=== PATIENT | female | born 1955 | race Caucasian/White ===

== ENCOUNTER 2020-08-27 14:00 | Outpatient (CLI) | payer MEDICARE, SELFPAY ==
--- NOTE | ~2020-08-27 | CT_ITS ---
EXAMINATION: CT lung screening DATE: 08/27/2020 14:30 INDICATION: personal hx of tobacco dependence TECHNIQUE: Computed tomography (CT) of the chest was performed without intravenous contrast. Addition al 3D reconstructions utilizing coronal maximum intensity projection (MIP) were performed. Automated exposure control and iterative reconstruction technique were employed. The dose-length product was 10 3.25 mGy-cm. COMPARISON: 10/08/2018 FINDINGS: Mild to moderate emphysema. Stable appearance of mild left-sided and moderate right-sided apical pleu ral-parenchymal scarring. No significant interval change in three 4-5 mm nodule at the apical segmen t of the right upper lobe. Unchanged 11 x 7 mm pleural-based nodule in the anterior segment of the ri ght upper lobe abutting both the minor fissure and the lateral pleural . There is a new 8 mm ground g lass nodule in the anterobasilar segment of the right lower lobe. Calcified left lower lobe nodule co nsistent with old granulomatous disease. Unchanged scattered groundglass opacities with associated mi ld septal line which is most prominent in the right middle lobe and likely sequela of chronic inflamm ation/infection. No pleural effusion. Heart size is normal. Minimal atherosclerotic calcific lesion a long the right coronary artery. No pericardial effusion. Thoracic aorta is normal in caliber. Calcifi ed left hilar lymph nodes consistent with old granulomatous disease. Slight decrease in size of a mil dly prominent likely reactive precarinal lymph node previously measuring 1.4 cm in maximal short axis diameter, now 1.1 cm. No pathologically enlarged thoracic lymphadenopathy. Cholecystectomy clips the gallbladder fossa. Visualized upper abdomen is otherwise unremarkable. Mild thoracic kyphosis with c hronic T8 compression fracture with 20% anterior vertebral body height loss. IMPRESSION: 1. New 8 mm groundglass nodule in the right lower lobe. Lung-RADS category 3: Probably benign. Furthe r evaluation is recommended with noncontrast low-dose chest CT in 6 months. Reviewed, dictated and finalized at location B. IMPRESSION: 1. New 8 mm groundglass nodule in the right lower lobe. Lung-RADS category 3: P robably benign. Further evaluation is recommended with noncontrast low-dose mervat st CT in 6 months.
== END 2020-08-27 14:01 | disposition home or self-care (01) ==
PROVIDERS: PCP Family Medicine; Visit Provider Family Medicine
DX: R91.1 Solitary pulmonary nodule (principal); Z12.2 Encounter for screening for malignant neoplasm of respiratory organs; Z87.891 Personal history of nicotine dependence
CPT/HCPCS: 71271

== ENCOUNTER 2021-02-05 08:04 | Outpatient (CLI) | payer MEDICARE, SELFPAY ==
--- NOTE | ~2021-02-05 | MM_ITS ---
EXAMINATION: MM screening arleen BI w merlene HISTORY: Screening TECHNIQUE: Craniocaudal and mediolateral oblique 3-D tomosynthesis images were obtained and synthetic 2-D images were generated. CAD analysis was submitted and interpreted. COMPARISON: Comparison to multiple prior studies sequentially, with oldest reviewed study dated 02/01. BREAST PARENCHYMAL COMPOSITION: There are scattered areas of fibroglandular density. FINDINGS: Left breast periareolar nodules are slightly more prominent than on prior examination. The right breast is stable without evidence for malignancy. IMPRESSION: 1. Increased density in possibly size of left periareolar breast nodules. 2. Left breast ultrasound recommended. BI-RADS Category 0: Incomplete: Needs additional imaging evaluation. Reviewed, dictated and finalized at location [facility].
== END 2021-02-05 08:05 | disposition home or self-care (01) ==
LOC: ANHIMG 08:05
PROVIDERS: PCP Family Medicine; Visit Provider Family Medicine
DX: Z12.31 Encounter for screening mammogram for malignant neoplasm of breast (principal); N63.42 Unspecified lump in left breast, subareolar
CPT/HCPCS: 77063; 77067

== ENCOUNTER 2021-03-03 14:20 | Outpatient (CLI) | payer MEDICARE, SELFPAY ==
--- NOTE | ~2021-03-03 | US_ITS ---
US breast LT limited 03/03/2021 15:05 Indication: Follow-up left breast mass Procedure: High-resolution Limited ultrasound of the left breast Comparison: Mammogram dated 02/05/2021 Findings: There is a 4 mm cyst of the left breast in the subareolar location corresponding to the mas s seen on mammography. No definite sonographic correlate to a small mass identified in the lower inne r quadrant of the left breast anteriorly, also likely benign. Impression: 1: Benign left breast cyst in the subareolar location. No definite sonographic correlate to second ma ss seen on mammography which is likely benign. BI-RADS CATEGORY 3-PROBABLY BENIGN FINDING RECOMMENDATION: Six-month follow-up diagnostic left mammogram recommended. Reviewed, dictated and finalized at location [facility]. Impression: 1: Benign left breast cyst in the subareolar location. No definite sonographic correlate to second mass seen on mammography which is likely benign. BI-RADS CATEGORY 3-PROBABLY BENIGN FINDING RECOMMENDATION: Six-month follow-up diagnostic left mammogram recommended.
== END 2021-03-03 14:21 | disposition home or self-care (01) ==
PROVIDERS: PCP Family Medicine; Visit Provider Nurse Practitioner Family
DX: R92.8 Other abnormal and inconclusive findings on diagnostic imaging of breast (principal); N60.02 Solitary cyst of left breast
CPT/HCPCS: 76642

== ENCOUNTER 2021-03-19 08:23 | Outpatient (CLI) | payer MEDICARE, SELFPAY ==
--- NOTE | ~2021-03-19 | CT_ITS ---
EXAMINATION: CT diagnostic chest wo con DATE: 03/19/2021 09:05 INDICATION: Six-month follow-up for probably benign pulmonary nodule identified on lung cancer screen ing CT TECHNIQUE: Computed tomography (CT) of the chest was performed without intravenous contrast. The dose -length product (DLP) was 70.06 mGy-cm. Automated exposure control and iterative reconstruction techn ique were employed. COMPARISON: 08/27/2020 FINDINGS: A 10 mm x 6 mm groundglass nodule of the right lower lobe previously measured 8 mm x 5 mm. There is a new 4 mm nodule of the left lower lobe on image 63. Additional previously described pulmon sotero nodules are stable. There is mild emphysema. Scarring is noted in the right lung apex. There is n o pleural effusion or pneumothorax. The heart size is normal. Chronic mild mediastinal lymphadenopath y is unchanged and likely reactive. There is a chronic mild compression fracture of the T8 vertebral body. IMPRESSION: 1. Slight interval increase in size of a groundglass right lower lobe nodule without solid component and new 4 mm nodule of the left lower lobe. Follow-up CT in six months is recommended. Reviewed, dictated and finalized at location A. IMPRESSION: 1. Slight interval increase in size of a groundglass right lower lobe nodule wi thout solid component and new 4 mm nodule of the left lower lobe. Follow-up CT in six months is recommended.
== END 2021-03-19 08:24 ==
LOC: MICIMG 08:24
PROVIDERS: PCP Family Medicine; Visit Provider Family Medicine
DX: R91.8 Other nonspecific abnormal finding of lung field (principal)
CPT/HCPCS: 71250

== ENCOUNTER 2021-04-23 01:28 | Day surgery (SDC) | payer MEDICARE, SELFPAY ==
[2021-04-07 11:20] VITALS: BMI 23.9
--- NOTE | 2021-04-22 15:43 | WPDGICN ---
Assessment and Plan Assessment and plan (1) Colon cancer screening: Code(s): Z12.11 - Encounter for screening for malignant neoplasm of colon Status: Acute Assessment and Plan: Colonoscopy with possible biopsy or polypectomy or cautery or injection of substances. (2) Weight loss: Code(s): R63.4 - Abnormal weight loss Status: Acute Assessment and Plan: EGD with possible biopsy or dilatation or cautery. GI Consult Note Consult date/time: 04/22/21 15:43 HPI: Megan Lyons is a 65 year old female with a decreased appetite, nausea and weight loss. She is referred for colon cancer screening. Review of Systems Review of Systems: All systems reviewed & are unremarkable except as noted in HPI and below PMFSH Surgical History Surgical History History of cholecystectomy History of D&C Status post hysterectomy Status post tubal ligation Family History Family History Mother Family history of malignant neoplasm Family history of diabetes mellitus in first degree relative Diabetes mellitus Hypertension Family history of primary malignant neoplasm of liver, Onset Age: 73 Family history of lung disease Family history of malignant neoplasm of kidney, Onset Age: 73 Father Family history of lung cancer, Onset Age: 72 Family history of diabetes mellitus in first degree relative Diabetes mellitus Hypertension Grandparent Diabetes mellitus Family history of malignant neoplasm of brain Sibling Hypertension, Onset Age: 63 Patient's brother is Family history of pancreatic cancer Social History Social History Years smoked: 50 Smoking status: Current every day smoker Tobacco type: cigarettes Second hand tobacco smoke exposure: Yes Alcohol intake: never Substance use: former Substance use type: does not use Last use: 03/14/2021 Living arrangements: with family Gender identity (if verbalized by the patient): Female Sexual Orientation (if Verbalized by the Patient): Straight or Heterosexual Meds Home Medications and Allergies Home Medications Medication Instructions Recorded Confirmed Type aspirin 81 mg tablet,delayed 81 mg PO DAILY 05/07/19 04/07/21 History release calcium carbonate 600 mg calcium 1,200 mg PO DAILY tablet 05/07/19 04/07/21 History (1,500 mg) tablet ibandronate 150 mg tablet 150 mg PO MONTHLY 05/07/19 04/07/21 History omega 9-dzv-rqg-fish oil 1,000 mg 1 cap PO DAILY 05/07/19 04/07/21 History (120 mg-180 mg) capsule fluticasone propionate 50 2 spray NASAL DAILY #54.6 ml 11/08/19 04/07/21 Rx mcg/actuation nasal spray,suspension fenofibrate nanocrystallized 145 145 mg PO DAILY #90 tablet 08/04/20 04/07/21 Rx mg tablet albuterol sulfate See Rx Instructions .ROUTE 09/14/20 04/07/21 Rx .COMPLEX #1050 ml fluticasone fur. 100 mcg-umeclid See Rx Instructions .ROUTE 09/14/20 04/07/21 Rx 62.5 mcg-vilant 25 mcg .COMPLEX #180 ea inhalat.powder lisinopril 20 mg tablet See Rx Instructions .ROUTE 09/14/20 04/07/21 Rx .COMPLEX #90 tablet roflumilast 500 mcg tablet 500 mcg PO DAILY #90 tablet 11/04/20 04/07/21 Rx albuterol sulfate 90 mcg/actuation See Rx Instructions .ROUTE 11/10/20 04/07/21 Rx aerosol inhaler .COMPLEX #9 g blood sugar diagnostic #100 ea 11/16/20 12/28/20 Rx trazodone 50 mg tablet See Rx Instructions .ROUTE 11/23/20 04/07/21 Rx .COMPLEX #90 tablet pantoprazole 40 mg tablet,delayed See Rx Instructions .ROUTE 02/19/21 04/07/21 Rx release .COMPLEX #90 tablet pravastatin 20 mg tablet 20 mg PO DAILY #90 tablet 02/19/21 04/07/21 Rx metformin 500 mg tablet,extended 500 mg PO DAILY #90 tablet 03/16/21 04/07/21 Rx release 24 hr ondansetron HCl 4 mg tablet 4 mg PO Q8H PRN #60 tablet 03/30/21 04/07/21 Rx bu
[2021-04-23 12:04] VITALS: BP 172/86; PULSE 93; RESP 24; TEMP 36.6; O2SAT 94; BMI 23.3
[2021-04-23] MEDS: LACTATED RINGERS 1,000 ML 150 ML IV CONT (12:07)
[2021-04-23 12:24] LABS: Glucose Point of Care 88 mg/dl (65-105)
--- NOTE | 2021-04-23 12:42 | WPDANESEPPF ---
Anes - Initial Pre Proc Eval Procedure: Operation Date: 04/23/21 13:15 Proposed Procedures p Esophagogastroduodenoscopy & Screening Colonoscopy - Marv Mac MD Date/Time: 04/23/21 12:42 Surgeon: Marv Mac MD Pre Op Diagnosis: epigastric pain, neoplasm screening Patient Data Age: 65 Gender: F Height: 1.6 m Weight: 59.7 kg Last Vital Signs Temp 36.6 C 04/23/21 12:04 Pulse 93 04/23/21 12:04 Resp 24 H 04/23/21 12:04 BP 172/86 H 04/23/21 12:04 Pulse Ox 94 04/23/21 12:04 Allergies Allergy/AdvReac Type Severity Reaction Status Date / Time amoxicillin Allergy Severe Rash Verified 04/23/21 12:03 oxytetracycline Allergy Severe Rash Verified 04/23/21 12:03 Penicillins Allergy Severe Rash Verified 04/23/21 12:03 strawberry Allergy Severe Rash Verified 04/23/21 12:03 tetracycline Allergy Severe Rash Verified 04/23/21 12:03 zolpidem Allergy Severe Rash Verified 04/23/21 12:03 latex Allergy Itching Verified 04/23/21 12:03 [place] Allergy Severe Headache Uncoded 04/23/21 12:03 TERAMYCIN Allergy Severe Rash Uncoded 04/23/21 12:03 TRIAMOX Allergy Severe Rash Uncoded 04/23/21 12:03 Home Medications Medication Instructions Recorded Confirmed Type aspirin 81 mg tablet,delayed 81 mg PO DAILY 05/07/19 04/07/21 History release calcium carbonate 600 mg calcium 1,200 mg PO DAILY tablet 05/07/19 04/07/21 History (1,500 mg) tablet ibandronate 150 mg tablet 150 mg PO MONTHLY 05/07/19 04/07/21 History omega 9-ajx-zsz-fish oil 1,000 mg 1 cap PO DAILY 05/07/19 04/07/21 History (120 mg-180 mg) capsule fluticasone propionate 50 2 spray NASAL DAILY #54.6 ml 11/08/19 04/07/21 Rx mcg/actuation nasal spray,suspension fenofibrate nanocrystallized 145 145 mg PO DAILY #90 tablet 08/04/20 04/07/21 Rx mg tablet albuterol sulfate See Rx Instructions .ROUTE 09/14/20 04/07/21 Rx .COMPLEX #1050 ml fluticasone fur. 100 mcg-umeclid See Rx Instructions .ROUTE 09/14/20 04/07/21 Rx 62.5 mcg-vilant 25 mcg .COMPLEX #180 ea inhalat.powder lisinopril 20 mg tablet See Rx Instructions .ROUTE 09/14/20 04/07/21 Rx .COMPLEX #90 tablet roflumilast 500 mcg tablet 500 mcg PO DAILY #90 tablet 11/04/20 04/07/21 Rx albuterol sulfate 90 mcg/actuation See Rx Instructions .ROUTE 11/10/20 04/07/21 Rx aerosol inhaler .COMPLEX #9 g blood sugar diagnostic #100 ea 11/16/20 12/28/20 Rx trazodone 50 mg tablet See Rx Instructions .ROUTE 11/23/20 04/07/21 Rx .COMPLEX #90 tablet pantoprazole 40 mg tablet,delayed See Rx Instructions .ROUTE 02/19/21 04/07/21 Rx release .COMPLEX #90 tablet pravastatin 20 mg tablet 20 mg PO DAILY #90 tablet 02/19/21 04/07/21 Rx metformin 500 mg tablet,extended 500 mg PO DAILY #90 tablet 03/16/21 04/07/21 Rx release 24 hr ondansetron HCl 4 mg tablet 4 mg PO Q8H PRN #60 tablet 03/30/21 04/07/21 Rx bupropion HCl 150 mg tablet,12 hr See Rx Instructions .ROUTE 04/19/21 Rx sustained-release .COMPLEX #180 tablet Laboratory Tests 04/23/21 12:20 POC Capillary Glucose 88 mg/dl mg/dl (65-105) Patient hx anesthesia problems: none Family hx anesthesia problems: none Results Review: All pre-operative results and documents have been reviewed as part of the pre-operative evaluation. [facility] Surgical History Surgical History History of cholecystectomy History of D&C Status post hysterectomy Status post tubal ligation Family History Family History Mother Family history of malignant neoplasm Family history of diabetes mellitus in first degree relative Diabetes mellitus Hypertension Family history of primary malignant neoplasm of liver, Onset Age: 73 Family history of lung disease Family history of malignant neoplasm of kidney, Onset Age: 73 Father Family history of lung cancer, Onset Age: 72 Family history of diabetes liza
[2021-04-23] MEDS: BENZOCAINE (*SP) 60 ML SPRAY CAN (HURRICAINE) 1 SPRAY MUCOUS MEM (13:17)
--- NOTE | 2021-04-23 14:04 | SUR.OPER ---
EGD started at 1321 and ended at 1326. Colonoscopy started at 1332 and ended at 1402.
[2021-04-23 14:08] VITALS: BP 172/96; PULSE 88; RESP 24; O2SAT 100
[2021-04-23 14:18] VITALS: BP 176/84; PULSE 84; RESP 24; O2SAT 100
[2021-04-23 14:24] VITALS: BP 176/100; PULSE 77; RESP 24; O2SAT 100
== END 2021-04-23 14:45 | disposition home or self-care (01) ==
PROVIDERS: PCP Family Medicine; Visit Provider Internal Medicine Gastroenterology
PROC: 0DJ08ZZ Inspection of Upper Intestinal Tract, Via Natural or Artificial Opening Endoscopic (ICD-10-PCS; CPT 43235; principal; 2021-04-23 13:15)
DX: Z12.11 Encounter for screening for malignant neoplasm of colon (principal); D12.4 Benign neoplasm of descending colon; K20.90 Esophagitis, unspecified without bleeding; K63.89 Other specified diseases of intestine; R11.0 Nausea; R63.4 Abnormal weight loss; K22.70 Barrett's esophagus without dysplasia; R10.13 Epigastric pain; Z79.82 Long term (current) use of aspirin; Z79.84 Long term (current) use of oral hypoglycemic drugs; Z79.51 Long term (current) use of inhaled steroids; F17.210 Nicotine dependence, cigarettes, uncomplicated
CPT/HCPCS: 45385; 43239; 82948; 88305; J2704; J7120

== ENCOUNTER 2021-05-07 13:00 | Outpatient (CLI) | payer MEDICARE, SELFPAY ==
--- NOTE | ~2021-05-07 | CT_ITS ---
EXAMINATION: CT abdomen pelvis wo con DATE: 05/07/2021 13:22 INDICATION: Epigastric abdominal pain, nausea, loss of appetite. Abnormal weight loss. TECHNIQUE: Computed tomography (CT) of the abdomen and pelvis was performed without intravenous contr ast. Automated exposure control and iterative reconstruction technique were employed. Exam dose: 442 .92 mGy-cm total exam DLP. COMPARISON: 12/06/2011 PET/CT scan 03/19/2021 CT chest FINDINGS: 9 mm right lower lobe groundglass nodule appears stable since 03/19/2021. Small focal groun dglass infiltrate at the left lung base is new since 03/19/2021. Six-month follow-up CT chest was recommended on the 03/19/2021 CT thorax examination. Left lower lobe calcified pulmonary granuloma. Mild emphysematous changes are noted. Normal heart size. No pericardial or pleural effusion. Small sliding hiatal hernia. Status post cholecystectomy. No hepatic, splenic, pancreatic, and adrenal or renal space-occupying ma ss lesion is evident on this limited noncontrast examination. There is abdominal aortic calcification. No intraperitoneal or retroperitoneal or pelvic mass lesion or adenopathy or ascites is noted. The urinary bladder is relatively evacuated. Status post hysterectomy. Normal appendix. Minimal colonic diverticulosis; no CT evidence of diverticulitis. No bowel obstruction, bowel wall thickening, pneumatosis or intraperitoneal free air is detected. Very small fat-containing umbilical hernia. No suspicious osteolytic or osteoblastic lesions. IMPRESSION: Bilateral lower lobe groundglass nodule; six-month CT thorax follow-up has been recommen ded on 03/19/2021 CT thorax examination Mild emphysema Status post cholecystectomy Status post hysterectomy Reviewed, dictated and finalized at [facility]. Reviewed, dictated and finalized at location [facility]. [employer] IMPRESSION: Bilateral lower lobe groundglass nodule; six-month CT thorax follo w-up has been recommended on 03/19/2021 CT thorax examination Mild emphysema Status post cholecystectomy Status post hysterectomy
== END 2021-05-07 13:01 ==
PROVIDERS: PCP Family Medicine; Visit Provider Family Medicine
DX: R63.4 Abnormal weight loss (principal); R10.13 Epigastric pain; Z90.49 Acquired absence of other specified parts of digestive tract; J43.9 Emphysema, unspecified; R91.8 Other nonspecific abnormal finding of lung field
CPT/HCPCS: 74176

== ENCOUNTER 2021-06-20 05:51 | Emergency (ER) | payer MEDICARE, SELFPAY ==
[2021-06-20 06:00] VITALS: BP 160/98; PULSE 113; RESP 26; TEMP 37.1; O2SAT 96
[2021-06-20 06:51] LABS: Basophils Percent Auto 0.5 % (0.2-1.2); Eosinophils Percent Auto 0.2 % (0-4.4); Hematocrit 41.7 % (37.0-47.0); Immature Granulocyte Absolute 0.04 K/mm3 (0.00-0.031); Immature Granulocyte Percent A 0.6 % (0-0.5); Lymphocytes Absolute Auto 0.67 K/mm3 (0.9-3.2); Lymphocytes Percent Auto 10.1 % (18.3-44.2); Mean Corpuscular HGB Conc 33.6 g/dl (32-36); Mean Corpuscular Hemoglobin 28.3 pg (26-34); Mean Corpuscular Volume 84.4 fl (80-100); Mean Platelet Volume 10.6 fl (7.4-10.4); Monocytes Absolute Auto 0.5 K/mm3 (0.1-0.6); Monocytes Percent Auto 7.1 % (2.6-8.5); Neutrophils Absolute Auto 5.4 K/mm3 (1.3-6.7); Neutrophils Percent Auto 81.5 % (45.5-73.1); Platelet Count Result 202 k/mm3 (150-375); Red Blood Count 4.94 M/mm3 (4.2-5.4); Red Cell Distribution Width 12.8 % (11.5-14.5); White Blood Count 6.6 K/mm3 (4.5-10.0)
[2021-06-20 07:12] LABS: Alanine Aminotransferase 16 U/L (4-35); Albumin Level 4.5 g/dL (3.5-5.1); Alkaline Phosphatase 67 U/L (38-126); Anion Gap 8 mmol/L (8-16); Aspartate Amino Transferase 27 U/L (14-36); Bilirubin,Total 0.9 mg/dL (0.2-1.3); Blood Urea Nitrogen 17 mg/dL (7-17); Calcium 9.4 mg/dL (8.4-10.2); Carbon Dioxide 26 mmol/L (22-30); Chloride 101 mmol/L (98-107); Estimated CRCL calculation 36 ml/min; Estimated Glomerular Filt Rate 49; Glucose 117 mg/dL (65-110); Lipase 62 U/L (23-300); Potassium 3.6 mmol/L (3.4-5.0); Sodium 135 mmol/L (137-145)
--- NOTE | 2021-06-20 08:17 | ED.NAVMDI ---
HPI - Nausea/Vomiting/Diarrhea General Chief complaint: Nausea/Vomiting/Diarrhea Stated complaint: N/V low back pain, COVID + family in home Time Seen by Provider: 06/20/21 07:32 Source: patient Mode of arrival: ambulatory Limitations: no limitations History of Present Illness HPI Narrative: 66-year-old female She had a household contact who is Covid positive She is immunized and she has a history of COPD and she uses nebulizers at home for that, although she has not used a neb yet today She now complains of a 2-day history of some nausea vomiting and diarrhea And a 1 day history of muscle aches, mostly low back pain She denies any urinary symptoms and does not have a fever Related Data Home Medications Medication Instructions Recorded Confirmed aspirin 81 mg tablet,delayed 81 mg PO DAILY 05/07/19 05/03/21 release calcium carbonate 600 mg calcium 1,200 mg PO DAILY tablet 05/07/19 05/03/21 (1,500 mg) tablet ibandronate 150 mg tablet 150 mg PO MONTHLY 05/07/19 05/03/21 omega 1-dkm-gsf-fish oil 1,000 mg 1 cap PO DAILY 05/07/19 05/03/21 (120 mg-180 mg) capsule Allergies Allergy/AdvReac Type Severity Reaction Status Date / Time amoxicillin Allergy Severe Rash Verified 06/20/21 06:07 oxytetracycline Allergy Severe Rash Verified 06/20/21 06:07 Penicillins Allergy Severe Rash Verified 06/20/21 06:07 strawberry Allergy Severe Rash Verified 06/20/21 06:07 tetracycline Allergy Severe Rash Verified 06/20/21 06:07 zolpidem Allergy Severe Rash Verified 06/20/21 06:07 latex Allergy Itching Verified 06/20/21 06:07 [place] Allergy Severe Headache Uncoded 06/20/21 06:07 TERAMYCIN Allergy Severe Rash Uncoded 06/20/21 06:07 TRIAMOX Allergy Severe Rash Uncoded 06/20/21 06:07 Review of Systems Review of Systems: All systems reviewed & are unremarkable except as noted in HPI and below Constitutional: Constitutional: Reports no additional constitutional complaints, Denies chills, Reports fatigue, Denies fever(s), Denies headache(s) and Reports weakness Eyes: Eyes: Reports no additional eye complaints and Denies change in vision ENT: Denies headache(s) and Denies sore throat Cardiovascular: Cardiovascular: Denies chest pain and Denies dyspnea Respiratory: Respiratory: Reports chest congestion, Denies cough, Denies dyspnea and Reports wheezing Gastrointestinal: Gastrointestinal: Denies abdominal pain, Reports diarrhea, Reports nausea and Reports vomiting Genitourinary: Genitourinary: Denies urinary frequency and Denies dysuria Musculoskeletal: Musculoskeletal: Reports myalgias, Denies deformity, Reports arthralgias, Denies joint swelling and Denies numbness Integumentary/Breasts: Skin/Breast: Denies rash and Denies wounds Neurologic: Denies headache(s), Denies focal weakness and Denies numbness Psychiatric: Psychiatric: Reports no additional psychiatric complaints Endocrine: Endocrine: Reports no additional endocrine complaints Hematologic/Lymphatic: Hematologic/Lymphatic: Reports no additional hematologic/lymphatic complaints Allergic/Immunologic: Allergic/Immunologic: Reports no additional allergic/immunologic complaints [facility] Surgical History Surgical History History of cholecystectomy History of D&C Status post hysterectomy Status post tubal ligation Family History Family History Mother Family history of malignant neoplasm Family history of diabetes mellitus in first degree relative Diabetes mellitus Hypertension Family history of primary malignant neoplasm of liver, Onset Age: 73 Family history of lung disease Family history of malignant neoplasm of kidney, Onset Age: 73 Father Family history of lung cancer, Onset Age: 72 Family history of diabetes mellitus in first degree relative Diabetes mellitus Hypertension Grandparent Diabetes mellitus Family histor
[2021-06-20] MEDS: ONDANSETRON INJ 4 MG/2 ML VIAL IV PUSH (08:25)
[2021-06-20] MEDS: LACTATED RINGERS 1,000 ML 999 ML IV CONT (08:25)
[2021-06-20] MEDS: ACETAMINOPHEN 500 MG TABLET 1000 MG PO (08:25)
[2021-06-20 08:30] VITALS: BP 135/92; PULSE 92; RESP 16; O2SAT 100
[2021-06-20 09:29] LABS: Add Urine Microscopic? YES; Appearance Urine Clear (Clear); Bacteria Urine Trace /hpf; Bilirubin Urine Negative (Negative); Blood Urine 1+ (Negative); Color Urine Yellow (Yellow); Glucose Urine UA Negative (Negative); Ketones Urine Trace mg/dL (Negative); Leukocyte Esterase Ur Negative LEU/UL (Negative); Mucus Urine Moderate /lpf; Nitrate Urine Negative (Negative); Protein Urine 1+ mg/dL (Negative); Specific Grav Ur 1.027 (1.001-1.035); Squamous Epithelial Cell Urine Occasional /hpf (Few); WBC Urine 0-3 /hpf
[2021-06-20 09:58] VITALS: BP 132/67; PULSE 92; RESP 16; O2SAT 97
[2021-06-20 12:28] LABS: SARS-CoV-2 RNA PCR Negative
== END 2021-06-20 09:59 | disposition home or self-care (01) ==
PROVIDERS: Emergency Medicine; Emergency Provider Emergency Medicine; PCP Family Medicine
DX: R19.7 Diarrhea, unspecified (principal); R11.10 Vomiting, unspecified; Z20.822 Contact with and (suspected) exposure to COVID-19; J44.9 Chronic obstructive pulmonary disease, unspecified; F17.210 Nicotine dependence, cigarettes, uncomplicated
CPT/HCPCS: 36415; 80053; 81001; 83690; 85025; 96361; 96374; 96375; 99284; A9270; C9803; J1100; J2405; J7120; U0003; U0005

== ENCOUNTER 2021-09-09 11:56 | Outpatient (CLI) | payer MEDICARE, SELFPAY ==
--- NOTE | ~2021-09-09 | MMUS_ITS ---
EXAMINATION: MM diagnostic arleen LT w merlene, US breast LT limited HISTORY: Six-month follow-up of subareolar cyst TECHNIQUE: ML, MLO and CC 3-D tomosynthesis images of the left breast were performed and synthetic 2- D images were generated. CAD analysis was submitted and interpreted. High resolution breast ultrasoun d was performed. COMPARISON: 03/03/2021 left breast ultrasound Limited examination 02/05/2021 bilateral screening mammogram BREAST PARENCHYMAL COMPOSITION: There are scattered areas of fibroglandular density. FINDINGS: MAMMOGRAPHIC FINDINGS: A circumscribed 3 mm subareolar opacity is again noted, stable in appearance since 2020. No suspicious mass, architectural distortion, malignant calcification, skin thickening or retraction is evident. ULTRASOUND: Parallel circumscribed up to 3.5 x 1.6 mm sonolucency is noted in the subareolar area, compatible wit h simple cyst. Another 2.4 x 5.3 mm cyst is noted in the subareolar area. No suspicious mass or shadowing is evident. IMPRESSION: 1. No mammographic evidence of malignancy 2. Routine mammographic screening is recommended BI-RADS Category 2: Benign finding(s). Reviewed, dictated and finalized at location A. IMPRESSION: 1. No mammographic evidence of malignancy 2. Routine mammographic screening is recommended BI-RADS Category 2: Benign finding(s).
== END 2021-09-09 11:57 | disposition home or self-care (01) ==
PROVIDERS: PCP Family Medicine; Visit Provider Nurse Practitioner Family
DX: N63.20 Unspecified lump in the left breast, unspecified quadrant (principal); N60.02 Solitary cyst of left breast
CPT/HCPCS: 76642; 77061; 77065; G0279

== ENCOUNTER 2021-09-16 08:41 | Outpatient (CLI) | payer MEDICARE, SELFPAY ==
--- NOTE | ~2021-09-16 | CT_ITS ---
EXAMINATION: CT diagnostic chest wo con DATE: 09/16/2021 09:20 INDICATION: R91.8 - Other nonspecific abnormal finding of lung field TECHNIQUE: Computed tomography (CT) of the chest was performed without intravenous contrast. Addition al 3D reconstructions utilizing coronal maximum intensity projection (MIP) were performed. Automated exposure control and iterative reconstruction technique were employed. The dose-length product was 12 3.77 mGy-cm. COMPARISON: 03/19/2021 FINDINGS: Mild emphysema. Unchanged 10 x 6 mm groundglass nodule in the right lower lobe. Also unchanged is a 1 1 x 9 mm solid right upper lobe nodule along the minor fissure. There are a few additional unchanged 5 mm or smaller pulmonary nodules in the right upper lobe. Small calcified left lower lobe nodule and calcified left hilar lymph nodes consistent with old granulomatous disease. No new or enlarging pulm onary nodules. No pneumonia, pulmonary edema or pleural effusion. Heart size is normal. No pericardia l effusion. Thoracic aorta is normal in caliber. No pathologically enlarged thoracic lymphadenopathy. Cholecystectomy clips at the gallbladder fossa. Mild thoracic spondylosis. Stable appearance of a ch ronic mild T8 compression fracture. IMPRESSION: 1. No interval change in a few bilateral calcified pulmonary nodules in the right lung. Recommend add itional 6 month follow-up noncontrast chest CT for evaluation of a 10 x 6 mm groundglass nodule in th e right lower lobe which had previously increased in size from 08/27/2020. 2. Mild emphysema. Reviewed, dictated and finalized at location B. IMPRESSION: 1. No interval change in a few bilateral calcified pulmonary nodules in the rig ht lung. Recommend additional 6 month follow-up noncontrast chest CT for evalua tion of a 10 x 6 mm groundglass nodule in the right lower lobe which had previo usly increased in size from 08/27/2020. 2. Mild emphysema.
== END 2021-09-16 08:42 | disposition home or self-care (01) ==
LOC: ANHIMG 08:48
PROVIDERS: PCP Family Medicine; Visit Provider Physician Assistant
DX: R91.8 Other nonspecific abnormal finding of lung field (principal); R93.89 Abnormal findings on diagnostic imaging of other specified body structures; M47.814 Spondylosis without myelopathy or radiculopathy, thoracic region; J43.9 Emphysema, unspecified; M48.54XA Collapsed vertebra, not elsewhere classified, thoracic region, initial encounter for fracture
CPT/HCPCS: 71250

== ENCOUNTER 2021-10-04 16:18 | Outpatient (CLI) | payer MEDICARE, SELFPAY ==
--- NOTE | ~2021-10-04 | XR_ITS ---
EXAM: XR ribs RT 2V w CXR 2V HISTORY: R07.81 - Pleurodynia . COMPARISON: None available. FINDINGS: Emphysematous changes and senescent changes in the lungs. Stable cardiomediastinal silhoue tte. Decreased mineralization. No fracture or dislocation. No lytic or blastic lesion. Joint spaces m aintained. No erosion or periosteal change. Soft tissues within normal limits. IMPRESSION: No acute osseous finding in the chest or right ribs. Reviewed, dictated and finalized at location K.
== END 2021-10-04 16:19 | disposition home or self-care (01) ==
PROVIDERS: PCP Family Medicine; Visit Provider Physician Assistant
DX: R07.81 Pleurodynia (principal); Z91.81 History of falling
CPT/HCPCS: 71046; 71100

== ENCOUNTER 2021-10-28 07:51 | Outpatient (CLI) | payer MEDICARE, SELFPAY ==
--- NOTE | ~2021-10-28 | PE_ITS ---
EXAMINATION: PET skull to mid thigh DATE: 10/28/2021 09:28 INDICATION: Lung mass. TECHNIQUE: Blood glucose level was 92 mg/dL. 10.048 mCi of 18-fluorodeoxyglucose (18-FDG) was adminis tered i.v. Low dose computed tomography (CT) images were acquired from the base of the brain to the p roximal thighs for attenuation correction and anatomic localization. Automated exposure control was e mployed. Dose-length product (DLP) was 480 mGy-cm. Positron emission tomography (PET) images were acq uired in the same distribution. COMPARISON: Chest CT 09/08/2021, 05/07/21, 08/27/20, 10/08/18 FINDINGS: Head/neck: There is increased activity in the oral cavity, pharynx, paravertebral muscles, major sali vary glands, and glottis without abnormal CT correlate, likely physiologic. There are no pathological ly enlarged lymph nodes. Chest: There is mild scarring at the lung apices with increased activity. There is mild emphysema. Th ere is a 10 mm nodule in right upper lobe with maximum SUV of 1.4, stable from 10/08/18. There is a 9 mm part-solid nodule in right lower lobe without increased activity that measured 7 mm on 08/27/20. The re is a 6 mm nodule in right upper lobe without increased activity that measured 5 mm on 08/27/20. A ca lcified left lung nodule and calcified left hilar lymph nodes are consistent with old granulomatous d isease. No pleural effusion. The heart size is normal. No pericardial effusion. Abdomen/pelvis/proximal thighs: The liver is normal. There are changes of cholecystectomy. The pancre as, spleen, adrenal glands, and kidneys are normal. There are no dilated loops of bowel. There are no dilated loops of bowel. The appendix is normal. There are no pathologically enlarged lymph nodes. Th ere is no free intraperitoneal fluid. There is no osseous malignancy. IMPRESSION: 1. Small pulmonary nodules without increased activity with increase in size in 2 nodules from , probably benign. Noncontrast chest CT is recommended in 6 months. Reviewed, dictated and finalized at location A. IMPRESSION: 1. Small pulmonary nodules without increased activity with increase in size in 2 nodules from 08/27/2020, probably benign. Noncontrast chest CT is recommended i n 6 months.
[2021-10-28 08:09] LABS: Glucose Point of Care 92 mg/dl (65-105)
== END 2021-10-28 07:52 | disposition home or self-care (01) ==
PROVIDERS: PCP Family Medicine; Visit Provider Internal Medicine Hematology & Oncology
DX: R91.8 Other nonspecific abnormal finding of lung field (principal)
CPT/HCPCS: 78815; A9552

== ENCOUNTER 2021-11-25 17:38 | Outpatient (CLI) | payer MEDICARE, SELFPAY ==
--- NOTE | ~2021-11-25 | CT_ITS ---
EXAMINATION: CT brain wo con DATE: 11/25/2021 18:06 INDICATION: Blackout episode TECHNIQUE: Computed tomography (CT) of the head was performed without intravenous contrast. The mA wa s adjusted according to patient size. Iterative reconstruction technique was employed. Exam dose: 60 5.33 mGy-cm total exam DLP. COMPARISON: 05/08/2017 CT brain FINDINGS: No intracranial mass lesion or hemorrhage or cerebrovascular accident. No midline shift or mass effect effect. Normal ventricular size. Bilateral carotid siphon internal carotid artery calcifications. There is nonspecific diminished atte nuation cerebral white matter, likely due to chronic small vessel ischemic changes. No subdural or epidural hematoma. No fracture or bone destruction of the cranial vault. Included paranasal sinuses and mastoid air cells are unremarkable. IMPRESSION: Cerebral atherosclerosis and chronic small vessel ischemic changes of the cerebral white matter No acute intracranial finding or Reviewed, dictated and finalized at Location A. Reviewed, dictated and finalized at location A.
== END 2021-11-25 17:39 | disposition home or self-care (01) ==
PROVIDERS: PCP Family Medicine; Visit Provider Nurse Practitioner Family
DX: G45.9 Transient cerebral ischemic attack, unspecified (principal); I67.2 Cerebral atherosclerosis
CPT/HCPCS: 70450

== ENCOUNTER 2021-11-29 14:31 | Outpatient (CLI) | payer MEDICARE, SELFPAY ==
--- NOTE | ~2021-11-29 | US_ITS ---
EXAMINATION: US carotid duplex BI DATE: 11/29/2021 16:28 INDICATION: Transient cerebral ischemic attack TECHNIQUE: Grayscale, color Doppler, and pulsed Doppler images of the cervical carotid arteries were obtained. The degree of vessel stenosis is placed in one of the following categories: normal, <50%, 5 0-69%, >=70% but less than near-occlusion, near-occlusion, or total occlusion. Note that percent sten osis relative to normal distal artery lumen diameter is indirectly measured from velocity measurement s as described by Giovanni, et al. Radiology 2003; [id number]. Notes: Normal: Peak systolic velocity <125 centimeters/sec and no plaque <50%. Peak systolic velocity <125 ( EDV <40; ICA/CCA PSV ratio <2.0; used these factors only a tandem lesions or low cardiac output or co ntralateral disease) 50-69 %: PSV 125-230 (EDV 40-100; ratio 2-4) >= 70% but less than near occlusion: PSV greater than 230 (EDV > 100; ratio> 4.0) Near Occlusion: PSV that is variable; markedly narrowed lumen Occlusion: Absent flow on color/spectral Doppler and no lumen on leo scale. COMPARISON: None. FINDINGS: RIGHT: The right common carotid artery (CCA) peak systolic velocity (PSV) is 67 cm/s. The right internal car otid artery (ICA) PSV is 96 cm/s. The right ICA end-diastolic velocity (EDV) is 30 cm/s. The right IC A/CCA PSV ratio is 1.4. The external carotid artery (ECA) PSV is 83 cm/s. There is antegrade flow in the right vertebral artery. LEFT: The left CCA PSV is 71 cm/s. The left ICA PSV is 86 cm/s. The left ICA EDV is 23 cm/s. The left ICA/C CA PSV ratio is 1.2. The ECA PSV is 64 cm/s. There is antegrade flow in the left vertebral artery. IMPRESSION: 1. Less than 50% stenosis in the right internal carotid artery by sonographic criteria. 2. Less than 50% stenosis in the left internal carotid artery by sonographic criteria. Reviewed, dictated and finalized at location A. IMPRESSION: 1. Less than 50% stenosis in the right internal carotid artery by sonographic angie oro. 2. Less than 50% stenosis in the left internal carotid artery by sonographic aniya sotomayor.
== END 2021-11-29 14:32 | disposition home or self-care (01) ==
PROVIDERS: PCP Family Medicine; Visit Provider Nurse Practitioner Family
DX: I65.23 Occlusion and stenosis of bilateral carotid arteries (principal)
CPT/HCPCS: 93880

== ENCOUNTER 2022-03-10 08:37 | Outpatient (CLI) | payer MEDICARE, SELFPAY ==
--- NOTE | ~2022-03-10 | CT_ITS ---
EXAMINATION: CT diagnostic chest wo con DATE: 03/10/2022 09:19 INDICATION: Lung nodule, shortness of breath TECHNIQUE: Computed tomography (CT) of the chest was performed without intravenous contrast. The dose -length product (DLP) was 95.08 mGy-cm. Automated exposure control and iterative reconstruction techn ique were employed. COMPARISON: 10/28/2021, 09/16/2021, 08/27/2020 FINDINGS: There is a stable 10 mm subpleural nodule of the right upper lobe. There is a stable 9 mm p art solid nodule in the right lower lobe. A stable 6 mm subsolid nodule is present in the right upper lobe. No pleural effusion or pneumothorax. Calcified pulmonary nodules and calcified left hilar lymp h nodes are consistent with old granulomatous disease. There is scarring in the right lung apex. Ther e is mild emphysema. No pathologically enlarged thoracic lymph nodes are identified. The heart size i s normal. The gallbladder is surgically absent. There is mild thoracic spondylosis. IMPRESSION: 1. Stable right lung nodules, probably benign. Follow-up low-dose chest CT in six months is recommend ed. Reviewed, dictated and finalized at location B. IMPRESSION: 1. Stable right lung nodules, probably benign. Follow-up low-dose chest CT in s ix months is recommended.
== END 2022-03-10 08:38 | disposition home or self-care (01) ==
PROVIDERS: PCP Family Medicine; Visit Provider Internal Medicine Hematology & Oncology
DX: R91.1 Solitary pulmonary nodule (principal); R91.8 Other nonspecific abnormal finding of lung field
CPT/HCPCS: 71250

== ENCOUNTER 2022-06-05 10:12 | Emergency (ER) | payer MEDICARE, SELFPAY ==
--- NOTE | ~2022-06-05 | XR_ITS ---
XR shoulder RT min 2V DATE: 06/05/2022 12:06 INDICATION: Increasing right shoulder pain radiating down arm. No known injury. TECHNIQUE: 4 views COMPARISON: 04/26/2018 right shoulder FINDINGS: Normal alignment at the sternoclavicular, acromioclavicular and glenohumeral joints. No fra cture or dislocation, periosteal reaction or bone destruction of the right shoulder. No abnormal soft tissue calcification is noted. IMPRESSION: Negative Reviewed, dictated and finalized at location A. [facility] IMPRESSION: Negative
[2022-06-05 10:19] VITALS: BP 114/67; PULSE 99; RESP 17; TEMP 36.5; O2SAT 97
--- NOTE | 2022-06-05 11:20 | ED.UPPEXIN ---
HPI - Extremity Injury (Upper) General Chief Complaint: Extremity Injury, Upper Stated Complaint: right arm pain Time Seen by Provider: 06/05/22 10:57 Source: patient Mode of arrival: ambulatory Limitations: no limitations History of Present Illness HPI narrative: 67 years old white female wake up at 4:30 this morning with severe pain of the right upper extremity and hand, associated with numbness, no weakness. Patient had a lot of work and cleaning at home yesterday, patient is right-handed, history of right upper extremity pain and spasm years ago of unknown etiology. History of kyphosis and osteoporosis. History of hypertension, hyperlipidemia, CVA with cognitive impairment which resolved for few weeks, currently on aspirin, patient is a smoker, drinks occasionally and uses marijuana daily. She denies any headache, chest pain, shortness of breath, fever or chills. Right upper extremity pain worse with certain movement and position, patient did not try any pain medication since the beginning of the pain until now. Related Data Home Medications Medication Instructions Recorded Confirmed aspirin 81 mg tablet,delayed 81 mg PO DAILY 05/07/19 05/09/22 release Allergies Allergy/AdvReac Type Severity Reaction Status Date / Time amoxicillin Allergy Severe Rash Verified 06/05/22 10:21 oxytetracycline Allergy Severe Rash Verified 06/05/22 10:21 Penicillins Allergy Severe Rash Verified 06/05/22 10:21 strawberry Allergy Severe Rash Verified 06/05/22 10:21 tetracycline Allergy Severe Rash Verified 06/05/22 10:21 zolpidem Allergy Severe Rash Verified 06/05/22 10:21 latex Allergy Itching Verified 06/05/22 10:21 Maple Tree Allergy Severe Headache Uncoded 02/17/22 11:24 TERAMYCIN Allergy Severe Rash Uncoded 02/17/22 11:24 TRIAMOX Allergy Severe Rash Uncoded 02/17/22 11:24 Review of Systems Review of Systems: All systems reviewed & are unremarkable except as noted in HPI and below PMFSH Surgical History Surgical History History of cholecystectomy History of D&C Status post hysterectomy Status post tubal ligation Family History Family History Mother Family history of malignant neoplasm Family history of diabetes mellitus in first degree relative Diabetes mellitus Hypertension Family history of primary malignant neoplasm of liver, Onset Age: 73 Family history of lung disease Family history of malignant neoplasm of kidney, Onset Age: 73 Father Family history of lung cancer, Onset Age: 72 Family history of diabetes mellitus in first degree relative Diabetes mellitus Hypertension Grandparent Diabetes mellitus Family history of malignant neoplasm of brain Sibling Hypertension, Onset Age: 63 Patient's brother is Family history of pancreatic cancer Social History Social History Years smoked: 50 Smoking status: Current every day smoker Tobacco type: cigarettes Second hand tobacco smoke exposure: Yes Alcohol intake: never Substance use: former Substance use type: does not use Last use: 03/14/2021 Gender identity (if verbalized by the patient): Female Sexual Orientation (if Verbalized by the Patient): Straight or Heterosexual Exam Narrative: General appearance: Well-developed, well-nourished Skin: Normal color Head: Normocephalic, nontraumatic Eyes: Clear conjunctiva ENT: Oropharynx normal, ears normal, nose normal Neck: Supple, nontender Chest and respiratory: Airway patent, no respiratory distress, no accessory muscle use Heart: Regular rate/rhythm Abdomen: Soft, nontender, no organomegaly, quiet bowel sounds Vascular: Normal peripheral pulses, normal capillary refill. Musculoskeletal: Kyphosis, diffuse tenderness of the upper back bilaterally, mainly on the right side, diffuse tenderness of the right
[2022-06-05] MEDS: HYDROcodone/acetaminophen (*CRX) 5-325 MG TABLET 1 TAB PO (11:34)
[2022-06-05] MEDS: diazePAM (*CRX) 5 MG TABLET PO (11:34)
[2022-06-05] MEDS: KETOROLAC (*BKC) 60 MG/2 ML VIAL IM (11:34)
[2022-06-05 14:00] VITALS: BP 130/88; PULSE 80; RESP 16; O2SAT 98
== END 2022-06-05 14:01 | disposition home or self-care (01) ==
PROVIDERS: Emergency Provider Emergency Medicine; PCP Family Medicine
DX: S46.911A Strain of unspecified muscle, fascia and tendon at shoulder and upper arm level, right arm, initial encounter (principal); I10 Essential (primary) hypertension; E78.5 Hyperlipidemia, unspecified; Z86.73 Personal history of transient ischemic attack (TIA), and cerebral infarction without residual deficits; Z90.710 Acquired absence of both cervix and uterus; F17.210 Nicotine dependence, cigarettes, uncomplicated; Z79.82 Long term (current) use of aspirin; X50.9XXA Other and unspecified overexertion or strenuous movements or postures, initial encounter; Y93.E9 Activity, other interior property and clothing maintenance
CPT/HCPCS: 73030; 96372; 99283; A9270; J1885

== ENCOUNTER 2022-08-11 15:08 | Outpatient (CLI) | payer MEDICARE, MEDICAID, SELFPAY ==
--- NOTE | ~2022-08-11 | XR_ITS ---
XR shoulder LT min 2V DATE: 08/11/2022 15:35 INDICATION: Left shoulder pain for 6 weeks. No injury. TECHNIQUE: 4 views COMPARISON: None FINDINGS: There is osteopenia. No fracture or dislocation, periosteal reaction or bone destruction or abnormal soft tissue calcification. IMPRESSION: Osteopenia Reviewed, dictated and finalized at location A. IMPRESSION: Osteopenia
== END 2022-08-11 15:09 | disposition home or self-care (01) ==
PROVIDERS: PCP Family Medicine; Visit Provider Physician Assistant
DX: M85.812 Other specified disorders of bone density and structure, left shoulder (principal); M25.512 Pain in left shoulder; M79.622 Pain in left upper arm
CPT/HCPCS: 73030

== ENCOUNTER 2022-09-15 09:25 | Outpatient (CLI) | payer MEDICARE, SELFPAY ==
--- NOTE | ~2022-09-15 | CT_ITS ---
CT Scan of the Chest without Contrast: Clinical Indication: Pulmonary nodule Technique: Contiguous sections were acquired throughout the chest without intravenous contrast. Dose reduction technique was used on this scan by utilizing automated exposure control and iterative recon struction technique. The dose-length product (DLP) was 86.57 mGy-cm. COMPARISON: 03/10/2022, 09/08/2021, 03/19/2021 Findings: There is no evidence of any significant mediastinal, hilar or axillary lymphadenopathy. The mediastin al soft tissues appear normal. There is no evidence of pleural or pericardial effusion. Stable biapical scarring noted. Stable 7 mm right upper lobe pulmonary nodule (axial image 32). There is stable 1 cm pleural-based nodule at the right upper lobe (axial image 53). Groundglass nodule in the right lower lobe probably minimally increased since 2020, measuring 12 mm in diameter (axial imag e 78). Images through the upper abdomen reveal no abnormalities. Impression: Right-sided pulmonary nodules are stable in distribution from prior exam. Groundglass nodule right lo wer lobe is probably minimally increased since 2020. These nodules are likely benign. Reviewed, dictated and finalized at location . Impression: Right-sided pulmonary nodules are stable in distribution from prior exam. Groun dglass nodule right lower lobe is probably minimally increased since 2020. Thes e nodules are likely benign.
== END 2022-09-15 09:26 | disposition home or self-care (01) ==
PROVIDERS: PCP Family Medicine; Visit Provider Internal Medicine Hematology & Oncology
DX: R91.8 Other nonspecific abnormal finding of lung field (principal)
CPT/HCPCS: 71250

== ENCOUNTER 2022-09-18 18:17 | Emergency (ER) | payer MEDICARE, SELFPAY ==
--- NOTE | ~2022-09-18 | XR_ITS ---
EXAMINATION: XR chest 2V DATE: 09/18/2022 19:58 INDICATION: Cough and shortness of breath TECHNIQUE: Frontal and lateral views of the chest are obtained COMPARISON: 10/04/2021 FINDINGS: The lungs are free of acute opacities. No pleural effusion or pneumothorax. The cardiomedia stinal silhouette is normal. There is moderate thoracic spondylosis. There is a chronic mid thoracic compression fracture without change. IMPRESSION: 1. No acute cardiopulmonary abnormality. Reviewed, dictated and finalized at location F.
--- NOTE | ~2022-09-18 | CT_ITS ---
EXAMINATION: CT abdomen pelvis w con INDICATION: Upper abdominal pain TECHNIQUE: Computed tomographic images of the abdomen and pelvis were obtained after the administrati on of 100 cc of Omnipaque 350 intravenous contrast. The dose-length product (DLP) was 257.25 mGy-cm. Automated exposure control and iterative reconstruction technique were employed. COMPARISON: 05/07/2021 FINDINGS: Minimal dependent atelectasis is present in the lung bases. The heart size is normal. The g allbladder is surgically absent. There is mild enlargement of the common bile duct and central intrah epatic ducts which is likely due to post cholecystectomy state. The liver, spleen, pancreas, and adre nal glands are normal. The kidneys are unremarkable. No pathologically enlarged abdominal or pelvic l ymph nodes are identified. There is calcified atherosclerosis of the aorta and many of the other connie gwen. The appendix is normal. IMPRESSION: 1. No CT correlate for the patient's symptoms. Reviewed, dictated and finalized at location F.
[2022-09-18 18:36] VITALS: BP 127/77; PULSE 105; RESP 18; TEMP 36.8; O2SAT 98
--- NOTE | 2022-09-18 19:21 | ECG_ITS ---
Measurements Intervals [place] Rate: 91 P: 74 NE: 179 QRS: -13 QRSD: 121 T: 73 QT: 384 QTc: 474 Interpretive Statements SINUS RHYTHM INCOMPLETE LEFT BUNDLE BRANCH BLOCK DELAYED PRECORDIAL R/S TRANSITION BASELINE ARTIFACT- I, III, AVL, AVF, V3 ABNORMAL ECG NO PREVIOUS ECG AVAILABLE FOR COMPARISON Electronically Signed On 09-19-2022 6:36:58 CDT by Troy Price D.O.
--- NOTE | 2022-09-18 19:22 | ED.ABDPAIN ---
HPI - Abdominal Pain General Chief Complaint: Abdominal Pain Stated Complaint: abd pain Time Seen by Provider: 09/18/22 18:55 History of Present Illness HPI narrative: Patient is a 67-year-old female with a history of COPD, hypertension, hyperlipidemia, GERD presenting with abdominal pain. Patient states that for the last 2 days she has been suffering from URI symptoms. States that for the last day and a half she has been persistently nauseated and only able to keep down several bottles of water. States that since this morning she has had severe epigastric pain that goes into her back. States that she has been trying to vomit but she has been unable to do so. States that she had an episode of diarrhea earlier today. No melena or hematochezia. No hemoptysis or hematemesis. She states that she still has nasal congestion but her breathing does feel improved. States that the epigastric pain radiates into her chest. She denies headaches, fevers, lightheadedness, dysuria, hematuria, leg swelling, rashes. Related Data Home Medications Medication Instructions Recorded Confirmed aspirin 81 mg tablet,delayed 81 mg PO DAILY 05/07/19 09/07/22 release Allergies Allergy/AdvReac Type Severity Reaction Status Date / Time amoxicillin Allergy Severe Rash Verified 09/07/22 13:11 oxytetracycline Allergy Severe Rash Verified 09/07/22 13:11 Penicillins Allergy Severe Rash Verified 09/07/22 13:11 strawberry Allergy Severe Rash Verified 09/07/22 13:11 tetracycline Allergy Severe Rash Verified 09/07/22 13:11 zolpidem Allergy Severe Rash Verified 09/07/22 13:11 latex Allergy Itching Verified 09/07/22 13:11 [place] Allergy Severe Headache Uncoded 09/07/22 13:11 TERAMYCIN Allergy Severe Rash Uncoded 09/07/22 13:11 TRIAMOX Allergy Severe Rash Uncoded 09/07/22 13:11 Review of Systems Review of Systems: All systems reviewed & are unremarkable except as noted in HPI and below PMFSH Surgical History Surgical History History of cholecystectomy History of D&C Status post hysterectomy Status post tubal ligation Family History Family History Mother Family history of malignant neoplasm Family history of diabetes mellitus in first degree relative Diabetes mellitus Hypertension Family history of primary malignant neoplasm of liver, Onset Age: 73 Family history of lung disease Family history of malignant neoplasm of kidney, Onset Age: 73 Father Family history of lung cancer, Onset Age: 72 Family history of diabetes mellitus in first degree relative Diabetes mellitus Hypertension Grandparent Diabetes mellitus Family history of malignant neoplasm of brain Sibling Hypertension, Onset Age: 63 Patient's brother is Family history of pancreatic cancer Social History Social History Years smoked: 50 Smoking status: Current every day smoker Tobacco type: cigarettes Second hand tobacco smoke exposure: Yes Alcohol intake: current Alcohol use details: rarely Substance use: current Substance use type: marijuana Last use: 03/14/2021 Lack of Transportation: No Lack of Food: Sometimes True Current Housing: I Have Housing Concerned About Future Housing: No Difficulty Paying Gas/Electric Bills: YES Difficulty Paying for Meds: YES Currently Unemployed: No Education: High School Diploma/GED Difficulty w/ Childcare or Family Care: No Living arrangements: with family Occupation/Education: retired Gender identity (if verbalized by the patient): Female Sexual Orientation (if Verbalized by the Patient): Straight or Heterosexual Exam Narrative: GENERAL: Uncomfortable appearing, pleasant and cooperative HEAD: Normocephalic, atraumatic. EYES: PERRLA and EOMI. ENT: Nares clear, no rhinorrhea or e
[2022-09-18 19:28] LABS: Basophils Absolute Auto 0.1 K/mm3 (0.0-0.1); Basophils Percent Auto 0.5 % (0.2-1.2); Eosinophils Absolute Auto 0.1 K/mm3 (0-0.3); Hematocrit 44.3 % (37.0-47.0); Hemoglobin 14.5 g/dL (12.0-15.0); Immature Granulocyte Absolute 0.03 K/mm3 (0.00-0.031); Immature Granulocyte Percent A 0.3 % (0-0.5); Lymphocytes Absolute Auto 1.08 K/mm3 (0.9-3.2); Lymphocytes Percent Auto 9.1 % (18.3-44.2); Mean Corpuscular HGB Conc 32.7 g/dl (32-36); Mean Corpuscular Volume 85.7 fl (80-100); Mean Platelet Volume 9.9 fl (7.4-10.4); Monocytes Absolute Auto 0.9 K/mm3 (0.1-0.6); Monocytes Percent Auto 7.2 % (2.6-8.5); Neutrophils Absolute Auto 9.8 K/mm3 (1.3-6.7); Neutrophils Percent Auto 81.9 % (45.5-73.1); Platelet Count Result 252 k/mm3 (150-375); Red Blood Count 5.17 M/mm3 (4.2-5.4); Red Cell Distribution Width 12.7 % (11.5-14.5); White Blood Count 11.9 K/mm3 (4.5-10.0)
[2022-09-18] MEDS: SODIUM CHLORIDE 0.9% IV 1,000 ML 999 ML IV CONT ×2 (19:28→21:37)
[2022-09-18] MEDS: ONDANSETRON INJ 4 MG/2 ML VIAL IV PUSH (19:29)
[2022-09-18] MEDS: HYDROmorphone HCL INJ (*CRX) 1 MG/ML SYR IV PUSH (19:30)
[2022-09-18] MEDS: FAMOTIDINE 20 MG/2 ML VIAL IV PUSH (19:33)
[2022-09-18 19:34] LABS: Alanine Aminotransferase 51 U/L (6-35); Albumin Level 4.6 g/dL (3.5-5.1); Alkaline Phosphatase 125 U/L (38-126); Anion Gap 10 mmol/L (8-16); Aspartate Amino Transferase 151 U/L (14-36); Bilirubin,Total 1.3 mg/dL (0.2-1.3); Blood Urea Nitrogen 16 mg/dL (7-17); Calcium 9.4 mg/dL (8.4-10.2); Carbon Dioxide 29 mmol/L (22-30); Chloride 97 mmol/L (98-107); Estimated CRCL calculation 30 ml/min; Estimated Glomerular Filt Rate 41; Glucose 108 mg/dL (65-110); Lipase 52 U/L (23-300); Potassium 3.9 mmol/L (3.4-5.0); Sodium 136 mmol/L (137-145)
[2022-09-18 19:42] LABS: Add Urine Microscopic? YES; Appearance Urine Cloudy (Clear); Bacteria Urine Rare /hpf; Bilirubin Urine 2+ (Negative); Blood Urine Trace (Negative); Color Urine Dark Yellow (Yellow); Glucose Urine UA Negative (Negative); Ketones Urine Trace mg/dL (Negative); Leukocyte Esterase Ur Negative LEU/UL (Negative); Need Manual Microscopic Reviewed; Nitrate Urine Negative (Negative); Non Pathogenic Casts >20; Protein Urine 1+ mg/dL (Negative); Specific Grav Ur 1.044 (1.001-1.035); Squamous Epithelial Cell Urine Many /hpf (Few)
[2022-09-18 20:01] LABS: Lactic Acid Reflex 0.8 mmol/L (0.7-2.0)
[2022-09-18 20:03] LABS: Prothrombin Time 13.7 Seconds (11.1-14.7)
[2022-09-18 20:04] LABS: Partial Thromboplastin Time 33.9 SECONDS (22.3-36.8)
[2022-09-18 20:14] LABS: Troponin I < 0.012 ng/mL (0.000-0.034)
[2022-09-18 20:24] VITALS: O2SAT 88
[2022-09-18 20:25] VITALS: O2SAT 95
[2022-09-18 20:52] LABS: Influenza A QL RT-PCR Negative (Negative); Influenza B QL RT-PCR Negative (Negative); RSV RNA, RT-PCR Negative (Negative); SARS-CoV-2 RNA PCR Negative (Negative)
[2022-09-18] MEDS: LEVALBUTEROL NEB 1.25 MG/3 ML INHALATION (21:27)
[2022-09-18] MEDS: IPRATROPIUM BR 0.02% INH SOLN 0.5 MG/2.5 ML VIAL INHALATION (21:27)
[2022-09-18 21:28] VITALS: PULSE 87; RESP 18
[2022-09-18 21:38] VITALS: PULSE 84; RESP 18
[2022-09-18 22:33] VITALS: BP 134/80; PULSE 84; RESP 20; O2SAT 95
== END 2022-09-18 22:36 | disposition home or self-care (01) ==
PROVIDERS: Emergency Medicine; Emergency Provider Emergency Medicine; PCP Family Medicine
DX: J44.9 Chronic obstructive pulmonary disease, unspecified (principal); R10.13 Epigastric pain; R11.0 Nausea; Z20.822 Contact with and (suspected) exposure to COVID-19; F17.210 Nicotine dependence, cigarettes, uncomplicated
CPT/HCPCS: 36415; 71046; 74177; 80053; 81001; 83605; 83690; 84484; 85025; 85610; 85730; 87086; 87088; 87106; 87637; 93005; 94640; 96361; 96374; 96375; 99284; J1170; J2405; J7030; Q9967

== ENCOUNTER 2022-10-20 14:36 | Outpatient (CLI) | payer MEDICARE, SELFPAY ==
--- NOTE | ~2022-10-20 | CT_ITS ---
EXAMINATION: CTA abdomen pelvis DATE: 10/20/2022 15:09 INDICATION: Suspected mesenteric insufficiency TECHNIQUE: Computed tomographic angiography (CTA) of the abdomen and pelvis was performed with 100 mL Omnipaque-350 intravenous contrast. Maximum intensity projection 3D-reconstructions of the aorta and other arteries were constructed by the technologist on a separate workstation. The dose-length produ ct (DLP) was 356.34 mGy-cm. Automated exposure control and iterative reconstruction technique were em ployed. COMPARISON: 09/18/2022, 10/28/2021 FINDINGS: There is a stable 8 mm nodule of the right lower lobe. The heart size is normal. The gallbl adder is surgically absent. There is mild enlargement of the common bile duct and central intrahepati c ducts which is likely due to post cholecystectomy state. The liver, pancreas, and adrenal glands ar e normal. Punctate calcifications in an otherwise normal spleen likely represent healed granulomatous disease. The kidneys are unremarkable. The appendix is normal. No pathologically enlarged abdominal or pelvic lymph nodes are identified. No free intraperitoneal gas or evidence of bowel obstruction. T here is mild lumbar spondylosis. There is a tiny umbilical hernia containing fat. A 12 mm subcutaneou s lesion of the left chest wall posteriorly and to the midline likely represents a sebaceous cyst. No aneurysm or dissection of the abdominal aorta. The right hepatic artery arises from the superior m esenteric artery. The celiac axis, superior mesenteric artery, and inferior mesenteric artery are nor mal at their origins. There are single renal arteries. There is calcified atherosclerosis without hem odynamically significant stenosis of the common iliac and internal iliac arteries. The external iliac arteries are unremarkable. IMPRESSION: 1. Unremarkable CTA of the abdomen and pelvis. Reviewed, dictated and finalized at location L.
[2022-10-20 15:03] LABS: Estimated Glomerular Filt Rate 49
== END 2022-10-20 14:37 | disposition home or self-care (01) ==
PROVIDERS: PCP Family Medicine; Visit Provider Internal Medicine Gastroenterology
DX: K55.1 Chronic vascular disorders of intestine (principal)
CPT/HCPCS: 74174; Q9967

== ENCOUNTER 2022-12-08 10:08 | Outpatient (CLI) | payer MEDICARE, SELFPAY ==
--- NOTE | ~2022-12-08 | MM_ITS ---
EXAMINATION: MM screening arleen BI w merlene HISTORY: Screening TECHNIQUE: Craniocaudal and mediolateral oblique 3-D tomosynthesis images were obtained and synthetic 2-D images were generated. CAD analysis was submitted and interpreted. COMPARISON: Comparison to multiple prior studies sequentially, with oldest reviewed study dated 08/2017. BREAST PARENCHYMAL COMPOSITION: The breasts are almost entirely fatty. FINDINGS: There is no evidence of suspicious mass, calcification, or architectural distortion to sugg est malignancy in either breast. There has been no suspicious interval change. IMPRESSION: 1. No mammographic evidence of malignancy. 2. Recommend routine screening mammography in one year. BI-RADS Category 1: Negative Reviewed, dictated and finalized at location A.
--- NOTE | ~2022-12-08 | DEXA_ITS ---
Bone Density Report Name: TESSY AYALA Age: 67 Sex: Female Ethnicity: White Date of : 1955 Indication: postmenopausal osteoporosis; prior fracture; asthma or emphysema; hysterectomy; Referring Provider: ZACKERY MACK Study: Bone densitometry was performed. Exam Date: December 08, 2022 Accession number: [id number] Bone Density: Region BMD T-score Z-score Classification AP Spine(L1-L4) 0.637 -3.7 -1.7 Osteoporosis Femoral Neck (Left) 0.512 -3.0 -1.3 Osteoporosis Total Hip (Left) 0.690 -2.1 -0.6 Osteopenia Femoral Neck (Right) 0.545 -2.7 -1.0 Osteoporosis Total Hip (Right) 0.676 -2.2 -0.7 Osteopenia Total Hip Mean 0.683 -2.2 -0.7 Osteopenia World Health Organization criteria for BMD impression classify patients as: Normal (T-score at or above -1.0), Osteopenia (T-score between -1.0 and -2.5), or Osteoporosis (T-score at or below -2.5). 10-year Fracture Risk: FRAX not reported because: Some T-score for Spine Total or Hip Total or Femoral Neck at or below -2.5 Prior hip or vertebral fracture Previous Exams: Region Exam Age BMD T-score BMD Change BMD Change Date g/cm2 vs Baseline vs Previous AP Spine (L1-L4) 12/08/2022 67 0.637 -3.7 0.012 (1.9%)# 0.012 (1.9%)# 06/03/2019 64 0.625 -3.8 Total Hip(Left) 12/08/2022 67 0.690 -2.1 -0.106 (-13.3% -0.106 (-13.3% 06/03/2019 64 0.796 -1.2 Total Hip(Right) 12/08/2022 67 0.676 -2.2 -0.111 (-14.1% -0.111 (-14.1% 06/03/2019 64 0.787 -1.3 *Denotes significance at 95% confidence level, LSC for AP Spine = 0.022 g/cm2, LSC for Total Hip = 0.027 g/cm2 # Denotes dissimilar scan types or analysis methods Clinical Information Provided by Patient: Have had a previous hip or vertebral fracture Has had a low trauma fracture Smokes Has used the following medications: Vitamin D, Calcium Has the following medical conditions: Asthma or Emphysema, Hysterectomy Patient maximum height was 63.5 Menopause Age: 32 Drinks caffeinated beverages Onset of menses at age 9 Number of children 4 Impression: The patient has established osteoporosis, based on the Total Spine T-score and the existence of a prior fracture. The patient has risk factors, including: smoking, previous fracture. No significant bone loss was observed. Discussion: HIGH RISK OF FRACTURE. BONE DENSITY IS UNDESIRABLY LOW AT ONE OR MORE SKELETAL SITES, CONSISTENT WITH POSTMENOPAUSAL OSTEOPOROSIS. This patient's lowest T-sco
== END 2022-12-08 10:09 | disposition home or self-care (01) ==
PROVIDERS: PCP Family Medicine; Visit Provider Family Medicine
DX: Z12.31 Encounter for screening mammogram for malignant neoplasm of breast (principal); Z78.0 Asymptomatic menopausal state; M81.0 Age-related osteoporosis without current pathological fracture; M85.89 Other specified disorders of bone density and structure, multiple sites
CPT/HCPCS: 77063; 77067; 77080

== ENCOUNTER 2023-05-09 16:13 | Outpatient (CLI) | payer MEDICARE, SELFPAY ==
[2023-05-09 17:43] LABS: Influenza A QL RT-PCR Negative (Negative); Influenza B QL RT-PCR Negative (Negative); RSV RNA, RT-PCR Negative (Negative); SARS-CoV-2 RNA PCR Negative (Negative)
== END 2023-05-09 16:14 | disposition home or self-care (01) ==
LOC: ANHLAB 16:14
PROVIDERS: PCP Family Medicine; Visit Provider Family Medicine
DX: R05.9 Cough, unspecified (principal); Z20.822 Contact with and (suspected) exposure to COVID-19
CPT/HCPCS: 87637

== ENCOUNTER 2023-09-15 06:54 | Outpatient (CLI) | payer MEDICARE, SELFPAY ==
--- NOTE | ~2023-09-15 | CT_ITS ---
EXAMINATION: CT brain wo con DATE: 09/15/2023 07:26 INDICATION: Headache. TECHNIQUE: Computed tomography (CT) of the head was performed without intravenous contrast. The mA wa s adjusted according to patient size. Iterative reconstruction technique was employed. The dose-lengt h product was 529.67 mGy-cm. COMPARISON: Head CT 11/25/2021 FINDINGS: There are scattered areas of low attenuation in the cerebral white matter, which is within normal limits for the patient's age. There is no intracranial hemorrhage, acute infarction, or abnorm al intracranial mass lesion. The ventricles are normal in size. There are likely changes of ocular le ns replacement surgeries. There is mucosal thickening in the paranasal sinuses. The mastoid air cells are normal. IMPRESSION: 1. Normal aging brain. Reviewed, dictated and finalized at location A. IMPRESSION: 1. Normal aging brain.
--- NOTE | ~2023-09-15 | CT_ITS ---
EXAMINATION: CT diagnostic chest wo con DATE: 09/15/2023 07:26 INDICATION: Pulmonary nodules TECHNIQUE: Computed tomography (CT) of the chest was performed without intravenous contrast. The dose -length product was 76.70 mGy-cm. Automated exposure control and iterative reconstruction technique w ere employed. COMPARISON: CT dated 09/15/2022 FINDINGS: There is atherosclerosis of the aorta without aneurysm. Status post cholecystectomy. There is mild mediastinal lymphadenopathy, stable, likely reactive. No significant pleural or pericardial e ffusion. There is calcified granuloma in the left lung base. Patchy groundglass opacities are present in both lungs, suspicious for pneumonia. There is an enlarging pleural-based right upper lobe nodule measuring 12 x 10 mm compared with 11 x 8 mm on prior examination, image 52. There is an enlarging s ubsolid right lower lobe nodule, image 76 with associated cavitary changes. This nodule measures 1.5 x 0.8 cm compared with 1.1 x 0.8 cm on prior examination. There are multiple groundglass nodules scat tered throughout both lungs which have developed as new or progressed since prior examination. There is emphysema. No focal lytic or blastic lesions. IMPRESSION: 1. Multiple new or developing bilateral solid and subsolid nodules throughout both lungs many of whic h have a groundglass appearance. Differential diagnosis includes infection and neoplasm including met astatic disease. Recommend further evaluation with pet/CT scan or percutaneous biopsy. 2: Mild mediastinal lymphadenopathy, nonspecific. Reviewed, dictated and finalized at location B. IMPRESSION: 1. Multiple new or developing bilateral solid and subsolid nodules throughout b oth lungs many of which have a groundglass appearance. Differential diagnosis i ncludes infection and neoplasm including metastatic disease. Recommend further evaluation with pet/CT scan or percutaneous biopsy. 2: Mild mediastinal lymphadenopathy, nonspecific.
== END 2023-09-15 06:55 | disposition home or self-care (01) ==
PROVIDERS: PCP Family Medicine; Visit Provider Student in an Organized Health Care Education/Training Program
DX: R91.8 Other nonspecific abnormal finding of lung field (principal); R59.0 Localized enlarged lymph nodes
CPT/HCPCS: 70450; 71250

== ENCOUNTER 2023-10-06 09:04 | Outpatient (CLI) | payer MEDICARE, SELFPAY ==
--- NOTE | ~2023-10-06 | PE_ITS ---
EXAMINATION: PET skull to mid thigh DATE: 10/06/2023 11:20 INDICATION: Lung nodule. TECHNIQUE: Blood glucose level was 93 mg/dL. 9.936 mCi of 18-fluorodeoxyglucose (18-FDG) was administ ered i.v. Low dose computed tomography (CT) images were acquired from the base of the brain to the pr oximal thighs for attenuation correction and anatomic localization. Automated exposure control was em ployed. Dose-length product (DLP) was 589 mGy-cm. Positron emission tomography (PET) images were acqu ired in the same distribution. COMPARISON: PET/CT 10/28/21, chest CT 09/15/2023 FINDINGS: Head/neck: There are no pathologically enlarged lymph nodes. Chest: There is mild emphysema. A calcified left lung nodule and calcified left hilar lymph nodes are consistent with old granulomatous disease. There are scattered nodules and groundglass opacities in the upper lobes and lower lobes. There is an 11 mm nodule in right upper lobe with maximum SUV of 3.0 that measured 10 mm on 09/15/22. No pleural effusion. The heart size is normal. No pericardial effusi on. Abdomen/pelvis/proximal thighs: The liver and spleen are normal. There are changes of cholecystectomy . The pancreas, adrenal glands, and kidneys are normal. There are no dilated loops of bowel. The appe ndix is normal. There are no pathologically enlarged lymph nodes. There is no free intraperitoneal fl uid. There is no osseous malignancy. IMPRESSION: 1. Diffuse lung disease with worsening from 09/15/2022, likely infection. 2. 11 mm right upper lobe pulmonary nodule with increased activity worsened from 09/15/2022. This find ing may be infection or malignancy. CT-guided biopsy is recommended. Reviewed, dictated and finalized at location E. IMPRESSION: 1. Diffuse lung disease with worsening from 09/15/2022, likely infection. 2. 11 mm right upper lobe pulmonary nodule with increased activity worsened fro m 09/15/2022. This finding may be infection or malignancy. CT-guided biopsy is r ecommended.
[2023-10-06 09:29] LABS: Glucose Point of Care 93 mg/dl (65-105)
== END 2023-10-06 09:05 | disposition home or self-care (01) ==
PROVIDERS: PCP Family Medicine; Visit Provider Internal Medicine Hematology & Oncology
DX: R91.1 Solitary pulmonary nodule (principal); J84.9 Interstitial pulmonary disease, unspecified
CPT/HCPCS: 78815; A9552

== ENCOUNTER 2023-10-25 08:54 | Outpatient (CLI) | payer MEDICARE, SELFPAY ==
[2023-10-18 15:24] VITALS: BMI 22.8
--- NOTE | 2023-10-18 15:25 | PC.NURSE ---
Pre Radiology instructions Report to the outpatient lencho coonfoley on date 10/25/23 at time _0900 for procedure Time: __1100__ YOU MAY BE MONITORED AT HOSPITAL FOR UP TO 4 HOURS AFTER YOUR PROCEDURE. A visitor will be allowed to accompany the patient into the hospital. You and your visitor will be asked to self-screen and do not enter if you have any COVID symptoms. A mask is OPTIONAL within the hospital. Patients are to have no food or drink 6 hours prior to procedure time Driving will be restricted after the procedure, you must have a person to drive you home. Labs will be drawn in preop area and once reviewed, you will be taken to radiology area for procedure. When the procedure is completed, you will be taken to outpatient where you will be monitored for several hours. You may have one visitor in this area. Other than holding anti-coagulants, patient may take other medication(s) as scheduled. Prior to your appointment date patients are instructed to hold anti-coagulants after discussing with ordering provider to stop. If unable to discontinue anti-coagulants please notify radiologist. ? No aspirin or warfarin (Coumadin) for 7 days prior to the procedure. ? No clopidogrel (Plavix), ticagrelor (Brilinta), prasugrel (Effient) or dabigatran (Pradaxa) for 5 days prior to the procedure. ? No rivaroxaban (Xarelto), apixaban (Eliquis), dipyridamole (Aggrenox or Persantine) or cilostazol (Pletal) for 2 days prior to the procedure. Medications to discontinue per physician: __HOLD ASPIRIN 7 DAYS PRE OP LAST DOSE 10/17/23 Please leave all valuables, including medications, at home the day of procedure. The hospital will not accept responsibility for valuables. Wear comfortable, loose fitting clothing.? Follow any additional instructions given to you from ordering provider. Telephone instructions given to ____PATIENT and asked if any additional questions and then verbalized understanding. Patient advised to call scheduling provider office or registration scheduling [phone] if any additional questions.
[2023-10-25] VITALS (12 sets, daily range): BP systolic 133–163; BP diastolic 78–92; PULSE 81–93; RESP 16–18; TEMP 36.7; O2SAT 94–100; BMI 23.3
--- NOTE | ~2023-10-25 | CT_ITS ---
EXAMINATION: CT biopsy lung w/imaging DATE: 10/25/2023 11:43 INDICATION: Right lung nodule. TECHNIQUE: The procedure including the risks, benefits, and alternatives and possibility of chest tub e placement were discussed with the patient. Risks discussed included infection, hemorrhage, approxim ately 1/3 risk of pneumothorax, approximately 1/10 risk of pneumothorax severe enough to warrant ches t tube placement, and rarely . The patient understood the risks and agreed to proceed. The patie nt was placed supine with the right side elevated. The skin overlying the right lung was prepped and draped in sterile fashion. Anesthetic was administered with 1% lidocaine subcutaneously. A 19 gaug e outer needle was advanced under CT guidance to the lesion of interest. A 20 gauge core biopsy needl e was then used to obtain 3 core biopsy specimens. The needle was removed and the entry site was leyla qian and dressed. The mA was adjusted according to patient size. Iterative reconstruction technique wa s employed. The dose-length product was 137.46 mGy-cm. There were no immediate complications. FINDINGS: CT images demonstrate the outer needle tip adjacent to an 11 mm nodule in right lung upper lobe. IMPRESSION: 1. CT-guided core needle biopsy of an 11 mm nodule in right lung upper lobe. Reviewed, dictated and finalized at location A.
--- NOTE | ~2023-10-25 | XR_ITS ---
EXAMINATION: XR chest 1V portable DATE: 10/25/2023 14:41 INDICATION: Right lung nodule status post percutaneous biopsy. TECHNIQUE: A single frontal view of the chest was obtained. COMPARISON: Chest single view at 12:42 PM FINDINGS: There is a nodule in right lung upper lobe. No pleural effusion or pneumothorax. The heart size is normal. IMPRESSION: 1. Stable nodule in right lung upper lobe suspicious for primary bronchogenic carcinoma and adjacent hemorrhage. Reviewed, dictated and finalized at location A. IMPRESSION: 1. Stable nodule in right lung upper lobe suspicious for primary bronchogenic c arcinoma and adjacent hemorrhage.
--- NOTE | ~2023-10-25 | XR_ITS ---
EXAMINATION: XR chest 1V DATE: 10/25/2023 11:42 INDICATION: Right lung nodule status post percutaneous biopsy. TECHNIQUE: A single frontal view of the chest was obtained. COMPARISON: Chest 2 views 09/18/2022 FINDINGS: There is a nodule in right upper lobe. No pleural effusion or pneumothorax. The heart size is normal. IMPRESSION: 1. Nodule in right lung upper lobe suspicious for primary bronchogenic carcinoma and adjacent hemorrh age. Reviewed, dictated and finalized at location A. IMPRESSION: 1. Nodule in right lung upper lobe suspicious for primary bronchogenic carcinom a and adjacent hemorrhage.
--- NOTE | ~2023-10-25 | XR_ITS ---
EXAMINATION: XR chest 1V portable DATE: 10/25/2023 12:48 INDICATION: Right lung nodule status post percutaneous biopsy. TECHNIQUE: A single frontal view of the chest was obtained. COMPARISON: Chest single view at 11:35 AM FINDINGS: There is a nodule in right upper lobe. No pleural effusion or pneumothorax. The heart size is normal. IMPRESSION: 1. Stable nodule in right lung upper lobe suspicious for primary bronchogenic carcinoma and adjacent hemorrhage. Reviewed, dictated and finalized at location A. IMPRESSION: 1. Stable nodule in right lung upper lobe suspicious for primary bronchogenic c arcinoma and adjacent hemorrhage.
[2023-10-25 10:08] LABS: Mean Platelet Volume 9.9 fl (7.4-10.4); Platelet Count Result 229 k/mm3 (150-375)
[2023-10-25 10:29] LABS: INR 0.9; Prothrombin Time 13.1 Seconds (11.1-14.7)
[2023-10-25] MEDS: ALBUTEROL SULFATE (*SP) AEROSOL 1 PUFF 2 PUFF INHALATION (12:06)
[2023-10-25] MEDS: ACETAMINOPHEN 500 MG TABLET 1000 MG PO (12:16)
--- NOTE | 2023-10-25 15:02 | SUR.PHASEII ---
1440: patient dressed and waiting on ride.
== END 2023-10-25 15:05 | disposition home or self-care (01) ==
PROVIDERS: PCP Family Medicine; Referring Provider Internal Medicine Hematology & Oncology; Visit Provider Radiology Diagnostic Radiology
PROC: BB24ZZZ Computerized Tomography (CT Scan) of Bilateral Lungs (ICD-10-PCS; CPT 32408; principal; 2023-10-25 11:00)
DX: C34.11 Malignant neoplasm of upper lobe, right bronchus or lung (principal); R91.1 Solitary pulmonary nodule
CPT/HCPCS: 32408; 36415; 71045; 85049; 85610; 88305; 88342; 94640; A9270

== ENCOUNTER 2023-11-10 10:16 | Outpatient (CLI) | payer MEDICARE, SELFPAY ==
--- NOTE | 2023-11-13 12:49 | WPDPFTINT ---
PFT Procedure Performed PFT Procedure Performed Plethysmography (Lung Vol) Diffusing Cap (DLCO) Flow Vol Loop Spirometry w/o Bronchodil PFT Interpretation This is a pulmonary function test with spirometry, plethysmography and diffusing capacity. The test was performed and results interpreted in accordance with the 2019 and 2005 ATS/ERS Task Force guidelines respectively using the Global Lung Function Initiative-2012 reference equations. Patient demonstrated good effort and cooperation. Reproducibility criteria were met. The quality of the spirometry maneuver was Grade A. Findings: Spirometry: There is decreased maximal expiratory airflow at all lung volumes with concave expiratory flow tracing. The contour the inspiratory flow tracing is normal. The FVC is 2.41 L, 88% predicted. The FEV1 is 1.24 L, 58% predicted. The FEV1: FVC ratio is 51%. Plethysmography: The total lung capacity is 4.88 L, 100% predicted. The functional residual capacity is 3.21 L, 115% predicted. The residual volume is 2.26 L, 106% predicted. Diffusing capacity: The diffusing capacity unadjusted for hemoglobin and carboxyhemoglobin is 9.9, 49% predicted. The diffusing capacity adjusted for alveolar volume is 3.17, 73% predicted. Impression: There is a moderately severe obstructive abnormality. The lung volumes are normal. The diffusing capacity unadjusted for hemoglobin and carboxyhemoglobin is moderately decreased and normalizes when adjusted for alveolar volume. There are no prior studies for comparison
== END 2023-11-10 10:17 | disposition home or self-care (01) ==
LOC: ANHPFT 10:18
PROVIDERS: PCP Family Medicine; Visit Provider Internal Medicine Hematology & Oncology
DX: C34.91 Malignant neoplasm of unspecified part of right bronchus or lung (principal); R94.2 Abnormal results of pulmonary function studies
CPT/HCPCS: 94375; 94726; 94729

== ENCOUNTER 2023-12-20 19:03 | Emergency (ER) | payer MEDICARE, SELFPAY ==
[2023-12-20] VITALS (12 sets, daily range): BP systolic 135–166; BP diastolic 69–88; PULSE 76–86; RESP 12–26; O2SAT 93–100
--- NOTE | ~2023-12-20 | XR_ITS ---
EXAMINATION: XR chest 1V portable DATE: 12/20/2023 19:43 INDICATION: Right-sided chest pain TECHNIQUE: frontal view of the chest was obtained. COMPARISON: Chest radiograph dated 10/25/2023 FINDINGS: Minimal increased interstitial pattern in the bilateral lower lungs. No airspace opacities, pleural e ffusion or pneumothorax. The cardiomediastinal silhouette is normal. Mild lower thoracic levocurvatur e. IMPRESSION: 1. Minimal increased interstitial pattern in the lower lungs which could represent mild pulmonary trevon ma, atelectasis or pneumonia. Reviewed, dictated and finalized at location A. IMPRESSION: 1. Minimal increased interstitial pattern in the lower lungs which could repres ent mild pulmonary edema, atelectasis or pneumonia.
--- NOTE | ~2023-12-20 | CT_ITS ---
EXAMINATION: CTA chest PE protocol DATE: 12/20/2023 21:08 INDICATION: Right-sided chest pain TECHNIQUE: Computed tomography (CT) pulmonary angiogram of the chest was performed with 100 mL Omnipa que-350 intravenous contrast. Additional 3D reconstructions utilizing coronal maximum intensity proje ction (MIP) were performed. Automated exposure control and iterative reconstruction technique were em ployed. The dose-length product was 198.09 mGy-cm. COMPARISON: Chest CT dated 09/15/2023 FINDINGS: No pulmonary embolism. Mild emphysema. No change in a 1.2 cm right upper lobe nodule consistent with biopsy-proven lung cancer. Near complete resolution of the previously seen scattered bilateral ground glass nodules with the 2 most prominent in the posterior right upper lobe and in the anterobasilar ri ght lower lobe which were most likely infectious/inflammatory in etiology. No new pulmonary nodules, consolidation, pulmonary edema or pleural effusion. Heart size is normal. No pericardial effusion. Th oracic aorta is normal in caliber with no dissection. No pathologically enlarged thoracic lymphadenop athy. Visualized upper abdomen is unremarkable. Mild thoracic kyphosis with mild to moderate spondylo sis. Chronic mild T8 compression fracture. IMPRESSION: 1. No pulmonary embolism or other acute cardiopulmonary disease. 2. Unchanged 12 mm right upper lobe nodule consistent with biopsy-proven lung cancer. 3. There are complete resolution of prior extensive scattered small groundglass nodules which are lik candi infectious/inflammatory in etiology. Reviewed, dictated and finalized at location A. IMPRESSION: 1. No pulmonary embolism or other acute cardiopulmonary disease. 2. Unchanged 12 mm right upper lobe nodule consistent with biopsy-proven lung c ancer. 3. There are complete resolution of prior extensive scattered small groundglass nodules which are likely infectious/inflammatory in etiology.
--- NOTE | 2023-12-20 19:04 | ECG_ITS ---
Test Date: 2023-12-20 19:12:05 Measurements Intervals [place] Rate: 91 P: 78 [place]: 202 QRS: 14 QRSD: 114 T: 64 QT: 363 QTc: 448 Interpretive Statements SINUS RHYTHM INCOMPLETE LEFT BUNDLE BRANCH BLOCK LOW QRS VOLTAGE IN PRECORDIAL LEADS BASELINE ARTIFACT- I, II, III, AVR, AVL, AVF, V1-V6 ABNORMAL ECG No previous ECG available for comparison Electronically Signed On 12-20-2023 20:25:25 CDT by Troy Price D.O.
--- NOTE | 2023-12-20 19:15 | ECG_ITS ---
Test Date: 2023-12-20 19:26:01 Measurements Intervals [place] Rate: 81 P: 71 [place]: 211 QRS: 1 QRSD: 106 T: 67 QT: 367 QTc: 427 Interpretive Statements SINUS RHYTHM WITH FIRST DEGREE AV BLOCK INCOMPLETE LEFT BUNDLE BRANCH BLOCK BORDERLINE ST-T WAVE ABNORMALITY- LAT/HIGH LAT LEADS BASELINE ARTIFACT- I, II, III, AVR, AVL, AVF ABNORMAL ECG Compared to ECG 12/20/2023 19:12:05 First degree AV block now present Electronically Signed On 12-20-2023 20:26:17 CDT by Troy Price D.O.
[2023-12-20] MEDS: HYDROmorphone HCL INJ (*CRX) 1 MG/ML SYR IV PUSH (19:37)
[2023-12-20] MEDS: ONDANSETRON INJ 4 MG/2 ML VIAL IV PUSH (19:41)
[2023-12-20 19:56] LABS: Basophils Percent Auto 0.6 % (0.2-1.2); Eosinophils Percent Auto 0.8 % (0-4.4); Hematocrit 37.1 % (37.0-47.0); Hemoglobin 12.4 g/dL (12.0-15.0); Immature Granulocyte Absolute 0.01 K/mm3 (0.00-0.031); Immature Granulocyte Percent A 0.2 % (0-0.5); Lymphocytes Absolute Auto 1.49 K/mm3 (0.9-3.2); Lymphocytes Percent Auto 28.1 % (18.3-44.2); Mean Corpuscular HGB Conc 33.4 g/dl (32-36); Mean Corpuscular Hemoglobin 28.3 pg (26-34); Mean Corpuscular Volume 84.7 fl (80-100); Mean Platelet Volume 9.8 fl (7.4-10.4); Monocytes Absolute Auto 0.6 K/mm3 (0.1-0.6); Monocytes Percent Auto 10.6 % (2.6-8.5); Neutrophils Absolute Auto 3.2 K/mm3 (1.3-6.7); Neutrophils Percent Auto 59.7 % (45.5-73.1); Platelet Count Result 207 k/mm3 (150-375); Red Blood Count 4.38 M/mm3 (4.2-5.4); White Blood Count 5.3 K/mm3 (4.5-10.0)
[2023-12-20 20:03] LABS: Partial Thromboplastin Time 31.4 Seconds (22.3-36.8); Prothrombin Time 13.4 Seconds (11.1-14.7)
[2023-12-20] MEDS: PROCHLORPERAZINE EDISYLATE 10 MG/2 ML VIAL IM (20:06)
[2023-12-20 20:08] LABS: Alanine Aminotransferase 13 U/L (6-35); Albumin Level 4.5 g/dL (3.5-5.1); Alkaline Phosphatase 73 U/L (38-126); Anion Gap 10 mmol/L (4-12); Aspartate Amino Transferase 23 U/L (14-36); Bilirubin,Total 0.5 mg/dL (0.2-1.3); Blood Urea Nitrogen 16 mg/dL (7-17); Calcium 9.7 mg/dL (8.4-10.2); Carbon Dioxide 26 mmol/L (22-30); Chloride 101 mmol/L (98-107); Estimated CRCL calculation 35 ml/min; Estimated Glomerular Filt Rate 49; Glucose 101 mg/dL (65-110); Lipase 52 U/L (23-300); Potassium 3.6 mmol/L (3.4-5.0); Sodium 137 mmol/L (137-145)
[2023-12-20 20:09] LABS: Lactic Acid Reflex 0.7 mmol/L (0.7-2.0)
[2023-12-20 20:19] LABS: Troponin I < 0.012 ng/mL (0.000-0.034)
--- NOTE | 2023-12-20 20:19 | ED.GENADULT ---
HPI - General Adult General Chief complaint: Chest Pain Stated complaint: chest pain Time Seen by Provider: 12/20/23 19:23 History of Present Illness HPI narrative: This is a 68-year-old female with a history of stage I adenocarcinoma of the right lung presenting for right-sided chest pain. Patient says she has been having sharp pain on the right side of her chest intermittently for 1 month. However today became constant and severe. It is stabbing, worse with deep respirations. Patient feels short of breath. No lower extremity edema or history of blood clots. No fevers chills or productive cough. Patient has not taken anything for pain control. She is currently undergoing radiation therapy. Related Data Home Medications Medication Instructions Recorded Confirmed aspirin 81 mg tablet,delayed 81 mg PO DAILY 05/07/19 12/08/23 release calcium carbonate 600 mg-vitamin 2 cap PO DAILY 10/18/23 12/08/23 D3 10 mcg (400 unit) capsule Allergies Allergy/AdvReac Type Severity Reaction Status Date / Time amoxicillin Allergy Severe Rash Verified 12/20/23 19:41 oxytetracycline Allergy Severe Rash Verified 12/20/23 19:41 Penicillins Allergy Severe Rash Verified 12/20/23 19:41 strawberry Allergy Severe Rash Verified 12/20/23 19:41 tetracycline Allergy Severe Rash Verified 12/20/23 19:41 zolpidem Allergy Severe Hallucinati Verified 12/20/23 19:41 ng latex Allergy Itching Verified 12/20/23 19:41 [place] Allergy Severe Headache Uncoded 12/08/23 08:54 TERAMYCIN Allergy Severe Rash Uncoded 12/08/23 08:54 TRIAMOX Allergy Severe Rash Uncoded 12/08/23 08:54 PMFSH Past Medical History Medical History Adenocarcinoma, lung Chronic kidney disease, stage 3a Financial difficulties Marijuana dependence Surgical History Surgical History History of cholecystectomy History of D&C Status post hysterectomy Status post tubal ligation Family History Family History Mother Family history of malignant neoplasm Family history of diabetes mellitus in first degree relative Diabetes mellitus Hypertension Family history of primary malignant neoplasm of liver, Onset Age: 73 Family history of lung disease Family history of malignant neoplasm of kidney, Onset Age: 73 Father Family history of lung cancer, Onset Age: 72 Family history of diabetes mellitus in first degree relative Diabetes mellitus Hypertension Grandparent Diabetes mellitus Family history of malignant neoplasm of brain Sibling Hypertension, Onset Age: 63 Patient's brother is Family history of pancreatic cancer Social History Social History Social History: Smoking packs per day: 2 Smoking cigarettes per day: 40.0 Years smoked: 50 Smoking pack-years: 100.00 Smoking status: Former smoker Tobacco type: cigarettes Second hand tobacco smoke exposure: Yes Smoking end date: 09/21/23 Alcohol intake: current Alcohol use details: rarely Substance use: current Substance use type: marijuana Last use: 03/14/2021 Do You Feel Safe in your Home?: Yes Lack of Transportation: No Lack of Food: Never True Current Housing: I Have Housing Concerned About Future Housing: No Difficulty Paying Gas/Electric Bills: No Difficulty Paying for Meds: No Currently Unemployed: YES Education: High School Diploma/GED Difficulty w/ Childcare or Family Care: No Living arrangements: with family Occupation/Education: retired Gender identity (if verbalized by the patient): Female Sexual Orientation (if Verbalized by the Patient): Straight or Heterosexual Spiritual care concerns: No Exam Narrative: APPEARANCE: Patient is in significant pain Head: atraumatic. EYES: EOMI, N
[2023-12-20] MEDS: ACETAMINOPHEN 500 MG TABLET 1000 MG PO (21:25)
== END 2023-12-20 22:16 | disposition home or self-care (01) ==
PROVIDERS: Emergency Provider Emergency Medicine; PCP Family Medicine
DX: C34.11 Malignant neoplasm of upper lobe, right bronchus or lung (principal); N18.31 Chronic kidney disease, stage 3a; Z90.49 Acquired absence of other specified parts of digestive tract; Z90.710 Acquired absence of both cervix and uterus; Z87.891 Personal history of nicotine dependence; Z79.82 Long term (current) use of aspirin; Z79.899 Other long term (current) drug therapy; I44.7 Left bundle-branch block, unspecified
CPT/HCPCS: 36415; 71045; 71275; 80053; 83605; 83690; 84484; 85025; 85610; 85730; 93005; 96372; 96374; 96375; 99284; A9270; J0780; J1170; J2405; Q9967

== ENCOUNTER 2024-01-25 10:22 | Outpatient (CLI) | payer MEDICARE, SELFPAY ==
--- NOTE | ~2024-01-25 | MM_ITS ---
EXAMINATION: MM screening [facility] BI w merlene HISTORY: Screening TECHNIQUE: Craniocaudal and mediolateral oblique 3-D tomosynthesis images were obtained and synthetic 2-D images were generated. CAD analysis was submitted and interpreted. COMPARISON: Comparison to multiple prior studies sequentially, with oldest reviewed study dated 04/21. BREAST PARENCHYMAL COMPOSITION: Not dense: There are scattered areas of fibroglandular density. FINDINGS: There is developing mass in the breast in the lower central aspect of the left breast, ante riorly. The right breast is stable without evidence for malignancy. IMPRESSION: 1. Developing left breast mass in the lower central aspect of the left breast. 2. . Additional spot compression and mediolateral views with possible follow-up breast ultrasound rec ommended. BI-RADS CATEGORY 0 - INCOMPLETE STUDY, NEED ADDITIONAL IMAGING EVALUATION. Reviewed, dictated and finalized at location B. IMPRESSION: 1. Developing left breast mass in the lower central aspect of the left breast. 2. . Additional spot compression and mediolateral views with possible follow-up breast ultrasound recommended. BI-RADS CATEGORY 0 - INCOMPLETE STUDY, NEED ADDITIONAL IMAGING EVALUATION.
== END 2024-01-25 10:23 | disposition home or self-care (01) ==
LOC: ANHIMG 10:24
PROVIDERS: PCP Family Medicine; Visit Provider Internal Medicine Hematology & Oncology
DX: Z12.31 Encounter for screening mammogram for malignant neoplasm of breast (principal); R92.8 Other abnormal and inconclusive findings on diagnostic imaging of breast
CPT/HCPCS: 77063; 77067

== ENCOUNTER 2024-02-14 07:03 | Outpatient (CLI) | payer MEDICARE, SELFPAY ==
--- NOTE | ~2024-02-14 | CT_ITS ---
Clinical Indication: Lung cancer CT Scan of the Chest with Contrast: Technique: Contiguous sections were acquired throughout the chest after intravenous administration of 75 cc of Omnipaque 350. Dose reduction technique was used on this scan by utilizing automated exposu re control and iterative reconstruction technique. The dose-length product (DLP) was 162.16 mGy-cm. COMPARISON: 12/20/2023 Findings: There is no evidence of any significant mediastinal, hilar or axillary lymphadenopathy. There is no f illing defect in the pulmonary arterial tree to suggest pulmonary embolus. There is no evidence of ao rtic dissection or aneurysm. There is no evidence of pleural or pericardial effusion. Moderate to advanced emphysema present. Stable 1 cm pleural-based nodule at the peripheral right uppe r lobe (axial image 50). There is stable smaller irregular spiculated densities in the more superior right upper lobe and right lung apex. There is a stable probable semisolid lesion in the right lower lobe, measuring 1.5 cm (axial image 75). Images through the upper abdomen reveal no abnormalities. Stable chronic T8 compression deformity. Impression: Stable 1 cm pleural-based nodule the right upper lobe. Stable additional small spiculated and semisolid lesions in the right upper lobe and right lower lobe , as detailed above. These are indeterminate lesions. Moderate to advanced emphysema. Reviewed, dictated and finalized at location . Impression: Stable 1 cm pleural-based nodule the right upper lobe. Stable additional small spiculated and semisolid lesions in the right upper lob e and right lower lobe, as detailed above. These are indeterminate lesions. Moderate to advanced emphysema.
[2024-02-14 07:36] LABS: Estimated Glomerular Filt Rate 40
== END 2024-02-14 07:04 | disposition home or self-care (01) ==
PROVIDERS: PCP Family Medicine; Visit Provider Internal Medicine Hematology & Oncology
DX: C34.91 Malignant neoplasm of unspecified part of right bronchus or lung (principal); J43.9 Emphysema, unspecified; R91.8 Other nonspecific abnormal finding of lung field
CPT/HCPCS: 71260; Q9967

== ENCOUNTER 2024-02-14 13:15 | Outpatient (CLI) | payer MEDICARE, SELFPAY ==
--- NOTE | ~2024-02-14 | MMUS_ITS ---
EXAMINATION: MM diagnostic [facility] LT w merlene, US breast LT limited HISTORY: Follow-up left breast mass TECHNIQUE: Additional 3-D tomosynthesis images of the left breast were performed and synthetic 2-D im ages were generated. CAD analysis was submitted and interpreted. High resolution Limited left breast ultrasound was performed. COMPARISON: Comparison to multiple prior studies sequentially, with oldest reviewed study dated 06/03. BREAST PARENCHYMAL COMPOSITION: Not dense: There are scattered areas of fibroglandular density. FINDINGS: MAMMOGRAPHIC FINDINGS: There is a small cluster of radiolucent nodules in the subareolar location of the left breast, larges t measuring 6 mm. There are no suspicious calcifications or architectural distortion. ULTRASOUND: Complete US of all 4 quadrants of the breast/s and retroareolar region was reviewed. At 6:00 near the nipple there is a 7 mm cyst. At 12:00 near the nipple there is a 3 mm cyst. No suspicious masses to suggest malignancy. IMPRESSION: 1. No evidence for malignancy in the left breast. Benign findings. 2. Routine yearly screening mammogram and regular clinical breast examination are recommended. BI-RADS Category 2: Benign finding(s). Reviewed, dictated and finalized at location B. IMPRESSION: 1. No evidence for malignancy in the left breast. Benign findings. 2. Routine yearly screening mammogram and regular clinical breast examination a re recommended. BI-RADS Category 2: Benign finding(s).
== END 2024-02-14 13:16 | disposition home or self-care (01) ==
LOC: ANHIMG 13:16
PROVIDERS: PCP Family Medicine; Visit Provider Internal Medicine Hematology & Oncology
DX: R92.8 Other abnormal and inconclusive findings on diagnostic imaging of breast (principal)
CPT/HCPCS: 76642; 77061; 77065; G0279

== ENCOUNTER 2024-02-23 08:37 | Outpatient (CLI) | payer MEDICARE, SELFPAY ==
[2024-02-23 08:50] LABS: Basophils Percent Auto 0.8 % (0.2-1.2); Eosinophils Absolute Auto 0.1 K/mm3 (0-0.3); Eosinophils Percent Auto 2.2 % (0-4.4); Hematocrit 34.7 % (37.0-47.0); Hemoglobin 11.2 g/dL (12.0-15.0); Immature Granulocyte Absolute 0.01 K/mm3 (0.00-0.031); Immature Granulocyte Percent A 0.2 % (0-0.5); Lymphocytes Percent Auto 16.2 % (18.3-44.2); Mean Corpuscular HGB Conc 32.3 g/dl (32-36); Mean Corpuscular Hemoglobin 28.4 pg (26-34); Mean Corpuscular Volume 88.1 fl (80-100); Mean Platelet Volume 9.4 fl (7.4-10.4); Monocytes Absolute Auto 0.5 K/mm3 (0.1-0.6); Monocytes Percent Auto 9.9 % (2.6-8.5); Neutrophils Absolute Auto 3.5 K/mm3 (1.3-6.7); Neutrophils Percent Auto 70.7 % (45.5-73.1); Platelet Count Result 172 k/mm3 (150-375); Red Blood Count 3.94 M/mm3 (4.2-5.4); Red Cell Distribution Width 12.7 % (11.5-14.5); White Blood Count 4.9 K/mm3 (4.5-10.0)
[2024-02-23 08:56] LABS: Chloride 101 mmol/L (98-109); Potassium 3.7 mmol/L (3.5-4.9); Sodium 140 mmol/L (138-146)
[2024-02-23 08:57] LABS: Blood Urea Nitrogen 18 mg/dL (8-26); Carbon Dioxide 26 mmol/L (22-30); Estimated Glomerular Filt Rate 44; Glucose 120 mg/dL (70-105); Ionized Calcium (POC) 1.26 mmol/L (1.11-1.31)
[2024-02-23 13:28] LABS: Alanine Aminotransferase 12 U/L (6-35); Alkaline Phosphatase 93 U/L (38-126); Anion Gap 6 mmol/L (4-12); Aspartate Amino Transferase 36 U/L (14-36); Bilirubin,Total 0.2 mg/dL (0.2-1.3); Blood Urea Nitrogen 20 mg/dL (7-17); Calcium 9.2 mg/dL (8.4-10.2); Carbon Dioxide 30 mmol/L (22-30); Chloride 102 mmol/L (98-107); Estimated Glomerular Filt Rate 49; Glucose 114 mg/dL (65-110); Potassium 3.8 mmol/L (3.4-5.0); Sodium 138 mmol/L (137-145)
== END 2024-02-23 08:38 | disposition home or self-care (01) ==
LOC: ANHLAB 08:39
PROVIDERS: PCP Family Medicine; Visit Provider Internal Medicine Hematology & Oncology
DX: C34.91 Malignant neoplasm of unspecified part of right bronchus or lung (principal)
CPT/HCPCS: 36415; 80047; 80053; 85025

== ENCOUNTER 2024-05-28 09:24 | Outpatient (CLI) | payer MEDICARE, SELFPAY ==
--- NOTE | ~2024-05-28 | CT_ITS ---
Clinical Indication: Lung cancer CT Scan of the Chest with Contrast: Technique: Contiguous sections were acquired throughout the chest after intravenous administration of 75 cc of Omnipaque 350. Dose reduction technique was used on this scan by utilizing automated exposu re control and iterative reconstruction technique. The dose-length product (DLP) was 150.88 mGy-cm. COMPARISON: 02/14/2024 Findings: There is no evidence of any significant mediastinal, hilar or axillary lymphadenopathy. There is no f illing defect in the pulmonary arterial tree to suggest pulmonary embolus. There is no evidence of ao rtic dissection or aneurysm. There is no evidence of pleural or pericardial effusion. There is emphysema with mild biapical scarring, unchanged. Stable 8 mm right upper lobe pulmonary nod ule (axial image 30). This focal pleural-based density at the peripheral right upper lobe is stable t o minimally improved (axial image 50). 1.6 cm partially cavitary nodule in the right lower lobe is un changed (axial image 75). Images through the upper abdomen reveal no abnormalities. Impression: Stable pleural-based density right upper lobe. 1.6 cm partially cavitary nodule right lower lobe, unchanged. Stable 8 mm right upper lobe pulmonary nodule. Emphysema. Reviewed, dictated and finalized at location M. TAL ACCOUNT MANAGER Impression: Stable pleural-based density right upper lobe. 1.6 cm partially cavitary nodule right lower lobe, unchanged. Stable 8 mm right upper lobe pulmonary nodule. Emphysema.
--- OUTSIDE RECORDS SUMMARY | 2024-06-04 02:32 | XMS_ITS | Encounter Summary ---
Author Organization [facility] Address [address] [place] [address] Care Team Providers Care Stave Block Roller Name Role Phone Sher Ayers MD Primary Care Provider [phone] Encounter Details Date Type Department Care Team (Late st Contact Info) Description 03/20/2024 External Device Data STL ABSTRACTION Provider, Abstract NO ADDRESS ON FILE Social History Tobacco Use Types Packs/Day Years Used Date Smoking Tobacco: Former Cigarettes 0.3 50 0 09/20/1973 - 09/21/2023 Smokeless Tobacco: Never Alcohol Use Standard Drinks/Week Comments No 0 (1 standard drink = 0.6 oz pur e alcohol) Sex and Gender Information Value Date Recorded Sex Assigned at Not on file Gender Identity Not on file Sexual Orientation Not on file documented as of this encounter Plan of Treatment Upcoming Encounters Date Type Department Care Team (Late st Contact Info) Description 06/06/2024 2:00 PM CARBON SETTER Office Visit [facility] Oncology and Hematology - [place] [address] [facility] [address] [place] [address] Reynaldo Frances MD [address] [facility] [address] [place] [address] documented as of this encounter Visit Diagnoses Not on filedocumented in this encounter Care Teams Stave Block Roller Relationship Specialty Start Date End Date Sher Ayers MD [address] [facility] [address] [place] [address] PCP - General Family Practice 05/09/18 documented as of this encounter
--- OUTSIDE RECORDS SUMMARY | 2024-06-04 02:32 | XMS_ITS | Encounter Summary ---
Author Organization [facility] Address [address] [place] [address]. [place], [place] [address] [place] [address] Care Team Providers Care Fine Craft Artist Name Role Phone Unavailable Primary Care Provider Unavailabl e Encounter Details Date Type Department Care Team (Late st Contact Info) Description 10/16/[address] [facility] [address] [place] [address] Jessica Diaz MD Social History Tobacco Use Types Packs/Day Years Used Date Smoking Tobacco: Never Assessed Comments Unknown Sex and Gender Information Value Date Recorded Sex Assigned at Not on file Legal Sex Female 7:04 PM CDT Gender Identity Not on file Sexual Orientation Not on file documented as of this encounter Plan of Treatment Not on file documented as of this encounter Visit Diagnoses Not on filedocumented in this encounter
--- OUTSIDE RECORDS SUMMARY | 2024-06-04 02:32 | XMS_ITS | Encounter Summary ---
Author Organization [facility] DIANE Shannon [facility] Address [address] [place] [address] Care Team Providers Care Billing Representative Name Role Phone Sher Ayers MD Primary Care Provider [phone] Reason for Referral * CT Scan (Routine) - Closed Specialty Diagnoses / Procedures Referred By Contac t Referred To Contact Diagnoses Malignant neoplasm of right lung, unspecified part of lung Procedures CT CHEST W CONTRAST Reynaldo Frances MD [address] [facility] [address] [place] [address] [place] [address] Referral ID Status Reason Start Date Expiration Date V isits Requested Visits Authorized [id number] Closed STL CTS 02/23/2024 03/25/2025 1 1 Reason for Visit * Reason Comments Follow Up Cancer Encounter Details Date Type Department Care Team (Late st Contact Info) Description 02/23/2024 8:45 AM CDT Office Visit [facility] Oncology and Hematology [facility] [address] [place] [address] [address] [place] [address] Reynaldo Frances MD [address] [facility] [address] [place] [address] Malignant neoplasm of right lung, unspecified part of lung (Primary Dx) Social History Tobacco Use Types Packs/Day Years Used Date Smoking Tobacco: Former Cigarettes 0.3 50 0 09/20/1973 - 09/21/2023 Smokeless Tobacco: Never Tobacco Cessation:Counseling Given: Not Answered Alcohol Use Standard Drinks/Week Comments No 0 (1 standard drink = 0.6 oz pur e alcohol) Sex and Gender Information Value Date Recorded Sex Assigned at Not on file Gender Identity Not on file Sexual Orientation Not on file documented as of this encounter Last Filed Vital Signs Vital Sign Reading Time Taken Comments Blood Pressure 137/66 02/23/2024 8:54 AM CDT Pulse 83 02/23/2024 8:54 AM CDT Temperature 36.3 ??C (97.3 ??F) 02/23/2024 8:54 AM CD T Respiratory Rate 18 02/23/2024 8:54 AM CDT Oxygen Saturation 97% 02/23/2024 8:54 AM CDT Inhaled Oxygen Concentration - - Weight 63.5 kg (140 lb) 02/23/2024 8:54 AM CDT Height - - Body Mass Index 24.41 11/22/2023 2:05 PM CDT documented in this encounter Progress Notes * Reynaldo Frances MD - 02/23/2024 9:46 AM CDT HEMATOLOGY / ONCOLOGY PROGRESS NOTE Patient Identification: Name: Megan Lyons Age: 68 y.o. Sex: female : 1955 DIAGNOSIS T1 N0 M0 stage IA non-small cell moderately differentiated invasive adenocarcinoma status post right upper lobe lung biopsy done on October 25, 2023. Tumor was 1.1 cm in size. CURRENT TREATMENT Surveillance TREATMENT HISTORY SBRT treatment to the right upper lobe lung cancer completed January 14, 2024. SUBJECTIVE Patient came to the office for follow-up visit after the CT scan was performed. She denies any excessive tiredness and fatigue. No bleeding and bruising. No chest pain and shortness of breath. No other new complaints. Review of system Constitutional: Patient did not mention fevers, sweats, denies any tiredness and fatigue, weight and appetite stable HEENT: Patient did not mention sinus congestion, hearing or vision problems Respiratory: Denies any shortness of breath or chest pain. Cardiovascular: Patient did not mention chest pain, exertional chest pressure/discomfort, nausea, syncope, complain of dyspnea on exertion GI: Patient did not mention constipation, diarrhea, dsyphagia, reflux symptoms, vomiting, melena : Patient did not mention dysuria, frequency, incontinence, urgency Integumentary system: no lymphadenopathy, sweats, flushing Musculoskeletal: Patient not mention: myalgia, arthralgia Neurological: Patient did not mention blurry or disturbed vision, numbness/weakness, dizziness Skin: No lumps, bumps or rashes. 12 point review of system was reviewed Objective: Vital signs in last 24 hours: As per nursing note Exam: General appearance: alert, cooperative, no distress, appears stated age Head: normocephalic, without obvious abnormality, atraumatic Eyes: conjunctivae/corneas clear, EOM's intact Ears: normal external ear canals AU Nose: Nares normal. Septum midline. Mucosa normal. No drainage or sinus tenderness Throat: Lips, mucosa, and tongue normal. Teeth and gums normal Neck: supple, symmetrical, trachea midline. Lungs: clear to auscultation bilaterally Heart: regular rate and rhythm, S1, S2 normal, no murmur, click, rub or gallop Abdomen: soft, non-tender. Bowel sounds normal. No masses, No organomegaly Extremities: extremities normal, atraumatic, no cyanosis or edema Skin: Skin color, texture, turgor normal. No rashes or lesions Lymph nodes: No lymphadenopathy Neuro: No obvious focal deficit Exam as above PATH LABS Labs from February 22 showed WBC 4.9 hemoglobin 11.2 platelet 1 72,000 creatinine 1.2 GFR 44 @IMAGEIMP@ Assessment: Plan: Patient Active Problem List Diagnosis Date Noted Lung nodule 10/05/2021 Abnormal weight loss 10/05/2021 Cyst of right breast 06/12/2018 Abnormal mammogram of right breast 05/31/2018 Abnormal ultrasound of breast 05/31/2018 Aspirin long-term use 05/31/2018 T1 N0 M0 stage IA non-small cell moderately differentiated invasive adenocarcinoma status post right upper lobe lung biopsy done on October 25, 2023. Tumor was 1.1 cm in size. PET scan was performed on October 05 that showed 11 mm right upper lobe pulmonary nodule with increasedactivity worsened from August 2022. Patient was found not to be a surgical candidate due to smaller scattered nodules and groundglass opacities in the upper and lower lobe which could be early malignancy. Patient completed SBRT to the right upper lobe lung mass January 13, 2024. CT scan done on February 13 showed a stable 1 cm right upper lobe mass and stable additional lesions in the right upper lobe and right lower lobe indeterminate. We will repeat CT chest in 3 months. Follow-up in 3 months. COPD. Patient will follow-up with Dr. Sanders. Hypertension. Stable. Type 2 diabetes. This has been managed by the primary care physician. Anemia of chronic kidney disease. No treatment needed at this time. 02/23/2024 Reynaldo Frances MD documented in this encounter Plan of Treatment Upcoming Encounters Date Type Department Care Team (Late st Contact Info) Description 06/06/2024 2:00 PM FACETOR Office Visit [facility] Oncology and Hematology [facility] [address] [facility] [address] [place] [address] Reynaldo Frances MD [address] [facility] [address] [place] [address] Scheduled Orders Name Type Priority Associated Diagnoses Orde r Schedule CBC WITH DIFFERENTIAL Lab Stat Malignant neoplasm of right lung, unspecified part of lung Expected: 05/17/2024, Expires: 02/22/2025 COMPREHENSIVE METABOLIC PANEL Lab Stat Malignant neoplasm of right lung, unspecified part of lung Expected: 05/17/2024, Expires: 02/22/2025 CT CHEST W CONTRAST Imaging Routine Malignant neoplasm of right lung, unspecified part of lung Expected: 05/25/2024, Expires: 02/22/2025 documented as of this encounter Visit Diagnoses Diagnosis Malignant neoplasm of right lung, unspecified part of lung- Primary documented in this encounter Care Teams Billing Representative Relationship Specialty Start Date End Date Sher Ayers MD [address] [place] [address] PCP - General Family Practice 05/09/18 documented as of this encounter
--- OUTSIDE RECORDS SUMMARY | 2024-06-04 02:32 | XMS_ITS | Encounter Summary ---
Author Organization [facility] DIANE Shannon [facility] Address [address] [place] [address] Care Team Providers Care Labor And Delivery Nurse Name Role Phone Sher Ayers MD Primary Care Provider [phone] Reason for Referral * Radiology Services (Routine) - Closed Specialty Diagnoses / Procedures Referred By Mckenzieac evan Referred To Contact Diagnoses Abnormal mammogram of left breast Procedures US BREAST UNI LEFT COMPLETE Reynaldo Frances MD [address] [facility] [address] [place], [place] [address] [place] [address] Referral ID Status Reason Start Date Expiration Date V isits Requested Visits Authorized [id number] Closed STL CTS 01/26/2024 02/25/2025 1 1 * Radiology Services (Routine) - Closed Specialty Diagnoses / Procedures Referred By Contac t Referred To Contact Diagnoses Abnormal mammogram of left breast Procedures MAMMO DIAGNOSTIC UNI LEFT W OR WO CAD Reynaldo Frances MD [address] [facility] [address] [place], [place] [address] [place] [address] Referral ID Status Reason Start Date Expiration Date V isits Requested Visits Authorized [id number] Closed STL CTS 01/26/2024 02/25/2025 1 1 Encounter Details Date Type Department Care Team (Late st Contact Info) Description 01/26/2024 Orders Only [facility] Oncology and Hematology - [place] [address] [place] [address] Reynaldo Frances MD [address] [facility] [address] [place] [address] Abnormal mammogram of left breast (Primary Dx) Social History Tobacco Use Types [...] st Contact Info) Description 06/06/2024 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 Office Visit [facility] Oncology and Hematology [facility] [address] [place] [address] Reynaldo Frances MD [address] [facility] [address] [place] [address] Scheduled Orders Name Type Priority Associated Diagnoses Orde r Schedule MAMMO DIAGNOSTIC UNI LEFT W OR WO CAD Imaging Routine Abnormal mammogram of left breast Expected: 01/26/2024, Expires: 07/25/2025 US BREAST UNI LEFT COMPLETE Imaging Routine Abnormal mammogram of left breast Expected: 01/26/2024, Expires: 01/25/2025 documented as of this encounter Procedures Procedure Name Priority Date/Time Associated Diagnosis Comments MAMMO SCREENING BILAT Routine 01/25/2024 10:34 AM CDT documented in this encounter Results * MAMMO SCREENING BILAT (01/25/2024 10:34 AM CDT) Anatomical Region Laterality Modality Breast Bilateral Other Reynaldo Frances MD MAMMO ORDERABLES documented in this encounter Visit Diagnoses Diagnosis Abnormal mammogram of left breast- Primary documented in this encounter Care Teams Labor And Delivery Nurse Relationship Specialty Start Date End Date Sher Ayers MD [address] [place] [address] PCP - General Family Practice 05/09/18 documented as of this encounter
--- OUTSIDE RECORDS SUMMARY | 2024-06-04 02:32 | XMS_ITS | Clinical Summary ---
Author Organization [facility] Address [address] [place] [address] Care Team Providers Care Bobbin Washer Name Role Phone Sher Ayers MD Primary Care Provider [phone] Allergies Active Allergy Reactions Criticality Noted Date Comments Penicillins Itching Low 05/31/2018 Medications Medication Sig Dispensed Refills Start Date End Date Status aspirin (ECOTRIN EC) 81 mg Tablet, Delayed Release (E.C.) Take 81 mg by mouth daily. Active calcium carbonate/vitamin D3 (CALCIUM 500 + D ORAL) Take by mouth daily. Active roflumilast (DALIRESP) 500 mcg Tablet Take by mouth daily. Active lisinopril (PRINIVIL) 10 mg tablet Take 10 mg by mouth daily. Active fenofibrate nanocrystallized (TRICOR) 145 mg tablet Take 145 mg by mouth daily. Active traZODone (DESYREL) 50 mg tablet Take 50 mg by mouth daily at bedtime. Active pantoprazole (PROTONIX) 40 mg Tablet, Delayed Release (E.C.) Take 40 mg by mouth daily. Active pravastatin (PRAVACHOL) 20 mg tablet Take 20 mg by mouth daily with supper. Active albuterol HFA 90 mcg inhaler Take 2 Puffs by inhalation every 6 hours as needed for Shortness of Breath. Active albuterol (PROVENTIL,VENTOLIN) 0.63 mg/3 mL Solution for Nebulization Take 0.63 mg by inhalation every 6 hours as needed for Shortness of Breath. Active TRELEGY ELLIPTA 100-62.5-25 mcg Disk with Device 06/09/2018 Active amLODIPine (NORVASC) 5 mg tablet Take 5 mg by mouth daily. Active buPROPion HCL (WELLBUTRIN SR) 150 mg Sustained Release 12 hour tablet Take 150 mg by mouth 2 times daily. Active fluticasone propionate (FLONASE) 50 mcg/spray Pross[place], Suspension nasal inhaler Administer 2 Sprays in each nostril daily. Active Ubrelvy 50 mg tablet TAKE 1 TABLET BY MOUTH ONCE NEEDED FOR MIGRAINE HEADACHE. MAY REPEAT ONCE AFTER 2 HOURS IF NEEDED. 09/05/2023 Active MAGNESIUM CITRATE ORAL Take by mouth. Active RIBOFLAVIN, VITAMIN B2, ORAL Take by mouth. Active oxyCODONE IR (OXY-IR) 5 mg Capsule Take 5 mg by mouth every 6 hours as needed for Pain. Active Active Problems Problem Noted Date Diagnosed Date Lung nodule 10/05/2021 Abnormal weight loss 10/05/2021 Cyst of right breast 06/12/2018 Abnormal mammogram of right breast 05/31/2018 Abnormal ultrasound of breast 05/31/2018 Aspirin long-term use 05/31/2018 Encounters Date Type Department Care Team Description 05/30/2024 Orders Only [facility] Oncology and Hematology - [place] [address] [address] Reynaldo Frances MD 03/20/2024 External Device Data STL ABSTRACTION Provider, Abstract 03/05/2024 External Device Data STL ABSTRACTION Provider, Abstract from Last 3 Months Social History Tobacco Use Types Packs/Day Years [...] on file Sexual Orientation Not on file Last Filed Vital Signs Vital Sign Reading Time Taken Comments Blood Pressure 137/66 02/23/2024 8:54 AM CDT Pulse 83 02/23/2024 8:54 AM CDT Temperature 36.3 ??C (97.3 ??F) 02/23/2024 8:54 AM CD T Respiratory Rate 18 02/23/2024 8:54 AM CDT Oxygen Saturation 97% 02/23/2024 8:54 AM CDT Inhaled Oxygen Concentration - - Weight 63.5 kg (140 lb) 02/23/2024 8:54 AM CDT Height 161.3 cm (5' 3.5 ) 11/22/2023 2:05 PM CDT Body Mass Index 24.41 11/22/2023 2:05 PM CDT Plan of Treatment Upcoming Encounters Date Type Department Care Team (Late st Contact Info) Description 06/06/2024 2:00 PM COPIER REPAIR TECHNICIAN Office Visit [facility] Oncology and Hematology - [place] [address] [facility] [address] [place] [address] Reynaldo Frances MD [address] [facility] [address] [place] [address] Health Maintenance Due Date Last Done Comments PNEUMOCOCCAL VACCINE 65+ YEA RS (1 of 2 - PCV) 1959 DTAP/TDAP/TD VACCINES (1 - Tdap) 1972 COLORECTAL SCREENING 1998 Colorectal Cancer Screening 1998 FIT-DNA Q 3 years 1998 FIT/FOBT Q 1 year 1998 Flex Sig/CT Colonography Q 5 years 1998 ZOSTER VACCINE (1 of 2) 2003 RSV VACCINE (60+ or ) (1 - Risk 60-74 years 1-dose series) 2013 OSTEOPOROSIS SCREENING 2018 INFLUENZA VACCINE (#1) 2023 BREAST CANCER SCREENING 02/13/2025 02/14/20 24, 01/25/2024, 05/07/2018, Additional history exists Procedures Procedure Name Priority Date/Time Associated Diagnosis Comments CT CHEST W CONTRAST Routine 05/28/2024 1 2:51 PM COPIER REPAIR TECHNICIAN MAMMO DIAGNOSTIC UNI LEFT W OR WO CAD Routine 02/14/2024 8:27 AM CDT from Last 3 Months or Most Recently Relevant to Health Maintenance Results * CT CHEST W CONTRAST (05/28/2024 12:51 PM COPIER REPAIR TECHNICIAN) Anatomical Region Laterality Modality Chest Other Reynaldo Frances MD CT ORDERABLES * MAMMO DIAGNOSTIC UNI LEFT W OR WO CAD (02/14/2024 8:27 AM CDT) Anatomical Region Laterality Modality Breast Left Other Reynaldo Frances MD MAMMO ORDERABLES from Last 3 Months or Most Recently Relevant to Health Maintenance Care Teams Bobbin Washer Relationship Specialty Start Date End Date Sher Ayers MD [address] [facility] [address] [place] [phone] PCP - General Family Practice 05/09/18
--- OUTSIDE RECORDS SUMMARY | 2024-06-04 02:32 | XMS_ITS | Encounter Summary ---
Author Organization [facility] Address [address] [place] [address] Care Team Providers Care Firefighter Type One Name Role Phone Sher Ayers MD Primary Care Provider [phone] Encounter Details Date Type Department Care Team (Late st Contact Info) Description 01/11/2024 External Device Data STL ABSTRACTION Provider, Abstract [...] st Contact Info) Description 06/06/2024 2:00 PM DATA ANALYST ETL DEVELOPER Office Visit [facility] Oncology and Hematology - [place] [address] [facility] [address] [place] [address] Reynaldo Frances MD [address] [facility] [address] [place] [address] documented as of this encounter Visit Diagnoses Not on filedocumented in this encounter Care Teams Firefighter Type One Relationship Specialty Start Date End Date Sher Ayers MD [address] [facility] [address] [place] [address] PCP - General Family Practice 05/09/18 documented as of this encounter
--- OUTSIDE RECORDS SUMMARY | 2024-06-04 02:32 | XMS_ITS | Encounter Summary ---
Author Organization [facility] [place] [facility] Address [address] [place] [address] Care Team Providers Care Car Rental Agency Manager Name Role Phone Sher Ayers MD Primary Care Provider [phone] Encounter Details Date Type Department Care Team (Late Contact Info) Description 02/14/[address] [facility] Oncology and Hematology [place] [address] [place] [address] Reynaldo Frances MD [facility] [address] [place] [address] Social History Tobacco Use Types Packs/Day Years [...] st Contact Info) Description 06/06/2024 2:00 PM FIRESETTER Office Visit [facility] Oncology and Hematology [place] [address] [place] [address] Reynaldo Frances MD [address] [facility] [address] [place] [address] documented as of this encounter Procedures Procedure Name Priority Date/Time Associated Diagnosis Comments CT CHEST W CONTRAST Routine 02/14/2024 11:51 AM CDT documented in this encounter Results * CT CHEST W CONTRAST (02/14/2024 11:51 AM CDT) Anatomical Region Laterality Modality Chest Other Reynaldo Frances MD CT ORDERABLES documented in this encounter Visit Diagnoses Not on filedocumented in this encounter Care Teams Car Rental Agency Manager Relationship Specialty Start Date End Date Sher Ayers MD [address] [facility] [address] [place] [address] PCP - General Family Practice 05/09/18 documented as of this encounter
--- OUTSIDE RECORDS SUMMARY | 2024-06-04 02:32 | XMS_ITS | Encounter Summary ---
Author Organization [facility] Address [address] [place] [address] Care Team Providers Care Border Measurer Name Role Phone Unavailable Primary Care Provider Unavailabl e Encounter Details Date Type Department Care Team (Late st Contact Info) Description 03/23/2020 3:00 PM SHAPER MACHINE HAND Rapid Evaluation [place] [facility] Community Testing [facility] [address] [place] [address] Social History Tobacco Use Types Packs/Day Years Used Date Smoking Tobacco: Never Assessed Comments Unknown Sex and Gender Information Value Date Recorded Sex Assigned at Not on file Legal Sex Female 2:41 PM SHAPER MACHINE HAND Gender Identity Not on file Sexual Orientation Not on file documented as of this encounter Plan of Treatment Not on file documented as of this encounter Visit Diagnoses Not on filedocumented in this encounter
--- OUTSIDE RECORDS SUMMARY | 2024-06-04 02:32 | XMS_ITS | Encounter Summary ---
Author Organization [facility] Address [address] [place] [address] Care Team Providers Care Trademark Paralegal Name Role Phone Sher Ayers MD Primary Care Provider [phone] Encounter Details Date Type Department Care Team (Late st Contact Info) Description 03/05/2024 External Device Data STL ABSTRACTION Provider, [...] st Contact Info) Description 06/06/2024 2:00 PM STORAGE WORKER Office Visit [facility] Oncology and Hematology - [place] [address] [facility] [address] [place] [address] Reynaldo Frances MD [address] [facility] [address] [place] [address] documented as of this encounter Visit Diagnoses Not on filedocumented in this encounter Care Teams Trademark Paralegal Relationship Specialty Start Date End Date Sher Ayers MD [address] [facility] [address] [place] [address] PCP - General Family Practice 05/09/18 documented as of this encounter
--- OUTSIDE RECORDS SUMMARY | 2024-06-04 02:32 | XMS_ITS | Encounter Summary ---
Author Organization [facility] Address [address] [place] [address]. [place], [place] [address] [place] [address] Care Team Providers Care Director Special Education Name Role Phone Unavailable Primary Care Provider Unavailabl e Encounter Details Date Type Department Care Team (Late st Contact Info) Description 10/13/2003 Abstract [facility] [place] [address] Jessica Diaz MD Social History Tobacco Use [...]
--- OUTSIDE RECORDS SUMMARY | 2024-06-04 02:32 | XMS_ITS | Clinical Summary ---
Author Organization [facility] Address [address] [place] [address]. [place], [place] [address] [place] [address] Care Team Providers Care Laundry Machine Operator Name Role Phone Unavailable Primary Care Provider Unavailabl e Social History Tobacco Use Types Packs/Day Years Used Date Smoking Tobacco: Never Assessed Comments Unknown Sex and Gender Information Value Date Recorded Sex Assigned at Not on file Legal Sex Female 7:04 PM CDT Gender Identity Not on file Sexual Orientation Not on file Plan of Treatment Health Maintenance Due Date Last Done Comments Colorectal Cancer Screening Colonoscopy (10 Years) 1955 Hepatitis C 1971 DTaP, Tdap and Td Vaccines ( 1 - Tdap) 1972 Mammogram Screening 1993 Zoster Vaccines (1 of 2) 2003 Dexa Scan (General) 2018 Pneumococcal Vaccine: 65+ Ye ars (1 of 1 - PCV) 2018 COVID-19 Vaccine (2023-2 5 season) 2024 Influenza Adult (#1) 2024 RSV Immunization or 60+ Years (1 - 1-dose 75+ series) 2028 Meningococcal Vaccine Aged Out No grace joe eligible based on patient's age to complete this topic RSV Immunizations Under 20 Months Aged Out No longer eligible based on patient's age to complete this topic
--- OUTSIDE RECORDS SUMMARY | 2024-06-04 02:32 | XMS_ITS | Clinical Summary ---
Author Organization [facility] Address [address] [place] [address] Care Team Providers Care Telehealth Nurse Name Role Phone Unavailable Primary Care Provider Unavailabl e Social History Tobacco Use Types Packs/Day Years Used Date Smoking Tobacco: Never Assessed Comments Unknown Sex and Gender Information Value Date Recorded Sex Assigned at Not on file Legal Sex Female 2:41 PM AUDIO TAPE LIBRARIAN Gender Identity Not on file Sexual Orientation Not on file Plan of Treatment Health Maintenance Due Date Last Done Comments DEXA Bone Density 1955 Hepatitis C Virus (HCV) Screening 1955 Colonoscopy 1998 Colorectal Cancer Screening 1998 Cologuard 2003 Immunochemical Fecal Occult Blood 2003 Mammogram 2003 Influenza Immunization (#1) 01/21/202401/20, 01/20/2017, 01/28/2016 SARS-COV-2 Immunization ( season) 2024 Pneumococcal Immunization (5 0+ years) (3 of 3 - PCV20 or PCV21) 01/23/2024 01/22/2019, 01/20/2017, 02/12/2015 Respiratory Syncytial Virus (RSV) Immunization (Adult) (1 - 1-dose 75+ series) 2028 DTaP/Tdap/Td Immunization Discontinued 2017, 02/12/2015 TdaP Immunization Completed 12/18/2017, 02/12/2015 Zoster Immunization Completed 12/18/2017, 10/06/2017 Pneumococcal Immunization Combined Discontinued 01/22/2019, 01/20/2017, 02/12/2015 Hepatitis B Immunization Aged Out No longer eligible based on patient's age to complete this topic Meningococcal Immunization (ACWY) Aged Out No longer eligible based on patient's age to complete this topic Rotavirus Immunization Aged Out No lo nger eligible based on patient's age to complete this topic
--- OUTSIDE RECORDS SUMMARY | 2024-06-04 02:32 | XMS_ITS | Encounter Summary ---
Author Organization [facility] [employer] [facility] Address [address] [place] [address] Care Team Providers Care Network Operations Specialist Name Role Phone Sher Ayers MD Primary Care Provider [phone] Encounter Details Date Type Department Care Team (Late Contact Info) Description 02/15/2024 Orders Only [facility] Oncology and Hematology [facility] [address] [place] [address] Reynaldo Fracnes MD [facility] V[address]ofro[address] [place] [address] Social History Tobacco Use Types Packs/Day [...] st Contact Info) Description 06/06/2024 2: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 Office Visit [facility] Hematology [facility] [address] [place] [address] Reynaldo Frances MD [address] [place] [address] documented as of this encounter Procedures Procedure Name Priority Date/Time Associated Diagnosis Comments MAMMO DIAGNOSTIC UNI LEFT W OR WO CAD Routine 02/14/2024 8:27 AM CDT documented in this encounter Results * MAMMO DIAGNOSTIC UNI LEFT W OR WO CAD (02/14/2024 8:27 AM CDT) Anatomical Region Laterality Modality Breast Left Other Reynaldo Frances MD MAMMO ORDERABLES documented in this encounter Visit Diagnoses Not on filedocumented in this encounter Care Teams Network Operations Specialist Relationship Specialty Start Date End Date Sher Ayers MD [address] [facility] [address] [place] [address] PCP - General Family Practice 05/09/18 documented as of this encounter
--- OUTSIDE RECORDS SUMMARY | 2024-06-04 02:32 | XMS_ITS | Encounter Summary ---
Author Organization [facility] Address [address] [place] [address] Care Team Providers Care Postal Support Employee Name Role Phone Sher Ayers MD Primary Care Provider [phone] Encounter Details Date Type Department Care Team (Late st Contact Info) Description 02/20/2024 External Device Data STL ABSTRACTION Provider, Abstract [...] st Contact Info) Description 06/06/2024 2:00 PM HEEL WHEELER Office Visit [facility] Oncology and Hematology - [place] [address] [facility] [address] [place] [address] Reynaldo Frances MD [address] [facility] [address] [place] [address] documented as of this encounter Visit Diagnoses Not on filedocumented in this encounter Care Teams Postal Support Employee Relationship Specialty Start Date End Date Sher Ayers MD [address] [facility] [address] [place] [address] PCP - General Family Practice 05/09/18 documented as of this encounter
--- OUTSIDE RECORDS SUMMARY | 2024-06-04 02:32 | XMS_ITS | Encounter Summary ---
Author Organization [facility] Address [address] [place] [address] Care Team Providers Care Light Industrial Supervisor Name Role Phone Sher Ayers MD Primary Care Provider [phone] Encounter Details Date Type Department Care Team (Late st Contact Info) Description 01/30/2024 External Device Data STL ABSTRACTION Provider, Abstract [...] st Contact Info) Description 06/06/2024 2:00 PM MARINE RIGGER Office Visit [facility] Oncology and Hematology - [place] [address] [facility] [address] [place] [address] Reynaldo Frances MD [address] [facility] [address] [place] [address] documented as of this encounter Visit Diagnoses Not on filedocumented in this encounter Care Teams Light Industrial Supervisor Relationship Specialty Start Date End Date Sher Ayers MD [address] [facility] [address] [place] [address] PCP - General Family Practice 05/09/18 documented as of this encounter
--- OUTSIDE RECORDS SUMMARY | 2024-06-04 02:32 | XMS_ITS | Encounter Summary ---
Author Organization [facility] Address [address] [place] [address] Care Team Providers Care Maintainer Plant Name Role Phone Unavailable Primary Care Provider Unavailabl e Encounter Details Date Type Department Care Team (Late st Contact Info) Description 03/23/2020 Lab Requisition [facility] Health Community Testing [facility] [address] [place] [address] [place] [address] [place] [address] Social History Tobacco Use Types Packs/Day Years Used Date Smoking Tobacco: Never Assessed Comments Unknown Sex and Gender Information Value Date Recorded Sex Assigned at Not on file Legal Sex Female 2:41 PM INTERACTIVE VIDEO TECHNICIAN Gender Identity Not on file Sexual Orientation Not on file documented as of this encounter Plan of Treatment Not on file documented as of this encounter Procedures Procedure Name Priority Date/Time Associated Diagnosis Comments SARS-COV-2 PCR [facility] ONLY Routine 03/23/2020 2:45 PM INTERACTIVE VIDEO TECHNICIAN documented in this encounter Visit Diagnoses Not on filedocumented in this encounter
--- OUTSIDE RECORDS SUMMARY | 2024-06-04 02:32 | XMS_ITS | Encounter Summary ---
Author Organization [facility] Address [address] [place] [address]. [place], [place] [address] [place] [address] Care Team Providers Care Mender Hand Name Role Phone Unavailable Primary Care Provider Unavailabl e Encounter Details Date Type Department Care Team (Late st Contact Info) Description 11/16/[address] [facility] [address] [place] [address] Jessica Diaz MD Social History Tobacco Use [...]
--- OUTSIDE RECORDS SUMMARY | 2024-06-04 02:33 | XMS_ITS | Encounter Summary ---
Author Organization [facility] Address [address] [facility] Attn: Epic Prelude ADT [place] [address] Care Team Providers Care Nick Setter Name Role Phone Sher Ayers MD Primary Care Provider Encounter Details Date Type Department Care Team (Latest Contact Info) Description 03/17/2022 Travel Social History Tobacco Use Types Packs/Day Years Used Date Smoking Tobacco: Never Smokeless Tobacco: Never Alcohol Use Standard Drinks/Week Comments No 0 (1 standard drink = 0.6 oz pur e alcohol) Sex and Gender Information Value Date Recorded Sex Assigned at Not on file Gender Identity Not on file Sexual Orientation Not on file COVID-19 Exposure Response Date Recorded In the last 10 days, have yo u been in contact with someone who was confirmed or suspected to have Coronavirus/COVID-19? No / Unsure 03/17/2022 9:52 AM CDT documented as of this encounter Plan of Treatment Upcoming Encounters Date Type Department Care Team (Late st Contact Info) Description 06/06/2024 2:00 PM CRIME VICTIM SPECIALIST Office Visit [facility] Oncology and Hematology - [place] [address] [facility] [address] [place] [address] Reynaldo Frances MD [address] [facility] [address] [place] [address] documented as of this encounter Visit Diagnoses Not on filedocumented in this encounter Care Teams Nick Setter Relationship Specialty Start Date End Date Sher Ayers MD [address] [facility] 120 [place] [address] PCP - General Family Practice 05/09/18 documented as of this encounter
--- OUTSIDE RECORDS SUMMARY | 2024-06-04 02:33 | XMS_ITS | Encounter Summary ---
Author Organization [facility] Address [address] [place] [address] Care Team Providers Care Program Eligibility Specialist Name Role Phone Sher Ayers MD Primary Care Provider [phone] Reason for Referral * CT Scan (Routine) - Closed Specialty Diagnoses / Procedures Referred By Fritz gordon Referred To Contact Diagnoses Lung nodule Procedures CT CHEST WO CONTRAST Reynaldo Frances MD 2[address] [facility] [address] [place] [address] [place] [address] Referral ID Status Reason Start Date Expiration Date V isits Requested Visits Authorized [id number] Closed [facility] CTS 01/05/2022 04/05/2022 1 1 Reason for Visit * Reason Comments Follow Up 2 week f/u with PET only * Eval and Treat (Routine) - Closed Specialty Diagnoses / Procedures Referred By Fritz gordon Referred To Contact Oncology Diagnoses Abnormal weight loss Procedures Office Visit 3-5 Sher Ayers MD 68[address] [facility] 162 [facility] [address] [place] [address] [facility] Oncology And Hematology [place] [address] [facility] [address] [place] [address] Referral ID Status Reason Start Date Expiration Date Visits Re quested Visits Authorized [id number] Closed 09/08/2021 03/07/2022 12 12 Encounter Details Date Type Department Care Team (Late st Contact Info) Description 11/04/2021 2:00 PM CDT Office Visit [facility] Oncology and Hematology - [place] 2[address] [facility] [address] [place] [address] Renyaldo Frances MD [address] [facility] [address] [place] [address] Lung nodule (Primary Dx) Social History Tobacco Use Types [...] suspected to have Coronavirus/COVID-19? No / Unsure 11/04/2021 1:50 PM CDT documented as of this encounter Last Filed Vital Signs Vital Sign Reading Time Taken Comments Blood Pressure 140/77 11/04/2021 2:27 PM CDT Pulse 82 11/04/2021 2:27 PM CDT Temperature 36.2 ??C (97.2 ??F) 11/04/2021 2:27 PM CD T Respiratory Rate - - Oxygen Saturation 97% 11/04/2021 2:27 PM CDT Inhaled Oxygen Concentration - - Weight 58.2 kg (128 lb 4.8 oz) 11/04/2021 2:27 P M CDT Height 160 cm (5' 3 ) 11/04/2021 2:27 PM CDT Body Mass Index 22.73 11/04/2021 2:27 PM CDT documented in this encounter Progress Notes * Reynaldo Frances MD - 11/04/2021 5:29 PM CDT HEMATOLOGY / ONCOLOGY PROGRESS NOTE Patient Identification: Name: Megan Lyons Age: 66 y.o. Sex: female : 1955 DIAGNOSIS Bilateral pulmonary nodules CURRENT TREATMENT Expectant TREATMENT HISTORY SUBJECTIVE Patient came into the office for follow-up visit after the PET scan was done. She has some dyspnea on exertion and continues to lose weight. Denies any chest pain. Denies any leg pain and bone pain. No other new complaint. Review of system Constitutional: Patient did not mention fevers, sweats, fatigue, malaise, 1 pound weight loss HEENT: Patient did not mention sinus congestion, hearing or vision problems Respiratory: Patient did not mention cough, dyspnea, wheeze Cardiovascular: Patient did not mention chest pain, exertional chest pressure/discomfort, nausea, syncope, shortness of breath GI: Patient did not mention constipation, diarrhea, dsyphagia, reflux symptoms, vomiting, melena : Patient did not mention dysuria, frequency, incontinence, urgency Integumentary system: no lymphadenopathy, sweats, flushing Musculoskeletal: Patient not mention: myalgia, arthralgia Neurological: Patient did not mention blurry or disturbed vision, numbness/weakness, dizziness Skin: No lumps, bumps or rashes. 12 point review system was reviewed and as above Objective: Vital signs in last 24 hours: [...] No lymphadenopathy Neuro: No obvious focal deficit Examination as above PATH LABS @IMAGEIMP@ Assessment: Plan: Patient Active Problem List Diagnosis Date Noted ??? Lung nodule 10/05/2021 ??? Abnormal weight loss 10/05/2021 ??? Cyst of right breast 06/12/2018 ??? Abnormal mammogram of right breast 05/31/2018 ??? Abnormal ultrasound of breast 05/31/2018 ??? Aspirin long-term use 05/31/2018 Bilateral pulmonary nodules and weight loss. PET scan done on October 28, 2021 showed a small pulmonarynodule without increased activity with increase in size into nodule from August 27, 2020. Likely benign. I will order CT chest without contrast in 4 months. Hypertension. Patient is on lisinopril. COPD. She will you continue albuterol inhaler. Type 2 diabetes. Stable without any medicine. ? TOBACCO COUNSELING She was counseled to discontinue tobacco use. 11/04/2021 Reynaldo Frances MD documented in this encounter Plan of Treatment Upcoming Encounters Date Type Department Care Team (Late st Contact Info) Description 06/06/2024 2:00 PM SUMMER CAMP COUNSELOR Office Visit [facility] Oncology and Hematology - [place] [address] [facility] [address] [place] [address] Reynaldo Frances MD [address] [facility] [address] [place] [address] Scheduled Orders Name Type Priority Associated Diagnoses Orde r Schedule CT CHEST WO CONTRAST Imaging Routine Lung nodule Expected: 03/06/2022, Expires: 11/04/2022 documented as of this encounter Visit Diagnoses Diagnosis Lung nodule- Primary Solitary pulmonary nodule documented in this encounter Care Teams Program Eligibility Specialist Relationship Specialty Start Date End Date Sher Ayers MD [address] [facility] [address] [place] [address] PCP - General Family Practice 05/09/18 documented as of this encounter
--- OUTSIDE RECORDS SUMMARY | 2024-06-04 02:33 | XMS_ITS | Encounter Summary ---
Author Organization [facility] [employer] [facility] Address [address] [place] [address] Care Team Providers Care Hydraulic Miner Blasting Name Role Phone Sher Ayers MD Primary Care Provider [phone] Reason for Visit * Reason Comments Follow Up Encounter Details Date Type Department Care Team (Late st Contact Info) Description 09/22/2022 10:00 AM CDT Office Visit [facility] Oncology and Hematology - [place] [address] [facility] [address] [place] [address] Reynaldo Frances MD [address] [facility] [address] [place] [address] Lung nodule (Primary Dx) Social History Tobacco Use Types Packs/Day Years Used Date Smoking Tobacco: Never Smokeless Tobacco: Never Tobacco Cessation:Counseling Given: Not [...] suspected to have Coronavirus/COVID-19? No / Unsure 09/22/2022 9:31 AM CDT documented as of this encounter Last Filed Vital Signs Vital Sign Reading Time Taken Comments Blood Pressure 142/74 09/22/2022 9:43 AM CDT Pulse 97 09/22/2022 9:39 AM CDT Temperature 36.3 ??C (97.4 ??F) 09/22/2022 9:39 AM CD T Respiratory Rate 20 09/22/2022 9:39 AM CDT Oxygen Saturation 95% 09/22/2022 9:39 AM CDT Inhaled Oxygen Concentration - - Weight 60.3 kg (133 lb) 09/22/2022 9:39 AM CDT Height - - Body Mass Index 23.56 03/17/2022 9:58 AM CDT documented in this encounter Progress Notes * Reynaldo Frances MD - 09/22/2022 10:21 AM CDT HEMATOLOGY / ONCOLOGY PROGRESS NOTE Patient Identification: Name: Megan Lyons Age: 67 y.o. Sex: female : 1955 DIAGNOSIS Bilateral pulmonary nodules CURRENT TREATMENT Expectant TREATMENT HISTORY SUBJECTIVE Patient came into the office for follow-up visit after the CT scan was performed. She denies any excessive shortness of breath but does have some nonproductive cough. She continues to smoke about 4 to 5 cigarettes a day. Denies any weight loss. No other new complaint. Review of system Constitutional: Patient did not mention fevers, sweats, weight and appetite stable HEENT: Patient did [...] rashes. 12 point review system was reviewed Objective: Vital signs in [...] focal deficit Exam as above PATH LABS @IMAGEIMP@ Assessment: Plan: Patient Active Problem List Diagnosis Date Noted Lung nodule 10/05/2021 Abnormal weight loss 10/05/2021 Cyst of right breast 06/12/2018 Abnormal mammogram of right breast 05/31/2018 Abnormal ultrasound of breast 05/31/2018 Aspirin long-term use 05/31/2018 Bilateral pulmonary nodules and weight loss. PET scan done on October 28, 2021 showed a small pulmonarynodule without increased activity with increase in size into nodule from August 27, 2020. Likely benign. Repeat CT chest done on September 15 showed right-sided pulmonary nodules are stable in distribution from prior examination likely benign. She continues to smoke. We will see her back on a yearly basis with repeat CT chest without contrast. Hypertension. Stable on lisinopril. COPD. Stable. I have recommended smoking cessation. Type 2 diabetes. Patient will continue to follow with the primary care physician. TOBACCO COUNSELING She was counseled to discontinue tobacco use. 09/22/2022 Reynaldo Frances MD documented in this encounter Plan of Treatment Upcoming Encounters Date Type Department Care Team (Late st Contact Info) Description 06/06/2024 2:00 PM CUSTOMER MANAGER Office Visit [facility] Oncology and Hematology - [place] [address] [facility] [address] [place] [address] Reynaldo Frances MD [address] [facility] [address] [place] [address] documented as of this encounter Visit Diagnoses Diagnosis Lung nodule- Primary Solitary pulmonary nodule documented in this encounter Care Teams Hydraulic Miner Blasting Relationship Specialty Start Date End Date Sher Ayers MD [address] [facility] [address] [place] [address] PCP - General Family Practice 05/09/18 documented as of this encounter
--- OUTSIDE RECORDS SUMMARY | 2024-06-04 02:33 | XMS_ITS | Encounter Summary ---
Author Organization [facility] [email or web address] [facility] Address [address] [place] [address] Care Team Providers Care Cfa Name Role Phone Sher Ayers MD Primary Care Provider [phone] Encounter Details Date Type Department Care Team (Late st Contact Info) Description 09/15/2022 Abstract [facility] Oncology and Hematology - [place] [address] [place] [address] Tho Reagan RN Social History Tobacco Use Types Packs/Day Years [...] st Contact Info) Description 06/06/2024 2:00 PM BUSINESS ANALYTICS SPECIALIST Office Visit [facility] Oncology and Hematology [facility] [address] [place] [address] Reynaldo Frances MD [address] [facility] [address] [place] [address] documented as of this encounter Visit Diagnoses Not on filedocumented in this encounter Care Teams Cfa Relationship Specialty Start Date End Date Sher Ayers MD [address] [place] [address] [place] [phone] PCP - General Family Practice 05/09/18 documented as of this encounter
--- OUTSIDE RECORDS SUMMARY | 2024-06-04 02:33 | XMS_ITS | Encounter Summary ---
Author Organization [facility] Address [address] [place] [address] Care Team Providers Care Gate Cutter Name Role Phone Sher Ayers MD Primary Care Provider [phone] Reason for Visit * Reason Onset Date Comments PET scan 10/15/2021 Encounter Details Date Type Department Care Team (Late st Contact Info) Description 10/15/2021 Telephone [facility] Oncology and Hematology - [place] [address] [facility] [address] [place] [address] Reynaldo Frances MD [address] [facility] [address] [place] [address] PET scan Social History Tobacco Use Types Packs/Day Years [...] suspected to have Coronavirus/COVID-19? No / Unsure 10/05/2021 2:53 PM CDT documented as of this encounter Miscellaneous Notes * Telephone Encounter - Crystal Kelley - 10/15/2021 3:45 PM CDT Patient called stating that her PET scan got canceled on 10/14/21 @ [facility] due to insurance pending. She received the approval letter today stating that the scan was approved from 10/13/21-11/27/21. Auth: [id number] Called Wilfredo with [employer] to let her know what is going on and gave her the auth number. PET scan rescheduled for 10/28/21 @ 8:00am at [facility]. documented in this encounter Plan of Treatment Upcoming Encounters Date Type Department Care Team (Late st Contact Info) Description 06/06/2024 2:00 PM HYDRAULIC REPAIRER Office Visit [facility] Oncology and Hematology - [place] [address] [facility] [address] [place] [address] Reynaldo Frances MD [address] [facility] [address] [place] [address] documented as of this encounter Visit Diagnoses Not on filedocumented in this encounter Care Teams Gate Cutter Relationship Specialty Start Date End Date Sher Ayers MD [address] [place] [address] PCP - General Family Practice 05/09/18 documented as of this encounter
--- OUTSIDE RECORDS SUMMARY | 2024-06-04 02:33 | XMS_ITS | Encounter Summary ---
Author Organization [facility] Address [address] [place] [address] Care Team Providers Care Cooking Appliance Repair Technician Name Role Phone Sher Ayers MD Primary Care Provider [phone] Reason for Referral * PET Scan (Routine) - Closed Specialty Diagnoses / Procedures Referred By Fritz t Referred To Contact Diagnoses Lung nodule Procedures PET TUMOR IMG W CT SKB MDTH CHG PET IMAGING CT ATTENUATION SKULL BASE MID-THIGH AL F18 FDG Reynaldo Frances MD [address] [employer] [address] [place] [address] [place] [address] Referral ID Status Reason Start Date Expiration Date Visits Re quested Visits Authorized [id number] Closed 10/04/2023 11/18/2023 1 1 Reason for Visit * Reason Comments Follow Up Encounter Details Date Type Department Care Team (Late st Contact Info) Description 09/21/2023 10:00 AM CDT Office Visit [facility] Oncology and Hematology [facility] [address] [place] [address] [facility] [address] [place] [address] Reynaldo Frances MD [address] [employer] [address] [place] [address] Lung nodule (Primary Dx) Social History Tobacco Use Types Packs/Day Years Used Date Smoking Tobacco: Every Day Cigarettes 0.3 50.7 Started: 09/20/1973 Smokeless Tobacco: Never Tobacco Cessation:Ready to Q uit: Not Asked; Counseling Given: Not Answered Alcohol Use Standard Drinks/Week Comments No 0 (1 standard drink = 0.6 oz pur e alcohol) Sex and Gender Information Value Date Recorded Sex Assigned at Not on file Gender Identity Not on file Sexual Orientation Not on file documented as of this encounter Last Filed Vital Signs Vital Sign Reading Time Taken Comments Blood Pressure 120/70 09/21/2023 9:52 AM CDT Pulse 91 09/21/2023 9:52 AM CDT Temperature 36.4 ??C (97.6 ??F) 09/21/2023 9:52 AM CD T Respiratory Rate 14 09/21/2023 9:52 AM CDT Oxygen Saturation 94% 09/21/2023 9:52 AM CDT Inhaled Oxygen Concentration - - Weight 59 kg (130 lb) 09/21/2023 9:52 AM CDT Height - - Body Mass Index 23.03 03/17/2022 9:58 AM CDT documented in this encounter Progress Notes * Reynaldo Frances MD - 09/21/2023 12:32 PM CDT HEMATOLOGY / ONCOLOGY PROGRESS NOTE Patient Identification: Name: Megan Lyons Age: 68 y.o. Sex: female : 1955 DIAGNOSIS Bilateral pulmonary nodules CURRENT TREATMENT Expectant TREATMENT HISTORY SUBJECTIVE Patient came to the office for follow-up visit. She continues to smoke. She has some nonproductive cough. Denies any weight loss. No chest pain. She has some dyspnea on exertion. No other new complaints. Review of system Constitutional: Patient did not mention fevers, sweats, denies any tiredness and fatigue, weight and appetite stable. HEENT: Patient did not mention sinus congestion, hearing or vision problems Respiratory: Complain of some nonproductive smoker's cough without shortness of breath Cardiovascular: Patient did not mention chest pain, [...] nodule from August 27, 2020. Likely benign. CT chest done on September 14 showed multiple new or developing bilateral solid subsolid nodules throughout both lung and differential diagnoses include infection and neoplasm. Mild mediastinal lymphadenopathy. I will order PET scan before ordering a biopsy of 1 of these nodules. Follow-up after the PET scan. Hypertension. Stable on lisinopril. COPD. I have again recommended smoking cessation. She only smoked 4 to 5 cigarettes a day. Type 2 diabetes. She will continue to follow with the primary care physician. TOBACCO COUNSELING She was counseled to discontinue tobacco/nicotine use. 09/21/2023 Reynaldo Frances MD documented in this encounter Plan of Treatment Upcoming Encounters Date Type Department Care Team (Late st Contact Info) Description 06/06/2024 2:00 PM DIELECTRIC TESTER Office Visit [facility] Oncology and Hematology - [place] 2[address] [facility] [address] [place] [address] Reynaldo Frances MD [address] [facility] [address] [place] [address] Scheduled Orders Name Type Priority Associated Diagnoses Orde r Schedule PET TUMOR IMG W CT SKB MDTH Imaging Routine Lung nodule Expected: 09/22/2023, Expires: 09/20/2024 documented as of this encounter Visit Diagnoses Diagnosis Lung nodule- Primary Solitary pulmonary nodule documented in this encounter Care Teams Cooking Appliance Repair Technician Relationship Specialty Start Date End Date Shre Ayers MD [address] [facility] 120 [place] [address] PCP - General Family Practice 05/09/18 documented as of this encounter
--- OUTSIDE RECORDS SUMMARY | 2024-06-04 02:33 | XMS_ITS | Encounter Summary ---
Author Organization [facility] Address [address] [place] [address] Care Team Providers Care Pyridine Recovery Operator Name Role Phone Sher Ayers MD Primary Care Provider [phone] Encounter Details Date Type Department Care Team (Late st Contact Info) Description 06/21/2023 External Device Data STL ABSTRACTION Provider, Abstract [...] st Contact Info) Description 06/06/2024 2:00 PM IMAGING SERVICES DIRECTOR Office Visit [facility] Oncology and Hematology - [place] [address] [place] [address] [address] [place] [address] [place] [address] [place] [address] [address] [place] [address] documented as of this encounter Visit Diagnoses Not on filedocumented in this encounter Care Teams Pyridine Recovery Operator Relationship Specialty Start Date End Date Sher Ayers MD [address] [facility] [address] [place] [address] PCP - General Family Practice 05/09/18 documented as of this encounter
--- OUTSIDE RECORDS SUMMARY | 2024-06-04 02:33 | XMS_ITS | Encounter Summary ---
Author Organization [facility] Address [address] [place] [address] Care Team Providers Care Yard Motor Operator Name Role Phone Sher Ayers MD Primary Care Provider [phone] Reason for Referral * Eval and Treat (Routine) - Closed Specialty Diagnoses / Procedures Referred By Contac t Referred To Contact Thoracic Surgery / Cardiothoracic Surgery Diagnoses Malignant neoplasm of right lung, unspecified part of lung Procedures [place] OFFICE/OUTPATIENT ESTABLISHED MOD MDM 30 MIN [place] OFFICE/OUTPATIENT NEW MODERATE MDM 45 MINUTES Reynaldo Frances MD [address] [place] [address] Ha Jang MD [address] [facility] [address] [place] [address] Referral ID Status Reason Start Date Expiration Date Visits Re quested Visits Authorized [id number] Closed 11/03/2023 11/02/2024 1 1 * Respiratory (Routine) - Closed Specialty Diagnoses / Procedures Referred By Contac t Referred To Contact Diagnoses Malignant neoplasm of right lung, unspecified part of lung Procedures PULMONARY FUNCTION TEST Reynaldo Frances MD [address] [place] [address] [place] [address] Referral ID Status Reason Start Date Expiration Date V isits Requested Visits Authorized [id number] Closed ST[facility] CTS 11/03/2023 12/03/2024 1 1 Reason for Visit * Reason Comments Follow Up Encounter Details Date Type Department Care Team (Late st Contact Info) Description 11/03/2023 12:30 PM CDT Office Visit [facility] Oncology and Hematology - [place] 2[address] [facility] 200 [place] [address] Reynaldo Frances MD [address] [facility] [address] [place] [address] Malignant neoplasm of right lung, [...] Sign Reading Time Taken Comments Blood Pressure 124/64 11/03/2023 12:19 PM CDT Pulse 84 11/03/2023 12:19 PM CDT Temperature 36.1 ??C (97 ??F) 11/03/2023 12:19 PM CDT Respiratory Rate 14 11/03/2023 12:19 PM CDT Oxygen Saturation 95% 11/03/2023 12:19 PM CDT Inhaled Oxygen Concentration - - Weight 62.1 kg (137 lb) 11/03/2023 12:19 PM CDT Height - - Body Mass Index 24.27 03/17/2022 9:58 AM CDT documented in this encounter Progress Notes * Reynaldo Frances MD - 11/03/2023 12:41 PM CDT HEMATOLOGY / ONCOLOGY PROGRESS NOTE Patient Identification: Name: Megan Lyons Age: 68 y.o. Sex: female : 1955 DIAGNOSIS T1 N0 M0 stage IA non-small cell moderately differentiated invasive adenocarcinoma status post right upper lobe lung biopsy done on October 25, 2023. Tumor was 1.1 cm in size. CURRENT TREATMENT Expectant TREATMENT HISTORY SUBJECTIVE Patient came to the office for follow-up visit after the lung biopsy was performed. She tolerated the procedure well. Denies any chest pain and shortness of breath. No other new complaints. Review of system Constitutional: Patient did not mention fevers, sweats, denies tiredness and fatigue, weight and appetite stable [...] nodule with increasedactivity worsened from August 2022. I have discussed the management of early-stage lung cancer with the patient. I will order pulmonaryfunction testing and will refer to Dr Manuel for surgical consultation. Follow-up with me in 3 weeks. Hypertension. Stable. Type 2 diabetes. This has been managed by the primary care physician. COPD. She quit smoking on October 13, 2023 on the day of the visit with me. TOBACCO COUNSELING She is not a tobacco/nicotine user. 11/03/2023 Reynaldo Frances MD documented in this encounter Plan of Treatment Upcoming Encounters Date Type Department Care Team (Late st Contact Info) Description 06/06/2024 2:00 PM CLUBHOUSE ATTENDANT Office Visit [facility] Oncology and Hematology [facility] [address] [facility] [address] [place] [address] Reynaldo Frances MD [address] [facility] [address] [place] [address] Scheduled Orders Name Type Priority Associated Diagnoses Orde r Schedule PULMONARY FUNCTION TEST PFT Routine Malignant neoplasm of right lung, unspecified part of lung Ordered: 11/03/2023 Scheduled Referrals Name Type Priority Associated Diagnoses Order Schedule AMB REFERRAL TO CARDIOTHORACIC SURGEON Outpatient Referral Routine Malignant neoplasm of right lung, unspecified part of lung Ordered: 11/03/2023 documented as of this encounter Visit Diagnoses Diagnosis Malignant neoplasm of right lung, unspecified part of lung- Primary documented in this encounter Care Teams Yard Motor Operator Relationship Specialty Start Date End Date Sher Ayers MD [address] [place] [address] PCP - General Family Practice 05/09/18 documented as of this encounter
--- OUTSIDE RECORDS SUMMARY | 2024-06-04 02:33 | XMS_ITS | Encounter Summary ---
Author Organization [facility] Address [address] [place] [address] Care Team Providers Care Etl Software Engineer Name Role Phone Sher Ayers MD Primary Care Provider [phone] Reason for Visit * Reason Onset Date Comments imaging request 11/07/2023 Encounter Details Date Type Department Care Team (Late st Contact Info) Description 11/07/2023 Telephone [facility] Cardiovas and Thor Surg at [facility] [address] [facility] [address] [place] [address] Ha Jang MD [address] [facility] [address] [place] [address] imaging request Social History Tobacco Use Types Packs/Day Years [...] on file documented as of this encounter Miscellaneous Notes * Telephone Encounter - Reji Lambert RN - 11/07/2023 2:41 PM CDT 11/07/23 Imaging Requested from: [facility] Radiology Patient Information Full Name: Megan Lyons Date of : 1955 Address: [address] [place] [address] Requesting Physician: Dr. Jang Reason for Request: Continuation of Care, Treatment of Condition Imaging Information Type of Imaging and Reports Requested: CT of Chest and PET/CT SCAN Date of Collection: May 2023 to present Send To the below address for Review: Please push images to [facility]. Please contact [facility] Radiology at [phone] to inform them that the images have been pushed. [employer] . Please use Ref: [id number] on the shipping label. Thank you for your assistance, Provider: Dr. Jang documented in this encounter Plan of Treatment Upcoming Encounters Date Type Department Care Team (Late st Contact Info) Description 06/06/2024 2:00 PM LOTTERY SALES CLERK Office Visit [facility] Oncology and Hematology - [place] [address] [place] [address] [address] [place] [address] Reynaldo Frances MD [address] [facility] [address] [place] [address] documented as of this encounter Visit Diagnoses Not on filedocumented in this encounter Care Teams Etl Software Engineer Relationship Specialty Start Date End Date Sher Ayers MD [address] [facility] 120 [place] [address] PCP - General Family Practice 05/09/18 documented as of this encounter
--- OUTSIDE RECORDS SUMMARY | 2024-06-04 02:33 | XMS_ITS | Encounter Summary ---
Author Organization [facility] Address [address] [place] [address] Care Team Providers Care Navy Senior Officer Name Role Phone Sher Ayers MD Primary Care Provider [phone] Encounter Details Date Type Department Care Team (Late st Contact Info) Description 06/18/2023 External Device Data STL ABSTRACTION Provider, Abstract [...] st Contact Info) Description 06/06/2024 2:00 PM MUCKER OPERATOR Office Visit [facility] Oncology and Hematology - [place] [address] [place] [address] [address] [place] [address] [place] [address] [place] [address] [address] [place] [address] documented as of this encounter Visit Diagnoses Not on filedocumented in this encounter Care Teams Navy Senior Officer Relationship Specialty Start Date End Date Sher Ayers MD [address] [facility] 120 [place] [address] PCP - General Family Practice 05/09/18 documented as of this encounter
--- OUTSIDE RECORDS SUMMARY | 2024-06-04 02:33 | XMS_ITS | Encounter Summary ---
Author Organization [facility] Address [address] [place] [address] Care Team Providers Care Training And Documentation Specialist Name Role Phone Sher Ayers MD Primary Care Provider [phone] Encounter Details Date Type Department Care Team [...] st Contact Info) Description 06/06/2024 2:00 PM CREDIT CHECKER Office Visit [facility] Oncology and Hematology - [place] [address] [facility] 200 [place] [address] Reynaldo Frances MD [address] [facility] [address] [place] [address] documented as of this encounter Visit Diagnoses Not on filedocumented in this encounter Care Teams Training And Documentation Specialist Relationship Specialty Start Date End Date Sher Ayers MD [address] [facility] [address] [place] [address] PCP - General Family Practice 05/09/18 documented as of this encounter
--- OUTSIDE RECORDS SUMMARY | 2024-06-04 02:33 | XMS_ITS | Encounter Summary ---
Author Organization [facility] Address [address] [place] [address] Care Team Providers Care Product Safety Professional Name Role Phone Sher Ayers MD Primary Care Provider [phone] Encounter Details Date Type Department Care Team (Late st Contact Info) Description 01/02/2024 External Device Data STL ABSTRACTION Provider, Abstract [...] st Contact Info) Description 06/06/2024 2:00 PM CURED MEAT PACKING SUPERVISOR Office Visit [facility] Oncology and Hematology - [place] [address] [facility] 200 [place] [address] Reynaldo Frances MD [address] [facility] [address] [place] [address] documented as of this encounter Visit Diagnoses Not on filedocumented in this encounter Care Teams Product Safety Professional Relationship Specialty Start Date End Date Sher Ayers MD [address] [facility] 120 [place] [address] PCP - General Family Practice 05/09/18 documented as of this encounter
--- OUTSIDE RECORDS SUMMARY | 2024-06-04 02:33 | XMS_ITS | Encounter Summary ---
Author Organization [facility] Address [address] [place] [address] Care Team Providers Care Track Inspecting Supervisor Name Role Phone Sher Ayers MD Primary Care Provider [phone] Encounter Details Date Type Department Care Team (Late st Contact Info) Description 01/10/2024 External Device Data STL ABSTRACTION Provider, Abstract [...] st Contact Info) Description 06/06/2024 2:00 PM MUSIC ASSISTANT Office Visit [facility] Oncology and Hematology - [place] [address] [facility] 200 [place] [address] Reynaldo Frances MD [address] [facility] [address] [place] [address] documented as of this encounter Visit Diagnoses Not on filedocumented in this encounter Care Teams Track Inspecting Supervisor Relationship Specialty Start Date End Date Sher Ayers MD [address] [facility] 120 [place] [address] PCP - General Family Practice 05/09/18 documented as of this encounter
--- OUTSIDE RECORDS SUMMARY | 2024-06-04 02:33 | XMS_ITS | Encounter Summary ---
Author Organization [facility] Address [address] [place] [address] Care Team Providers Care Switchman Name Role Phone Sher Ayers MD Primary Care Provider [phone] Encounter Details Date Type Department Care Team [...] st Contact Info) Description 06/06/2024 2:00 PM CREATIVE INTERN Office Visit [facility] Oncology and Hematology - [place] [address] [facility] [address] [place] [address] Reynaldo Frances MD [address] [facility] [address] [place] [address] documented as of this encounter Visit Diagnoses Not on filedocumented in this encounter Care Teams Switchman Relationship Specialty Start Date End Date Sher Ayers MD [address] [facility] 120 [place] [address] PCP - General Family Practice 05/09/18 documented as of this encounter
--- OUTSIDE RECORDS SUMMARY | 2024-06-04 02:33 | XMS_ITS | Encounter Summary ---
Author Organization [facility] Address [address] [place] [address] Care Team Providers Care Drafting Supervisor Name Role Phone Sher Ayers MD Primary Care Provider [phone] Reason for Visit * Reason Comments Follow Up FOLLOW UP LABS * Eval and Treat (Routine) - Closed Specialty Diagnoses / Procedures Referred By Fritz t Referred To Contact Oncology Diagnoses Solitary pulmonary nodule Procedures Office Visit Level 3-5 Sher Ayers MD [address] [facility] [address] [place] [address] [facility] Oncology And Hematology [place] [address] [place] [address] Referral ID Status Reason Start Date Expiration Date Visits Re quested Visits Authorized [id number] Closed 03/03/2022 08/30/2022 12 6 Encounter Details Date Type Department Care Team (Late st Contact Info) Description 03/17/2022 10:00 AM CDT Office Visit [facility] Oncology and Hematology - [place] [address] [place] [address] Mike Deras MD [address] [place] [address] [address] [facility] [place] [address] Lung nodule (Primary Dx) Social History Tobacco [...] Sign Reading Time Taken Comments Blood Pressure 120/64 03/17/2022 9:58 AM CDT Pulse 81 03/17/2022 9:58 AM CDT Temperature 36.8 ??C (98.2 ??F) 03/17/2022 9:58 AM CD T Respiratory Rate - - Oxygen Saturation 97% 03/17/2022 9:58 AM CDT Inhaled Oxygen Concentration - - Weight 63.5 kg (139 lb 14.4 oz) 03/17/2022 9:58 AM CDT Height 160 cm (5' 3 ) 03/17/2022 9:58 AM CDT Body Mass Index 24.78 03/17/2022 9:58 AM CDT documented in this encounter Progress Notes * Mike Deras MD - 03/17/2022 10:14 AM CDT HEMATOLOGY / ONCOLOGY PROGRESS NOTE Patient Identification: Name: Megan Lyons Age: 66 y.o. Sex: female : 1955 DIAGNOSIS Bilateral pulmonary nodules CURRENT TREATMENT Expectant TREATMENT HISTORY SUBJECTIVE Patient came into the office for follow-up visit after the CT scan was done. She has some dyspnea on exertion and continues to have fluctuation in her weight. She has nausea is often prior to meals Denies any leg pain and bone pain. [...] focal deficit Examination as above PATH LABS CT scan done March 10, 2022 showed stable right lung nodules no change in size appear benign recommended for low-dose CT in 6 months Assessment: Plan: Patient Active Problem List Diagnosis [...] size into nodule from August 27, 2020. Most likelybenign. Hypertension. Patient is on lisinopril. COPD. She will you continue albuterol inhaler. Type 2 diabetes. Stable without any medicine. ? TOBACCO COUNSELING She was counseled to discontinue tobacco use. 03/17/2022 Mike Deras MD documented in this encounter Plan of Treatment Upcoming Encounters Date Type Department Care Team (Late st Contact Info) Description 06/06/2024 2:00 PM VIDEO GAME TESTER Office Visit [facility] Oncology and Hematology - [place] [address] [facility] [address] [place] [address] Reynaldo Frances MD [address] [facility] [address] [place] [address] documented as of this encounter Visit Diagnoses Diagnosis Lung nodule- Primary Solitary pulmonary nodule documented in this encounter Care Teams Drafting Supervisor Relationship Specialty Start Date End Date Sher Ayers MD [address] [place] [address] PCP - General Family Practice 05/09/18 documented as of this encounter
--- OUTSIDE RECORDS SUMMARY | 2024-06-04 02:33 | XMS_ITS | Encounter Summary ---
Author Organization [facility] Address [address] [place] [address] Care Team Providers Care Aquarium Specialist Name Role Phone Sher Ayers MD Primary Care Provider Encounter Details Date Type Department Care Team (Late st Contact Info) Description 07/25/2023 External Device Data STL ABSTRACTION Provider, Abstract [...] st Contact Info) Description 06/06/2024 2:00 PM TRADE MARK ATTORNEY Office Visit [facility] Oncology and Hematology - [place] [address] [place] [address] [address] [place] [address] [place] [address] [place] [address] [address] [place] [address] documented as of this encounter Visit Diagnoses Not on filedocumented in this encounter Care Teams Aquarium Specialist Relationship Specialty Start Date End Date Sher Ayers MD [address] [facility] 120 [place] [address] PCP - General Family Practice 05/09/18 documented as of this encounter
--- OUTSIDE RECORDS SUMMARY | 2024-06-04 02:33 | XMS_ITS | Encounter Summary ---
Author Organization [facility] Address [address] [place] [address] Care Team Providers Care Mechanical Technical Service Specialist Name Role Phone Sher Ayers MD Primary Care Provider [phone] Encounter Details Date Type Department Care Team (Late st Contact Info) Description 06/06/2018 Orders Only [facility] BREAST SURGERY [place] [address] [place] [address] Provider, Abstract NO ADDRESS ON FILE Social [...] st Contact Info) Description 06/06/2024 2:00 PM HELP DESK ASSOCIATE Office Visit [facility] Oncology and Hematology - [place] [address] [facility] 200 [place] [address] Reynaldo Frances MD [address] [facility] [address] [place] [address] documented as of this encounter Procedures Procedure Name Priority Date/Time Associated Diagnosis Comments MAMMO POST PROCEDURE MAMMO RIGHT Routine 06/05/2018 documented in this encounter Results * MAMMO POST PROCEDURE MAMMO RIGHT (06/05/2018) Anatomical Region Laterality Modality Breast Right Other Abstract Provider MAMMO ORDERABLES documented in this encounter Visit Diagnoses Not on filedocumented in this encounter Care Teams Mechanical Technical Service Specialist Relationship Specialty Start Date End Date Sher Ayers MD [address] [facility] [address] [facility] 120 [place] [phone] PCP - General Family Practice 05/09/18 documented as of this encounter
--- OUTSIDE RECORDS SUMMARY | 2024-06-04 02:33 | XMS_ITS | Encounter Summary ---
Author Organization [facility] DIANE Shannon [facility] Address [address] [place] [address] Care Team Providers Care Lacquer Polisher Name Role Phone Sher Ayers MD Primary Care Provider [phone] Reason for Referral * CT Scan (Routine) - Closed Specialty Diagnoses / Procedures Referred By Contac t Referred To Contact Diagnoses Malignant neoplasm of right lung, unspecified part of lung Procedures CT CHEST W CONTRAST CHG DIAGNOSTIC COMPUTED TOMOGRAPHY THORAX W/CONTRAST Reynaldo Frances MD [address] [place] [address] [place] [address] Referral ID Status Reason Start Date Expiration Date V isits Requested Visits Authorized [id number] Closed STL CTS 01/10/2024 02/09/2025 1 1 Reason for Visit * Reason Comments Cancer Follow Up Encounter Details Date Type Department Care Team (Late st Contact Info) Description 01/10/2024 10:00 AM CDT Office Visit [facility] Oncology and Hematology [address] [place] [address] Reynaldo Frances MD [address] [place] [address] Malignant neoplasm of right lung, [...] Sign Reading Time Taken Comments Blood Pressure 122/62 01/10/2024 10:18 AM CDT Pulse 69 01/10/2024 10:18 AM CDT Temperature 36.6 ??C (97.8 ??F) 01/10/2024 10:18 AM C DT Respiratory Rate 18 01/10/2024 10:18 AM CDT Oxygen Saturation 98% 01/10/2024 10:18 AM CDT Inhaled Oxygen Concentration - - Weight 64 kg (141 lb) 01/10/2024 10:18 AM CDT Height - - Body Mass Index 24.59 11/22/2023 2:05 PM CDT documented in this encounter Progress Notes * Reynaldo Frances MD - 01/10/2024 10:55 AM CDT HEMATOLOGY / ONCOLOGY PROGRESS NOTE Patient Identification: Name: Megan Lyons Age: 68 y.o. Sex: female : 1955 DIAGNOSIS T1 N0 M0 stage IA non-small cell moderately differentiated invasive adenocarcinoma status post right upper lobe lung biopsy done on October 25, 2023. Tumor was 1.1 cm in size. CURRENT TREATMENT SBRT treatment TREATMENT HISTORY SUBJECTIVE Patient to the office for follow-up visit after starting the radiation therapy treatment. She has been doing well with the radiation therapy treatment. Denies any chest pain or shortness of breath. Weight and appetite stable. No other new complaints. Review of system [...] lobe which could be early malignancy. Patient started SBRT treatment to the right upper lobe mass and has received 3 treatment so far. She will finish radiation therapy treatment next week. I will see her back in 6 weeks after the repeatCT scan. COPD. She will follow-up with Dr. Sanders. Hypertension. Stable. Type 2 diabetes. This has been managed by the primary care physician. Follow-up in [address] scan. 01/10/2024 Reynaldo Frances MD documented in this encounter Plan of Treatment Upcoming Encounters Date Type Department Care Team (Late st Contact Info) Description 06/06/2024 2:00 PM PRINCIPAL INVESTIGATOR Office Visit [facility] Oncology and Hematology - [place] [address] [facility] 200 [place] [address] Reynaldo Frances MD [address] [facility] [address] [place] [address] Scheduled Orders Name Type Priority Associated Diagnoses Orde r Schedule CT CHEST W CONTRAST Imaging Routine Malignant neoplasm of right lung, unspecified part of lung Expected: 02/21/2024, Expires: 01/09/2025 CBC WITH DIFFERENTIAL Lab Stat Malignant neoplasm of right lung, unspecified part of lung Expected: 02/17/2024, Expires: 01/09/2025 COMPREHENSIVE METABOLIC PANEL Lab Stat Malignant neoplasm of right lung, unspecified part of lung Expected: 02/17/2024, Expires: 01/09/2025 documented as of this encounter Visit Diagnoses Diagnosis Malignant neoplasm of right lung, unspecified part of lung- Primary documented in this encounter Care Teams Lacquer Polisher Relationship Specialty Start Date End Date Sher Ayers MD [address] [facility] 120 [place] [address] PCP - General Family Practice 05/09/18 documented as of this encounter
--- OUTSIDE RECORDS SUMMARY | 2024-06-04 02:33 | XMS_ITS | Encounter Summary ---
Author Organization [facility] Address [address] [place] [address] Care Team Providers Care Nurse Case Management Name Role Phone Sher Ayers MD Primary Care Provider [phone] Encounter Details Date Type Department Care Team (Late Contact Info) Description 11/13/2023 Orders Only [facility] Oncology and Hematology - [place] [address] [place] [address] Reynaldo Frances MD [facility] [employer] [address] [place] [address] Social History Tobacco Use Types Packs/Day [...] Contact Info) Description 06/06/2024 2:00 PM MARINE ENGINE DRIVER Office Visit [facility] Oncology and Hematology - [place] [address] [place] [address] Reynaldo Frances MD [address] [employer] [address] [place] [address] documented as of this encounter Procedures Procedure Name Priority Date/Time Associated Diagnosis Comments BREATHING CAPACITY TEST Routine 11/10/2023 2:15 PM CDT documented in this encounter Results * BREATHING CAPACITY TEST (11/10/2023 2:15 PM CDT) Reynaldo Frances MD PFT ORDERABLES documented in this encounter Visit Diagnoses Not on filedocumented in this encounter Care Teams Nurse Case Management Relationship Specialty Start Date End Date Sher Ayers MD [address] [facility] 120 [place] [address] PCP - General Family Practice 05/09/18 documented as of this encounter
--- OUTSIDE RECORDS SUMMARY | 2024-06-04 02:33 | XMS_ITS | Encounter Summary ---
Author Organization [facility] Address [address] [place] [address] Care Team Providers Care Continuous Washer Operator Name Role Phone Sher Ayers MD Primary Care Provider [phone] Reason for Referral * PET Scan (Routine) - Closed Specialty Diagnoses / Procedures Referred By Fritz gordon Referred To Contact Diagnoses Lung mass Procedures PET TUMOR IMG W [place] [address] [place] [address] [address] [place] [address] [facility] [address] Referral ID Status Reason Start Date Expiration Date V isits Requested Visits Authorized [id number] Closed STL CTS 10/13/2021 11/27/2021 1 1 Reason for Visit * Reason Comments Establish Care Abnormal weight loss * Eval and Treat (Routine) - Closed Specialty Diagnoses / Procedures Referred By Fritz gordon Referred To Contact Oncology Diagnoses Abnormal weight loss Procedures Office Visit 3-5 Sher Ayers MD [address] [place] [address] [facility] Oncology And Hematology [place] [address] [place] [address] 200 [place] [address] Referral ID Status Reason Start Date Expiration Date Visits Re quested Visits Authorized [id number] Closed 09/08/2021 03/07/2022 12 12 Encounter Details Date Type Department Care Team (Late st Contact Info) Description 10/05/2021 3:00 PM CDT Office Visit [facility] Oncology and Hematology - [place] 7 [facility] [address] [place] [address] Reynaldo Frances MD [address] [facility] [address] [place] [address] Lung mass (Primary Dx); Lung nodule; Abnormal weight loss Social History Tobacco Use Types Packs/Day Years [...] Sign Reading Time Taken Comments Blood Pressure 133/77 10/05/2021 3:42 PM CDT Pulse 81 10/05/2021 3:42 PM CDT Temperature 36.9 ??C (98.4 ??F) 10/05/2021 3:42 PM CD T Respiratory Rate - - Oxygen Saturation 99% 10/05/2021 3:42 PM CDT Inhaled Oxygen Concentration - - Weight 58.7 kg (129 lb 8 oz) 10/05/2021 3:42 PM CDT Height 160 cm (5' 3 ) 10/05/2021 3:42 PM CDT Body Mass Index 22.94 10/05/2021 3:42 PM CDT documented in this encounter Progress Notes * Reynaldo Franecs MD - 10/05/2021 5:24 PM CDT Hematology-oncology consult Note Requesting Physician Sher Ayers MD Primary Care Physician Sher Ayers MD Problem list Patient Active Problem List Diagnosis Code ??? Abnormal mammogram of right breast R92.8 ??? Abnormal ultrasound of breast R92.8 ??? Aspirin long-term use Z79.82 ??? Cyst of right breast N60.01 Previous TREATMENT ? Measurable Disease ? Reason for Visit Megan Lyons is a 66 y.o. female who was referred for consultation for lung nodule and weight loss. History of present illness This is a pleasant 66-year-old female with history of smoking almost half pack per day for 53 years duration. She has lost 50 pound weight unintentionally since summer 2020. She has been dealing with stomach issues with heartburn and nausea along with poor appetite. She had EGD and colonoscopy done by Dr. Mac on April 23, 2021. EGD showed Silva's esophagus without dysplasia. Colonoscopy showed descending colon polyps and colonic tic deformity. Patient also has a history of lung nodule. Last CT chest done on September 16 showed no interval change in few bilateral calcified pulmonary nodules in the right lung. There was a 10 x 6 mm nodule in the right lower lobe and 11 x 9 mm right upper lobe nodule. There was stable T8 compression fracture. Patient also had mammogram done on September 09, 2021 that showed no evidence of malignancy. CT abdomen and pelvis from April 27, 2021 showed no evidence of malignancy other than bilateral lower lobe pulmonary nodules. She denies any coughand hemoptysis. Denies any shortness of breath. Denies any other new complaints. Past Medical History Past Medical History: Diagnosis Date ??? Asthma ??? COPD (chronic obstructive pulmonary disease) ??? Depression blood clots ??? Diabetes mellitus ??? Heart disease, unspecified ??? HTN (hypertension) ??? Hx of blood clots ??? Hyperlipidemia ??? Liver disease, unspecified ??? Stroke Surgical History Past Surgical History: Procedure Laterality Date ??? HX CHOLECYSTECTOMY ??? HX HYSTERECTOMY ??? HX TUBAL LIGATION Medications Current Outpatient Medications Medication Sig Dispense Refill ??? TRELEGY ELLIPTA 100-62.5-25 mcg Disk with Device ??? aspirin (ECOTRIN EC) 81 mg Tablet, Delayed Release (E.C.) Take 81 mg by mouth daily. ??? metFORMIN (GLUCOPHAGE) 500 mg tablet Take 500 mg by mouth 2 times daily with meals. ??? calcium carbonate/vitamin D3 (CALCIUM 500 + D ORAL) Take by mouth daily. ??? roflumilast (DALIRESP) 500 mcg Tablet Take by mouth daily. ??? lisinopril (PRINIVIL) 10 mg tablet Take 10 mg by mouth daily. ??? cyclobenzaprine (FLEXERIL) 10 mg tablet Take 10 mg by mouth 3 times daily as needed for Spasm. ??? fenofibrate nanocrystallized (TRICOR) 145 mg tablet Take 145 mg by mouth daily. ??? traZODone (DESYREL) 50 mg tablet Take 50 mg by mouth daily at bedtime. ??? pantoprazole (PROTONIX) 40 mg Tablet, Delayed Release (E.C.) Take 40 mg by mouth daily. ??? pravastatin (PRAVACHOL) 20 mg tablet Take 20 mg by mouth daily with supper. ??? albuterol HFA 90 mcg inhaler Take 2 Puffs by inhalation every 6 hours as needed for Shortness of Breath. ??? albuterol (PROVENTIL,VENTOLIN) 0.63 mg/3 mL Solution for Nebulization Take 0.63 mg by inhalation every 6 hours as needed for Shortness of Breath. No current facility-administered medications for this visit. Allergies Allergies Allergen Reactions ??? Penicillins Itching Immunizations: There is no immunization history on file for this patient. Family History No family history on file. Social History Social History Tobacco Use ??? Smoking status: Never Smoker ??? Smokeless tobacco: Never Used Substance Use Topics ??? Alcohol use: No Review of Systems Constitutional: Patient did not mention fever; no night sweats; poor appetite with 50 pound weight loss in 1 year along with some tiredness and fatigue NEENT: Patient did not mention headache; no change in vision; no change in hearing; no sore throat;no dysphagia Respiratory: Patient did not mention shortness of breath; no pleuritic chest pain; no cough; no hemoptysis Cardiac: Patient did not mention cardiac-like chest pain; no palpitations; no orthopnea; no PND; noDOE Breasts: Patient did not mention tenderness; no masses GI: Patient did not mention abdominal pain; no nausea; no vomiting; no diarrhea; no hematochezia; no melena : Patient did not mention dysuria; no frequency; no hesitancy; no hematuria QUALITY SPECIALIST: Musculosketetal: Right chest wall pain under the breast.; no arthralgia; no joint swelling; no myalgia; Skin: Patient did not mention pruritis; no rash; no petechiae; no ecchymoses Endocrine: Patient did not mention polydipsia; no polyuria; no unusual weight gain Neuro: Patient did not mention headache; no change in vision; no sensory changes; no muscle weakness; no confusion; no seizures Psych: Patient did not mention anxiety; no depression; Physical Exam Vitals: As per nursing note Constitutional: Well developed, well nourished, no acute distress, non-toxic appearance Teeth and gum. No signs of infection or swelling. Eyes: PERRL, conjunctiva normal HEENT: Atraumatic, external ears normal, nose normal, oropharynx moist, no pharyngeal exudates. no sinus tenderness Neck- normal range of motion, no tenderness, supple Respiratory: No respiratory distress, normal breath sounds, no rales, no wheezing Cardiovascular: Normal rate, normal rhythm, no murmurs, no gallops, no rubs GI: Soft, nondistended, normal bowel sounds, nontender, no splenomegaly, no hepatomegaly, no mass, no rebound, no guarding : No costovertebral angle tenderness Musculoskeletal: No edema, no tenderness, no deformities. Back- no tenderness Integument: Well hydrated, no rash, Digits and nails inspection normal Lymphatic: No lymphadenopathy noted Neurologic: Alert & oriented x 3, CN 2-12 normal, normal motor function, normal sensory function, no focal deficits noted Psychiatric: Speech and behavior appropriate ? labs No results found for this or any previous visit (from the past 24 hour(s)). Pathology ? Imaging & Other Studies Performance Status? Assessment / Plan: ? Bilateral pulmonary nodules and weight loss. Patient is a 66-year-old female who has lost50 pounds weight unintentionally in the last almost 1 year duration. She has a history of smoking about half pack per day for 53 years duration. She also has been dealing with poor appetite with nausea and bloating. She had EGD and colonoscopy done in April 2021 that showed hiatal hernia. Given her history of smoking with unintentional significant weight loss and pulmonary nodules I am concerned about underlying malignancy. Last CT chest from September 16 showed 10 x 6 mm nodule in the right lower lobe with 11 x 9 mm right upper lobe nodule.-We will order PET scan and based on the PET scan finding we will decide about biopsy of 1 of these nodules. If the PET scan shows no activity then we will simply observe and repeat CT scan in 4 to 6 months duration. I have answered all the questions topatient's satisfaction. Hypertension. Patient is on lisinopril. Hyperlipidemia. Patient is on pravastatin. GERD. Patient is on Protonix. COPD. Patient is on albuterol inhaler. Diabetes. Patient is off the metformin as her diabetes resolved after significant weight loss. Thank you very much for allowing me to participate in Megan Lyons's evaluation and management. Please feel free to contact if I can be of any further assistance in your patient???s care requiring hematology or oncology evaluation. Sincerely, ? ? Reynaldo Frances M.D. cell TOBACCO COUNSELING She was counseled to discontinue tobacco use. Reynaldo Frances MD ,10/05/2021 5:24 PM ? Total time spent 60 minutes, two third of the total time spent counseling patient [id number]. CC:?Sher Ayers MD documented in this encounter Plan of Treatment Upcoming Encounters Date Type Department Care Team (Late st Contact Info) Description 06/06/2024 2:00 PM MONEY EXAMINER Office Visit [facility] Oncology and Hematology [facility] [address] [facility] [address] [place] [address] Reynaldo Frances MD 2[address] [facility] [address] [place] [address] Scheduled Orders Name Type Priority Associated Diagnoses Orde r Schedule PET TUMOR IMG W CT SKL BSE MID THG Imaging Routine Lung mass Expected: 10/06/2021, Expires: 10/05/2022 documented as of this encounter Visit Diagnoses Diagnosis Lung mass- Primary Swelling, mass, or lump in chest Lung nodule Solitary pulmonary nodule Abnormal weight loss Loss of weight documented in this encounter Care Teams Continuous Washer Operator Relationship Specialty Start Date End Date Sher Ayers MD [address] [facility] [address] [place] [address] PCP - General Family Practice 05/09/18 documented as of this encounter
--- OUTSIDE RECORDS SUMMARY | 2024-06-04 02:33 | XMS_ITS | Encounter Summary ---
Author Organization [facility] Address [address] [place] [address] Care Team Providers Care Lubricator Granulator Name Role Phone Sher Ayers MD Primary Care Provider [phone] Reason for Visit * Reason Onset Date Comments Medication Hold 06/01/2018 Encounter Details Date Type Department Care Team (Late st Contact Info) Description 06/01/2018 Telephone [facility] BREAST SURGERY KARISH[place] [address] [place] [address] Nandini Humphrey, NO ADDRESS ON FILE Medication Hold Social History Tobacco Use Types Packs/Day Years [...] encounter Miscellaneous Notes * Telephone Encounter - Larisa Toth RN - 06/01/2018 12:48 PM CST I called Megan to let her know that we got clearance for her to hold her Aspirin from Dr. Ayers. She is to start holding her Aspirin today and hold it until after her biopsy procedure. She verbalized understanding. OMER SUPPORT ASSISTANT documented in this encounter Plan of Treatment Upcoming Encounters Date Type Department Care Team (Late st Contact Info) Description 06/06/2024 2:00 PM CUSTOMER SUPPORT ASSISTANT Office Visit [facility] Oncology and Hematology - [place] [address] [place] [address] Reynaldo Frances MD [address] [facility] [address] [place] [address] documented as of this encounter Visit Diagnoses Not on filedocumented in this encounter Care Teams Lubricator Granulator Relationship Specialty Start Date End Date Sher Ayers MD [address] [place] [address] PCP - General Family Practice 05/09/18 documented as of this encounter
--- OUTSIDE RECORDS SUMMARY | 2024-06-04 02:33 | XMS_ITS | Encounter Summary ---
Author Organization [facility] [employer] [facility] Address [address] [place] [address] Care Team Providers Care Maintenance Mechanic Name Role Phone Sher Ayesr MD Primary Care Provider [phone] Encounter Details Date Type Department Care Team (Late Contact Info) Description 09/18/[address] [facility] Oncology and Hematology - [place] [address] [place] [address] Reynaldo Frances MD [address] [place], [place] [address] [address] [place] [address] Social History Tobacco Use Types Packs/Day [...] Encounters Date Type Department Care Team (Late Contact Info) Description 06/06/2024 2:00 PM HARDWOOD FLOORING SPECIALIST Office Visit [facility] Oncology and Hematology - [place] [address] [place] [address] Reynaldo Frances MD [facility] [employer] [email or web address] [address] [place] [address] documented as of this encounter Procedures Procedure Name Priority Date/Time Associated Diagnosis Comments CT CHEST W CONTRAST Routine 09/15/2023 2:16 PM CDT documented in this encounter Results * CT CHEST W CONTRAST (09/15/2023 2:16 PM CDT) Anatomical Region Laterality Modality Chest Other Reynaldo Frances MD CT ORDERABLES documented in this encounter Visit Diagnoses Not on filedocumented in this encounter Care Teams Maintenance Mechanic Relationship Specialty Start Date End Date Sher Ayers MD [address] [facility] 120 [place] [address] PCP - General Family Practice 05/09/18 documented as of this encounter
--- OUTSIDE RECORDS SUMMARY | 2024-06-04 02:33 | XMS_ITS | Encounter Summary ---
Author Organization [facility] Address [address] [place] [address] Care Team Providers Care Director Of Employer Services Name Role Phone Sher Ayers MD Primary Care Provider [phone] Reason for Visit * Reason Comments Biopsy R USG Vac Bx * Eval and Treat (Routine) - Closed Specialty Diagnoses / Procedures Referred By Contrachel t Referred To Contact Oncology Diagnoses N63.10 Procedures Office visit Sher Ayers MD [address] [facility] [address] [place] [address] Nandini Humphrey, DO NO ADDRESS ON FILE Referral ID Status Reason Start Date Expiration Date Visits Re quested Visits Authorized [id number] Closed 05/08/2018 11/04/2018 1 12 Encounter Details Date Type Department Care Team (Latest Contact Info) Description 06/05/2018 10:30 AM ASSISTANT PLANT CONTROLLER Procedure visit [facility] BREAST SURGERY KARISHMA [address], [facility] [address] [place] [address] Nandini Humphrey, NO ADDRESS ON FILE Abnormal mammogram of right breast (Primary Dx); Abnormal ultrasound of breast; Aspirin long-term use Social History Tobacco Use Types Packs/Day Years [...] Sign Reading Time Taken Comments Blood Pressure 143/93 06/05/2018 10:21 AM ASSISTANT PLANT CONTROLLER Pulse 99 06/05/2018 10:21 AM ASSISTANT PLANT CONTROLLER Temperature 36.8 ??C (98.3 ??F) 06/05/2018 10:[address] Respiratory Rate - - Oxygen Saturation 93% 06/05/2018 10:21 AM ASSISTANT PLANT CONTROLLER Inhaled Oxygen Concentration - - Weight 79 kg (174 lb 3.2 oz) 06/05/2018 10:21 AM ASSISTANT PLANT CONTROLLER Height 161.3 cm (5' 3.5 ) 06/05/2018 10:21 AM CS T Body Mass Index 30.37 06/05/2018 10:21 AM ASSISTANT PLANT CONTROLLER documented in this encounter Progress Notes * Larisa Toth RN - 06/05/2018 11:39 AM CST [id number]:[id number] - 12g VAC - 18g - coil SenoMark UltraCor Breast Tissue Marker, [id number] Lot: [id number] Exp: [id number] Lidocaine 1% (50mg/5mL) Lot: [id number] Exp: [id number] Dose: 1mL Lidocaine 1% and Epinepherine 1:100,000 (50mL) Lot: [id number] Exp: [id number] Dose: 4mL Sensorcaine 0.25% (50mL) Lot: [id number] Exp: 12/2019 Dose: 4mL STANT PLANT CONTROLLER * Nandini Humphrey DO - 06/05/2018 10:48 AM CST The patient is here for right ultrasound guided vacuum-assisted core biopsy. Encounter Diagnoses Name Primary? Abnormal mammogram of right breast Yes ??? Abnormal ultrasound of breast ??? Aspirin long-term use Consent was reviewed with the patient and signed. 12-gauge vacuum-assisted core ultrasound guided procedure was done. The location of the biopsy was at right 2:00 4 cm from the nipple characteristics : Nonpalpable, cystic appearance, somewhat heterogenous, nonshadowing BIRADS: 4 Needle approach: Lateral A marker was placed. yes and Coil-shaped placement: Marker in perfect position within the lesion. Anesthetic used: Lidocaine 1% 1 mL, lidocaine 1% with epinephrine 4 mL, Marcaine 0.25% 4 mL Specimen: multiple cores PROCEDURE: The area of concern was localized with ultrasonography, and the skin was prepped and draped in the standard surgical fashion. The skin was infiltrated with anesthetic, as were the deep tissues. A small incision was made in the skin, and the biopsy needle was advanced into the breast under direct visualization. Multiple cores were taken under direct visualization as specimen and sent to pathology. Photo do cumentation was taken throughout. Pressure was applied for hemostasis, and steri strips and gauze were applied. A post-biopsy mammogram was done. yes lesion is obliterated, and the marker is in perfect position. Pt was given discharge instructions and a follow up appointment. Questions were solicited and answered. The patient stated her understanding. STANT PLANT CONTROLLER documented in this encounter Procedure Notes * Nandini Humphrey DO - 06/05/2018 12:41 PM CSTAssociated Order(s): BIOPSY BREAST Procedure(s): WV BX BREAST W/DEVICE 1ST LESION ULTRASOUND GUID Pre-Procedure Diagnose(s): Abnormal mammogram of right breast; Abnormal ultrasound of breast See note, right STANT PLANT CONTROLLER documented in this encounter Plan of Treatment Upcoming Encounters Date Type Department Care Team (Late st Contact Info) Description 06/06/2024 2:00 PM ASSISTANT PLANT CONTROLLER Office Visit [facility] Oncology and Hematology [facility] [address] [facility] [address] [address] Reynaldo Frances MD [address] [facility] [address] [place] [address] documented as of this encounter Procedures Procedure Name Priority Date/Time Associated Diagnosis Comments WV BX BREAST W/DEVICE 1ST LESION ULTRASOUND GUID Routine 06/05/2018 12:41 PM ASSISTANT PLANT CONTROLLER Abnormal mammogram of right breast Abnormal ultrasound of breast documented in this encounter Results * WV BX BREAST W/DEVICE 1ST LESION ULTRASOUND GUID (06/05/2018 12:41 PM ASSISTANT PLANT CONTROLLER) Narrative [facility] - 06/05/2018 12:41 PM ASSISTANT PLANT CONTROLLER Nandini Humphrey, DO ? 06/05/2018 12:42 PM See note, right Nandini Humphrey DO PROCEDURE/MINOR DONALD GICAL ORDERABLES [facility] documented in this encounter Visit Diagnoses Diagnosis Abnormal mammogram of right breast- Primary Abnormal ultrasound of breast Other (abnormal) findings on radiological examination of breast Aspirin long-term use Encounter for long-term (current) use of aspirin documented in this encounter Care Teams Director Of Employer Services Relationship Specialty Start Date End Date Sher Ayers MD [address] [address] PCP - General Family Practice 05/09/18 documented as of this encounter
--- OUTSIDE RECORDS SUMMARY | 2024-06-04 02:33 | XMS_ITS | Encounter Summary ---
Author Organization [facility] Address [address] [place] [address] Care Team Providers Care Assistant Corporate Controller Name Role Phone Sher Ayers MD Primary Care Provider [phone] Reason for Visit * Reason Comments Establish Care R Breast mass - Bira ds 4 * Eval and Treat (Routine) - Closed Specialty Diagnoses / Procedures Referred By Contrachel t Referred To Contact Oncology Diagnoses N63.10 Procedures Office visit Sher Ayers MD [address] [facility] [address] [place] [address] Nandini Humphrey, NO ADDRESS ON FILE Referral ID Status Reason Start Date Expiration Date Visits Re quested Visits Authorized [id number] Closed 05/08/2018 11/04/2018 1 12 Encounter Details Date Type Department Care Team (Late st Contact Info) Description 05/31/2018 9:30 AM BRIM STITCHER Office Visit [facility] BREAST SURGERY KARISHMA [address], [facility] [address] [place] [address] Nandini Humphrey, NO ADDRESS ON [...] Sign Reading Time Taken Comments Blood Pressure 128/87 05/31/2018 9:29 AM BRIM STITCHER Pulse 88 05/31/2018 9:29 AM BRIM STITCHER Temperature 36.4 ??C (97.6 ??F) 05/31/2018 9:29 AM CS T Respiratory Rate - - Oxygen Saturation 93% 05/31/2018 9:29 AM BRIM STITCHER Inhaled Oxygen Concentration - - Weight 78 kg (172 lb) 05/31/2018 9:29 AM BRIM STITCHER Height 161.3 cm (5' 3.5 ) 05/31/2018 9:29 AM BRIM STITCHER Body Mass Index 29.99 05/31/2018 9:29 AM BRIM STITCHER documented in this encounter Progress Notes * Lia Toth RN - 05/31/2018 12:37 PM CST 1. Chief Complaint? Abnormal MMG - Birads 4 - R Breast Mass 2. Referring Physician? Dr. Ayers 3. Monthly Self Breast Exams? no 4. Yearly MMG? yes 5. Any Breast changes or symptoms? no 6. Hx of any prior Breast Procedure? no 7. Hx of Breast CA? no 8. Any other CA? no 9. Family hx of Breast CA or Ovarian CA? no 10. Family hx of any other CA? Mother - liver - dx 71 - at 73 Father - lung - dx UA - 65 Brother - pancreatic - dx 66 - 66 11. Age of menarche? 9 12. Last menstrual period? 34yo, total hysterectomy 13. How many pregnancies? 5 ??? How many live births? 4 o age of first live ? 14 o Breastfeed? no 14. Ever use control? OCPs 2 yrs 15. Any Hormone Replacement Therapy? no 16. Bra size? 44DD 17. Ashkenazi heritage? no 18. Smoker? Current 1-2 cigs/day 40 yrs STITCHER * Nandini Humphrey DO - 05/31/2018 9:29 AM CST PATIENT: Megan Lyons : 1955 DATE: 05/31/2018 CHIEF COMPLAINT: Chief Complaint Patient presents with ??? Establish Care R Breast mass - Birads 4 HISTORY OF PRESENT ILLNESS: Megan Lyons is a 63 y.o. female referred by Dr Ayers for evaluation and recommendations regarding abnormal MMG. Pt notices no changes in either breast. Pt is here with . Patient checks breasts regularly: none; Annual mammograms: yes Trauma to breasts: none Prior breast PROCEDURE(s): none FHx: BC: none; ovarian ca: none; mother hepatocellular ca dx 71, passed 73; father lung ca unk dx; brother pancreatic ca dx and passed 66 Menarche 9, FDLMP age 34 MISA-BSO due to uterine fibroids, no ca, postmenopausal , FFTB 14, breast fed no; contraceptives: yes and OCPs x 2 yrs; HRT no Bra size: 44DD Ashkenazi heritage: no Smoker: yes and 1-2 cigarets/day x 40 yrs used to smoke 1.5ppd x 30+ yrs HTN, Hyperchol, DM, asthma, emphysema, GERD, TIA 4 yrs ago PMH: Past Medical History: Diagnosis Date ??? Asthma ??? COPD (chronic obstructive pulmonary disease) ??? Depression blood clots ??? Diabetes mellitus ??? Heart disease, unspecified ??? HTN (hypertension) ??? Hx of blood clots ??? Hyperlipidemia ??? Liver disease, unspecified ??? Stroke PSH: Past Surgical History: Procedure Laterality Date ??? HX CHOLECYSTECTOMY ??? HX HYSTERECTOMY ??? HX TUBAL LIGATION ALLERGY: Allergies Allergen Reactions ??? Penicillins Itching Burning, itching, swelling MEDS: Current Outpatient Prescriptions Medication Sig Dispense Refill ??? aspirin (ECOTRIN EC) 81 mg Tablet, [...] No current facility-administered medications for this visit. FHX: No family history on file. SOC: Social History Social History ??? Marital status: Spouse name: N/A ??? Number of children: N/A ??? Years of education: N/A Occupational History ??? Not on file. Social History Main Topics ??? Smoking status: Never Smoker ??? Smokeless tobacco: Never Used ??? Alcohol use No ??? Drug use: No ??? Sexual activity: Not on file Other Topics Concern ??? Self-Exams No Social History Narrative ??? No narrative on file ROS: Constitutional: Negative for fever, weight loss and malaise/fatigue. Respiratory: Negative for cough. Cardiovascular: Negative for chest pain and leg swelling. Gastrointestinal: Negative for abdominal pain. Genitourinary: Negative for dysuria. Musculoskeletal: Negative for myalgias and joint pain. Skin: Negative for rash. Neurological: Negative for dizziness and headaches. Psychiatric/Behavioral: Negative for depression Female: OB History Para Term AB Living 5 4 4 4 SAB TAB Ectopic Multiple Live Births The remainder of the review of systems including cardiovascular, pulmonary, GI/, neurologic, and endocrine are negative except as noted above. Immunizations: non-contributory PHYSICAL EXAM: BP 128/87 (BP Location: Right arm, Patient Position (BP): Sitting, BP Cuff Size: Adult) Pulse 88 Temp 97.6 ??F (36.4 ??C) (Oral) Ht 5' 3.5 (1.613 m) Wt 78 kg (172 lb) LMP 10/20/1988 (Approximate) SpO2 93% ? No BMI 29.99 kg/m?? Breasts: The patient was examined in the seated and supine positions today. no cervical, supraclavicular, axillary lymphadenopathy. Breast symmetry: Right breast larger than left Other findings: The breasts bilaterally are very large, heavy, and ptotic On visual exam, there areno areas of skin dimpling, no skin changes. On palpation, there are no nodular densities nor suspicious dominant palpable masses in either breast. The nipples are bilaterally normal, everted and without discharge. Ultrasound was done: Right upper inner breast, showing a slightly irregular, hypoechoic, avascular,nonshadowing lesion at 2:00 4 cm from the nipple which measures 0.55x 0.45 x 0.65cm. Right axillaryultrasound shows at least 2 enlarged lymph nodes with preserved lissette General: well-developed, well-nourished HEENT: normocephalic/atraumatic. Extra-occular movements are intact. Sclera anicteric. Neck is supple without masses. No thyroid nodules. No lymphadenopathy. Cardiovascular: regular rate, rhythm. S1, S2 without murmur. No palpable thrill. 2+ radial pulses. Lungs - clear to auscultation bilaterally. No wheezes. Abdomen: Soft, non-tender. No masses. No palpable liver edge. Extremities: no edema Neurologic: sensory and motor grossly intact. Alert and oriented x 3. IMAGING: Mammogram films and reports were reviewed from [facility] mammography center, dated April 24, 2018 for the bilateral screening mammogram and May 07, 2018 for the right diagnosticmammogram. These are compared to mammograms from February 03, 2017 and February 02, 2016. The breasts bilaterally are mostly fatty replaced with very little dense tissue. The left breast is withoutnew findings, no areas of architectural distortion, no suspicious groupings of microcalcifications and no nodular densities that are new. In the right inner breast at 2-3:00, there is a new density which is slightly irregularly-shaped. Otherwise, there are no groupings of calcifications, no architectural distortion. BI-RADS 4 per radiology. An ultrasound will be done with the exam. ASSESSMENT AND PLAN: Encounter Diagnoses Name Primary? Abnormal mammogram of right breast Yes ??? Abnormal ultrasound of breast ??? Aspirin long-term use I explained to the patient that her mammogram shows a new finding that was not present last year. This is verified on ultrasound. The lesion is slightly irregular and suspicious, and does necessitatea biopsy. Ultrasound guided biopsy procedure, alternatives, common and uncommon risks, benefits andexpected outcomes were explained. The patient was given literature of the same, and would like to move ahead with scheduling. The patient does currently take aspirin, and states that she has held it for other procedures. We will make sure with her primary care physician that we can hold it again for this biopsy. Patient's questions were solicited and fully answered. Patient stated understanding. Nandini Humphrey DO, FACOS STITCHER documented in this encounter Miscellaneous Notes * Addendum Note - Lia Toth RN - 05/31/2018 11:20 AM CSTAddended by: LIA TOTH on: 05/31/2018 11:20 AM Modules accepted: Orders STITCHER documented in this encounter Plan of Treatment Upcoming Encounters Date Type Department Care Team (Late st Contact Info) Description 06/06/2024 2:00 PM BRIM STITCHER Office Visit [facility] Oncology and Hematology [facility] [address] [place] [address] [address] [place] [id number] [place] [address] [place] [address] [address] [place] [address] documented as of this encounter Procedures Procedure Name Priority Date/Time Associated Diagnosis Comments US BREAST UNI RT LTD Routine 05/31/2018 Abnormal mammogram of right breast Abnormal ultrasound of breast documented in this encounter Results * US BREAST UNI RT LTD (05/31/2018) Anatomical Region Laterality Modality Breast Right Other Impressions 05/31/2018 See note. Nandini Humphrey DO US ORDERABLES documented in this encounter Visit Diagnoses Diagnosis Abnormal mammogram of right breast- Primary Abnormal ultrasound of breast Other (abnormal) findings on radiological examination of breast Aspirin long-term use Encounter for long-term (current) use of aspirin documented in this encounter Care Teams Assistant Corporate Controller Relationship Specialty Start Date End Date Sher Ayers MD [address] [facility] [address] [place] [address] PCP - General Family Practice 05/09/18 documented as of this encounter
--- OUTSIDE RECORDS SUMMARY | 2024-06-04 02:33 | XMS_ITS | Encounter Summary ---
Author Organization [facility] Address [address] [place] [address] Care Team Providers Care Jewel Bearing Driller Name Role Phone Sher Ayers MD Primary Care Provider [phone] Encounter Details Date Type Department Care Team (Late st Contact Info) Description 06/14/2023 External Device Data STL ABSTRACTION Provider, Abstract [...] st Contact Info) Description 06/06/2024 2:00 PM PRODUCT BUILDER Office Visit [facility] Oncology and Hematology - [place] [address] [place] [address] [address] [place] [address] [place] [address] [place] [address] [address] [place] [address] documented as of this encounter Visit Diagnoses Not on filedocumented in this encounter Care Teams Jewel Bearing Driller Relationship Specialty Start Date End Date Sher Ayers MD [address] [facility] [address] [place] [id number] PCP - General Family Practice 05/09/18 documented as of this encounter
--- OUTSIDE RECORDS SUMMARY | 2024-06-04 02:33 | XMS_ITS | Encounter Summary ---
Author Organization [facility] Address [address] [place] [address] Care Team Providers Care Digital Production Manager Name Role Phone Sher Ayers MD Primary Care Provider Reason for Referral * Eval and Treat (Routine) - Closed Specialty Diagnoses / Procedures Referred By Contac t Referred To Contact Pulmonology Diagnoses Chronic obstructive pulmonary disease, unspecified COPD type Procedures AL OFFICE/OUTPATIENT ESTABLISHED MOD MDM 30 MIN AL OFFICE/OUTPATIENT NEW MODERATE MDM 45 MINUTES Reynaldo Frances MD [address] [place] [address] Referral ID Status Reason Start Date Expiration Date V isits Requested Visits Authorized [id number] Closed ST CTS 11/28/2023 11/27/2024 1 1 * Radiation Therapy (Routine) - Closed Specialty Diagnoses / Procedures Referred By Contac t Referred To Contact Diagnoses Malignant neoplasm of right lung, unspecified part of lung Procedures AL OFFICE/OUTPATIENT ESTABLISHED MOD MDM 30 MIN AL OFFICE/OUTPATIENT NEW MODERATE MDM 45 MINUTES David Joseph MD [address] [facility] [address] [place] [address] Referral ID Status Reason Start Date Expiration Date V isits Requested Visits Authorized [id number] Closed [facility] CTS 11/28/2023 11/27/2024 1 1 Reason for Visit * Reason Comments Cancer Follow Up Encounter Details Date Type Department Care Team (Late st Contact Info) Description 11/28/2023 3:30 PM CDT Office Visit [facility] Oncology and Hematology - [place] [address] [facility] [address] [place] [address] Reynaldo Frances MD [address] [facility] [address] [place] [address] Malignant neoplasm of right lung, unspecified part of lung (Primary Dx); Chronic obstructive pulmonary disease, unspecified COPD type Social History Tobacco Use Types Packs/Day Years [...] Sign Reading Time Taken Comments Blood Pressure 128/69 11/28/2023 3:32 PM CDT Pulse 80 11/28/2023 3:32 PM CDT Temperature 36.3 ??C (97.3 ??F) 11/28/2023 3:32 PM CD T Respiratory Rate 18 11/28/2023 3:32 PM CDT Oxygen Saturation 93% 11/28/2023 3:32 PM CDT Inhaled Oxygen Concentration - - Weight 63 kg (139 lb) 11/28/2023 3:32 PM CDT Height - - Body Mass Index 24.24 11/22/2023 2:05 PM CDT documented in this encounter Progress Notes * Reynaldo Frances MD - 11/28/2023 4:12 PM CDT HEMATOLOGY / ONCOLOGY PROGRESS NOTE [...] to the office for follow-up visit after her appointment with Dr Manuel. She has some shortness of breath and dyspnea on exertion. Patient is quite disappointed that she will not be ableto have surgery for her lung cancer. No other new complaints. Review of system Constitutional: Patient did not mention fevers, sweats, weight and appetite stable, denies any tiredness and fatigue HEENT: Patient did not mention sinus congestion, [...] increasedactivity worsened from August 2022. Patient was seen by Dr Manuel. I have discussed this case with Dr Manuel. He is concerned about some of the smaller scattered nodules and groundglass opacities in the upper and lower lobes which could be early malignancy. Patient will not be having surgery. I will refer her to Dr. Joseph for SBRT treatment for biopsy-proven right upper lobe lung malignancy. After the SBRT we will follow-up her with periodic CT scan. I will also refer her to Dr. Campoverde for COPD. COPD. She will be referred to Dr. Campoverde. Hypertension. Stable. Type 2 diabetes. This has been managed by the primary care physician. Follow-up with me in 6 weeks. TOBACCO COUNSELING She is not a tobacco/nicotine user. 11/28/2023 Reynaldo Frances MD documented in this encounter Plan of Treatment Upcoming Encounters Date Type Department Care Team (Late st Contact Info) Description 06/06/2024 2:00 PM CAMOUFLAGE ASSEMBLER Office Visit [facility] Oncology and Hematology [facility] [address] [facility] [address] [place] [address] Reynaldo Frances MD [address] [facility] [address] [place] [address] Scheduled Referrals Name Type Priority Associated Diagnoses Orde r Schedule AMB REFERRAL TO RADIATION ONCOLOGY Outpatient Referral Routine Malignant neoplasm of right lung, unspecified part of lung Ordered: 11/28/2023 AMB REFERRAL TO PULMONARY Outpatient Referral Routine Chronic obstructive pulmonary disease, unspecified COPD type Ordered: 11/28/2023 documented as of this encounter Visit Diagnoses Diagnosis Malignant neoplasm of right lung, unspecified part of lung- Primary Chronic obstructive pulmonary disease, unspecified COPD type documented in this encounter Care Teams Digital Production Manager Relationship Specialty Start Date End Date Sher Ayers MD [address] [facility] [address] [place] [address] PCP - General Family Practice 05/09/18 documented as of this encounter
--- OUTSIDE RECORDS SUMMARY | 2024-06-04 02:33 | XMS_ITS | Encounter Summary ---
Author Organization [facility] Address [address] [place] [address] Care Team Providers Care Pilot Fuel Engineer Name Role Phone Sher Ayers MD Primary Care Provider [phone] Reason for Visit * Reason Comments Surgical Consult * Eval and Treat (Routine) - Closed Specialty Diagnoses / Procedures Referred By Contac t Referred To Contact Thoracic Surgery / Cardiothoracic Surgery Diagnoses Malignant neoplasm of right lung, unspecified part of lung Procedures [place] OFFICE/OUTPATIENT ESTABLISHED MOD MDM 30 MIN [place] OFFICE/OUTPATIENT NEW MODERATE MDM 45 MINUTES Reynaldo Frances MD [address] [place], [place] [address] [address] [place] [address] Ha Jang MD [address] [facility] [address] [place] [address] Referral ID Status Reason Start Date Expiration Date Visits Re quested Visits Authorized [id number] Closed 11/03/2023 11/02/2024 1 1 Encounter Details Date Type Department Care Team (Late st Contact Info) Description 11/22/2023 2:00 PM CDT Office Visit [facility] Cardiovas and Thor Surg at [facility] [address] [facility] [id number] [place] [address] Ha Jang MD [address] [facility] [address] [place] [address] Lung nodule (Primary Dx) Social History Tobacco [...] Sign Reading Time Taken Comments Blood Pressure 132/78 11/22/2023 2:05 PM CDT Pulse 85 11/22/2023 2:05 PM CDT Temperature - - Respiratory Rate - - Oxygen Saturation 98% 11/22/2023 2:05 PM CDT Inhaled Oxygen Concentration - - Weight 62.1 kg (137 lb) 11/22/2023 2:05 PM CDT Height 161.3 cm (5' 3.5 ) 11/22/2023 2:05 PM CDT Body Mass Index 23.89 11/22/2023 2:05 PM CDT documented in this encounter Progress Notes * Ha Jang MD - 11/22/2023 2:00 PM CDT Images from the original note were not included. CTS History and Physical PRIMARY CARE PHYSICIAN: Sher Ayers MD Megan Lyons is an 68 y.o. female who was referred by Dr. Frances for evaluation of right upper lobenodule. Patient has a past medical history of being a former smoker quit in September 2023, marijuana use, and COPD. Patient has known bilateral lung nodules, has had serial CT scan and followed by Dr. Frances most recent CT scan showed the right upper lobe nodule to be slightly larger. PET scan was performed on October 05 that showed 11 mm right upper lobe pulmonary nodule with increased activity worsened from August 2022. 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 Patient was referred to cardiothoracic surgery for possible surgical intervention. Also to notepatient lost 25lbs unintentionally in the past year, unsure the reason why. Complains of shortness of breath but nothing from usual. CT Scan Results (09/15/23): PET Scan Results (10/06/23): Past Medical History Patient does not have a history of DM that is treated with diet control. There is no height or weight on file to calculate BMI.: Past Medical History: Diagnosis Date Asthma COPD (chronic obstructive pulmonary disease) Depression blood clots Diabetes mellitus Heart disease, unspecified HTN (hypertension) Hx of blood clots Hyperlipidemia Liver disease, unspecified Stroke Past Surgical History Past Surgical History: Procedure Laterality Date HX CHOLECYSTECTOMY HX HYSTERECTOMY HX TUBAL LIGATION Medications Current Outpatient Medications Medication Sig Dispense Refill Ubrelvy 50 mg tablet TAKE 1 TABLET BY MOUTH ONCE NEEDED FOR MIGRAINE HEADACHE. MAY REPEAT ONCE AFTER 2 HOURS IF NEEDED. amLODIPine (NORVASC) 5 mg tablet Take 5 mg by mouth daily. buPROPion HCL (WELLBUTRIN SR) 150 mg Sustained Release 12 hour tablet Take 150 mg by mouth 2 times daily. fluticasone propionate (FLONASE) 50 mcg/spray [place], Suspension nasal inhaler Administer 2 Sprays in each nostril daily. TRELEGY ELLIPTA 100-62.5-25 mcg Disk with Device aspirin (ECOTRIN EC) 81 mg Tablet, Delayed Release (E.C.) Take 81 mg by mouth daily. calcium carbonate/vitamin D3 (CALCIUM 500 + D ORAL) Take by mouth daily. roflumilast (DALIRESP) 500 mcg Tablet Take by mouth daily. lisinopril (PRINIVIL) 10 mg tablet Take 10 mg by mouth daily. cyclobenzaprine (FLEXERIL) 10 mg tablet Take 10 mg by mouth 3 times daily as needed for Spasm. fenofibrate nanocrystallized (TRICOR) 145 mg tablet Take 145 mg by mouth daily. traZODone (DESYREL) 50 mg tablet Take 50 mg by mouth daily at bedtime. pantoprazole (PROTONIX) 40 mg Tablet, Delayed Release (E.C.) Take 40 mg by mouth daily. pravastatin (PRAVACHOL) 20 mg tablet Take 20 mg by mouth daily with supper. albuterol HFA 90 mcg inhaler Take 2 Puffs by inhalation every 6 hours as needed for Shortness of Breath. albuterol (PROVENTIL,VENTOLIN) 0.63 mg/3 mL Solution for Nebulization Take 0.63 mg by inhalation every 6 hours as needed for Shortness of Breath. No current facility-administered medications for this visit. Allergies Allergies Allergen Reactions Penicillins Itching Pt does not have a latex allergy Pt does not have a history of ALLY Pt does not have a history of ID requiring isolation Family History No family history on file. Social History Social History Socioeconomic History Marital status: Spouse name: Not on file Number of children: Not on file Years of education: Not on file Highest education level: Not on file Occupational History Not on file Tobacco Use Smoking status: Former Current packs/day: 0.00 Average packs/day: 0.3 packs/day for 50.0 years (12.5 ttl pk-yrs) Types: Cigarettes Start date: 09/20/1973 Quit date: 09/21/2023 Years since quittin.1 Smokeless tobacco: Never Substance and Sexual Activity Alcohol use: No Drug use: No Sexual activity: Not on file Other Topics Concern Service Not Asked Blood Transfusions Not Asked Caffeine Concern Not Asked Occupational Exposure Not Asked Hobby Hazards Not Asked Sleep Concern Not Asked Stress Concern Not Asked Weight Concern Not Asked Special Diet Not Asked Back Care Not Asked Exercise Not Asked Bike Helmet Not Asked Seat Belt Not Asked Self-Exams No Social History Narrative Not on file Social Determinants of Health Financial Resource Strain: Not on file Food Insecurity: Not on file Transportation Needs: Not on file Social Connections: Not on file Intimate Partner Violence: Not on file Housing Stability: Not on file Review of Systems History obtained from the patient Constitutional: denies fevers, chills, weight loss Respiratory: positive for shortness of breath no more than usual denies hemoptysis, wheeze Cardiovascular: denies chest pain, irregular heart beats Gastrointestinal: denies abdominal pain, change in bowel habits, no hematochezia, hematemesis Genitourinary: denies dysuria, frequency Hematologic: denies: bruising, bleeding Musculoskeletal: denies myalgias and muscle weakness Neurological: denies motor or sensory deficit Behavior, Psychologic: denies anxiety and depression Objective: There were no vitals filed for this visit. Last documented weight: There is no height or weight on file to calculate BMI./ Ht Readings from Last 1 Encounters: 03/17/22 5' 3 (1.6 m) General appearance: alert, in no distress Eyes: No acute conjunctivitis, sclerae anicteric Neck: neck is supple, trachea is midline, no carotid bruit Head: atraumatic, normocephalic, without obvious abnormality Lungs: clear to auscultation bilaterally, normal respiratory effort Heart: normal rate and rhythm Chest Wall: normal exam with no anatomical abnormalities Abdomen: soft, non-tender, bowel sounds normoactive Extremities: extremities atraumatic, no cyanosis or edema, moves all extremities equally Hematologic/lymphatic: no submandibular adenopathy, no neck adenopathy Skin: limited skin examination demonstrates no acute pathologic findings, age appropriate changes, lifelong environmental sun exposure/tanning Neurologic: grossly normal Labs No results found for: WBC , MANUALWBC , HGB , HGBPOC , HCT , HCTPOC , PLT , MCV No results found for: NA , K , CL , CO2 , CA , BUN , CREAT , GLUCOSE , ANIONGAP , BCRATIO Assessment: Patient was seen and examined. CT images and biopsy results were reviewed. Reviewed PFT's Right upper lobe nodule Ad additional bilateral GGO's I am concerned about the bilateral lung findings of unknown etiology: infectioous or malignant. I am concerned abut her pulmonary risk and operability. Past Medical History: Diagnosis Date Asthma COPD (chronic obstructive pulmonary disease) Depression blood clots Diabetes mellitus Heart disease, unspecified HTN (hypertension) Hx of blood clots Hyperlipidemia Liver disease, unspecified Stroke Past Surgical History: Procedure Laterality Date HX CHOLECYSTECTOMY HX HYSTERECTOMY HX TUBAL LIGATION Plan: I would not recommend surgical resection at this time. We recommend continue with Dr. Reeves, has anappointment next week. Also recommend a pulmonary consult for multiple new nodule and ground glass appearances. We also recommend radiation oncology consult for possible SBRT and monitoring the rest of lung lesions. Discussed with the patient and family in detail. Patient was given all risks, alternatives, and benefits. Questions were answered. She is not a tobacco/nicotine user. Chronic conditions will be addressed by the patient's Primary Care Physician (PCP). Patient encouraged to follow-up with their PCP. Discussed with Dr. Frances who agrees. Ha Jang MD On the day of this visit I spent 60 (1 hr) minutes providing care to this patient including Preparing to see the patient, Obtaining and/or reviewing separately obtained history, Examining the patientwith two-way synchronous audio & visual technology, Coordinating with bedside members of the care team, Counseling and educating the patient/family/caregiver, Ordering medications, tests or procedures, Documenting clinical information in the medical record, Referring and communication with other health eye care professional (not separately reported), and Care coordination (not separately reported) documented in this encounter Plan of Treatment Upcoming Encounters Date Type Department Care Team (Late st Contact Info) Description 06/06/2024 2:00 PM ROBOT OPERATOR Office Visit [facility] Oncology and Hematology [facility] [address] [facility] [address] [place] [address] Reynaldo Frances MD [address] [facility] [address] [place] [address] Scheduled Referrals Name Type Priority Associated Diagnoses Order Schedule AMB REFERRAL TO CARDIOTHORACIC SURGEON Outpatient Referral Routine Malignant neoplasm of right lung, unspecified part of lung Ordered: 11/03/2023 documented as of this encounter Visit Diagnoses Diagnosis Lung nodule- Primary Solitary pulmonary nodule documented in this encounter Care Teams Pilot Fuel Engineer Relationship Specialty Start Date End Date Sher Ayers MD [address] [facility] [address] [place] [address] PCP - General Family Practice 05/09/18 documented as of this encounter
--- OUTSIDE RECORDS SUMMARY | 2024-06-04 02:33 | XMS_ITS | Encounter Summary ---
Author Organization [facility] [employer] [facility] Address [address] [place] [address] Care Team Providers Care Take Up Operator Name Role Phone Sher Ayers MD Primary Care Provider [phone] Encounter Details Date Type Department Care Team ([facility] Contact Info) Description 10/28/2021 Orders Only [facility] Oncology and Hematology [facility] [address] [place] [address] Deshawn Rivera RN Lung mass Social History Tobacco Use Types Packs/Day Years [...] PM CDT documented as of this encounter Plan of Treatment Upcoming Encounters Date Type Department Care Team (Late Contact Info) Description 06/06/2024 2:00 PM VARITYPE OPERATOR Office Visit [facility] Oncology and Hematology [facility] [address] [place] [address] Reynaldo Frances MD [address] [facility] [address] [place] [address] documented as of this encounter Visit Diagnoses Diagnosis Lung mass Swelling, mass, or lump in chest documented in this encounter Care Teams Take Up Operator Relationship Specialty Start Date End Date Sher Ayers MD [address] [facility] [address] [place] [address] PCP - General Family Practice 05/09/18 documented as of this encounter
--- OUTSIDE RECORDS SUMMARY | 2024-06-04 02:33 | XMS_ITS | Encounter Summary ---
Author Organization [facility] [employer] [facility] Address [address] [place] [address] Care Team Providers Care Homicide Detective Name Role Phone Sher Ayers MD Primary Care Provider [phone] Encounter Details Date Type Department Care Team (Late Contact Info) Description 10/09/2023 Orders Only [facility] Oncology and Hematology [place] [address] [place] [address] Reynaldo Frances MD [facility] [address] [place] [address] Social History Tobacco Use Types Packs/Day Years Used Date Smoking Tobacco: Every Day Cigarettes 0.3 50.7 Started: 09/20/1973 Smokeless Tobacco: Never Alcohol Use Standard Drinks/Week [...] (Late Contact Info) Description 06/06/2024 2:00 PM SHOT HOLE SHOOTER Office Visit [facility] Oncology and Hematology - [place] [address] [place] [address] Reynaldo Frances MD [address] [facility] [address] [place] [address] documented as of this encounter Procedures Procedure Name Priority Date/Time Associated Diagnosis Comments PET BONE IMG W CT SKL BSE MID THG Routine 10/06/2023 1:03 PM CDT documented in this encounter Results * PET BONE IMG W CT SKB MDTH (10/06/2023 1:03 PM CDT) Anatomical Region Laterality Modality Other Reynaldo Frances MD PE ORDERABLES documented in this encounter Visit Diagnoses Not on filedocumented in this encounter Care Teams Homicide Detective Relationship Specialty Start Date End Date Sher Ayers MD [address] [facility] [address] [place] [address] PCP - General Family Practice 05/09/18 documented as of this encounter
--- OUTSIDE RECORDS SUMMARY | 2024-06-04 02:33 | XMS_ITS | Encounter Summary ---
Author Organization [facility] Address [address] [place] [address] Care Team Providers Care Medication Administration Professional Name Role Phone Sher Ayers MD Primary Care Provider [phone] Encounter Details Date Type Department Care Team [...] st Contact Info) Description 06/06/2024 2:00 PM NURSING HOME DIRECTOR Office Visit [facility] Oncology and Hematology - [place] [address] [place] [address] [address] [place] [address] [place] [address] [place] [address] [address] [place] [address] documented as of this encounter Visit Diagnoses Not on filedocumented in this encounter Care Teams Medication Administration Professional Relationship Specialty Start Date End Date Sher Ayers MD [address] [facility] [address] [place] [address] PCP - General Family Practice 05/09/18 documented as of this encounter
--- OUTSIDE RECORDS SUMMARY | 2024-06-04 02:33 | XMS_ITS | Encounter Summary ---
Author Organization [facility] Address [address] [place] [address] Care Team Providers Care Video Editing Intern Name Role Phone Sher Ayers MD Primary Care Provider [phone] Encounter Details Date Type Department Care Team (Late st Contact Info) Description 06/04/2018 Orders Only [facility] BREAST SURGERY [place] [address] [facility] 200 [place] [address] Provider, Abstract NO ADDRESS ON [...] st Contact Info) Description 06/06/2024 2:00 PM VALIDATION ENGINEER Office Visit [facility] Oncology and Hematology - [place] [address] [facility] [address] [place] [address] Reynaldo Frances MD [address] [facility] [address] [place] [address] documented as of this encounter Procedures Procedure Name Priority Date/Time Associated Diagnosis Comments US BREAST UNI RT LTD Routine 05/07/2018 MAMMO DIAGNOSTIC UNI RIGHT W OR WO CAD Routine 05/07/2018 MAMMO SCREENING BILAT Routine 04/24/2018 MAMMO SCREENING BILAT Routine 02/03/2017 MAMMO SCREENING BILAT Routine 02/02/2016 documented in this encounter Results * US BREAST UNI RT LTD (05/07/2018) Anatomical Region Laterality Modality Breast Right Other Abstract Provider US ORDERABLES * MAMMO DIAGNOSTIC UNI RIGHT W OR WO CAD (05/07/2018) Anatomical Region Laterality Modality Breast Right Other Abstract Provider MAMMO ORDERABLES * MAMMO SCREENING BILAT (04/24/2018) Anatomical Region Laterality Modality Breast Bilateral Other Abstract Provider MAMMO ORDERABLES * MAMMO SCREENING BILAT (02/03/2017) Anatomical Region Laterality Modality Breast Bilateral Other Abstract Provider MAMMO ORDERABLES * MAMMO SCREENING BILAT (02/02/2016) Anatomical Region Laterality Modality Breast Bilateral Other Abstract Provider MAMMO ORDERABLES documented in this encounter Visit Diagnoses Not on filedocumented in this encounter Care Teams Video Editing Intern Relationship Specialty Start Date End Date Sher Ayers MD [address] [phone] PCP - General Family Practice 05/09/18 documented as of this encounter
--- OUTSIDE RECORDS SUMMARY | 2024-06-04 02:33 | XMS_ITS | Encounter Summary ---
Author Organization [facility] Address [address] [place] [address] Care Team Providers Care Stunner Animal Name Role Phone Sher Ayers MD Primary Care Provider [phone] Encounter Details Date Type Department Care Team (Late st Contact Info) Description 08/22/2023 External Device Data STL ABSTRACTION Provider, Abstract [...] st Contact Info) Description 06/06/2024 2:00 PM REINSTATEMENT CLERK Office Visit [facility] Oncology and Hematology - [place] [address] [place] [address] [address] [place] [address] [place] [address] [place] [address] [address] [place] [address] documented as of this encounter Visit Diagnoses Not on filedocumented in this encounter Care Teams Stunner Animal Relationship Specialty Start Date End Date Sher Ayers MD [address] [facility] 120 [place] [phone] PCP - General Family Practice 05/09/18 documented as of this encounter
--- OUTSIDE RECORDS SUMMARY | 2024-06-04 02:33 | XMS_ITS | Encounter Summary ---
Author Organization [facility] Address [address] [place] [address] Care Team Providers Care Smoking Pipe Coater Name Role Phone Sher Ayers MD Primary Care Provider [phone] Encounter Details Date Type Department Care Team (Late st Contact Info) Description 02/09/2023 External Device Data STL ABSTRACTION Provider, Abstract [...] st Contact Info) Description 06/06/2024 2:00 PM DYE WORKER Office Visit [facility] Oncology and Hematology - [place] [address] [place] [address] [address] [place] [address] [place] [address] [place] [address] [address] [place] [address] documented as of this encounter Visit Diagnoses Not on filedocumented in this encounter Care Teams Smoking Pipe Coater Relationship Specialty Start Date End Date Sher Ayers MD [address] [facility] 120 [place] [address] PCP - General Family Practice 05/09/18 documented as of this encounter
--- OUTSIDE RECORDS SUMMARY | 2024-06-04 02:33 | XMS_ITS | Encounter Summary ---
Author Organization [facility] Address [address] [place] [address] Care Team Providers Care Spot Facer Name Role Phone Sher Ayers MD Primary Care Provider [phone] Encounter Details Date Type Department Care Team (Late st Contact Info) Description 10/24/2023 External Device Data STL ABSTRACTION Provider, Abstract [...] st Contact Info) Description 06/06/2024 2:00 PM LEGAL ADVISOR Office Visit [facility] Oncology and Hematology - [place] [address] [facility] 200 [place] [address] Reynaldo Frances MD [address] [facility] [address] [place] [address] documented as of this encounter Visit Diagnoses Not on filedocumented in this encounter Care Teams Spot Facer Relationship Specialty Start Date End Date Sher Ayers MD [address] [facility] 120 [place] [address] PCP - General Family Practice 05/09/18 documented as of this encounter
--- OUTSIDE RECORDS SUMMARY | 2024-06-04 02:33 | XMS_ITS | Encounter Summary ---
Author Organization [facility] [employer] [facility] Address [address] [place] [address] Care Team Providers Care Catalyst Unit Operator Name Role Phone Sher Ayers MD Primary Care Provider [phone] Encounter Details Date Type Department Care Team (Late Contact Info) Description 03/28/2022 Orders Only [facility] Oncology and Hematology [facility] [address] [place] [address] Jessica Saha RN Lung nodule Social History Tobacco Use Types Packs/Day Years [...] (Late Contact Info) Description 06/06/2024 2:00 PM PUBLIC SCHOOL TEACHER Office Visit [facility] Oncology and Hematology [facility] [address] [place] [address] Reynaldo Frances MD [address] [facility] [address] [place] [address] documented as of this encounter Visit Diagnoses Diagnosis Lung nodule Solitary pulmonary nodule documented in this encounter Care Teams Catalyst Unit Operator Relationship Specialty Start Date End Date Sher Ayers MD [address] [facility] [address] [place] [address] PCP - General Family Practice 05/09/18 documented as of this encounter
--- OUTSIDE RECORDS SUMMARY | 2024-06-04 02:33 | XMS_ITS | Encounter Summary ---
Author Organization [facility] Address [address] [place] [address] Care Team Providers Care Gis Geographer Name Role Phone Sher Ayers MD Primary Care Provider [phone] Encounter Details Date Type Department Care Team (Late st Contact Info) Description 08/18/2023 External Device Data STL ABSTRACTION Provider, Abstract [...] st Contact Info) Description 06/06/2024 2:00 PM MANAGER DRUG SAFETY Office Visit [facility] Oncology and Hematology - [place] [address] [place] [address] [address] [place] [address] [place] [address] [place] [address] [address] [place] [address] documented as of this encounter Visit Diagnoses Not on filedocumented in this encounter Care Teams Gis Geographer Relationship Specialty Start Date End Date Sher Ayers MD [address] [facility] 120 [place] [phone] PCP - General Family Practice 05/09/18 documented as of this encounter
--- OUTSIDE RECORDS SUMMARY | 2024-06-04 02:33 | XMS_ITS | Encounter Summary ---
Author Organization [facility] Address [address] [place] [address] Care Team Providers Care Motor Coach Driver Name Role Phone Sher Ayers MD Primary Care Provider [phone] Encounter Details Date Type Department Care Team (Late st Contact Info) Description 05/05/2023 External Device Data STL ABSTRACTION Provider, Abstract [...] st Contact Info) Description 06/06/2024 2:00 PM CAREER DEVELOPMENT COORDINATOR/TEACHER Office Visit [facility] Oncology and Hematology - [place] [address] [place] [address] [address] [place] [address] [place] [address] [place] [address] [address] [place] [address] documented as of this encounter Visit Diagnoses Not on filedocumented in this encounter Care Teams Motor Coach Driver Relationship Specialty Start Date End Date Sher Ayers MD [address] [facility] 120 [place] [address] PCP - General Family Practice 05/09/18 documented as of this encounter
--- OUTSIDE RECORDS SUMMARY | 2024-06-04 02:33 | XMS_ITS | Encounter Summary ---
Author Organization [facility] Address [address] [place] [address] Care Team Providers Care Bilingual Interpreter Name Role Phone Sher Ayers MD Primary Care Provider [phone] Reason for Visit * Reason Comments Follow Up Bx f/u * Eval and Treat (Routine) - Closed Specialty Diagnoses / Procedures Referred By Fritz gordon Referred To Contact Oncology Diagnoses N63.10 Procedures Office visit Sher Ayers MD [address] [facility] 120 [place] [address] Nandini Humphrey, DO NO ADDRESS ON FILE Referral ID Status Reason Start Date Expiration Date Visits Re quested Visits Authorized [id number] Closed 05/08/2018 11/04/2018 1 12 Encounter Details Date Type Department Care Team (Late st Contact Info) Description 06/12/2018 3:40 PM FILLING STATION EQUIPMENT MECHANIC Office Visit [facility] BREAST SURGERY [place] [address], [facility] 200 [place] [address] Nandini Humphrey DO NO ADDRESS ON FILE Cyst of right breast (Primary Dx) Social History Tobacco Use [...] Sign Reading Time Taken Comments Blood Pressure 117/75 06/12/2018 3:19 PM FILLING STATION EQUIPMENT MECHANIC Pulse 108 06/12/2018 3:19 PM FILLING STATION EQUIPMENT MECHANIC Temperature 36.6 ??C (97.9 ??F) 06/12/2018 3:19 PM CS T Respiratory Rate - - Oxygen Saturation 93% 06/12/2018 3:19 PM FILLING STATION EQUIPMENT MECHANIC Inhaled Oxygen Concentration - - Weight 76.4 kg (168 lb 6.4 oz) 06/12/2018 3:19 P M FILLING STATION EQUIPMENT MECHANIC Height 161.3 cm (5' 3.5 ) 06/12/2018 3:19 PM FILLING STATION EQUIPMENT MECHANIC Body Mass Index 29.36 06/12/2018 3:19 PM FILLING STATION EQUIPMENT MECHANIC documented in this encounter Progress Notes * Nandini Humphrey, DO - 06/12/2018 3:29 PM CST Chief Complaint Patient presents with ??? Follow Up Bx f/u Subjective: The patient states she is feeling well with no complaints. She has had no pain, no fevers since the procedure. Patient is here today with her daughter. Postbiopsy mammogram reviewed, with the lesion completely obliterated and a coil marker at its place. PROCEDURE(s): 06/05/2018: Right breast ultrasound-guided vacuum-assisted core biopsy (coil marker) Pathology: Apocrine cyst. No atypical or malignant findings FHx: BC: none; ovarian ca: none; mother hepatocellular ca dx 71, passed 73; father lung ca unk dx; brother pancreatic ca dx and passed 66 ?? Menarche 9, FDLMP age 34 MISA-BSO due to uterine fibroids, no ca, postmenopausal , FFTB 14, breast fed no; contraceptives: yes and OCPs x 2 yrs; HRT no ?? Bra size: 44DD ?? Ashkenazi heritage: no ?? Smoker: yes and 1-2 cigarets/day x 40 yrs used to smoke 1.5ppd x 30+ yrs ?? HTN, Hyperchol, DM, asthma, emphysema, GERD, TIA 4 yrs ago BP 117/75 (BP Location: Right arm, Patient Position (BP): Sitting, BP Cuff Size: Adult) Pulse (!)108 Temp 97.9 ??F (36.6 ??C) (Oral) Ht 5' 3.5 (1.613 m) Wt 76.4 kg (168 lb 6.4 oz) LMP 10/20/1988 (Approximate) SpO2 93% BMI 29.36 kg/m?? Current Outpatient Prescriptions Medication Sig Dispense Refill ??? TRELEGY ELLIPTA [...] current facility-administered medications for this visit. Allergies Allergen Reactions ??? Penicillins Itching Burning, itching, swelling Past Medical History: Diagnosis Date ??? Asthma ??? COPD (chronic obstructive pulmonary disease) ??? Depression blood clots ??? Diabetes mellitus ??? Heart disease, unspecified ??? HTN (hypertension) ??? Hx of blood clots ??? Hyperlipidemia ??? Liver disease, unspecified ??? Stroke Past Surgical History: Procedure Laterality Date ??? HX CHOLECYSTECTOMY ??? HX HYSTERECTOMY ??? HX TUBAL LIGATION ROS: Constitutional: Negative for fever, weight loss [...] noted above. Immunizations: non-contributory PHYSICAL EXAM: BP 117/75 (BP Location: Right arm, Patient Position (BP): Sitting, BP Cuff Size: Adult) Pulse (!)108 Temp 97.9 ??F (36.6 ??C) (Oral) Ht 5' 3.5 (1.613 m) Wt 76.4 kg (168 lb 6.4 oz) LMP 10/20/1988 (Approximate) SpO2 93% BMI 29.36 kg/m?? Breasts: The patient was examined in the seated and supine positions today. no cervical, supraclavicular, axillary lymphadenopathy. Breast symmetry: Right breast larger than left Other findings: Biopsy site at the right upper inner breast is healing very nicely with no signs ofinfection, no erythema, no edema. There is no ecchymosis noted at the site. General: well-developed, well-nourished HEENT: normocephalic/atraumatic. Extra-occular movements [...] grossly intact. Alert and oriented x 3. Most recent imaging was: 06/05/2018: Postbiopsy mammogram reviewed, with the lesion completely obliterated and a coil marker at its place. Mammogram films and reports were reviewed from [facility] mammography center, dated April 24, 2018 for the bilateral screening mammogram and May 07, 2018 for the right diagnostic mammogram. These are compared to mammograms from February 03, 2017 and February 02, 2016. The breasts bilat erally are mostly fatty replaced with very little dense tissue. The left breast is without new findings, no areas of architectural distortion, no suspicious groupings of microcalcifications and no nodular densities that are new. In the right inner breast at 2-3:00, there is a new density which is slightly irregularly-shaped. Otherwise, there are no groupings of calcifications, no architectural distortion. BI-RADS 4 per radiology. Future imaging is to be done: Bilateral screening mammogram will be due on or after April 25, 2019 ASSESSMENT AND PLAN: Encounter Diagnosis Name Primary? Cyst of right breast Yes Pathology and pathophysiology of apocrine cysts were explained to the patient and her daughter. They understand that this is a benign lesion, and does not need any further investigation nor procedures. The patient understands that the lesion was completely eradicated with the biopsy. She does have a marker at its place. The patient does not need to return to see me, unless there is a new problem or concern. She can resume yearly clinical breast exams and screening mammograms with her primary care physician. She willbe due for the next mammogram on or after April 25, 2019. Questions were solicited and answered. The patient stated her understanding. ING STATION EQUIPMENT MECHANIC documented in this encounter Plan of Treatment Upcoming Encounters Date Type Department Care Team (Late st Contact Info) Description 06/06/2024 2:00 PM FILLING STATION EQUIPMENT MECHANIC Office Visit [facility] Oncology and Hematology - [place] [address] [facility] 200 [place] [address] Reynaldo Frances MD [address] [facility] [address] [place] [address] documented as of this encounter Visit Diagnoses Diagnosis Cyst of right breast- Primary documented in this encounter Care Teams Bilingual Interpreter Relationship Specialty Start Date End Date Sher Ayers MD [address] [facility] 120 [place] [address] PCP - General Family Practice 05/09/18 documented as of this encounter
--- OUTSIDE RECORDS SUMMARY | 2024-06-04 02:33 | XMS_ITS | Encounter Summary ---
Author Organization [facility] [employer] [facility] Address [address] [place] [address] Care Team Providers Care Classroom Teacher Name Role Phone Sher Ayers MD Primary Care Provider [phone] Encounter Details Date Type Department Care Team ([facility] Contact Info) Description 10/19/[address] [facility] Oncology and Hematology [facility] [address] [place] [address] Deshawn Rivera RN Social History Tobacco Use Types Packs/Day [...] Upcoming Encounters Date Type Department Care Team ([facility] Contact Info) Description 06/06/2024 2:00 PM WASHERY ENGINEER Office Visit [facility] H[facility]ology [facility] [address] [place] [address] Reynaldo Frances MD [address] [facility] [address] [place] [address] documented as of this encounter Visit Diagnoses Not on filedocumented in this encounter Care Teams Classroom Teacher Relationship Specialty Start Date End Date Sher Ayers MD [address] [facility] 120 [place] [phone] PCP - General Family Practice 05/09/18 documented as of this encounter
--- OUTSIDE RECORDS SUMMARY | 2024-06-04 02:33 | XMS_ITS | Encounter Summary ---
Author Organization [facility] Address [address] [place] [address] Care Team Providers Care College Or University Business Manager Name Role Phone Sher Ayers MD Primary Care Provider [phone] Encounter Details Date Type Department Care Team (Late st Contact Info) Description 09/12/2023 External Device Data STL ABSTRACTION Provider, Abstract [...] st Contact Info) Description 06/06/2024 2:00 PM COKE OVEN MASON Office Visit [facility] Oncology and Hematology - [place] [address] [place] [address] [address] [place] [address] [place] [address] [place] [address] [address] [place] [address] documented as of this encounter Visit Diagnoses Not on filedocumented in this encounter Care Teams College Or University Business Manager Relationship Specialty Start Date End Date Sher Ayers MD [address] [facility] 120 [place] [address] PCP - General Family Practice 05/09/18 documented as of this encounter
--- OUTSIDE RECORDS SUMMARY | 2024-06-04 02:33 | XMS_ITS | Encounter Summary ---
Author Organization [facility] Address [address] [facility] Attn: Epic Prelude ADT [place] [address] Care Team Providers Care Sewing Machine Mechanic Name Role Phone Sher Ayers MD Primary Care Provider [phone] Encounter Details Date Type Department Care Team (Latest Contact Info) Description 09/22/2022 Travel Social History Tobacco Use Types Packs/Day [...] st Contact Info) Description 06/06/2024 2:00 PM ENVIRONMENTAL INTERN Office Visit [facility] Oncology and Hematology - [place] [address] [facility] 200 [place] [address] Reynaldo Frances MD [address] [facility] [address] [place] [address] documented as of this encounter Visit Diagnoses Not on filedocumented in this encounter Care Teams Sewing Machine Mechanic Relationship Specialty Start Date End Date Sher Ayers MD [address] [facility] 120 [place] [address] PCP - General Family Practice 05/09/18 documented as of this encounter
--- OUTSIDE RECORDS SUMMARY | 2024-06-04 02:33 | XMS_ITS | Encounter Summary ---
Author Organization [facility] [employer] [facility] Address [address] [place] [address] Care Team Providers Care Developmental Mathematics Instructor Name Role Phone Sher Ayers MD Primary Care Provider [phone] Reason for Visit * Reason Comments Follow Up Encounter Details Date Type Department Care Team (Late st Contact Info) Description 10/13/2023 10:00 AM CDT Office Visit [facility] Oncology and Hematology - [place] [address] [facility] 200 [place] [address] Reynaldo Frances MD [address] [facility] [address] [place] [address] Lung nodule (Primary Dx) Social [...] Sign Reading Time Taken Comments Blood Pressure 163/84 10/13/2023 9:51 AM CDT Pulse 83 10/13/2023 9:49 AM CDT Temperature 36.1 ??C (97 ??F) 10/13/2023 9:49 AM CDT Respiratory Rate 14 10/13/2023 9:49 AM CDT Oxygen Saturation 96% 10/13/2023 9:49 AM CDT Inhaled Oxygen Concentration - - Weight 59.4 kg (131 lb) 10/13/2023 9:49 AM CDT Height - - Body Mass Index 23.21 03/17/2022 9:58 AM CDT documented in this encounter Progress Notes * Reynaldo Frances MD - 10/13/2023 10:22 AM CDT HEMATOLOGY / ONCOLOGY PROGRESS NOTE Patient Identification: Name: Megan Lyons Age: 68 y.o. Sex: female : 1955 DIAGNOSIS Bilateral pulmonary nodules CURRENT TREATMENT Expectant TREATMENT HISTORY SUBJECTIVE Patient came to the office for follow-up visit after the PET scan was performed. She has some shortness of breath without any productive cough. No fevers and chills. No other new complaints. Review of system [...] include infection and neoplasm. Mild mediastinal lymphadenopathy. PET scan was performed on October 05 that showed 11 mm right upper lobe pulmonary nodule with increasedactivity worsened from August 2022. I will order CT-guided biopsy and follow-up with me in 2 weeks. Based on the biopsy we will decide the management. Hypertension. Stable. Type 2 diabetes. She will continue to follow with the primary care physician. COPD. I have recommended smoking cessation. Follow-up in 2 weeks. TOBACCO COUNSELING She was counseled to discontinue tobacco/nicotine use. 10/13/2023 Reynaldo Frances MD documented in this encounter Miscellaneous Notes * Addendum Note - Reynaldo Frances MD - 10/13/2023 3:10 PM CDTAddended by: REYNALDO FRANCES on: 10/13/2023 03:10 PM Modules accepted: Level of Service documented in this encounter Plan of Treatment Upcoming Encounters Date Type Department Care Team (Late st Contact Info) Description 06/06/2024 2:00 PM CARGO INSPECTOR Office Visit [facility] Oncology and Hematology - [place] [address] [facility] [address] [place] [address] Reynaldo Frances MD [address] [facility] [address] [place] [address] Scheduled Orders Name Type Priority Associated Diagnoses Orde r Schedule BIOPSY Procedures Routine Lung nodule Ordered: 10/13/2023 documented as of this encounter Visit Diagnoses Diagnosis Lung nodule- Primary Solitary pulmonary nodule documented in this encounter Care Teams Developmental Mathematics Instructor Relationship Specialty Start Date End Date Sher Ayers MD [address] [facility] 120 [place] [address] PCP - General Family Practice 05/09/18 documented as of this encounter
--- OUTSIDE RECORDS SUMMARY | 2024-06-04 02:33 | XMS_ITS | Encounter Summary ---
Author Organization [facility] Address [address] [facility] Attn: Epic Prelude ADT [place] [address] Care Team Providers Care Rehab Rn Name Role Phone Sher Aeyrs MD Primary Care Provider [phone] Encounter Details Date Type Department Care Team (Latest Contact Info) Description 11/04/2021 Travel Social History Tobacco Use Types Packs/Day [...] st Contact Info) Description 06/06/2024 2:00 PM PEDIATRIC REGISTERED NURSE Office Visit [facility] Oncology and Hematology - [place] [address] [facility] 200 [place] [address] Reynaldo Frances MD [address] [facility] [address] [place] [address] documented as of this encounter Visit Diagnoses Not on filedocumented in this encounter Care Teams Rehab Rn Relationship Specialty Start Date End Date Sher Ayers MD [address] [facility] 120 [place] [address] PCP - General Family Practice 05/09/18 documented as of this encounter
--- OUTSIDE RECORDS SUMMARY | 2024-06-04 02:33 | XMS_ITS | Encounter Summary ---
Author Organization [facility] Address [address] [facility] Attn: Epic Prelude ADT [place] [address] Care Team Providers Care Lpn Home Health Name Role Phone Sher Ayers MD Primary Care Provider [phone] Encounter Details Date Type Department Care Team (Latest Contact Info) Description 10/05/2021 Travel Social History Tobacco Use Types Packs/Day [...] st Contact Info) Description 06/06/2024 2:00 PM PROPULSION MACHINERY SERVICE ENGINEER Office Visit [facility] Oncology and Hematology - [place] [address] [facility] 200 [place] [address] Reynaldo Frances MD [address] [facility] [address] [place] [address] documented as of this encounter Visit Diagnoses Not on filedocumented in this encounter Care Teams Lpn Home Health Relationship Specialty Start Date End Date Sher Ayers MD [address] [facility] 120 [place] [address] PCP - General Family Practice 05/09/18 documented as of this encounter
--- OUTSIDE RECORDS SUMMARY | 2024-06-04 02:33 | XMS_ITS | Encounter Summary ---
Author Organization [facility] Address [address] [place] [address] Care Team Providers Care Computer Systems Design Analyst Name Role Phone Sher Ayers MD Primary Care Provider [phone] Encounter Details Date Type Department Care Team [...] st Contact Info) Description 06/06/2024 2:00 PM RESEARCH SPEC Office Visit [facility] Oncology and Hematology - [place] [address] [facility] 200 [place] [address] Reynaldo Frances MD [address] [facility] [address] [place] [address] documented as of this encounter Visit Diagnoses Not on filedocumented in this encounter Care Teams Computer Systems Design Analyst Relationship Specialty Start Date End Date Sher Ayers MD [address] [facility] 120 [place] [address] PCP - General Family Practice 05/09/18 documented as of this encounter
--- OUTSIDE RECORDS SUMMARY | 2024-06-04 02:33 | XMS_ITS | Encounter Summary ---
Author Organization [facility] Address [address] [place] [address] Care Team Providers Care Podiatry Teacher Name Role Phone Sher Ayers MD Primary Care Provider [phone] Encounter Details Date Type Department Care Team (Late st Contact Info) Description 06/12/2018 Orders Only [facility] BREAST SURGERY [place] [address] [place] [address] Provider, Abstract NO ADDRESS ON [...] st Contact Info) Description 06/06/2024 2:00 PM LANDSCAPE NURSERYMAN Office Visit [facility] Oncology and Hematology - [place] [address] [place] [address] Reynaldo Frances MD [address] [facility] [address] [place] [address] documented as of this encounter Procedures Procedure Name Priority Date/Time Associated Diagnosis Comments PATHOLOGY Routine 06/05/2018 documented in this encounter Results * PATHOLOGY (06/05/2018) Tissue Abstract Provider [facility] documented in this encounter Visit Diagnoses Not on filedocumented in this encounter Care Teams Podiatry Teacher Relationship Specialty Start Date End Date Sher Ayers MD [address] [facility] [address] [facility] 120 [place] [address] PCP - General Family Practice 05/09/18 documented as of this encounter
--- OUTSIDE RECORDS SUMMARY | 2024-06-04 02:33 | XMS_ITS | Encounter Summary ---
Author Organization [facility] [employer] [facility] Address [address] [place] [address] Care Team Providers Care Oil Prospecting Observer Name Role Phone Sher Ayers MD Primary Care Provider [phone] Encounter Details Date Type Department Care Team ([facility] Contact Info) Description 10/29/2021 Orders Only [facility] Oncology and Hematology [facility] [address] [place] [address] Provider, Abstract NO ADDRESS ON [...] Upcoming Encounters Date Type Department Care Team ([facility] Contact Info) Description 06/06/2024 2:00 PM FIRE PROTECTION ENGINEERING TECHNICIAN Office Visit [facility] Oncology and Hematology [facility] [address] [place] [address] Reynaldo Frances MD [address] [facility] [address] [place] [address] documented as of this encounter Procedures Procedure Name Priority Date/Time Associated Diagnosis Comments POC GLUCOSE Routine 10/29/2021 documented in this encounter Results * POC GLUCOSE (10/29/2021) Blood, whole Abstract Provider POINT OF CARE TESTIN G documented in this encounter Visit Diagnoses Not on filedocumented in this encounter Care Teams Oil Prospecting Observer Relationship Specialty Start Date End Date Sher Ayers MD [address] [facility] [address] [facility] 120 [place] [address] PCP - General Family Practice 05/09/18 documented as of this encounter
--- OUTSIDE RECORDS SUMMARY | 2024-06-04 02:33 | XMS_ITS | Continuity of Care Document ---
Author Organization [facility] Address [address] [place] [address] Phone Care Team Providers Care Multiple Punch Press Operator Name Role Phone Castañeda OD, Mike Unavailable [...] Diagnoses Date Provider Providers Copied on Encounter [facility], [address] [place] [address] [address], [place], [place], [id number], [place] tel:[phone] SEC [facility] No Information 8-201 0 Castañeda OD Mike. [address] , [address], [place], [address], [place]. tel:[phone] Office/outpat ient Visit, Est [facility], [address], [place], [place], [id number], tel:[phone] SEC [facility] No Information Jean Carlos-0 4-201 0 Castañeda OD Mike. [address] [facility] , [address], [place], [place], [facility], [place]. tel:[phone] [facility], [address], [place], [place], [id number], [place] tel:[phone] SEC [facility] No Information September-2 7-201 0 Castañeda OD Mike. [address] , [address], [place], [facility], [place]. tel:[phone] [facility], [address], [place], [place], [id number], [place] tel:[phone] [facility] No Information Sep-0 2-200 9 Castañeda OD Mike. [facility] , [address], [place], [facility], [place]. tel:[phone] Referring Provider: Rogelio Adames, [address] [place], [place] [address]ate [address], [place], [facility]. tel:[phone] [facility], [address] [place] [address] [address], [place], [place], [id number], [place] tel:[phone] [facility] No Information 9-200 9 Jack Mercado. [address] [place], [place] [address]ate [address] , [address], [place], [facility], [place]. tel:[phone] [facility], [address] [place] [address] [address], [place], [place], [id number], [place] tel:[phone] [facility] No Information Dec-1 8-200 9 Jack Mercado. [facility] , [address], [place], [facility], [place]. tel:[phone] [facility], [address], [place], [place], [id number], [place] tel:[phone] SEC [place] [facility] No Information Aug-1 0-200 9 Doisy Edward. [address] , [address], [place], [address], [place]. tel:[phone] Referring Provider: Mike Adames, [address], [place], [address]. tel:[phone] [facility], [address] [place] [address] [address], [place], [place], [id number], [place] tel:[phone] [facility] No Information 200 9 Doisy Edward. [facility] , [address], [place], [facility], [place]. tel:[phone] Referring Provider: Mike Adames, [address] [facility] [address], [place], [facility]. tel:[phone] [facility], [address] [place] [address] [address], [place], [place], [id number], [place] tel:[phone] [facility] No Information 200 9 Doisy Edward. [facility] , [address], [place], [address], [place]. tel:[phone] Referring Provider: Mike Adames, [facility] [address], [place], [address]. tel:[phone] Office/outpat ient Visit, [facility], [address] [place] [address] [address], [place], [place], [id number], [place] tel:[phone] [facility] No Information 200 9 Doisy Edward. [facility] [address], [place], [facility], [place]. tel:[phone] Referring Provider: Mike Adames, [facility] [address], [place], [address]. tel:[phone] [facility], [address], [place], [place], [id number], [place] tel:[phone] [facility] No Information 1-200 9 Castañeda OD Mike. [address] , [address], [place], [address], [place]. tel:[phone] Family History Family Member Type Diagnosis Age [...]
--- OUTSIDE RECORDS SUMMARY | 2024-06-04 02:33 | XMS_ITS | Encounter Summary ---
Author Organization [facility] Address [address] [place] [address] Care Team Providers Care Mount Loader Name Role Phone Sher Ayers MD Primary Care Provider [phone] Encounter Details Date Type Department Care Team (Late st Contact Info) Description 06/15/2023 External Device Data STL ABSTRACTION Provider, Abstract [...] st Contact Info) Description 06/06/2024 2:00 PM FORMING DEPARTMENT END FINDER Office Visit [facility] Oncology and Hematology [place] [address] [place] [address] [address] [place] [address] [place] [address] [place] [address] [address] [place] [address] documented as of this encounter Visit Diagnoses Not on filedocumented in this encounter Care Teams Mount Loader Relationship Specialty Start Date End Date Sher Ayers MD [address] [facility] 120 [place] [address] PCP - General Family Practice 05/09/18 documented as of this encounter
--- OUTSIDE RECORDS SUMMARY | 2024-06-04 02:33 | XMS_ITS | Encounter Summary ---
Author Organization [facility] Address [address] [place] [address] Care Team Providers Care Compliance Monitor Name Role Phone Sher Ayers MD Primary Care Provider [phone] Encounter Details Date Type Department Care Team (Late st Contact Info) Description 05/09/2023 External Device Data STL ABSTRACTION Provider, Abstract [...] st Contact Info) Description 06/06/2024 2:00 PM COPYING MACHINE REPAIRER Office Visit [facility] Oncology and Hematology - [place] [address] [place] [address] [address] [place] [address] [place] [address] [place] [address] [address] [place] [address] documented as of this encounter Visit Diagnoses Not on filedocumented in this encounter Care Teams Compliance Monitor Relationship Specialty Start Date End Date Sher Ayers MD [address] [facility] 120 [place] [address] PCP - General Family Practice 05/09/18 documented as of this encounter
--- OUTSIDE RECORDS SUMMARY | 2024-06-04 02:33 | XMS_ITS | Encounter Summary ---
Author Organization [facility] Address [address] [place] [address] Care Team Providers Care Greeting Card Writer Name Role Phone Sher Ayers MD Primary Care Provider [phone] Encounter Details Date Type Department Care Team (Late st Contact Info) Description 01/09/2024 External Device Data STL ABSTRACTION Provider, Abstract [...] st Contact Info) Description 06/06/2024 2:00 PM SEO ASSOCIATE Office Visit [facility] Oncology and Hematology - [place] [address] [facility] 200 [place] [address] Reynaldo Frances MD [address] [facility] [address] [place] [address] documented as of this encounter Visit Diagnoses Not on filedocumented in this encounter Care Teams Greeting Card Writer Relationship Specialty Start Date End Date Sher Ayers MD [address] [facility] 120 [place] [address] PCP - General Family Practice 05/09/18 documented as of this encounter
--- OUTSIDE RECORDS SUMMARY | 2024-06-04 02:33 | XMS_ITS | Encounter Summary ---
Author Organization [facility] Address [address] [place] [address] Care Team Providers Care Human Resources Support Specialist Name Role Phone Sher Ayers MD Primary Care Provider [phone] Encounter Details Date Type Department Care Team [...] st Contact Info) Description 06/06/2024 2:00 PM MATERIAL RECLAIMER Office Visit [facility] Oncology and Hematology - [place] [address] [place] [address] [address] [place] [address] [place] [address] [place] [address] [address] [place] [address] documented as of this encounter Visit Diagnoses Not on filedocumented in this encounter Care Teams Human Resources Support Specialist Relationship Specialty Start Date End Date Sher Ayers MD [address] [facility] 120 [place] [address] PCP - General Family Practice 05/09/18 documented as of this encounter
== END 2024-05-28 09:25 | disposition home or self-care (01) ==
PROVIDERS: PCP Family Medicine; Visit Provider Internal Medicine Hematology & Oncology
DX: J94.8 Other specified pleural conditions (principal); C34.31 Malignant neoplasm of lower lobe, right bronchus or lung; R91.1 Solitary pulmonary nodule; J43.9 Emphysema, unspecified
CPT/HCPCS: 71260; Q9967

== ENCOUNTER 2024-06-06 14:01 | Outpatient (CLI) | payer MEDICARE, SELFPAY ==
[2024-06-06 14:14] LABS: Basophils Percent Auto 0.6 % (0.2-1.2); Eosinophils Absolute Auto 0.1 K/mm3 (0-0.3); Eosinophils Percent Auto 1.1 % (0-4.4); Hematocrit 34.2 % (37.0-47.0); Immature Granulocyte Absolute 0.02 K/mm3 (0.00-0.031); Immature Granulocyte Percent A 0.3 % (0-0.5); Lymphocytes Absolute Auto 0.86 K/mm3 (0.9-3.2); Mean Corpuscular HGB Conc 32.2 g/dl (32-36); Mean Corpuscular Hemoglobin 28.1 pg (26-34); Mean Corpuscular Volume 87.5 fl (80-100); Mean Platelet Volume 9.2 fl (7.4-10.4); Monocytes Absolute Auto 0.6 K/mm3 (0.1-0.6); Monocytes Percent Auto 8.4 % (2.6-8.5); Neutrophils Absolute Auto 5.1 K/mm3 (1.3-6.7); Neutrophils Percent Auto 76.6 % (45.5-73.1); Platelet Count Result 190 k/mm3 (150-375); Red Blood Count 3.91 M/mm3 (4.2-5.4); Red Cell Distribution Width 13.8 % (11.5-14.5); White Blood Count 6.6 K/mm3 (4.5-10.0)
[2024-06-06 14:18] LABS: Blood Urea Nitrogen 20 mg/dL (8-26); Carbon Dioxide 27 mmol/L (22-30); Chloride 100 mmol/L (98-109); Estimated Glomerular Filt Rate 34; Glucose 191 mg/dL (70-105); Ionized Calcium (POC) 1.15 mmol/L (1.11-1.31); Potassium 4.2 mmol/L (3.5-4.9); Sodium 140 mmol/L (138-146)
[2024-06-06 16:51] LABS: Alanine Aminotransferase 14 U/L (6-35); Albumin Level 3.6 g/dL (3.5-5.1); Alkaline Phosphatase 83 U/L (38-126); Anion Gap 6 mmol/L (4-12); Aspartate Amino Transferase 17 U/L (14-36); Bilirubin,Total 0.3 mg/dL (0.2-1.3); Blood Urea Nitrogen 21 mg/dL (7-17); Calcium 8.6 mg/dL (8.4-10.2); Carbon Dioxide 30 mmol/L (22-30); Chloride 101 mmol/L (98-107); Estimated Glomerular Filt Rate 42; Glucose 176 mg/dL (65-110); Potassium 4.3 mmol/L (3.4-5.0); Sodium 137 mmol/L (137-145)
== END 2024-06-06 14:02 | disposition home or self-care (01) ==
LOC: ANHLAB 14:02
PROVIDERS: PCP Family Medicine; Visit Provider Internal Medicine Hematology & Oncology
DX: C34.91 Malignant neoplasm of unspecified part of right bronchus or lung (principal)
CPT/HCPCS: 36415; 80047; 80053; 85025

== ENCOUNTER 2024-06-18 16:27 | Outpatient (CLI) | payer MEDICARE, SELFPAY ==
--- NOTE | ~2024-06-18 | XR_ITS ---
CHEST RADIOGRAPH, PA AND LATERAL CLINICAL HISTORY: R05.9 - Cough, unspecified . COMPARISON: Reference is made to a CT examination of the chest dated 05/28/2024 TECHNIQUE: PA and lateral views of the chest. FINDINGS The cardiomediastinal silhouette is unremarkable. Stable pulmonary nodularity as described on recent CT examination. The lungs are otherwise clear. Visualized osseous structures and soft tissues are unremarkable. IMPRESSION: No focal infiltrate or effusion. Reviewed, dictated and finalized at location A. QUE CLOCK REPAIRER
--- OUTSIDE RECORDS SUMMARY | 2024-06-18 16:34 | XMS_ITS | Clinical Summary ---
Author Organization [facility] [address] Address [address] [place] [address] Care Team Providers Care Warehouse Checker Name Role Phone Sher Ayers MD Primary Care Provider Allergies Active Allergy Reactions Criticality Noted Date Comments Penicillin G Swelling Medium 07/03/2017 Social History Tobacco Use Types Packs/Day Years Used Date Smoking Tobacco: Never Assessed Personal Safety Answer Date Recorded Getting School Help Needed Not on file 07/21 Comments Unknown Sex and Gender Information Value Date Recorded Sex Assigned at Not on file Legal Sex Female 2:26 AM PRECISION OPTICAL GOODS WORKER Gender Identity Not on file Sexual Orientation Not on file Last Filed Vital Signs Vital Sign Reading Time Taken Comments Blood Pressure - - Pulse - - Temperature - - Respiratory Rate - - Oxygen Saturation - - Inhaled Oxygen Concentration - - Weight 75.8 kg (167 lb) 07/03/2017 1:05 PM PRECISION OPTICAL GOODS WORKER Height 160 cm (5' 3 ) 07/03/2017 1:05 PM PRECISION OPTICAL GOODS WORKER Body Mass Index 29.58 07/03/2017 1:05 PM PRECISION OPTICAL GOODS WORKER Plan of Treatment Health Maintenance Due Date Last Done Comments Breast Cancer Screening-Mammogram 1953 Colon Cancer Screening-Colonoscopy 1955 Depression Screening 1953 Fall Risk Assessment 1953 Hepatitis C Screening 1953 Osteoporosis Screening-Bone Density Scan 1953 Hepatitis B Screening 1971 Well Visit 65+ 2018 Pneumococcal vaccine 65+ (3 of 3 - PPSV23 or PCV20) 01/20/2022 01/22/2019, 01/20/2017, 02/12/2015 Covid-19 Vaccine (2023-2 5 season) 2024 05/27/2021, 10/22/2020, 09/24/2020 Influenza Vaccine (#1) 2024 , 01/31/2018, 01/20/2017, Additional history exists DTaP/Tdap/Td Vaccine (3 - Td or Tdap) 12/19/2027 12/18/2017, 02/12/2015 Zoster Vaccine Completed 12/18/2017, 10/06/2017 Insurance [facility] Address: [address] [address] [place] [address] [facility] Address: [address] [address] [place] [address] [address] [id number] Care Teams Warehouse Checker Relationship Specialty Start Date End Date Sher Ayers MD [address] [place] [address] PCP - General 05/10/13
--- OUTSIDE RECORDS SUMMARY | 2024-06-18 16:34 | XMS_ITS | Clinical Summary ---
Author Organization [facility] Address [address] [place] [address] Care Team Providers Care Testing And Regulating Technician Name Role Phone Sher Ayers MD Primary Care Provider [phone] Allergies Active Allergy Reactions Criticality Noted Date Comments Penicillins Itching Low 05/31/2018 Medications aspirin (ECOTRIN EC) 81 mg Tablet, Delayed [...] TRELEGY ELLIPTA 100-62.5-25 mcg Disk with Device 06/09/19 Active amLODIPine (NORVASC) 5 mg tablet Take 5 mg by mouth daily. Active buPROPion HCL (WELLBUTRIN SR) 150 mg Sustained Release 12 hour tablet Take 150 mg by mouth 2 times daily. Active fluticasone propionate (FLONASE) 50 mcg/spray [place], Suspension nasal inhaler Administer 2 Sprays in each nostril daily. Active Ubrelvy 50 mg tablet TAKE 1 TABLET BY MOUTH ONCE NEEDED FOR MIGRAINE HEADACHE. MAY REPEAT ONCE AFTER 2 HOURS IF NEEDED. 09/05/19 24 Active MAGNESIUM CITRATE ORAL Take by mouth. Activ e RIBOFLAVIN, VITAMIN B2, ORAL Take by mouth. Activ e oxyCODONE IR (OXY-IR) 5 mg Capsule Take 5 mg by mouth every 6 hours as needed for Pain. Active pregabalin (LYRICA) 75 mg Capsule Take 75 mg by mouth daily at bedtime. Active Active Problems Problem Noted Date Diagnosed Date Lung nodule 10/05/2021 Abnormal weight loss 10/05/2021 Cyst of right breast 06/12/2018 Abnormal mammogram of right breast 05/31/2018 Abnormal ultrasound of breast 05/31/2018 Aspirin long-term use 05/31/2018 Encounters Date Type Department Care Team Description 06/12/2024 External Device Data STL ABSTRACTION Provider, Abstract 06/12/2024 External Device Data STL ABSTRACTION Provider, Abstract 06/11/2024 Chart Note [facility] Emergency Department - [address] [address] David Joseph MD 06/07/2024 Orders Only [facility] Oncology and Hematology - [place] [address] [place] [address] Reynaldo Frances MD 06/06/2024 2:00 PM NATURAL GAS TREATING UNIT OPERATOR Office Visit [facility] Oncology and Hematology - [place] [address] [place] [address] Reynaldo Frances MD Malignant neoplasm of right lung, unspecified part of lung (CMS/HCC) (Primary Dx) 06/05/2024 External Device Data STL ABSTRACTION Provider, Abstract 05/30/2024 Orders Only [facility] Oncology and Hematology - [place] [address] [place] [address] Reynaldo Frances MD 03/20/2024 External Device Data STL ABSTRACTION Provider, Abstract from Last 3 Months Social History Tobacco Use Types Packs/Day Years Used Date Smoking Tobacco: Former Cigarettes 0.3 50 0 09/20/1973 - 09/21/2023 Smokeless Tobacco: Never Tobacco Cessation:Counseling Given: Not Answered Alcohol Use Standard Drinks/Week Comments No 0 (1 standard drink = 0.6 oz pur e alcohol) Comments No Sex and Gender Information Value Date Recorded Sex Assigned at Not on file Legal Sex Female 11:44 AM NATURAL GAS TREATING UNIT OPERATOR Gender Identity Not on file Sexual Orientation Not on file Last Filed Vital Signs Vital Sign Reading Time Taken Comments Blood Pressure 110/63 06/06/2024 2:20 PM NATURAL GAS TREATING UNIT OPERATOR Pulse 90 06/06/2024 2:20 PM NATURAL GAS TREATING UNIT OPERATOR Temperature 35.8 ??C (96.5 ??F) 06/06/2024 2:20 PM CS T Respiratory Rate 16 06/06/2024 2:20 PM NATURAL GAS TREATING UNIT OPERATOR Oxygen Saturation 94% 06/06/2024 2:20 PM NATURAL GAS TREATING UNIT OPERATOR Inhaled Oxygen Concentration - - Weight 65.8 kg (145 lb) 06/06/2024 2:20 PM NATURAL GAS TREATING UNIT OPERATOR Height 161.3 cm (5' 3.5 ) 11/22/2023 2:05 PM CDT Body Mass Index 25.28 11/22/2023 2:05 PM CDT Plan of Treatment Upcoming Encounters Date Type Department Care Team (Late st Contact Info) Description 10/08/2024 2:45 PM CDT Office Visit [facility] Oncology and Hematology - [place] [address] [facility] 200 [place] [address] Reynaldo Frances MD [address] [facility] [address] [place] [address] Health Maintenance Due Date Last Done Comments DTAP/TDAP/TD VACCINES (1 - Tdap) 1972 PNEUMOCOCCAL VACCINE 65+ YEA RS (1 of 2 - PCV) 1972 COLORECTAL SCREENING 1998 Colorectal Cancer Screening 1998 FIT-DNA Q 3 years 1998 FIT/FOBT Q 1 year 1998 Flex Sig/CT Colonography Q 5 years 1998 ZOSTER VACCINE (1 of 2) 2003 RSV VACCINE (60+ or ) (1 - Risk 60-74 years 1-dose series) 2013 OSTEOPOROSIS SCREENING 2018 INFLUENZA VACCINE (#1) 2023 [place] Preventative Visit/Annual Wellness Visit 05/22/2024 BREAST CANCER SCREENING 02/13/2025 02/14/20 24, 01/25/2024, 05/07/2018, Additional history exists Procedures Procedure Name Priority Date/Time Associated Diagnosis Comments COMPREHENSIVE METABOLIC PANEL Routine 06/06/2024 1:34 PM NATURAL GAS TREATING UNIT OPERATOR BASIC METABOLIC PANEL Routine 06/06/2024 1:08 PM NATURAL GAS TREATING UNIT OPERATOR CBC WITH DIFFERENTIAL Routine 06/06/2024 1:00 PM NATURAL GAS TREATING UNIT OPERATOR CT CHEST W CONTRAST Routine 05/28/2024 1 2:51 PM NATURAL GAS TREATING UNIT OPERATOR MAMMO DIAGNOSTIC UNI LEFT W OR WO CAD Routine 02/14/2024 8:27 AM CDT from Last 3 Months or Most Recently Relevant to Health Maintenance Results * COMPREHENSIVE METABOLIC PANEL (06/06/2024 1:34 PM NATURAL GAS TREATING UNIT OPERATOR) Blood us Reynaldo Frances MD CHEMISTRY ORDERABLES Final Resu lt * BASIC METABOLIC PANEL (06/06/2024 1:08 PM NATURAL GAS TREATING UNIT OPERATOR) Blood us Reynaldo Frances MD CHEMISTRY ORDERABLES Final Resu lt * CBC WITH DIFFERENTIAL (06/06/2024 1:00 PM NATURAL GAS TREATING UNIT OPERATOR) Blood us Reynaldo Frances MD HEMATOLOGY ORDERABLES Final Res ult * CT CHEST W CONTRAST (05/28/2024 12:51 PM NATURAL GAS TREATING UNIT OPERATOR) Anatomical Region Laterality Modality Chest Other us Reynaldo Frances MD CT ORDERABLES Final Result * MAMMO DIAGNOSTIC UNI LEFT W OR WO CAD (02/14/2024 8:27 AM CDT) Anatomical Region Laterality Modality Breast Left Other Reynaldo Frances MD MAMMO ORDERABLES Final Result from Last 3 Months or Most Recently Relevant to Health Maintenance Insurance Care Teams Testing And Regulating Technician Relationship Specialty Start Date End Date Sher Ayers MD [address] [facility] 120 [place] [address] PCP - General Family Practice 05/09/18
--- OUTSIDE RECORDS SUMMARY | 2024-06-18 16:34 | XMS_ITS | Encounter Summary ---
Author Organization [facility] [place] [facility] Address [address] [place] [address] Care Team Providers Care Assistant Chief Of Police Name Role Phone Sher Ayers MD Primary Care Provider [phone] Encounter Details Date Type Department Care Team (Late Contact Info) Description 09/15/2022 Abstract [facility] Oncology and Hematology - [place] [address] [place] [address] Tho Reagan RN Social History Tobacco Use Types Packs/Day Years Used Date Smoking Tobacco: Never Smokeless Tobacco: Never Alcohol Use Standard Drinks/Week Comments No 0 (1 standard drink = 0.6 oz pur e alcohol) Comments No Sex and Gender Information Value Date Recorded Sex Assigned at Not on file Legal Sex Female 11:44 AM AIR DRILL OPERATOR Gender Identity Not on file Sexual Orientation Not on file documented as of this encounter Plan of Treatment Upcoming Encounters Date Type Department Care Team (Late Contact Info) Description 10/08/2024 2:45 PM CDT Office Visit [facility] Oncology and Hematology - [place] [address] [place] [address] Reynaldo Frances MD [address] [facility] [address] [place] [address] documented as of this encounter Visit Diagnoses Not on filedocumented in this encounter Care Teams Assistant Chief Of Police Relationship Specialty Start Date End Date Sher Ayers MD [address] [place] [address] PCP - General Family Practice 05/09/18 documented as of this encounter
--- OUTSIDE RECORDS SUMMARY | 2024-06-18 16:34 | XMS_ITS | Referral Summary ---
Author Organization [facility] [address] Address [address] [place] [address] Care Team Providers Care Micro Paleontologist Name Role Phone Sher Ayers MD Primary [...] on file Legal Sex Female 2:26 AM PHARM TECH Gender Identity Not on file Sexual Orientation Not on file Last Filed Vital Signs Vital Sign Reading Time Taken Comments Blood Pressure - - Pulse - - Temperature - - Respiratory Rate - - Oxygen Saturation - - Inhaled Oxygen Concentration - - Weight 75.8 kg (167 lb) 07/03/2017 1:05 PM PHARM TECH Height 160 cm (5' 3 ) 07/03/2017 1:05 PM PHARM TECH Body Mass Index 29.58 07/03/2017 1:05 PM PHARM TECH Plan of Treatment Not on file Insurance [facility] MDCR HMO REF [facility] MED[facility] Address: [address] [address] [place] [address] [facility] MDCR HMO REF [facility] Address: [address] [address] [place] [address] Care Teams Micro Paleontologist Relationship Specialty Start Date End Date Sher Ayers MD [address] [facility] 120 [place] [address] PCP - General 05/10/13
--- OUTSIDE RECORDS SUMMARY | 2024-06-18 16:34 | XMS_ITS | Clinical Summary ---
Author Organization [facility] Address [address] [place] [address] Care Team Providers Care Distance Learning Coordinator Name Role Phone Unavailable Primary Care Provider Unavailabl e Social History Tobacco Use Types Packs/Day Years Used Date Smoking Tobacco: Never Assessed Comments Unknown Sex and Gender Information Value Date Recorded Sex Assigned at Not on file Legal Sex Female 2:41 PM ESCROW CLOSER Gender Identity Not on file Sexual Orientation [...]
--- OUTSIDE RECORDS SUMMARY | 2024-06-18 16:34 | XMS_ITS | Clinical Summary ---
Author Organization [facility] Address [address] [place] [address]. [place], [place] [address] [place] [address] Care Team Providers Care Senior Quality Control Technician Name Role Phone Unavailable Primary Care Provider [...] (1 - 1-dose 75+ series) 2028 Meningococcal B Vaccine Aged Out No l onger eligible based on patient's age to complete this topic Meningococcal Vaccine Aged Out No grcae joe eligible based on patient's age to complete this topic RSV Immunizations Under 20 Months Aged Out No longer eligible based on patient's age to complete this topic
--- OUTSIDE RECORDS SUMMARY | 2024-06-18 16:34 | XMS_ITS | Continuity of Care Document ---
Author Organization [facility] Address [address] [place] [address] Phone Care Team Providers Care Bottler Helper Name Role Phone Castañeda OD, Mike Unavailable [...] Diagnoses Date Provider Providers Copied on Encounter [facility], [address] [place] [address] [address], [place], [place], [address], [place] tel:[phone] SEC [facility] No Information 8-201 0 Castañeda OD Mike. [address] , [address], [place], [address], [place]. tel:[phone] Office/outpat ient Visit, Est [facility], [address], [place], [place], [address], tel:[phone] SEC [facility] No Information Jean Carlos-0 4-201 0 Castañeda OD Mike. [address] [facility] , [address], [place], [place], [facility], [place]. tel:[phone] [facility], [address], [place], [place], [address], [place] tel:[phone] SEC [facility] No Information September-2 7-201 0 Castañeda OD Mike. [address] , [address], [place], [facility], [place]. tel:[phone] [facility], [address], [place], [place], [address], [place] tel:[phone] [facility] [place] No Information Sep-0 2-200 9 Castañeda OD Mike. [facility] , [address], [place], [facility], [place]. tel:[phone] Referring Provider: Rogelio Adames, [address] [place], [place] [address]ate [address], [place], [place], [facility]. tel:[phone] [facility], [address] [place] [address] [address], [place], [place], [address], [place] tel:[phone] [facility] [place] No Information 9-200 9 Jack Mercado. [address] [place], [place] [address] , [address], [place], [facility], [place]. tel:[phone] [facility], [address] [place] [address] [address], [place], [place], [address], [place] tel:[phone] [facility] No Information Dec-1 8-200 9 Jack Mercado. [facility] , [address], [place], [facility], [place]. tel:[phone] [facility], [address], [place], [place], [address], [place] tel:[phone] SEC [place] [facility] No Information Aug-1 0-200 9 Doisy Edward. [address] , [address], [place], [address], [place]. tel:[phone] Referring Provider: Mike Adames, [address], [place], [address]. tel:[phone] [facility], [address] [place] [address] [address], [place], [place], [address], [place] tel:[phone] [facility] Center No Information 200 9 Doisy Edward. [facility] , [address], [place], [facility], [place]. tel:[phone] Referring Provider: Mike Adames, [address] [facility] [address], [place], [facility]. tel:[phone] [facility], [address] [place] [address] [address], [place], [place], [address], [place] tel:[phone] [facility] No Information 200 9 Doisy Edward. [facility] , [address], [place], [address], [place]. tel:[phone] Referring Provider: Mike Adames, [facility] [address], [place], [address]. tel:[phone] Office/outpat ient Visit, [facility], [address] [place] [address] [address], [place], [place], [address], [place] tel:[phone] [facility] No Information 200 9 Doisy Edward. [facility] [address], [place], [facility], [place]. tel:[phone] Referring Provider: Mike Adames, [facility] [address], [place], [address]. tel:[phone] [facility], [address], [place], [place], [address], [place] tel:[phone] [facility] [place] No Information 1-200 9 Castañeda OD Mike. [address] , [address], [place], [address], [place]. tel:[phone] Family History Family Member Type Diagnosis Age [...]
== END 2024-06-18 16:28 | disposition home or self-care (01) ==
PROVIDERS: PCP Family Medicine; Visit Provider Family Medicine
DX: R05.9 Cough, unspecified (principal)
CPT/HCPCS: 71046

== ENCOUNTER 2024-06-27 06:47 | Outpatient (CLI) | payer MEDICARE, SELFPAY ==
--- NOTE | ~2024-06-27 | XR_ITS ---
Right Shoulder Technique: AP and axillary views were obtained. Clinical History: Pain Findings: No fracture or dislocation is seen. Osseous alignment is anatomic. The glenohumeral and acr omioclavicular joint spaces are preserved. Soft tissues are unremarkable. Impression: Unremarkable right shoulder radiographs. Reviewed, dictated and finalized at [facility]. TER CIVIL Impression: Unremarkable right shoulder radiographs.
--- NOTE | ~2024-06-27 | XR_ITS ---
Cervical Spine: AP, lateral, open-mouth views Clinical History: Pain Findings: The normal lordotic curve is maintained. No fracture or subluxation evident. Probable moder ate degenerative disc narrowing at C5-C6 and C6-C7. There are mild to moderate facet joint degenerati ve changes.. Pre-vertebral soft tissues are unremarkable. Impression: Degenerative spondylosis, as above. Reviewed, dictated and finalized at location . OR GAMEMASTER Impression: Degenerative spondylosis, as above.
--- OUTSIDE RECORDS SUMMARY | 2024-06-27 06:50 | XMS_ITS | Clinical Summary ---
Author Organization [facility] Address [address] [place] [address] Care Team Providers Care Glass Forming Crew Member Name Role Phone Unavailable Primary Care Provider Unavailabl e Social History Tobacco Use Types Packs/Day Years Used Date Smoking Tobacco: Never Assessed Comments Unknown Sex and Gender Information Value Date Recorded Sex Assigned at Not on file Legal Sex Female 2:41 PM RETIREMENT SALES CONSULTANT Gender Identity Not on file Sexual Orientation [...]
--- OUTSIDE RECORDS SUMMARY | 2024-06-27 06:50 | XMS_ITS | Clinical Summary ---
Author Organization [facility] Address [address] [place] [address] Care Team Providers Care Commercial Photographer Name Role Phone Sher Ayers MD Primary Care Provider [phone] Allergies Active Allergy Reactions Criticality Noted Date [...] daily. Active fluticasone propionate (FLONASE) 50 mcg/spray [place], Suspension nasal inhaler Administer 2 Sprays in [...] Encounters Date Type Department Care Team Description 06/18/2024 External Device Data ST[facility] ABSTRACTION Provider, Abstract 06/12/2024 External Device Data [facility] ABSTRACTION Provider, Abstract 06/12/2024 External Device Data [facility] ABSTRACTION Provider, Abstract 06/11/2024 Chart Note [facility] Emergency Department - [address] [address] David Joseph MD 06/07/2024 Orders Only [facility] Oncology and Hematology - [place] [address] [place] [address] Reynaldo Frances MD 06/06/2024 2:00 PM POWER LINEMAN Office Visit [facility] Oncology and Hematology - [place] [address] [place] [address] Reynaldo Frances MD Malignant neoplasm of right lung, unspecified part of lung (CMS/HCC) (Primary Dx) 06/05/2024 External Device Data [place] ABSTRACTION Provider, Abstract 05/30/2024 Orders Only [facility] Oncology and Hematology [place] [address] [place] [address] Reynaldo Frances MD from Last 3 Months Social History Tobacco [...] on file Legal Sex Female 11:44 AM POWER LINEMAN Gender Identity Not on file Sexual Orientation Not on file Last Filed Vital Signs Vital Sign Reading Time Taken Comments Blood Pressure 110/63 06/06/2024 2:20 PM POWER LINEMAN Pulse 90 06/06/2024 2:20 PM POWER LINEMAN Temperature 35.8 C (96.5 F) 06/06/2024 2:20 PM POWER LINEMAN Respiratory Rate 16 06/06/2024 2:20 PM POWER LINEMAN Oxygen Saturation 94% 06/06/2024 2:20 PM POWER LINEMAN Inhaled Oxygen Concentration - - Weight 65.8 kg (145 lb) 06/06/2024 2:20 PM POWER LINEMAN Height 161.3 cm (5' 3.5 ) 11/22/2023 2:05 PM CDT Body Mass Index 25.28 11/22/2023 2:05 PM CDT Plan of Treatment Upcoming Encounters Date Type Department Care Team (Late st Contact Info) Description 10/08/2024 2:45 PM CDT Office Visit [facility] Oncology and Hematology - [place] [address] [facility] [address] [place] [address] Reynaldo Frances MD [address] [facility] [address] [place] [address] Health Maintenance Due Date Last [...] 2018 INFLUENZA VACCINE (#1) 2023 [place] ([place]) Preventative Visit/Annual Wellness Visit 05/22/2024 BREAST CANCER SCREENING 02/13/2025 02/14/20 24, 01/25/2024, 05/07/2018, Additional history exists Procedures Procedure Name Priority Date/Time Associated Diagnosis Comments COMPREHENSIVE METABOLIC PANEL Routine 06/06/2024 1:34 PM POWER LINEMAN BASIC METABOLIC PANEL Routine 06/06/2024 1:08 PM POWER LINEMAN CBC WITH DIFFERENTIAL Routine 06/06/2024 1:[address] CHEST W CONTRAST Routine 05/28/2024 1 2:51 PM POWER LINEMAN MAMMO DIAGNOSTIC UNI LEFT W OR WO CAD Routine 02/14/2024 8:27 AM CDT from Last 3 Months or Most Recently Relevant to Health Maintenance Results * COMPREHENSIVE METABOLIC PANEL (06/06/2024 1:34 PM POWER LINEMAN) Blood us Reynaldo Frances MD CHEMISTRY ORDERABLES Final Resu lt * BASIC METABOLIC PANEL (06/06/2024 1:08 PM POWER LINEMAN) Blood Result Jose Luis Frances MD CHEMISTRY ORDERABLES Final Resu lt * CBC WITH DIFFERENTIAL (06/06/2024 1:00 PM POWER LINEMAN) Blood Result Jose Luis Frances MD HEMATOLOGY ORDERABLES Final Res ult * CT CHEST W CONTRAST (05/28/2024 12:51 PM POWER LINEMAN) Anatomical Region Laterality Modality Chest Other us Reynaldo Frances MD CT ORDERABLES Final Result * MAMMO DIAGNOSTIC UNI LEFT W OR WO CAD (02/14/2024 8:27 AM CDT) Anatomical Region Laterality Modality Breast Left Other us Reynaldo Frances MD MAMMO ORDERABLES Final Result from Last 3 Months or Most Recently Relevant to Health Maintenance Insurance Care Teams Commercial Photographer Relationship Specialty Start Date End Date Sher Ayers MD [address] [facility] [address] [place] [id number] PCP - General Family Practice 05/09/18
--- OUTSIDE RECORDS SUMMARY | 2024-06-27 06:51 | XMS_ITS | Clinical Summary ---
Author Organization [facility] [address] Address [address] [place] [address] Care Team Providers Care Mixer Lever Operator Name Role Phone Sher Ayers MD [...] on file Legal Sex Female 2:26 AM EDITOR [place] Gender Identity Not on file Sexual Orientation Not on file Last Filed Vital Signs Vital Sign Reading Time Taken Comments Blood Pressure - - Pulse - - Temperature - - Respiratory Rate - - Oxygen Saturation - - Inhaled Oxygen Concentration - - Weight 75.8 kg (167 lb) 07/03/2017 1:05 PM EDITOR [place] Height 160 cm (5' 3 ) 07/03/2017 1:05 PM EDITOR [place] Body Mass Index 29.58 07/03/2017 1:05 PM EDITOR [place] Plan of Treatment Health Maintenance Due Date [...] 02/12/2015 Zoster Vaccine Completed 12/18/2017, 10/06/2017 Insurance [facility] Address: [address] [address] [place] [address] [facility] Address: [address] [address] [place] [address] [address] [phone] Care Teams Mixer Lever Operator Relationship Specialty Start Date End Date Sher Ayers MD [address] [place] [address] PCP - General 05/10/13
--- OUTSIDE RECORDS SUMMARY | 2024-06-27 06:51 | XMS_ITS | Clinical Summary ---
Author Organization [facility] Address [address] [place] [address] Care Team Providers Care Real Estate Investment Analyst Name Role Phone Unavailable Primary Care Provider [...] this topic Meningococcal Vaccine Aged Out No grace joe eligible based on patient's age to complete this topic RSV Immunizations Under 20 Months Aged Out No longer eligible based on patient's age to complete this topic
--- OUTSIDE RECORDS SUMMARY | 2024-06-27 06:51 | XMS_ITS | Continuity of Care Document ---
Author Organization [facility] Address [address] [place] [address] Phone Care Team Providers Care Mottler Machine Feeder Name Role Phone Castañeda OD, Mike Unavailable [...] Diagnoses Date Provider Providers Copied on Encounter [facility], [address] [place] [address] [address], [place], [place], [address], [place] tel:[phone] SEC [facility] No Information 8-201 0 Castañeda OD Mike. [address] , [address], [place], [address], [place]. tel:[phone] Office/outpat ient Visit, Est [facility], [address], [place], [place], [address], tel:[phone] [facility] No Information Jean Carlos-0 4-201 0 Castañeda OD Mike. [address] [facility] , [address], [place], [place], [facility], [place]. tel:[phone] [facility], [address], [place], [place], [address], [place] tel:[phone] [facility] No Information September-2 7-201 0 Castañeda OD Mike. [address] , [address], [place], [facility], [place]. tel:[phone] [facility], [address], [place], [place], [address], [place] tel:[phone] SEC [facility] [place] No Information Sep-0 2-200 9 Castañeda OD Mike. [facility] , [address], [place], [facility], [place]. tel:[phone] Referring Provider: Rogelio Adames, [address] [place], [place] [address], [place], [place], [facility]. tel:[phone] [facility], [address] [place] [address] [address], [place], [place], [address], [place] tel:[phone] SEC [facility] [place] No Information 9-200 9 Jack Mercado. [address] [place], [place] [address] , [address], [place], [place], [facility], [place]. tel:[phone] [facility], [address] [place] [address] [address], [place], [place], [address], [place] tel:[phone] [facility] No Information Dec-1 8-200 9 Jack Mercado. [facility] , [address], [place], [facility], [place]. tel:[phone] [facility], [address], [place], [place], [address], [place] tel:[phone] SEC [place] [facility] No Information Aug-1 0-200 9 Doisy Edward. [address] , [address], [place], [address], [place]. tel:[phone] Referring Provider: Mike Adames, [address], [place], [address]. tel:[phone] [facility], [address] [place] [address] [address], [place], [place], [address], [place] tel:[phone] SEC [facility] No Information 200 9 Doisy Edward. [facility] , [address], [place], [facility], [place]. tel:[phone] Referring Provider: Mike Adames, [address] [facility] [address], [place], [facility]. tel:[phone] [facility], [address] [place] [address] [address], [place], [place], [address], [place] tel:[phone] [facility] No Information 200 9 Doisy Edward. [facility] , [address], [place], [address], [place]. tel:[phone] Referring Provider: Mike Adames, [facility] [address], [place], [address]. tel:[phone] Office/outpat ient Visit, [facility] [address] [place] [address] [address], [place], [place], [address], [place] tel:[phone] SEC [facility] No Information 200 9 Doisy Edward. [facility] [address], [place], [facility], [place]. tel:[phone] Referring Provider: Mike Adames, [facility] [address], [place], [address]. tel:[phone] [facility], [address], [place], [place], [address], [place] tel:[phone] SEC [facility] [place] No Information 1-200 9 Castañeda OD Mike. [address] , [address], [place], [address], [place]. tel:[phone] Family History Family Member Type Diagnosis Age [...]
--- OUTSIDE RECORDS SUMMARY | 2024-06-27 06:51 | XMS_ITS | Encounter Summary ---
Author Organization [facility] Address [address] [place] [address] Care Team Providers Care Supervisor Advice Name Role Phone Sher Ayers MD Primary Care Provider [phone] Encounter Details Date Type Department Care Team (Late Contact Info) Description 09/15/2022 Abstract [facility] Oncology and Hematology - [place] [address] [place] [address] Tho Reagan RN Social History Tobacco Use Types Packs/Day Years Used Date Smoking Tobacco: Never Smokeless Tobacco: Never Alcohol Use Standard Drinks/Week Comments No 0 (1 standard drink = 0.6 oz pur e alcohol) Comments No Sex and Gender Information Value Date Recorded Sex Assigned at Not on file Legal Sex Female 11:44 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 Gender Identity Not on file Sexual Orientation Not on file documented as of this encounter Plan of Treatment Upcoming Encounters Date Type Department Care Team (Late Contact Info) Description 10/08/2024 2:45 PM CDT Office Visit [facility] Oncology and Hematology - [place] [address] [place] [address] Reynaldo Frances MD [address] [facility] [address] [place] [address] documented as of this encounter Visit Diagnoses Not on filedocumented in this encounter Care Teams Supervisor Advice Relationship Specialty Start Date End Date Sher Ayers MD [address] [place] [address] PCP - General Family Practice 05/09/18 documented as of this encounter
--- OUTSIDE RECORDS SUMMARY | 2024-06-27 06:51 | XMS_ITS | Referral Summary ---
Author Organization [facility] [address] Address [address] [place] [address] Care Team Providers Care Hydro Plant Technician Name Role Phone Sher Ayers MD [...] on file Legal Sex Female 2:26 AM PLATE PRINTER Gender Identity Not on file Sexual Orientation Not on file Last Filed Vital Signs Vital Sign Reading Time Taken Comments Blood Pressure - - Pulse - - Temperature - - Respiratory Rate - - Oxygen Saturation - - Inhaled Oxygen Concentration - - Weight 75.8 kg (167 lb) 07/03/2017 1:05 PM PLATE PRINTER Height 160 cm (5' 3 ) 07/03/2017 1:05 PM PLATE PRINTER Body Mass Index 29.58 07/03/2017 1:05 PM PLATE PRINTER Plan of Treatment Not on file Insurance [facility] HMO REF [facility] HMO REF Care Teams Hydro Plant Technician Relationship Specialty Start Date End Date Sher Ayers MD [address] [facility] [address] [place] [address] PCP - General 05/10/13
== END 2024-06-27 06:48 | disposition home or self-care (01) ==
PROVIDERS: PCP Family Medicine; Visit Provider Family Medicine
DX: M47.892 Other spondylosis, cervical region (principal); M25.511 Pain in right shoulder
CPT/HCPCS: 72040; 73030

== ENCOUNTER 2024-08-22 11:47 | Outpatient (CLI) | payer MEDICARE, SELFPAY ==
--- NOTE | ~2024-08-22 | US_ITS ---
US renal BI 08/22/2024 12:11 Procedure: Realtime transabdominal ultrasound of the kidneys and bladder. Indication: Chronic kidney disease. Hypertension. History of lung cancer. Comparison: CT dated 10/20/2022 Findings: Renal echotexture is normal bilaterally without hydronephrosis, contour deforming mass or r enal calculus. The right kidney measures 10 cm and left kidney measures 9.1 cm. There is polypoid sof t tissue within the posterior/inferior aspect of the bladder measuring 2.4 x 1.5 x 1.6 cm. No interna l vascularity is seen. Impression: 1: Irregular polypoid soft tissue in the bladder measuring up to 2.4 cm. Differential diagnosis inclu lore blood clot and transitional cell carcinoma. Recommend correlation with cystoscopy.. Reviewed, dictated and finalized at location A. Impression: 1: Irregular polypoid soft tissue in the bladder measuring up to 2.4 cm. Differ ential diagnosis includes blood clot and transitional cell carcinoma. Recommend correlation with cystoscopy..
== END 2024-08-22 11:48 | disposition home or self-care (01) ==
LOC: MICIMG 11:48
PROVIDERS: PCP Family Medicine; Visit Provider Internal Medicine Nephrology
DX: N32.89 Other specified disorders of bladder (principal); I12.9 Hypertensive chronic kidney disease with stage 1 through stage 4 chronic kidney disease, or unspecified chronic kidney disease; N18.32 Chronic kidney disease, stage 3b
CPT/HCPCS: 76775

== ENCOUNTER 2024-09-27 12:36 | Outpatient (CLI) | payer MEDICARE, SELFPAY ==
--- NOTE | ~2024-09-27 | CT_ITS ---
Clinical Indication: Lung cancer CT Scan of the Chest with Contrast: Technique: Contiguous sections were acquired throughout the chest after intravenous administration of 75 cc of Omnipaque 350. Dose reduction technique was used on this scan by utilizing automated exposu re control and iterative reconstruction technique. The dose-length product (DLP) was 302.86 mGy-cm. COMPARISON: 05/28/2024 Findings: There is no evidence of any significant mediastinal, hilar or axillary lymphadenopathy. There is no f illing defect in the pulmonary arterial tree to suggest pulmonary embolus. There is no evidence of ao rtic dissection or aneurysm. There is no evidence of pleural or pericardial effusion. Stable biapical scarring. Stable 9 mm irregular nodule in the right upper lobe (axial image 26). Stab le additional 4 mm nodule in the anterior right upper lobe (axial image 28). Stable pleural-based nod ule lateral right upper lobe (axial image 49). Stable 1.6 cm irregular cavitary/pseudocavitary lesion in the right lower lobe (axial image 73). Moderate emphysema present. Images through the upper abdomen reveal no abnormalities. Stable mild T8 compression deformity. Impression: Stable irregular pulmonary nodules, as detailed above, largest lesion in the right lower lobe with ce ntral cavitation probably present. Moderate emphysema. Stable mild T8 compression deformity. Reviewed, dictated and finalized at location . Impression: Stable irregular pulmonary nodules, as detailed above, largest lesion in the ri ght lower lobe with central cavitation probably present. Moderate emphysema. Stable mild T8 compression deformity.
--- OUTSIDE RECORDS SUMMARY | 2024-09-27 12:44 | XMS_ITS | Encounter Summary ---
Author Organization [facility] JOSE ARMAND[facility] [facility] Address [address] [place] [address] Care Team Providers Care Tissue Recovery Technician Name Role Phone Sher Ayers MD Primary Care Provider [phone] Encounter Details Date Type Department Care Team (Late Contact Info) Description 09/15/2022 Abstract [facility] Oncology and Hematology - [place] [address] [place] [address] Tho Reagan RN Social History Tobacco Use Types Packs/Day Years Used Date Smoking Tobacco: Never Smokeless Tobacco: Never Alcohol Use Standard Drinks/Week Comments No 0 (1 standard drink = 0.6 oz pur e alcohol) Comments No Sex and Gender Information Value Date Recorded Sex Assigned at Not on file Legal 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 Gender Identity Not on file Sexual Orientation Not on file documented as of this encounter Plan of Treatment Upcoming Encounters Date Type Department Care Team (Late Contact Info) Description 10/08/2024 2:45 PM CDT Office Visit [facility] Oncology and Hematology - [place] [address] [place] [address] Reynaldo Frances MD [address] [facility] [address] [place] [address] documented as of this encounter Visit Diagnoses Not on filedocumented in this encounter Care Teams Tissue Recovery Technician Relationship Specialty Start Date End Date Sher Ayers MD [address] [place] [address] PCP - General Family Practice 05/09/18 documented as of this encounter
--- OUTSIDE RECORDS SUMMARY | 2024-09-27 12:44 | XMS_ITS | Referral Summary ---
Author Organization [facility] [address] Address [address] [place] [address] Care Team Providers Care Disaster Recovery Consultant Name Role Phone Sher Ayers MD Primary [...] on file Legal Sex Female 2:26 AM ASSEMBLER BILLIARD TABLE Gender Identity Not on file Sexual Orientation Not on file Last Filed Vital Signs Vital Sign Reading Time Taken Comments Blood Pressure - - Pulse - - Temperature - - Respiratory Rate - - Oxygen Saturation - - Inhaled Oxygen Concentration - - Weight 75.8 kg (167 lb) 07/03/2017 1:05 PM ASSEMBLER BILLIARD TABLE Height 160 cm (5' 3 ) 07/03/2017 1:05 PM ASSEMBLER BILLIARD TABLE Body Mass Index 29.58 07/03/2017 1:05 PM ASSEMBLER BILLIARD TABLE Plan of Treatment Not on file Insurance [facility] MDCR HMO REF [facility] MED[facility] Address: [address] [address] [place] [address] [facility] MDCR HMO REF [facility] MEDIC[facility] Address: [address] [address] [place] [address] Care Teams Disaster Recovery Consultant Relationship Specialty Start Date End Date Sher Ayers MD [address] [facility] [address] [place] [address] PCP - General 05/10/13
--- OUTSIDE RECORDS SUMMARY | 2024-09-27 12:44 | XMS_ITS | Clinical Summary ---
Author Organization 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 Gender Identity Not on file Sexual Orientation Not on file Plan of Treatment Health Maintenance Due Date Last Done Comments DEXA Bone Density 1955 Hepatitis C Virus (HCV) Screening 1955 Colonoscopy 1998 Colorectal Cancer Screening 1998 Cologuard 2003 Immunochemical Fecal Occult Blood 2003 Mammogram 2003 Influenza Immunization (#1) 01/21/202401/20, 01/20/2017, 01/28/2016, Additional history exists SARS-COV-2 Immunization ( - 2023- season) 2024 Pneumococcal Immunization (50+ years) (3 of 3 - PCV20 or PCV21) 01/23/2024 01/22/2019, 01/20/2017, 02/12/2015 Respiratory Syncytial Virus (RSV) Immunization (Adult) (1 - 1-dose 75+ series) 2028 DTaP/Tdap/Td Immunization Discontinued 12/18/2017, TdaP Immunization Completed 12/18/2017, 02/12/2015 Zoster Immunization Completed 12/18/2017, 8 Pneumococcal Immunization Combined Discontinued 01/22/2019, 01/20/2017, 02/12/2015 Hepatitis B Immunization Aged Out No longer eligible based on patient's age to complete this topic Meningococcal Immunization (ACWY) Aged Out No longer eligible based on patient's age to complete this topic Rotavirus Immunization Aged Out No lo nger eligible based on patient's age to complete this topic
--- OUTSIDE RECORDS SUMMARY | 2024-09-27 12:44 | XMS_ITS | Clinical Summary ---
Author Organization [facility] Address [address] [place] [address] Care Team Providers Care Spout Worker Name Role Phone Sher Ayers MD Primary [...] daily. Active fluticasone propionate (FLONASE) 50 mcg/spray [place], Suspension nasal inhaler Administer 2 Sprays in [...] Encounters Date Type Department Care Team Description 08/07/2024 External Device Data ST[facility] ABSTRACTION Provider, Abstract 07/27/2024 External Device Data [facility] ABSTRACTION Provider, Abstract 07/26/2024 External Device Data [facility] ABSTRACTION Provider, Abstract 07/23/2024 External Device Data [facility] ABSTRACTION Provider, Abstract 07/09/2024 External Device Data [facility] ABSTRACTION Provider, Abstract [...] on file Legal Sex Female 11:44 AM QUALITY ASSURANCE/R&D LAB TECHNICIAN Gender Identity Not on file Sexual Orientation Not on file Last Filed Vital Signs Vital Sign Reading Time Taken Comments Blood Pressure 110/63 06/06/2024 2:20 PM QUALITY ASSURANCE/R&D LAB TECHNICIAN Pulse 90 06/06/2024 2:20 PM QUALITY ASSURANCE/R&D LAB TECHNICIAN Temperature 35.8 C (96.5 F) 06/06/2024 2:20 PM QUALITY ASSURANCE/R&D LAB TECHNICIAN Respiratory Rate 16 06/06/2024 2:20 PM QUALITY ASSURANCE/R&D LAB TECHNICIAN Oxygen Saturation 94% 06/06/2024 2:20 PM QUALITY ASSURANCE/R&D LAB TECHNICIAN Inhaled Oxygen Concentration - - Weight 65.8 kg (145 lb) 06/06/2024 2:20 PM QUALITY ASSURANCE/R&D LAB TECHNICIAN Height 161.3 cm (5' 3.5 ) 11/22/2023 2:05 PM CDT Body Mass Index 25.28 11/22/2023 2:05 PM CDT Plan of Treatment Upcoming Encounters Date Type Department Care Team (Late st Contact Info) Description 10/08/2024 2:45 PM CDT Office Visit [facility] Oncology and Hematology - [place] [address] [facility] [address] [place] [address] Reynaldo Frances MD [address] [facility] [address] [place] [address] Health Maintenance Due Date Last Done Comments DTAP/TDAP/TD VACCINES (1 - Tdap) 1972 PNEUMOCOCCAL VACCINE 50+ YEA RS (1 of 2 - PCV) [...] Recently Relevant to Health Maintenance Results * MAMMO DIAGNOSTIC UNI LEFT W OR WO CAD (02/14/2024 8:27 AM CDT) Anatomical Region Laterality Modality Breast Left Mammography Reynaldo Frances MD MAMMO ORDERABLES Final Result from Last 3 Months or Most Recently Relevant to Health Maintenance Insurance Care Teams Spout Worker Relationship Specialty Start Date End Date Sher Ayers MD [address] [facility] [address] [place] [address] PCP - General Family Practice 05/09/18
--- OUTSIDE RECORDS SUMMARY | 2024-09-27 12:44 | XMS_ITS | Clinical Summary ---
Author Organization [facility] Address [address] [place] [address] Care Team Providers Care Venetian Blind Worker Name Role Phone Unavailable Primary Care Provider [...] 1 - Tdap) 1972 Mammogram Screening 1993 Pneumococcal Vaccine: 50+ Ye ars (1 of 1 - PCV) 2003 Zoster Vaccines (1 of 2) 2003 Dexa Scan (General) 2018 COVID-19 Vaccine ( - 2023-2 5 season) 2024 RSV Immunization or 60+ Years (1 [...]
--- OUTSIDE RECORDS SUMMARY | 2024-09-27 12:45 | XMS_ITS | Continuity of Care Document ---
Author Organization [facility] Address [address] [place] [address] Phone Care Team Providers Care Lna Name Role Phone Castañeda OD, Mike Unavailable [...] Providers Copied on Encounter [facility], [address] [place] [address] [address], [place], [place], [id number], [place] tel:[phone] SEC [facility] No Information 8-201 0 Castañeda OD Mike. [address] , [address], [place], [address], [place]. tel:[phone] Office/outpat ient Visit, Est [facility], [address], [place], [place], [id number], tel:[phone] SEC [facility] No Information Jean Carlos-0 4-201 0 Castañeda OD Mike. [address] [facility] , [address], [place], [place], [facility], [place]. tel:[phone] [facility], [address], [place], [place], [id number], [place] tel:[phone] SEC [facility] No Information September-2 7-201 0 Castañeda OD Mike. [address] , [address], [place], [place], [facility], [place]. tel:[phone] [facility], [address], [place], [place], [id number], [place] tel:[phone] [facility] [place] No Information Sep-0 2-200 9 Castañeda OD Mike. [facility] , [address], [place], [place], [facility], [place]. tel:[phone] Referring Provider: Rogelio Adames, [address] [place], [place] [address]ate [address], [place], [place], [facility]. tel:[phone] [facility], [address] [place] [address] [address], [place], [place], [id number], [place] tel:[phone] [facility] [place] No Information 9-200 9 Jack Mercado. [address] [place], [place] [address]ate Center , [address], [place], [place], [facility], [place]. tel:[phone] [facility], [address] [place] [address] [address], [place], [place], [address], [place] tel:[phone] [facility] No Information Dec-1 8-200 9 Jack Mercado. [facility] , [address], [place], [place], [facility], [place]. tel:[phone] [facility], [address], [place], [place], [address], [place] tel:[phone] SEC [place] [facility] No Information Aug-1 0-200 9 Doisy Edward. [address] , [address], [place], [address], [place]. tel:[phone] Referring Provider: Mike Adames, [address], [place], [address]. tel:[phone] [facility], [address] [place] [address] [address], [place], [place], [id number], [place] tel:[phone] SEC [facility] Corporate Center No Information 200 9 Doisy Edward. [facility] , [address], [place], [place], [facility], [place]. tel:[phone] Referring Provider: Mike Adames, [address] [facility] [address], [place], [place], [facility]. tel:[phone] [facility], [address] [place] [address] [address], [place], [place], [id number], [place] tel:[phone] [facility] No Information 200 9 Doisy Edward. [facility] , [address], [place], [address], [place]. tel:[phone] Referring Provider: Mike Adames, [facility] hospital[facility] [address], [place], [address]. tel:[phone] Office/outpat ient Visit, [facility], [address] [place] [address] [address], [place], [place], [address], [place] tel:[phone] SEC [facility] No Information 200 9 Doisy Edward. [facility] [address], [place], [place], [facility], [place]. tel:[phone] Referring Provider: Mike Adames, [facility] hospital[facility] [address], [place], [address]. tel:[phone] [facility], [address], [place], [place], [address], [place] tel:[phone] SEC [facility] [place] No Information 1-200 9 Castañeda OD Mike. [address] , [address], [place], [address], [place]. tel:[phone] Family History Family Member Type Diagnosis Age At Onset No Information Payers Payer name Insurance type Covered alliance party ID Authoriza tion(s) No Information Social History [...]
--- OUTSIDE RECORDS SUMMARY | 2024-09-27 12:45 | XMS_ITS | Clinical Summary ---
Author Organization [facility] [address] Address [address] [place] [address] Care Team Providers Care Instructional Paraprofessional Name Role Phone Sher Ayers MD Primary [...] on file Legal Sex Female 2:26 AM FIRE ALARM OPERATOR Gender Identity Not on file Sexual Orientation Not on file Last Filed Vital Signs Vital Sign Reading Time Taken Comments Blood Pressure - - Pulse - - Temperature - - Respiratory Rate - - Oxygen Saturation - - Inhaled Oxygen Concentration - - Weight 75.8 kg (167 lb) 07/03/2017 1:05 PM FIRE ALARM OPERATOR Height 160 cm (5' 3 ) 07/03/2017 1:05 PM FIRE ALARM OPERATOR Body Mass Index 29.58 07/03/2017 1:05 PM FIRE ALARM OPERATOR Plan of Treatment Health Maintenance Due Date Last Done Comments Breast Cancer Screening-Mammogram 1953 Colon Cancer Screening-Colonoscopy 1953 Depression Screening 1953 Fall Risk Assessment 1953 Hepatitis C Screening 1953 Osteoporosis Screening-Bone Density Scan 1953 Hepatitis B Screening 1971 Well Visit 65+ 2018 Covid-19 Vaccine ( - 2023-2 5 season) 2024 05/27/2021, 10/22/2020, 09/24/2020 Pneumococcal vaccine 65+ (3 of 3 - PCV20 or PCV21) 01/23/2024 01/22/2019, 01/20/2017, 02/12/2015 Influenza Vaccine (Season Ended) 2025 01/23/2020, 01/31/2018, 01/20/2017, Additional history exists DTaP/Tdap/Td Vaccine (3 - Td or Tdap) 12/19/2027 12/18/2017, 02/12/2015 Zoster Vaccine Completed 12/18/2017, 10/06/2017 Insurance [id number] Care Teams Instructional Paraprofessional Relationship Specialty Start Date End Date Sher Ayers MD [address] [facility] 120 [place] [address] PCP - General 05/10/13
[2024-09-27 13:55] LABS: Estimated Glomerular Filt Rate 40
== END 2024-09-27 12:37 | disposition home or self-care (01) ==
PROVIDERS: PCP Family Medicine; Visit Provider Internal Medicine Hematology & Oncology
DX: R91.8 Other nonspecific abnormal finding of lung field (principal); J43.9 Emphysema, unspecified; M43.8X4 Other specified deforming dorsopathies, thoracic region; C34.11 Malignant neoplasm of upper lobe, right bronchus or lung
CPT/HCPCS: 71260; Q9967

== ENCOUNTER 2024-10-08 14:20 | Outpatient (CLI) | payer MEDICARE, SELFPAY ==
--- OUTSIDE RECORDS SUMMARY | 2024-10-08 14:23 | XMS_ITS | Clinical Summary ---
Author Organization [facility] Address [address] [place] [address] Care Team Providers Care Side Door Worker Name Role Phone Sher Ayers MD Primary Care Provider [phone] Allergies Active Allergy Reactions Criticality Noted Date [...] daily. Active fluticasone propionate (FLONASE) 50 mcg/spray [place], Suspension nasal inhaler Administer 2 Sprays in [...] Encounters Date Type Department Care Team Description 09/30/2024 Orders Only [facility] Oncology and Hematology - [place] [address] [place] [address] Reynaldo Frances MD 08/07/2024 External Device Data [facility] ABSTRACTION Provider, [...] on file Legal Sex Female 11:44 AM WATER PUMPER Gender Identity Not on file Sexual Orientation Not on file Last Filed Vital Signs Vital Sign Reading Time Taken Comments Blood Pressure 110/63 06/06/2024 2:20 PM WATER PUMPER Pulse 90 06/06/2024 2:20 PM WATER PUMPER Temperature 35.8 C (96.5 F) 06/06/2024 2:20 PM WATER PUMPER Respiratory Rate 16 06/06/2024 2:20 PM WATER PUMPER Oxygen Saturation 94% 06/06/2024 2:20 PM WATER PUMPER Inhaled Oxygen Concentration - - Weight 65.8 kg (145 lb) 06/06/2024 2:20 PM WATER PUMPER Height 161.3 cm (5' 3.5 ) 11/22/2023 2:05 PM CDT Body Mass Index 25.28 11/22/2023 2:05 PM CDT Plan of Treatment Upcoming Encounters Date Type Department Care Team (Late st Contact Info) Description 10/08/2024 2:45 PM CDT Office Visit [facility] Oncology and Hematology - [place] [address] [facility] [address] [place] [address] Reynaldo Frances MD [address] [facility] [address] [place] [address] Health Maintenance Due Date Last [...] Diagnosis Comments CT CHEST W CONTRAST Routine 09/27/2024 3:14 PM CDT CREATININE Routine 09/27/2024 10:37 AM CDT MAMMO DIAGNOSTIC UNI LEFT W OR WO CAD Routine 02/14/2024 8:27 AM CDT from Last 3 Months or Most Recently Relevant to Health Maintenance Results * CT CHEST W CONTRAST (09/27/2024 3:14 PM CDT) Anatomical Region Laterality Modality Chest Computed Tomogra phy Reynaldo Frances MD CT ORDERABLES Final Result * CREATININE (09/27/2024 10:37 AM CDT) Blood Reynaldo Frances MD CHEMISTRY ORDERABLES Final Resu lt * MAMMO DIAGNOSTIC UNI LEFT W OR WO CAD (02/14/2024 8:27 AM CDT) Anatomical Region Laterality Modality Breast Left Mammography Reynaldo Frances MD MAMMO ORDERABLES Final Result from Last 3 Months or Most Recently Relevant to Health Maintenance [place] [address] [place] [id number] Care Teams Side Door Worker Relationship Specialty Start Date End Date Sher Ayers MD [address] [facility] [address] [facility] 120 [place] [address] PCP - General Family Practice 05/09/18
--- OUTSIDE RECORDS SUMMARY | 2024-10-08 14:23 | XMS_ITS | Referral Summary ---
Author Organization [facility] [address] Address [address] [place] [address] Care Team Providers Care Director Of Counseling Name Role Phone Sher Ayers MD Primary [...] on file Legal Sex Female 2:26 AM PRINTER SLOTTER FEEDER Gender Identity Not on file Sexual Orientation Not on file Last Filed Vital Signs Vital Sign Reading Time Taken Comments Blood Pressure - - Pulse - - Temperature - - Respiratory Rate - - Oxygen Saturation - - Inhaled Oxygen Concentration - - Weight 75.8 kg (167 lb) 07/03/2017 1:05 PM PRINTER SLOTTER FEEDER Height 160 cm (5' 3 ) 07/03/2017 1:05 PM PRINTER SLOTTER FEEDER Body Mass Index 29.58 07/03/2017 1:05 PM PRINTER SLOTTER FEEDER Plan of Treatment Not on file Insurance [facility] MDCR HMO REF [facility] MEDIC[facility] Address: [address] [address] [place] [address] [facility] MDCR HMO REF [facility] MEDIC[facility] Address: [address] [address] [place] [address] Care Teams Director Of Counseling Relationship Specialty Start Date End Date Sher Ayers MD [address] [place] [address] PCP - General 05/10/13
--- OUTSIDE RECORDS SUMMARY | 2024-10-08 14:23 | XMS_ITS | Clinical Summary ---
Author Organization [facility] [address] Address [address] [place] [address] Care Team Providers Care Vocational Childcare Teacher Name Role Phone Sher Ayers MD [...] file Legal Sex Female 2:26 AM EDITOR DEPARTMENT Gender Identity Not on file Sexual Orientation Not on file Last Filed Vital Signs Vital Sign Reading Time Taken Comments Blood Pressure - - Pulse - - Temperature - - Respiratory Rate - - Oxygen Saturation - - Inhaled Oxygen Concentration - - Weight 75.8 kg (167 lb) 07/03/2017 1:05 PM EDITOR DEPARTMENT Height 160 cm (5' 3 ) 07/03/2017 1:05 PM EDITOR DEPARTMENT Body Mass Index 29.58 07/03/2017 1:05 PM EDITOR DEPARTMENT Plan of Treatment Health Maintenance Due Date [...] Zoster Vaccine Completed 12/18/2017, 10/06/2017 Insurance [id number] Care Teams Vocational Childcare Teacher Relationship Specialty Start Date End Date Sher Ayers MD [address] [facility] 120 [place] [address] PCP - General 05/10/13
--- OUTSIDE RECORDS SUMMARY | 2024-10-08 14:23 | XMS_ITS | Encounter Summary ---
Author Organization [facility] JOSE ARMANDOMedisync [employer] [facility] Address [address] [place] [address] Care Team Providers Care Money Counter Name Role Phone Sher Ayers MD Primary Care Provider [phone] Encounter Details Date Type Department Care Team (Late Contact Info) Description 09/15/2022 Abstract [facility] Oncology and Hematology - [place] [address] [place] [address] Tho Reagan RN Social History Tobacco Use Types Packs/Day Years Used Date Smoking Tobacco: Never Smokeless Tobacco: Never Alcohol Use Standard Drinks/Week Comments No 0 (1 standard drink = 0.6 oz pur e alcohol) Comments No Sex and Gender Information Value Date Recorded Sex Assigned at Not on file 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 Gender Identity Not on file Sexual Orientation Not on file documented as of this encounter Plan of Treatment Upcoming Encounters Date Type Department Care Team (Late Contact Info) Description 10/08/2024 2:45 PM CDT Office Visit [facility] Oncology and Hematology - [place] [address] [place] [address] Reynaldo Frances MD [address] [facility] [address] [place] [address] documented as of this encounter Visit Diagnoses Not on filedocumented in this encounter Care Teams Money Counter Relationship Specialty Start Date End Date Sher Ayers MD [address] [place] [address] PCP - General Family Practice 05/09/18 documented as of this encounter
--- OUTSIDE RECORDS SUMMARY | 2024-10-08 14:23 | XMS_ITS | Clinical Summary ---
Author Organization [facility] Address [address] [place] [address] Care Team Providers Care Coding Educator Name Role Phone Unavailable Primary Care Provider Unavailabl e Social History Tobacco Use Types Packs/Day Years Used Date Smoking Tobacco: Never Assessed Comments Unknown Sex and Gender Information Value Date Recorded Sex Assigned at Not on file Legal Sex Female 2:41 PM INSPECTOR TYPE Gender Identity Not on file Sexual Orientation [...]
--- OUTSIDE RECORDS SUMMARY | 2024-10-08 14:23 | XMS_ITS | Continuity of Care Document ---
Author Organization [facility] Address [address] [place] [address] Phone Care Team Providers Care Supervisor Patching Name Role Phone Castañeda OD, Mike Unavailable [...] Diagnoses Date Provider Providers Copied on Encounter [facility], [address] [place] [address] [address], [place], [place], [id number], [place] tel:[phone] SEC [facility] No Information 8-201 0 Castañeda OD Mike. [address] , [address], [place], [address], [place]. tel:[phone] Office/outpat ient Visit, Est [facility], [address], [place], [place], [id number], tel:[phone] SEC [facility] No Information Jean Carlos-0 4-201 0 Castañeda OD Mike. [address] [facility] , [address], [place], [place], [facility], [place]. tel:[phone] [facility], [address], [place], [place], [id number], [place] tel:[phone] [facility] No Information September-2 7-201 0 Castañeda OD Mike. [address] , [address], [place], [facility], [place]. tel:[phone] Her[facility], [address], [place], [place], [id number], [place] tel:[phone] [facility] [place] No Information Sep-0 2-200 9 Castañeda OD Mike. Formerly [facility], [facility] , [address], [place], [place], [facility], [place]. tel:[phone] Referring Provider: Rogelio Adames, [address] [place], [place] [address], [place], [facility]. tel:[phone] [facility], [address] [place] [address] [address], [place], [place], [id number], [place] tel:[phone] [facility] [place] No Information 9-200 9 Jack Mercado. [address] [place], [place] [address] [address] , [address], [place], [facility], [place]. tel:[phone] [facility], [address] [place] [address] [address], [place], [place], [id number], [place] tel:[phone] [facility] No Information Dec-1 8-200 9 Jack Mercado. [facility] , [address], [place], [facility], [place]. tel:[phone] [facility], [address], [place], [place], [id number], [place] tel:[phone] SEC [place] [facility] No Information Aug-1 0-200 9 Doisy Edward. [address] , [address], [place], [address], [place]. tel:[phone] Referring Provider: Mike Adames, [address], [place], [address]. tel:[phone] [facility], [address] [place] [address] [address], [place], [place], [id number], [place] tel:[phone] SEC [facility] Corporate Center No Information 200 9 Doisy Edward. [facility], [facility] , [address], [place], [facility], [place]. tel:[phone] Referring Provider: Mike Adames, [address] [facility] [address], [place], [facility]. tel:[phone] [facility], [address] [place] [address] [address], [place], [place], [id number], [place] tel:[phone] [facility] No Information 200 9 Doisy Edward. [facility] , [address], [place], [address], [place]. tel:[phone] Referring Provider: Mike Adames, [facility] [address], [place], [address]. tel:[phone] Office/outpat ient Visit, [facility], [address] [place] [address] [address], [place], [place], [id number], [place] tel:[phone] [facility] Center No Information 200 9 Doisy Edward. [facility] [address], [place], [facility], [place]. tel:[phone] Referring Provider: Mike Adames, [facility] [address], [place], [address]. tel:[phone] [facility], [address], [place], [place], [id number], [place] tel:[phone] [facility] [place] No Information 1-200 9 Castañeda OD Mike. [address] , [address], [place], [address], [place]. tel:[phone] Family History Family Member Type Diagnosis Age At Onset No Information Payers Payer name Insurance type Covered green party ID Authoriza tion(s) No Information Social [...]
[2024-10-08 14:42] LABS: Basophils Percent Auto 0.5 % (0.2-1.2); Eosinophils Absolute Auto 0.1 K/mm3 (0-0.3); Eosinophils Percent Auto 2.1 % (0-4.4); Hematocrit 37.8 % (37.0-47.0); Hemoglobin 12.5 g/dL (12.0-15.0); Immature Granulocyte Absolute 0.02 K/mm3 (0.00-0.031); Immature Granulocyte Percent A 0.3 % (0-0.5); Lymphocytes Absolute Auto 1.28 K/mm3 (0.9-3.2); Lymphocytes Percent Auto 22.1 % (18.3-44.2); Mean Corpuscular HGB Conc 33.1 g/dl (32-36); Mean Corpuscular Hemoglobin 28.1 pg (26-34); Mean Corpuscular Volume 84.9 fl (80-100); Mean Platelet Volume 9.3 fl (7.4-10.4); Monocytes Absolute Auto 0.5 K/mm3 (0.1-0.6); Monocytes Percent Auto 8.8 % (2.6-8.5); Neutrophils Absolute Auto 3.8 K/mm3 (1.3-6.7); Neutrophils Percent Auto 66.2 % (45.5-73.1); Platelet Count Result 204 k/mm3 (150-375); Red Blood Count 4.45 M/mm3 (4.2-5.4); Red Cell Distribution Width 12.7 % (11.5-14.5); White Blood Count 5.8 K/mm3 (4.5-10.0)
[2024-10-08 14:46] LABS: Blood Urea Nitrogen 16 mg/dL (8-26); Carbon Dioxide 28 mmol/L (22-30); Chloride 100 mmol/L (98-109); Estimated Glomerular Filt Rate 44; Glucose 98 mg/dL (70-105); Ionized Calcium (POC) 1.17 mmol/L (1.11-1.31); Potassium 4.1 mmol/L (3.5-4.9); Sodium 138 mmol/L (138-146)
[2024-10-08 16:32] LABS: Alanine Aminotransferase 15 U/L (6-35); Albumin Level 4.1 g/dL (3.5-5.1); Alkaline Phosphatase 79 U/L (38-126); Anion Gap 5 mmol/L (4-12); Aspartate Amino Transferase 48 U/L (14-36); Bilirubin,Total 0.4 mg/dL (0.2-1.3); Blood Urea Nitrogen 17 mg/dL (7-17); Carbon Dioxide 30 mmol/L (22-30); Chloride 102 mmol/L (98-107); Estimated Glomerular Filt Rate 54; Glucose 97 mg/dL (65-110); Potassium 4.2 mmol/L (3.4-5.0); Sodium 137 mmol/L (137-145)
== END 2024-10-08 14:21 | disposition home or self-care (01) ==
PROVIDERS: PCP Family Medicine; Visit Provider Internal Medicine Hematology & Oncology
DX: C34.91 Malignant neoplasm of unspecified part of right bronchus or lung (principal)
CPT/HCPCS: 36415; 80047; 80053; 85025

== ENCOUNTER 2025-01-25 19:31 | Emergency (ER) | payer MEDICARE, SELFPAY ==
--- OUTSIDE RECORDS SUMMARY | 2010-02-16 07:30 | XMS_ITS | Continuity of Care Document ---
Author Organization [facility] Address [address] [place] [address] Phone Care Team Providers Care Lead Tinner Name Role Phone Castañeda OD, Mike Unavailable Unavailable Procedures Procedure Date Eye Exam & Treatment Refraction Office/outpatient Visit, Est Eye Exam Established Pt Post-op Follow-up Visit Refraction Post-op Follow-up Visit Remove Cataract, Insert Lens Post-op Follow-up Visit Echo Exam Of Eye-Professional Post-op Follow-up Visit Remove Cataract, Insert Lens Office/outpatient Visit, Est Echo Exam Of Eye Eye Exam & Treatment Advance Directives Directive Yes / No Effective Date File Name No Information Encounters Encounter Description Practice Location Reason(s) For Visit Diagnoses Date Provider Providers Copied on Encounter [facility], [id number] [place] [address] [address], [place], [place], [address], [place] tel:[phone] SEC [facility] No Information 8-201 0 Castañeda OD Mike. [address] , [address], [place], [address], [place]. tel:[phone] Office/outpat ient Visit, Est [facility], [address], [place], [place], [address], tel:[phone] SEC [facility] No Information Jean Carlos-0 4-201 0 Castañeda OD Mike. [address] [facility] , [address], [place], [facility], [place]. tel:[phone] [facility], [address], [place], [place], [address], [place] tel:[phone] SEC [facility] No Information September-2 7-201 0 Castañeda OD Mike. [address] , [address], [place], [facility], [place]. tel:[phone] [facility], [address], [place], [place], [address], [place] tel:[phone] SEC [facility] [place] No Information Sep-0 2-200 9 Castañeda OD Mike. [facility] , [address], [place], [facility], [place]. tel:[phone] Referring Provider: Rogelio Adames, [address] [place], [place] [address]ate [address], [place], [facility]. tel:[phone] [facility], [address] [place] [address] [address], [place], [place], [address], [place] tel:[phone] SEC [facility] [place] No Information 9-200 9 Jack Mercado. [address] [place], [place] [address]ate [address] , [address], [place], [facility], [place]. tel:[phone] [facility], [address] [place] [address] [address], [place], [place], [address], [place] tel:[phone] [facility] No Information Dec-1 8-200 9 Jack Mercado. [facility] , [address], [place], [facility], [place]. tel:[phone] [facility], [address], [place], [place], [address], [place] tel:[phone] SEC [place] [facility] No Information Aug-1 0-200 9 Doisy Edward. [address] , [address], [place], [address], [place]. tel:[phone] Referring Provider: Mike Adames, [address], [place], [address]. tel:[phone] [facility], [address] [place] [address] [address], [place], [place], [address], [place] tel:[phone] [facility] No Information 200 9 Doisy Edward. [facility] , [address], [place], [facility], [place]. tel:[phone] Referring Provider: Mike Adames, [address] [facility] [address], [place], [facility]. tel:[phone] [facility], [address] [place] [address] [address], [place], [place], [address], [place] tel:[phone] [facility] No Information 200 9 Doisy Edward. [facility] , [address], [place], [address], [place]. tel:[phone] Referring Provider: Mike Adames, [facility] [address], [place], [address]. tel:[phone] Office/outpat ient Visit, [facility], [address] [place] [address] [address], [place], [place], [address], [place] tel:[phone] [facility] No Information 200 9 Doisy Edward. [facility] [address], [place], [facility], [place]. tel:[phone] Referring Provider: Mike Adames, [facility] [address], [place], [address]. tel:[phone] [facility], [address], [place], [place], [address], [place] tel:[phone] SEC [facility] [place] No Information 1-200 9 Castañeda OD Mike. [address] , [address], [place], [address], [place]. tel:[phone] Family History Family Member Type Diagnosis Age At Onset No Information Payers Payer name Insurance type Covered libertarian ID Authoriza tion(s) No Information Social History Type Description Quantity Date Captured Comments Sex Female Smoking Status No Information Chief Complaint And Reason For Visit No Information Reason For Referral Reason For Referral No Information History Of Present Illness Encounter Date Complaint History Of Prese nt Illness No Information Functional Status Date Functional Assessmen t No Information Instructions Date Instruction Additional Infor mation No Information Assessments Type Assessment Date No Information Patient Care Teams Name Effective Dates (start - stop) Status Members No Information
--- OUTSIDE RECORDS SUMMARY | 2010-02-16 07:30 | XMS_ITS | Continuity of Care Document ---
Author Organization [facility] Address [address] [place] [address] Phone Care Team Providers Care Miller Wood Flour Name Role Phone Castañeda OD, Mike Unavailable [...] Diagnoses Date Provider Providers Copied on Encounter [facility], [address] [place] [address] [address], [place], [place], [address], [place] tel:[phone] [facility] No Information 8-201 0 Castañeda OD Mike. [address] [place] , [address], [place], [address], [place]. tel:[phone] Office/outpat ient Visit, Est [facility], [address], [place], [place], [address], tel:[phone] SEC [facility] No Information Jean Carlos-0 4-201 0 Castañeda OD Mike. [address] [facility] , [address], [place], [facility], [place]. tel:[phone] [facility], [address], [place], [place], [address], [place] tel:[phone] SEC [facility] No Information September-2 7-201 0 Castañeda OD Mike. [address] , [address], [place], [facility], [place]. tel:[phone] [facility], [address], [place], [place], [address], [place] tel:[phone] SEC [facility] [place] No Information Sep-0 2-200 9 Castañeda OD Mike. [facility] , [address], [place], [facility], [place]. tel:[phone] Referring Provider: Rogelio Adames, [address] [place], [place] [address]ate Center [address], [place], [facility]. tel:[phone] [facility], [address] [place] [address] [address], [place], [place], [address], [place] tel:[phone] [facility] [place] No Information 9-200 9 Jack Mercado. [address] [place], [place] [address]ate Center , [address], [place], [facility], [place]. tel:[phone] [facility], [address] [place] [address] [address], [place], [place], [address], [place] tel:[phone] [facility] No Information Dec-1 8-200 9 Jack Mercado. [facility] , [address], [place], [facility], [place]. tel:[phone] [facility], [address], [place], [place], [address], [place] tel:[phone] SEC [place] [facility] No Information Aug-1 0-200 9 Doisy Edward. [address] , [address], [place], [address], [place]. tel:[phone] Referring Provider: Mike Adames, [address], [place], [address]. tel:[phone] [facility], [address] [place] [address] [address], [place], [place], [address], [place] tel:[phone] SEC [facility] No Information 200 9 Doisy Edward. [facility] , [address], [place], [facility], [place]. tel:[phone] Referring Provider: Mike Adames, [address] [facility] [address], [place], [facility]. tel:[phone] [facility], [address] [place] [address] [address], [place], [place], [address], [place] tel:[phone] [facility] No Information 200 9 Doisy Edward. [facility] , [address], [place], [address], [place]. tel:[phone] Referring Provider: Mike Adames, [facility] [address], [place], [address]. tel:[phone] Office/outpat ient Visit, [facility], [address] [place] [address] [address], [place], [place], [address], [place] tel:[phone] [facility] No Information 200 9 Doisy Edward. [facility] [address], [place], [facility], [place]. tel:[phone] Referring Provider: Mike Adames, [facility] [address], [place], [address]. tel:[phone] [facility], [address], [place], [place], [address], [place] tel:[phone] [facility] [place] No Information 1-200 9 Castañeda OD Mike. [address] , [address], [place], [address], [place]. tel:[phone] Family History Family Member Type Diagnosis Age [...]
--- NOTE | ~2025-01-25 | CT_ITS ---
CTA CHEST ABDOMEN PELVIS CLINICAL HISTORY: cp, back pain . COMPARISON: Chest x-ray same day CT chest 09/27/2024 CT abdomen and pelvis 10/20/2022 TECHNIQUE: Helical CT performed from thoracic inlet to symphysis pubis 100 mL Omnipaque 350 Coronal, sagittal reformats. Multiplanar MIPS CT images acquired with automatic exposure control for dose reduction DLP: 412 mGy-cm FINDINGS: CHEST- Thoracic Aorta: No dissection. No aneurysm. Mild atherosclerotic disease. Pulmonary arteries: Normal caliber. Lungs/Pleura: Emphysema. Scattered nodular foci not significantly changed, some with central cavitation. Unchanged scarring lateral right upper lobe beneath chronic rib fracture. Heart: Unremarkable. Tracheobronchial tree: Patent. Nodes: Unchanged small mediastinal and hilar nodes. Bones: No acute bony abnormality. Unchanged mild superior endplate height loss of T8 as counting from T1 down. Soft tissues: Unremarkable. ABDOMEN/PELVIS- CTA Abdominal aorta: No aneurysm or dissection. Atherosclerotic disease. Common iliac arteries: Patent. External iliac arteries: Patent. Hypogastric arteries: Patent. CFAs: Patent. Proximal visualized SFAs and profundas: Patent. Celiac: Proximal inferior angulation with moderate stenosis, consistent with median arcuate ligament attenuation. SMA: Patent. JOSE CRUZ: Patent. Renal arteries: Patent. NON-CTA Liver: Steatosis. Enlarged. Gallbladder: Removed. Spleen: Heterogeneous enhancement likely phase of imaging. Pancreas: Unremarkable. Adrenal glands: Unremarkable. Kidneys: Right kidney- No hydronephrosis. No renal stones. Small cyst with mural calcification Left kidney- No hydronephrosis. No renal stones. Distal esophagus/stomach: Unremarkable. Small bowel loops: Normal caliber and wall thickness. Colon: A few diverticula. Normal caliber and wall thickness. Normal RLQ appendix. Nodes: No enlarged nodes. Peritoneum: No ascites. No free air. Urinary bladder: Unremarkable. Uterus: Removed. Adnexa: No masses. Bones: No acute bony abnormality. Soft tissues: Unremarkable. IMPRESSION: CHEST- 1. No acute cardiopulmonary findings. 2. Unchanged pulmonary nodules with cavitation. Recommend continued surveillance. ABDOMEN/PELVIS- 1. No acute abdominopelvic findings. Reviewed, dictated and finalized at location A. IMPRESSION: CHEST- 1. No acute cardiopulmonary findings. 2. Unchanged pulmonary nodules with cavitation. Recommend continued surveillan ce. ABDOMEN/PELVIS- 1. No acute abdominopelvic findings.
--- NOTE | ~2025-01-25 | XR_ITS ---
EXAMINATION: XR chest 2V, 01/25/2025 20:08 CDT HISTORY: CHEST PAIN COMPARISON: No comparisons available. Technique: 2 views obtained. Findings: The lungs are clear, no effusion. No pneumothorax. Heart is normal size. Mediastinal and hilar contours are within normal limits. Bony thorax no acute abnormality. Impression: No acute cardiopulmonary abnormality. Reviewed, dictated and finalized at location A. Impression: No acute cardiopulmonary abnormality.
--- OUTSIDE RECORDS SUMMARY | 2025-01-25 19:35 | XMS_ITS | Clinical Summary ---
Author Organization [facility] Address [address] [place] [address] Care Team Providers Care Bung Remover Name Role Phone Unavailable Primary Care Provider [...] COVID-19 Vaccine ( - 2023-2 5 season) 2025 RSV Immunization or 60+ Years (1 - [...]
--- OUTSIDE RECORDS SUMMARY | 2025-01-25 19:35 | XMS_ITS | Encounter Summary ---
Author Organization [facility] JOSE ARMANDOD[employer]ang[facility] Address [address] [place] [address] Care Team Providers Care Hardwood Floor Finisher Name Role Phone Sher Ayers MD Primary Care Provider [phone] Encounter Details Date Type Department Care Team (Late Contact Info) Description 09/15/2022 Abstract [facility] Oncology and Hematology - [place] [address] [place] [address] Tho Reagan RN Social History Tobacco Use Types Packs/Day Years Used Date Smoking Tobacco: Never Smokeless Tobacco: Never Alcohol Use Standard Drinks/Week Comments No 0 (1 standard drink = 0.6 oz pur e alcohol) Comments No Sex and Gender Information Value Date Recorded Sex Assigned at Not on file 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 Gender Identity Not on file Sexual Orientation Not on file documented as of this encounter Plan of Treatment Upcoming Encounters Date Type Department Care Team (Late Contact Info) Description 02/13/2025 3:30 PM CDT Office Visit [facility] Oncology and Hematology - [place] [address] [place] [address] Reynaldo Frances MD [address] [facility] [address] [place] [address] documented as of this encounter Visit Diagnoses Not on filedocumented in this encounter Care Teams Hardwood Floor Finisher Relationship Specialty Start Date End Date Sher Ayers MD [address] [place] [address] PCP - General Family Practice 05/09/18 documented as of this encounter
--- OUTSIDE RECORDS SUMMARY | 2025-01-25 19:35 | XMS_ITS | Clinical Summary ---
Author Organization [facility] [address] Address [address] [place] [address] Care Team Providers Care Road Boss Name Role Phone Sher Ayers MD Primary [...] on file Legal Sex Female 2:26 AM CLOTH DYE RANGE OPERATOR Gender Identity Not on file Sexual Orientation Not on file Last Filed Vital Signs Vital Sign Reading Time Taken Comments Blood Pressure - - Pulse - - Temperature - - Respiratory Rate - - Oxygen Saturation - - Inhaled Oxygen Concentration - - Weight 75.8 kg (167 lb) 07/03/2017 1:05 PM CLOTH DYE RANGE OPERATOR Height 160 cm (5' 3) 07/03/2017 1:05 PM CLOTH DYE RANGE OPERATOR Body Mass Index 29.58 07/03/2017 1:05 PM CLOTH DYE RANGE OPERATOR Plan of Treatment Health Maintenance Due [...] PCV21) 01/23/2024 01/22/2019, 01/20/2017, 02/12/2015 Influenza Vaccine (#1) 2025 , 01/31/2018, 01/20/2017, Additional history exists DTaP/Tdap/Td Vaccine (3 - Td or Tdap) 12/19/2027 12/18/2017, 02/12/2015 Zoster Vaccine Completed 12/18/2017, 10/06/[address] Relationship Specialty Start Date End Date Sher Ayers MD [address] [facility] [address] [place] [address] PCP - General 05/10/13
--- OUTSIDE RECORDS SUMMARY | 2025-01-25 19:35 | XMS_ITS | Clinical Summary ---
Author Organization [facility] Address [address] [place] [address] Care Team Providers Care Complaint Investigator Name Role Phone Sher Ayers MD Primary Care Provider [phone] Allergies Active Allergy Reactions Criticality Noted Date [...] mg tablet Take 50 mg by mouth 2 times daily. Active pantoprazole (PROTONIX) 40 mg Tablet, Delayed [...] daily. Active fluticasone propionate (FLONASE) 50 mcg/spray [place], Suspension nasal inhaler Administer 2 Sprays in [...] Encounters Date Type Department Care Team Description 12/04/2024 External Device Data [facility] ABSTRACTION Provider, Abstract 12/03/2024 External Device Data [place]STRA[place] Provider, Abstract 11/12/2024 External Device Data [place] Provider, Abstract 11/05/2024 External Device Data [place] Provider, Abstract [...] on file Legal Sex Female 11:44 AM HEALTH AND SOCIAL CARE TEACHER Gender Identity Not on file Sexual Orientation Not on file Last Filed Vital Signs Vital Sign Reading Time Taken Comments Blood Pressure 131/83 10/08/2024 2:44 PM CDT Pulse 80 10/08/2024 2:44 PM CDT Temperature 36.4 C (97.6 F) 10/08/2024 2:44 PM CDT Respiratory Rate 15 10/08/2024 2:44 PM CDT Oxygen Saturation 94% 10/08/2024 2:44 PM CDT Inhaled Oxygen Concentration - - Weight 71.1 kg (156 lb 12.8 oz) 10/08/2024 2:44 PM CDT Height 161.3 cm (5' 3.5) 11/22/2023 2:05 PM CDT Body Mass Index 27.34 11/22/2023 2:05 PM CDT Plan of Treatment Upcoming Encounters Date Type Department Care Team (Late st Contact Info) Description 02/13/2025 3:30 PM CDT Office Visit [facility] Oncology and Hematology - [place] [address] [facility] [address] [place] [address] Reynaldo Frances MD [address] [facility] [address] [place] [address] Health Maintenance Due Date Last Done Comments DTAP/TDAP/TD VACCINES (1 - Tdap) 1972 COLORECTAL SCREENING 1998 Colorectal Cancer Screening 1998 FIT-DNA Q 3 years 1998 FIT/FOBT Q 1 year 1998 Flex Sig/CT Colonography Q 5 years 1998 PNEUMOCOCCAL VACCINE 50+ YEA RS (1 of 1 - PCV) 2003 ZOSTER VACCINE (1 of 2) 2003 RSV VACCINE (60+ or ) (1 - Risk 60-74 years 1-dose series) 2013 OSTEOPOROSIS SCREENING 2018 INFLUENZA VACCINE (#1) 2024 BREAST CANCER SCREENING 02/13/2025 02/14/20 24, 01/25/2024, [...] Relevant to Health Maintenance Insurance Care Teams Complaint Investigator Relationship Specialty Start Date End Date Sher Ayers MD [address] [facility] 120 [place] [address] PCP - General Family Practice 05/09/18
--- NOTE | 2025-01-25 19:37 | ECG_ITS ---
Test Date: 2025-01-25 19:42:54 Measurements Intervals [place] Rate: 71 P: 56 IN: 217 QRS: -4 QRSD: 110 T: 36 QT: 376 QTc: 409 Interpretive Statements SINUS RHYTHM WITH FIRST DEGREE AV BLOCK INCOMPLETE LEFT BUNDLE BRANCH BLOCK Compared to ECG 12/20/2023 19:26:01 NO SIGNIFICANT CHANGES Electronically Signed On 01-26-2025 15:53:41 CDT by Jose Arango M.D.
[2025-01-25 19:45] VITALS: BP 129/83; PULSE 74; RESP 19; TEMP 36.6; O2SAT 97
[2025-01-25 19:54] LABS: Hematocrit 35.2 % (37.0-47.0); Hemoglobin 11.5 g/dL (12.0-15.0); Immature Granulocyte Percent A 0.3 % (0-0.5); Lymphocytes Absolute Auto 1.24 K/mm3 (0.9-3.2); Mean Corpuscular HGB Conc 32.7 g/dl (32-36); Mean Corpuscular Hemoglobin 27.8 pg (26-34); Mean Corpuscular Volume 85.0 fl (80-100); Nucleated Red Blood Cells Absolute Auto 0.000 K/mm3 (0.0-0.012); Nucleated Red Blood Cells Perc 0.0 % (0.0-0.2); Platelet Count Result 189 k/mm3 (150-375); Red Blood Count 4.14 M/mm3 (4.2-5.4); White Blood Count 5.9 K/mm3 (4.5-10.0)
[2025-01-25 20:04] LABS: Alanine Aminotransferase 17 U/L (6-35); Albumin Level 4.2 g/dL (3.5-5.1); Alkaline Phosphatase 64 U/L (38-126); Anion Gap 5 mmol/L (4-12); Aspartate Amino Transferase 34 U/L (14-36); Bilirubin,Total 0.6 mg/dL (0.2-1.3); Blood Urea Nitrogen 15 mg/dL (7-17); Calcium 9.5 mg/dL (8.4-10.2); Carbon Dioxide 27 mmol/L (22-30); Chloride 103 mmol/L (98-107); Estimated CRCL calculation 31 ml/min; Estimated Glomerular Filt Rate 44; Glucose 92 mg/dL (65-110); Lipase 43 U/L (23-300); Potassium 3.7 mmol/L (3.4-5.0); Sodium 135 mmol/L (137-145); Total Protein 6.9 g/dL (6.3-8.2)
[2025-01-25 20:15] LABS: Troponin I < 0.012 ng/mL (0.000-0.034)
[2025-01-25 20:16] LABS: INR 1.1; Prothrombin Time 13.9 Seconds (11.1-14.7)
[2025-01-25 20:28] LABS: Partial Thromboplastin Time 31.2 Seconds (22.3-36.8)
[2025-01-25 22:50] VITALS: BP 118/77; PULSE 72; RESP 19; O2SAT 97
[2025-01-25 22:52] VITALS: PULSE 75
[2025-01-25 22:53] VITALS: O2SAT 97
--- OUTSIDE RECORDS SUMMARY | 2025-01-25 22:58 | XMS_ITS | Encounter Summary ---
Author Organization [facility] JOSE [facility] Address [address] [place] [address] Care Team Providers Care Automobile Salesman Name Role Phone Sher Ayers MD Primary Care Provider [phone] Encounter Details Date Type Department Care Team (Late Contact Info) Description 09/15/2022 Abstract [facility] Oncology and Hematology - [place] [address] [place] [address] Tho Reagan RN Social History Tobacco Use Types Packs/Day Years Used Date Smoking Tobacco: Never Smokeless Tobacco: Never Alcohol Use Standard Drinks/Week Comments No 0 (1 standard drink = 0.6 oz pur e alcohol) Comments No Sex and Gender Information Value Date Recorded Sex Assigned at Not on file Legal Sex Female 11:44 AM SUPERVISOR CUSTOMER SERVICES Gender Identity Not on file Sexual Orientation Not on file documented as of this encounter Plan of Treatment Upcoming Encounters Date Type Department Care Team (Late Contact Info) Description 02/13/2025 3:30 PM CDT Office Visit [facility] Oncology and Hematology - [place] [address] [place] [address] Reynaldo Frances MD [address] [facility] [address] [place] [address] documented as of this encounter Visit Diagnoses Not on filedocumented in this encounter Care Teams Automobile Salesman Relationship Specialty Start Date End Date Sher Ayers MD [address] [place] [address] PCP - General Family Practice 05/09/18 documented as of this encounter
--- OUTSIDE RECORDS SUMMARY | 2025-01-25 22:58 | XMS_ITS | Clinical Summary ---
Author Organization [facility] [address] Address [address] [place] [address] Care Team Providers Care Corporate Executive Name Role Phone Sher Ayers MD Primary [...] on file Legal Sex Female 2:26 AM CLOUD AUTOMATION TESTER Gender Identity Not on file Sexual Orientation Not on file Last Filed Vital Signs Vital Sign Reading Time Taken Comments Blood Pressure - - Pulse - - Temperature - - Respiratory Rate - - Oxygen Saturation - - Inhaled Oxygen Concentration - - Weight 75.8 kg (167 lb) 07/03/2017 1:05 PM CLOUD AUTOMATION TESTER Height 160 cm (5' 3) 07/03/2017 1:05 PM CLOUD AUTOMATION TESTER Body Mass Index 29.58 07/03/2017 1:05 PM CLOUD AUTOMATION TESTER Plan of Treatment Health Maintenance Due Date [...] Vaccine Completed 12/18/2017, 10/06/2017 Insurance Care Teams Corporate Executive Relationship Specialty Start Date End Date Sher Ayers MD [address] [facility] 120 [place] [address] PCP - General 05/10/13
--- OUTSIDE RECORDS SUMMARY | 2025-01-25 22:58 | XMS_ITS | Clinical Summary ---
Author Organization [facility] Address [address] [place] [address] Care Team Providers Care Mountain Bike Guide Name Role Phone Sher Ayers MD Primary Care Provider [phone] Allergies Active Allergy Reactions Criticality Noted Date [...] daily. Active fluticasone propionate (FLONASE) 50 mcg/spray [place], Suspension nasal inhaler Administer 2 Sprays in [...] on file Legal Sex Female 11:44 AM RN PRIOR AUTHORIZATION Gender Identity Not on file Sexual Orientation [...] [facility] Oncology and Hematology - [place] [address] [facility] [address] [place] [address] Reynaldo Frances MD [address] [facility] [address] [place] [address] Health Maintenance Due Date Last [...] Relevant to Health Maintenance Insurance Care Teams Mountain Bike Guide Relationship Specialty Start Date End Date Sher Ayers MD [address] [facility] [address] [place] [address] PCP - General Family Practice 05/09/18
--- OUTSIDE RECORDS SUMMARY | 2025-01-25 22:58 | XMS_ITS | Clinical Summary ---
Author Organization [facility] Address [address] [place] [address] Care Team Providers Care Network Coordinator Name Role Phone Unavailable Primary Care [...]
--- NOTE | 2025-01-25 22:59 | ECG_ITS ---
Test Date: 2025-01-25 23:09:04 Measurements Intervals [place] Rate: 67 P: 49 SD: 221 QRS: -19 QRSD: 110 T: 31 QT: 405 QTc: 430 Interpretive Statements SINUS RHYTHM WITH FIRST DEGREE AV BLOCK INCOMPLETE LEFT BUNDLE BRANCH BLOCK Compared to ECG 01/25/2025 19:42:54 NO SIGNIFICANT CHANGES Electronically Signed On 01-26-2025 15:58:50 CDT by Jose Arango M.D.
[2025-01-25 23:13] VITALS: BP 118/77; PULSE 72; RESP 14; O2SAT 97
--- NOTE | 2025-01-25 23:20 | ED.CHESTPAIN ---
HPI - Chest Pain General Chief Complaint: Chest Pain Stated Complaint: epigastric and chest pain Time Seen by Provider: 01/25/25 22:44 Source: patient Mode of arrival: ambulatory Limitations: no limitations History of Present Illness HPI narrative: This is a 69 year old female that presents to the ER for epigastric pain. Reports she felt like she has an ulcer. Reports pressure build up in her chest. She was seen at the urgent care and sent to the ER for further evaluation. Denies fever, shortness of breath, vomiting. Related Data Home Medications ?Medication ?Instructions ?Recorded ?Confirmed ?Last Taken ?Type aspirin 81 mg tablet,delayed 81 mg PO DAILY 05/07/19 01/15/25 04/22/21 History release calcium 600 mg (as 2 cap PO DAILY 10/18/23 01/15/25 Unknown History carbonate)-vitamin D3 10 mcg (400 unit) capsule Allergies Allergy/AdvReac Type Severity Reaction Status Date / Time amoxicillin Allergy Severe Rash Verified 01/25/25 22:55 oxytetracycline Allergy Severe Rash Verified 01/25/25 22:55 Penicillins Allergy Severe Rash Verified 01/25/25 22:55 strawberry Allergy Severe Rash Verified 01/25/25 22:55 tetracycline Allergy Severe Rash Verified 01/25/25 22:55 zolpidem Allergy Severe Hallucinati Verified 01/25/25 22:55 ng latex Allergy Itching Verified 01/25/25 22:55 [place] Allergy Severe Headache Uncoded 01/25/25 22:55 TERAMYCIN Allergy Severe Rash Uncoded 01/25/25 22:55 Review of Systems Review of Systems: All systems reviewed & are unremarkable except as noted in HPI and below PMFSH Past Medical History Medical History Chronic neck pain Episodic migraine Hyperlipidemia Hypertension Neck pain Adenocarcinoma, lung Chronic kidney disease, stage 3a Marijuana dependence Financial difficulties Surgical History Surgical History Status post tubal ligation History of cholecystectomy History of D&C Status post hysterectomy Family History Family History Mother Family history of malignant neoplasm Family history of diabetes mellitus in first degree relative Diabetes mellitus Hypertension Family history of primary malignant neoplasm of liver, Onset Age: 73 Family history of lung disease Family history of malignant neoplasm of kidney, Onset Age: 73 Father Family history of lung cancer, Onset Age: 72 Family history of diabetes mellitus in first degree relative Diabetes mellitus Hypertension Grandparent Diabetes mellitus Family history of malignant neoplasm of brain Sibling Hypertension, Onset Age: 63 Patient's brother is Family history of pancreatic cancer Social History Social History Social History: Smoking packs per day: 2 Smoking cigarettes per day: 40.0 Years smoked: 50 Smoking pack-years: 100.00 Smoking status: Former smoker Tobacco type: cigarettes Second hand tobacco smoke exposure: Yes Smoking end date: 09/21/23 Alcohol intake: current Alcohol use details: rarely Substance use: current Substance use type: marijuana Last use: 03/14/2021 Do You Feel Safe in your Home?: Yes Lack of Transportation: No Lack of Food: Never True Current Housing: I Have Housing Concerned About Future Housing: No Difficulty Paying Gas/Electric Bills: No Difficulty Paying for Meds: No Currently Unemployed: YES Education: High School Diploma/GED Difficulty w/ Childcare or Family Care: No Living arrangements: with family Occupation/Education: retired Gender identity (if verbalized by the patient): Female Sexual Orientation (if Verbalized by the Patient): Straight or Heterosexual Spiritual care concerns: No Exam Narrative: GENERAL: Well-appearing, well-nourished, and in no acute distress. HEAD: Normocephalic, atraumatic. EYES: EOMI. CHEST: Clear to auscultation. No respiratory distress. No wheezes rales or rhonchi HEART: Regular rate and rhythm. No murmur heard. Normal peripheral pulses. ABDOMEN: Soft, nondistended, normal active bowel sounds. Tender to palpation in the epigastrium, without guarding EXTREMITIES: Normal range of motion. No edema. SKIN: Warm, dry, no rash. NEURO: No focal deficits. Alert and oriented x3. PSYCH: Normal mood and affect Course Course Emergency Course: Patient updated on her workup and agrees with plan of care Vital Signs Vital signs: Vital Signs Temperature 97.8 F 01/25/25 19:45 Pulse Rate 74 01/25/25 19:45 Respiratory Rate 19 01/25/25 19:45 Blood Pressure 129/83 01/25/25 19:45 Pulse Oximetry 97 01/25/25 19:45 Oxygen Delivery Room Air 01/25/25 19:45 Temperature 97.8 F 01/25/25 19:45 Pulse Rate 72 01/25/25 23:13 Respiratory Rate 14 01/25/25 23:13 Blood Pressure 118/77 01/25/25 23:13 Pulse Oximetry 97 01/25/25 23:13 Oxygen Delivery Room Air 01/25/25 22:53 MDM - Chest Pain MDM Narrative Medical decision making narrative: Patient presents to the ER for epigastric abdominal pain with radiation to back. She is afebrile and nontoxic appearing. Her vitals are stable. Cbc without leukocytosis. Metabolic panel without concerning findings. EKG without acute ST changes, her baseline and 3 hour troponin are negative. CT chest/abdomen/pelvis obtained for further evaluation. Shows likely progression of her lung cancer with invasion into the chest wall, pathologic rib fracture. Patient updated on her workup and agrees with plan of care. Reports she has follow-up with her oncologist next week. She was given warnings to return to the ER Differential Diagnosis Differential diagnosis: Likely stable angina, costochondritis and other (GERD, gastritis, esophagitis, pathologic fracture, lung cancer, aortic dissection) Lab Data Attestation: I reviewed the patient's lab results. 01/25/25 19:48 01/25/25 19:48 Labs: Lab Results 01/25/25 01/25/25 Range/Units 19:48 23:04 WBC 5.9 (4.5-10.0) K/mm3 RBC 4.14 L (4.2-5.4) M/mm3 Hgb 11.5 L (12.0-15.0) g/dL Hct 35.2 L (37.0-47.0) % MCV 85.0 (80-100) fl MCH 27.8 (26-34) pg MCHC 32.7 (32-36) g/dl RDW 13.1 (11.5-14.5) % Plt Count 189 (150-375) k/mm3 MPV 10.1 (7.4-10.4) fl Immature Gran % (Auto) 0.3 (0-0.5) % Neut % (Auto) 68.2 (45.5-73.1) % Lymph % (Auto) 21.0 (18.3-44.2) % [place] % (Auto) 9.0 H (2.6-8.5) % Eos % (Auto) 1.0 (0-4.4) % Baso % (Auto) 0.5 (0.2-1.2) % Lymph # (Auto) 1.24 (0.9-3.2) K/mm3 [place] # (Auto) 0.5 (0.1-0.6) K/mm3 Eos # (Auto) 0.1 (0-0.3) K/mm3 Baso # (Auto) 0.0 (0.0-0.1) K/mm3 Abs Immat Gran (auto) 0.02 (0.00-0.031) K/mm3 Absolute Neuts (auto) 4.0 (1.3-6.7) K/mm3 Absolute Nucleated RBC 0.000 (0.0-0.012) K/mm3 Nucleated RBC % 0.0 (0.0-0.2) % PT 13.9 (11.1-14.7) Seconds INR 1.1 APTT 31.2 (22.3-36.8) Seconds Sodium 135 L (137-145) mmol/L Potassium 3.7 (3.4-5.0) mmol/L Chloride 103 (98-107) mmol/L Carbon Dioxide 27 (22-30) mmol/L Anion Gap 5 (4-12) mmol/L BUN 15 (7-17) mg/dL Creatinine 1.21 H (0.7-1.0) mg/dL Estim Creat Clear Calc 31 ml/min Estimated GFR 44 L (59 - ) Glucose 92 (65-110) mg/dL Calcium 9.5 (8.4-10.2) mg/dL Total Bilirubin 0.6 (0.2-1.3) mg/dL AST 34 (14-36) U/L ALT 17 (6-35) U/L Alkaline Phosphatase 64 (38-126) U/L Troponin I < 0.012 < 0.012 (0.000-0.034) ng/mL Total Protein 6.9 (6.3-8.2) g/dL Albumin 4.2 (3.5-5.1) g/dL Lipase 43 (23-300) U/L Imaging Data Radiologist's impression: CTA chest/abdomen/pelvis: Interval increase in size of an ill-defined pleural based density at the level of the right lateral 5th rib now with fragmented bony destruction consistent with direct invasion with a pathologic fracture of the rib. Slight increase in adjacent right upper lobe infiltrate and thickening of the adjacent major fissure. Unchanged right apical linear nodular densities. Interval increase in size and number of scattered slightly ill-defined nodular densities. Unchanged right lower lobe cavitary lesion. Diffuse emphysematous changes. No pneumonia, pleural effusion or pneumothorax. No acute intra-abdominal abnormality ECG Data EKG #1: ECG completion date: 01/25/25 EKG Interpretation: normal rate, sinus rhythm, no ST changes and normal QT Critical Care Time Critical Care Time Critical Care Time: No Discharge Plan Discharge Clinical Impression: Pathologic rib fracture, Lung cancer, Acute epigastric pain Patient Disposition: Home Condition: Stable Instructions: Rib Fracture (ED), Epigastric Pain (ED) Additional Instructions: Return to the emergency department if you experience fever, chest pain, shortness of breath, abdominal pain with nausea and vomiting, or any other symptoms that are concerning to you. Pain medication as needed. Avoid anti-inflammatories. Avoid spicy/acidic foods and eating just before bedtime. Avoid alcohol. Continue pantoprazole as prescribed Follow up with your oncologist Patient Language: Belarusian Prescriptions: New hydrocodone-acetaminophen 5-325 mg tablet 1 tablet PO Q6H PRN (Reason: pain) Qty: 20 0RF No Action tramadol 50 mg tablet 50 mg PO Q8H PRN (Reason: pain) Qty: 30 0RF aspirin 81 mg tablet,delayed release (DR/EC) 81 mg PO DAILY Ubrelvy 100 mg tablet 100 mg PO ONCE PRN (Reason: migraine headache) Qty: 16 6RF Rx Instructions: as a single dose; may repeat once in >=2 hours after first dose if needed tizanidine 4 mg tablet 4 mg PO QHS PRN (Reason: muscle spasticity) Qty: 60 3RF calcium carbonate-vitamin D3 [Calcium 600 with Vitamin D3] 600 mg-10 mcg (400 unit) Capsule 2 cap PO DAILY acetaminophen 500 mg tablet 1,000 mg PO TID PRN (Reason: shelly) 7 Days Qty: 90 0RF ibuprofen 800 mg tablet 800 mg PO TID PRN (Reason: pain) 7 Days Qty: 90 0RF albuterol sulfate 2.5 mg /3 mL (0.083 %) solution for nebulization See Rx Instructions .ROUTE .COMPLEX Qty: 1050 3RF Dose Instruction: USE 1 VIAL IN NEBULIZER 4 TIMES DAILY NEEDED FOR SHORTNESS OF BREATH AND FOR WHEEZING Rx Instructions: USE 1 VIAL IN NEBULIZER 4 TIMES DAILY NEEDED FOR SHORTNESS OF BREATH AND FOR WHEEZING trazodone 50 mg tablet See Rx Instructions .ROUTE .COMPLEX Qty: 90 2RF Dose Instruction: TAKE 1 TABLET BY MOUTH ONCE DAILY IN THE EVENING Rx Instructions: TAKE 1-2 TABLETs BY MOUTH ONCE DAILY IN THE EVENING pantoprazole 40 mg tablet,delayed release (DR/EC) See Rx Instructions .ROUTE .COMPLEX Qty: 90 3RF Dose Instruction: TAKE 1 TABLET BY MOUTH ONCE DAILY IN THE MORNING Rx Instructions: TAKE 1 TABLET BY MOUTH ONCE DAILY IN THE MORNING amlodipine 5 mg tablet 5 mg PO DAILY Qty: 90 3RF pravastatin 20 mg tablet 20 mg PO DAILY Qty: 90 2RF fluticasone propionate 50 mcg/actuation spray,suspension 2 spray NASAL DAILY Qty: 54.6 3RF bupropion HCl 150 mg tablet sustained-release 12 hr See Rx Instructions .ROUTE .COMPLEX Qty: 180 2RF Dose Instruction: Take 1 tablet by mouth twice daily Rx Instructions: Take 1 tablet by mouth twice daily Daliresp 500 mcg tablet 500 mcg PO DAILY Qty: 90 2RF Trelegy Ellipta 100-62.5-25 mcg blister with device See Rx Instructions .ROUTE .COMPLEX Qty: 180 2RF Dose Instruction: INHALE 1 PUFF ONCE DAILY Rx Instructions: INHALE 1 PUFF ONCE DAILY lisinopril 20 mg tablet See Rx Instructions .ROUTE .COMPLEX Qty: 90 2RF Dose Instruction: Take 1 tablet by mouth once daily Rx Instructions: Take 1 tablet by mouth once daily albuterol sulfate 90 mcg/actuation HFA aerosol inhaler See Rx Instructions .ROUTE .COMPLEX Qty: 9 5RF Dose Instruction: INHALE 1 PUFF BY MOUTH EVERY 4 HOURS NEEDED FOR SHORTNESS OF BREATH AND FOR WHEEZING Rx Instructions: INHALE 2 PUFF BY MOUTH EVERY 4 HOURS NEEDED FOR SHORTNESS OF BREATH AND FOR WHEEZING ondansetron 4 mg tablet,disintegrating 4 mg PO Q8H PRN (Reason: nausea and vomiting) Qty: 60 2RF fenofibrate nanocrystallized 145 mg tablet See Rx Instructions .ROUTE .COMPLEX Qty: 90 2RF Dose Instruction: Take 1 tablet by mouth once daily Rx Instructions: Take 1 tablet by mouth once daily Follow-up/Referrals: Reynaldo Frances MD [Physician, Hematology] Sher Ayers MD [Primary Care Provider, Family Practice] Quality HEART score for chest pain patients History: slightly suspicious ECG: normal Age: > or = to 65 years Risk factors: 1 or 2 risk factors Troponin: < or = to 1x normal limit Heart score: 3
[2025-01-25 23:31] VITALS: BP 120/52; PULSE 79; RESP 19; O2SAT 94
[2025-01-25 23:38] LABS: Troponin I < 0.012 ng/mL (0.000-0.034)
[2025-01-25] MEDS: ONDANSETRON INJ 4 MG/2 ML VIAL IV PUSH (23:59)
[2025-01-25] MEDS: FAMOTIDINE 20 MG/2 ML VIAL IV PUSH (23:59)
[2025-01-25] MEDS: MORPHINE SULFATE (*CRX) 4 MG/ML INJ IV PUSH (23:59)
[2025-01-26 00:01] VITALS: BP 112/51; PULSE 68; RESP 23; O2SAT 99
[2025-01-26 00:31] VITALS: BP 106/61; O2SAT 90
[2025-01-26 01:32] VITALS: BP 136/75; PULSE 78; RESP 15; O2SAT 95
[2025-01-26 02:16] VITALS: BP 139/75; PULSE 75; RESP 16; O2SAT 95
== END 2025-01-26 01:43 | disposition home or self-care (01) ==
PROVIDERS: Emergency Medicine; Emergency Provider Physician Assistant; PCP Family Medicine
DX: M84.48XA Pathological fracture, other site, initial encounter for fracture (principal); C34.91 Malignant neoplasm of unspecified part of right bronchus or lung; R10.13 Epigastric pain; E78.5 Hyperlipidemia, unspecified; I12.9 Hypertensive chronic kidney disease with stage 1 through stage 4 chronic kidney disease, or unspecified chronic kidney disease; N18.31 Chronic kidney disease, stage 3a; Z90.49 Acquired absence of other specified parts of digestive tract; Z90.710 Acquired absence of both cervix and uterus; Z87.891 Personal history of nicotine dependence; I44.7 Left bundle-branch block, unspecified; I44.0 Atrioventricular block, first degree
CPT/HCPCS: 36415; 71046; 71275; 74174; 80053; 83690; 84484; 85025; 85610; 85730; 93005; 96374; 96375; 99284; J2270; J2405; Q9967

== ENCOUNTER 2025-02-07 06:34 | Outpatient (CLI) | payer MEDICARE, SELFPAY ==
--- NOTE | ~2025-02-07 | CT_ITS ---
EXAMINATION: CT diagnostic chest w con DATE: 02/07/2025 07:23 INDICATION: MALIGNANT NEOPLASM OF RIGHT LUNG TECHNIQUE: Computed tomography (CT) of the chest was performed without intravenous contrast. Additional 3D reconstructions utilizing coronal maximum intensity projection (MIP) were performed. Automated exposure control and iterative reconstruction technique were employed. The dose-length product was 14 4.59 mGy-cm. COMPARISON: 01/25/2025 and 02/14/2024 FINDINGS: Mild 2 moderate upper lung predominant emphysema with mild biapical pleural- parenchymal scarring. No significant interval change in 4 small right upper lobe nodules, the largest and most cephalad measuring 8 x 5 mm which is unchanged since 02/14/2024. Subpleural groundglass opacity and linear discoid atelectasis near the junction of the right major and minor fissures at the site of an earlier pulmonary nodule, biopsy-proven lung cancer, which is no longer visible likely related to interval radiation treatment. There is a likely pathologic fracture of the immediately overlying the lateral right fifth rib. No change since the most recent study in a 1.7 x 1.2 cm cavitary nodule with irregular mildly thickened wall which has increased in size from 1.5 x 0[address] dated 09/15/2023. Small calcified left lower lobe nodule along with calcified left hilar lymph nodes consistent with old granulomatous disease. No pulmonary edema or pleural effusion. Heart size is normal. No pericardial effusion. Thoracic aorta is normal in caliber with no dissection. No pathologically enlarged thoracic lymphadenopathy. There are couple likely benign subcentimeter right thyroid nodules. Cholecystectomy clips the gallbladder fossa. Mild to moderate thoracic spondylosis with chronic mild anterior wedging at T6, T7 and T8. IMPRESSION: 1. Mild to moderate emphysema with no interval change in a few subcentimeter nodule right upper lobe and a 1.7 x 1.2 cm cavitary nodule in the right lower lobe which are likely infectious/inflammatory in etiology but would recommend continued follow-up with six-month low-dose noncontrast chest CT. 2. Small region of likely residual scarring at the site of a previously biopsied right upper lobe pleural-based nodule consistent with treated malignancy. Immediately adjacent nondisplaced lateral right sixth rib fracture which could be pathologic related to radiation treatment. Reviewed, dictated and finalized at location A. IMPRESSION: 1. Mild to moderate emphysema with no interval change in a few subcentimeter no dule right upper lobe and a 1.7 x 1.2 cm cavitary nodule in the right lower lob e which are likely infectious/inflammatory in etiology but would recommend cont inued follow-up with six-month low-dose noncontrast chest CT. 2. Small region of likely residual scarring at the site of a previously biopsie d right upper lobe pleural-based nodule consistent with treated malignancy. Imm ediately adjacent nondisplaced lateral right sixth rib fracture which could be pathologic related to radiation treatment.
== END 2025-02-07 06:35 | disposition home or self-care (01) ==
PROVIDERS: PCP Family Medicine; Visit Provider Internal Medicine Hematology & Oncology
DX: C34.91 Malignant neoplasm of unspecified part of right bronchus or lung (principal); J43.9 Emphysema, unspecified
CPT/HCPCS: 71260; Q9967

== ENCOUNTER 2025-02-13 14:35 | Outpatient (CLI) | payer MEDICARE, SELFPAY ==
--- OUTSIDE RECORDS SUMMARY | 2010-02-16 07:30 | XMS_ITS | Continuity of Care Document ---
Author Organization [facility] Address [address] [place] [address] Phone Care Team Providers Care Ic Engineer Name Role Phone Castañeda OD, Mike Unavailable [...] Diagnoses Date Provider Providers Copied on Encounter [facility], [address] [place] [address] [address], [place], [place], [address], [place] tel:[phone] [facility] No Information 8-201 0 Castañeda OD Mike. [address] [place] , [address], [place], [address], [place]. tel:[phone] Office/outpat ient Visit, Est [facility], [address], [place], [place], [address], tel:[phone] SEC [facility] No Information Jean Carlos-0 4-201 0 Castañeda OD Mike. [address] [facility] , [address], [place], [facility], [place]. tel:[phone] [facility], [address], [place], [place], [address], [place] tel:[phone] [facility] No Information September-2 7-201 0 Castañeda OD Mike. [address] , [address], [place], [facility], [place]. tel:[phone] [facility], [address], [place], [place], [address], [place] tel:[phone] SEC [facility] [place] No Information Sep-0 2-200 9 Castañeda OD Mike. [facility] , [address], [place], [facility], [place]. tel:[phone] Referring Provider: Rogelio Adames, [address] [place], [place] [address]ate Center [address], [place], [facility]. tel:[phone] [facility], [address] [place] [address] [address], [place], [place], [address], [place] tel:[phone] [facility] [place] No Information 9-200 9 Jack Mercado. [address] [place], [place] [address]ate Center , [address], [place], [facility], [place]. tel:[phone] [facility], [address] [place] [address] [address], [place], [place], [address], [place] tel:[phone] [facility] No Information Dec-1 8-200 9 Jack Mercado. [facility] , [address], [place], [facility], [place]. tel:[phone] [facility], [address], [place], [place], [address], [place] tel:[phone] SEC [place] [facility] No Information Aug-1 0-200 9 Doisy Edward. [address] , [address], [place], [address], [place]. tel:[phone] Referring Provider: Mike Adames, [address], [place], [address]. tel:[phone] [facility], [address] [place] [address] [address], [place], [place], [address], [place] tel:[phone] SEC [facility] No Information 200 9 Doisy Edward. [facility] , [address], [place], [facility], [place]. tel:[phone] Referring Provider: Mike Adames, [address] [facility] [address], [place], [facility]. tel:[phone] [facility], [address] [place] [address] [address], [place], [place], [address], [place] tel:[phone] [facility] No Information 200 9 Doisy Edward. [facility] , [address], [place], [address], [place]. tel:[phone] Referring Provider: Mike Adames, [facility] [address], [place], [address]. tel:[phone] Office/outpat ient Visit, [facility], [address] [place] [address] [address], [place], [place], [address], [place] tel:[phone] [facility] Center No Information 200 9 Doisy Edward. [facility] [address], [place], [facility], [place]. tel:[phone] Referring Provider: Mike Adames, [facility] [address], [place], [address]. tel:[phone] [facility], [address], [place], [place], [address], [place] tel:[phone] [facility] [place] No Information 1-200 9 Castañeda OD Mike. [address] , [address], [place], [address], [place]. tel:[phone] Family History Family Member Type Diagnosis Age At Onset No Information Payers Payer name Insurance type Covered democrat ID Authoriza tion(s) No Information Social History [...]
[2025-02-13 15:09] LABS: Hematocrit 35.3 % (37.0-47.0); Hemoglobin 11.6 g/dL (12.0-15.0); Immature Granulocyte Percent A 0.2 % (0-0.5); Lymphocytes Absolute Auto 0.89 K/mm3 (0.9-3.2); Mean Corpuscular HGB Conc 32.9 g/dl (32-36); Mean Corpuscular Hemoglobin 28.2 pg (26-34); Mean Corpuscular Volume 85.7 fl (80-100); Nucleated Red Blood Cells Absolute Auto 0.000 K/mm3 (0.0-0.012); Nucleated Red Blood Cells Perc 0.0 % (0.0-0.2); Platelet Count Result 209 k/mm3 (150-375); Red Blood Count 4.12 M/mm3 (4.2-5.4); White Blood Count 4.6 K/mm3 (4.5-10.0)
[2025-02-13 15:12] LABS: Blood Urea Nitrogen 16 mg/dL (8-26); Carbon Dioxide 27 mmol/L (22-30); Chloride 101 mmol/L (98-109); Estimated Glomerular Filt Rate 37; Glucose 96 mg/dL (70-105); Ionized Calcium (POC) 1.27 mmol/L (1.11-1.31); Potassium 3.9 mmol/L (3.5-4.9); Sodium 139 mmol/L (138-146)
--- OUTSIDE RECORDS SUMMARY | 2025-02-13 15:30 | XMS_ITS | Encounter Summary ---
Author Organization [facility] Address [address] [place] [address] Care Team Providers Care Loss Control Engineer Name Role Phone Sher Ayers MD Primary Care Provider [phone] Reason for Referral * CT Scan (Routine) - Open Specialty Diagnoses / Procedures Referred By Contac t Referred To Contact Diagnoses Malignant neoplasm of right lung, unspecified part of lung (CMS/HCC) Procedures CT CHEST W CONTRAST Reynaldo Frances MD [address] [place] [phone] Phone: tel: fax: [place] [phone] Referral ID Status Reason Start Date Expiration Date V isits Requested Visits Authorized [id number] Open STL CTS 02/13/2025 03/16/2026 1 1 Reason for Visit * Reason Comments Cancer Follow Up Encounter Details Date Type Department Care Team (Late st Contact Info) Description 02/13/2025 3:30 PM CDT Office Visit [facility] Oncology and Hematology [place] [id number] [facility] [address] [address] Reynaldo Frances MD [address] [place] [id number] Malignant neoplasm of right lung, unspecified part of lung (CMS/HCC) (Primary Dx) Social History Tobacco Use Types Packs/Day Years Used Date Smoking Tobacco: Former Cigarettes 0.3 50 0 09/20/1973 - 09/21/2023 Smokeless Tobacco: Never Tobacco Cessation:Counseling Given: Not Answered Alcohol Use Standard Drinks/Week Comments No 0 (1 standard drink = 0.6 oz pur e alcohol) Comments No Sex and Gender Information Value Date Recorded Sex Assigned at Female 02/06/2025 9:04 AM CDT Legal Sex Female 11:44 AM STRATEGY INTERN Gender Identity Female 02/06/2025 9:04 AM CDT Sexual Orientation Straight 02/06/2025 9: 04 AM CDT documented as of this encounter Last Filed Vital Signs Vital Sign Reading Time Taken Comments Blood Pressure 139/71 02/13/2025 3:14 PM CDT Pulse 79 02/13/2025 3:14 PM CDT Temperature 36.2 C (97.2 F) 02/13/2025 3:14 PM CDT Respiratory Rate 16 02/13/2025 3:14 PM CDT Oxygen Saturation 94% 02/13/2025 3:14 PM CDT Inhaled Oxygen Concentration - - Weight 64.2 kg (141 lb 9.6 oz) 02/13/2025 3:14 P M CDT Height - - Body Mass Index 24.69 11/22/2023 2:05 PM CDT documented in this encounter Progress Notes * Reynaldo Frances MD - 02/13/2025 3:42 PM CDT HEMATOLOGY / ONCOLOGY PROGRESS NOTE Patient Identification: Name: Megan Lyons Age: 69 y.o. Sex: female : 1955 DIAGNOSIS T1 [...] office for follow-up visit after the CT scan. She has lost 15 pound weight as she has been having some nausea and get full quickly. She is scheduled to have EGD and colonoscopy next month. Denies any other new complaints. Review of system Constitutional: Patient did not mention fevers, sweats, 15 pound weight loss with mild tiredness and fatigue HEENT: Patient did not mention sinus congestion, hearing or vision problems Respiratory: Denies any shortness of breath or chest pain. Complain of occasional cough Cardiovascular: Patient did not mention chest pain, exertional chest pressure/discomfort, nausea, syncope, some dyspnea on exertion GI: Patient did not [...] platelet 1 72,000 creatinine 1.2 GFR 44 Labs from June 06 showed hemoglobin 11 creatinine 1.5 GFR 34 WBC 6.6 Labs from October 08 showed WBC 5.8 hemoglobin 12.5 platelet 204,000 Labs from February 13 showed hemoglobin 11.6 creatinine 1.4 GFR 37 Assessment: Plan: Patient Active Problem List Diagnosis [...] lung mass January 13, 2024. CT scan chest done on February 07 showed mild emphysema with stable few subcentimeter nodule in the right upper lobe 1.7 x 1.2 cm likely infection/inflammation. There was some residual scarring at the previously biopsied right upper lobe pulmonary nodule likely treated malignancy. Patient is asymptomatic and will repeat CT scan chest in 4 months. Anemia from the CKD. Stable. Weight loss along with nausea. Patient has a GI appointment on January 10 for EGD and colonoscopy. Hypertension. Stable. Type 2 diabetes. This has been managed by the primary care physician. Follow-up in 4 months 02/13/2025 Reynaldo Frances MD documented in this encounter Plan of Treatment Upcoming Encounters Date Type Department Care Team (Late st Contact Info) Description 06/17/2025 3:45 PM STRATEGY INTERN Office Visit [facility] Oncology and Hematology [facility] [address] [facility] [address] [place] [address] Reynaldo Frances MD [address] [facility] [address] [place] [address] Scheduled Orders Name Type Priority Associated Diagnoses Orde r Schedule CBC WITH DIFFERENTIAL Lab Stat Malignant neoplasm of right lung, unspecified part of lung (CMS/HCC) Expected: 06/05/2025, Expires: 02/13/2026 COMPREHENSIVE METABOLIC PANEL Lab Stat Malignant neoplasm of right lung, unspecified part of lung (CMS/HCC) Expected: 06/05/2025, Expires: 02/13/2026 CT CHEST W CONTRAST Imaging Routine Malignant neoplasm of right lung, unspecified part of lung (CMS/HCC) Expected: 06/15/2025, Expires: 02/13/2026 documented as of this encounter Visit Diagnoses Diagnosis Malignant neoplasm of right lung, unspecified part of lung (CMS/HCC)- Primary documented in this encounter Care Teams Loss Control Engineer Relationship Specialty Start Date End Date Sher Ayers MD [address] [facility] [address] [place] [id number] PCP - General Family Practice 05/09/18 documented as of this encounter
[2025-02-13 16:29] LABS: Alanine Aminotransferase 15 U/L (6-35); Albumin Level 4.2 g/dL (3.5-5.1); Alkaline Phosphatase 57 U/L (38-126); Anion Gap 4 mmol/L (4-12); Aspartate Amino Transferase 45 U/L (14-36); Bilirubin,Total 0.5 mg/dL (0.2-1.3); Blood Urea Nitrogen 17 mg/dL (7-17); Calcium 9.5 mg/dL (8.4-10.2); Carbon Dioxide 28 mmol/L (22-30); Chloride 102 mmol/L (98-107); Estimated Glomerular Filt Rate 41; Glucose 98 mg/dL (65-110); Potassium 3.8 mmol/L (3.4-5.0); Sodium 134 mmol/L (137-145); Total Protein 6.9 g/dL (6.3-8.2)
--- OUTSIDE RECORDS SUMMARY | 2025-02-13 17:12 | XMS_ITS | Encounter Summary ---
Author Organization [facility] [employer] [facility] Address [address] [place] [address] Care Team Providers Care Poultry Farm Worker Name Role Phone Sher Ayers MD Primary Care Provider [phone] Encounter Details Date Type Department Care Team (Late Contact Info) Description 02/13/[address] [facility] Oncology [facility] Hematology [facility] [address] [place] [address] Reynaldo Frances MD [address] [place] [address] Social History Tobacco Use Types Packs/Day Years Used Date Smoking Tobacco: Former Cigarettes 0.3 50 0 09/20/1973 - 09/21/2023 Smokeless Tobacco: Never Alcohol Use Standard Drinks/Week Comments No 0 (1 standard drink = 0.6 oz pur e alcohol) Comments No Sex and Gender Information Value Date Recorded Sex Assigned at Female 02/06/2025 9:04 AM CDT Legal Sex Female 11:44 AM NETWORK CONTRACTOR Gender Identity Female 02/06/2025 9:04 AM CDT Sexual Orientation Straight 02/06/2025 9: 04 AM CDT documented as of this encounter Plan of Treatment Upcoming Encounters Date Type Department Care Team (Late st Contact Info) Description 06/17/2025 3:45 PM NETWORK CONTRACTOR Office Visit [facility] Oncology [facility] Hematology [facility] [address] [place] [address] Reynaldo Frances MD [address] [facility] [address] [place] [phone] documented as of this encounter Procedures Procedure Name Priority Date/Time Associated Diagnosis Comments CT CHEST W CONTRAST Routine 02/07/2025 9:53 AM CDT documented in this encounter Results * CT CHEST W CONTRAST (02/07/2025 9:53 AM CDT) Anatomical Region Laterality Modality Chest Computed Tomogra phy Reynaldo Frances MD CT ORDERABLES Final Result documented in this encounter Visit Diagnoses Not on filedocumented in this encounter Care Teams Poultry Farm Worker Relationship Specialty Start Date End Date Sher Ayers MD [address] [facility] [address] [place] [address] PCP - General Family Practice 05/09/18 documented as of this encounter
--- OUTSIDE RECORDS SUMMARY | 2025-02-13 17:12 | XMS_ITS | Clinical Summary ---
Author Organization [facility] Address [address] [place] [address] Care Team Providers Care Mva Reactor Operator Name Role Phone Unavailable Primary Care Provider Unavailabl e Social History Tobacco Use Types Packs/Day Years Used Date Smoking Tobacco: Never Assessed Comments Unknown Sex and Gender Information Value Date Recorded Sex Assigned at Not on file Legal Sex Female 2:41 PM HEDIS REGISTERED NURSE RN Gender Identity Not on file Sexual Orientation Not on file Plan of Treatment Health Maintenance Due Date Last Done Comments Hepatitis C Virus (HCV) Screening 1955 Cologuard 1998 Colonoscopy 1998 Colorectal Cancer Screening 1998 Immunochemical Fecal Occult Blood 1998 SARS-COV-2 Immunization ( - 2023- season) 2024 Pneumococcal Immunization (50+ years) (3 of 3 - PCV20 or PCV21) 01/23/2024 01/22/2019, 01/20/2017, 02/12/2015 Influenza Immunization (#1) 01/20/202501/20, 01/20/2017, 01/28/2016, Additional history exists Respiratory Syncytial Virus (RSV) Immunization (Adult) (1 - 1-dose 75+ series) 2028 DTaP/Tdap/Td Immunization Discontinued 12/18/2017, TdaP Immunization Completed 12/18/2017, 02/12/2015 Zoster Immunization Completed 12/18/2017, 8 Pneumococcal Immunization Combined Discontinued 01/22/2019, 01/20/2017, 02/12/2015 Hepatitis B Immunization Aged Out No longer eligible based on patient's age to complete this topic Human Papillomavirus (HPV) Immunization Aged Out No longer eligible based on patient's age to complete this topic Meningococcal Immunization (ACWY) Aged Out No longer eligible based on patient's age to complete this topic Rotavirus Immunization Aged Out No lo nger eligible based on patient's age to complete this topic
--- OUTSIDE RECORDS SUMMARY | 2025-02-13 17:12 | XMS_ITS | Clinical Summary ---
Author Organization [facility] Address [address] [address] Care Team Providers Care Contact Lens Fitter Name Role Phone Shre Ayers MD Primary Care Provider [phone] Allergies Active Allergy Reactions Criticality Noted Date [...] daily. Active fluticasone propionate (FLONASE) 50 mcg/spray [place], Suspension nasal inhaler Administer 2 Sprays in [...] mg by mouth daily at bedtime. Active cholestyramine, with sugar, (QUESTRAN) 4 gram Powder in Packet MIX AND DISSOLVE ONE PACKET AND TAKE BY MOUTH TWICE A DAY WITH MEAL. AVOID OTHER MEDICATION WITHIN 1 HOUR BEFORE OR 4-6 HOURS AFTER DOSE 02/01/20 Active Active Problems Problem Noted Date Diagnosed Date Lung nodule 10/05/2021 Abnormal weight loss 10/05/2021 Cyst of right breast 06/12/2018 Abnormal mammogram of right breast 05/31/2018 Abnormal ultrasound of breast 05/31/2018 Aspirin long-term use 05/31/2018 Encounters Date Type Department Care Team Description 02/13/2025 3:30 PM CDT Office Visit [facility] Oncology and Hematology [facility] [address] [place] [address] Reynaldo Frances MD Malignant neoplasm of right lung, unspecified part of lung (CMS/HCC) (Primary Dx) 02/13/2025 Orders Only [facility] Oncology and Hematology [facility] [address] [place] [address] Reynaldo Frances MD 02/11/2025 External Device Data STL ABSTRACTION Provider, Abstract 02/04/2025 External Device Data STL ABSTRACTION Provider, Abstract 12/04/2024 External Device Data STL ABSTRACTION Provider, [...] AM CDT Legal Sex Female 11:44 AM SYSTEMS COORDINATOR Gender Identity Female 02/06/2025 9:04 AM CDT Sexual Orientation Straight 02/06/2025 9: 04 AM CDT Last Filed Vital Signs Vital Sign Reading [...] oz) 02/13/2025 3:14 P M CDT Height 161.3 cm (5' 3.5) 11/22/2023 2:05 PM CDT Body Mass Index 24.69 11/22/2023 2:05 PM CDT Plan of Treatment Upcoming Encounters Date Type Department Care Team (Late st Contact Info) Description 06/17/2025 3:45 PM SYSTEMS COORDINATOR Office Visit [facility] Oncology and Hematology - [place] [address] [facility] [address] [place] [address] Reynaldo Frances MD [address] [facility] [address] [place] [address] Health Maintenance Due Date Last [...] years 1-dose series) 2013 OSTEOPOROSIS SCREENING 2018 Medicare Advantage ([place]) Preventative Visit/Annual Wellness Visit 05/22/2024 INFLUENZA VACCINE (#1) 2024 BREAST CANCER SCREENING 02/13/2025 02/14/20 24, 01/25/2024, 05/07/2018, Additional history exists Procedures Procedure Name Priority Date/Time Associated Diagnosis Comments CT CHEST W CONTRAST Routine 02/07/2025 9:53 AM CDT MAMMO DIAGNOSTIC UNI LEFT W OR WO CAD Routine 02/14/2024 8:27 AM CDT from Last 3 Months or Most Recently Relevant to Health Maintenance Results * CT CHEST W CONTRAST (02/07/2025 9:53 AM CDT) Anatomical Region Laterality Modality Chest Computed Tomogra phy us Reynaldo Frances MD CT ORDERABLES Final Result * MAMMO DIAGNOSTIC UNI LEFT W OR WO CAD (02/14/2024 8:27 AM CDT) Anatomical Region Laterality Modality Breast Left Mammography us Reynaldo Frances MD MAMMO ORDERABLES Final Result from Last 3 Months or Most Recently Relevant to Health Maintenance Insurance [facility] [id number] [facility] [id number] Care Teams Contact Lens Fitter Relationship Specialty Start Date End Date Sher Ayers MD [address] [place] [address] PCP - General Family Practice 05/09/18
--- OUTSIDE RECORDS SUMMARY | 2025-02-13 17:13 | XMS_ITS | Clinical Summary ---
Author Organization [facility] [address] Address [address] [place] [address] Care Team Providers Care Finishing Department Supervisor Name Role Phone Sher Ayers MD [...] on file Legal Sex Female 2:26 AM COVER REMOVER Gender Identity Not on file Sexual Orientation Not on file Last Filed Vital Signs Vital Sign Reading Time Taken Comments Blood Pressure - - Pulse - - Temperature - - Respiratory Rate - - Oxygen Saturation - - Inhaled Oxygen Concentration - - Weight 75.8 kg (167 lb) 07/03/2017 1:05 PM COVER REMOVER Height 160 cm (5' 3) 07/03/2017 1:05 PM COVER REMOVER Body Mass Index 29.58 07/03/2017 1:05 PM COVER REMOVER Plan of Treatment Health Maintenance Due Date Last Done Comments Breast Cancer Screening-Mammogram 1955 Colon Cancer Screening-Colonoscopy 1953 Depression Screening 1953 Fall Risk Assessment 1953 Hepatitis C Screening 1953 Osteoporosis Screening-Bone Density Scan 1953 Hepatitis B Screening 1971 Well Visit 65+ 2018 Pneumococcal vaccine 65+ (3 of 3 - PCV20 or PCV21) 01/23/2024 01/22/2019, 01/20/2017, 02/12/2015 Covid-19 Vaccine (2024-2 6 season) 2025 05/27/2021, 10/22/2020, 09/24/2020 Influenza Vaccine (#1) 2025 , 01/31/2018, 01/20/2017, Additional history exists DTaP/Tdap/Td Vaccine (3 - Td or Tdap) 12/19/2027 12/18/2017, 02/12/2015 Zoster Vaccine Completed 12/18/2017, 10/06/2017 Insurance Care Teams Finishing Department Supervisor Relationship Specialty Start Date End Date Sher Ayers MD [address] [facility] [address] [place] [address] PCP - General 05/10/13
--- OUTSIDE RECORDS SUMMARY | 2025-02-13 17:13 | XMS_ITS | Encounter Summary ---
Author Organization [facility] [employer] [facility] Address [address] [place] [address] Care Team Providers Care Peer Support Specialist Name Role Phone Sher Ayers MD Primary Care Provider [phone] Encounter Details Date Type Department Care Team (Late Contact Info) Description 09/15/2022 Abstract [facility] Oncology and Hematology - [place] [address] [place] [address] Tho Reagan, RN Social History Tobacco Use Types Packs/Day Years Used Date Smoking Tobacco: Never Smokeless Tobacco: Never Alcohol Use Standard Drinks/Week Comments No 0 (1 standard drink = 0.6 oz pur e alcohol) Comments No Sex and Gender Information Value Date Recorded Sex Assigned at Female 02/06/2025 9:04 AM CDT Legal Sex Female 11:44 AM SUPERVISOR LOOPING Gender Identity Female 02/06/2025 9:04 AM CDT Sexual Orientation Straight 02/06/2025 9: 04 AM CDT documented as of this encounter Plan of Treatment Upcoming Encounters Date Type Department Care Team (Late st Contact Info) Description 06/17/2025 3:45 PM SUPERVISOR LOOPING Office Visit [facility] Oncology and Hematology [place] [address] [place] [address] Reynaldo Frances MD [address] [facility] [address] [place] [address] documented as of this encounter Visit Diagnoses Not on filedocumented in this encounter Care Teams Peer Support Specialist Relationship Specialty Start Date End Date Sher Ayers MD [address] [facility] [address] [place] [address] PCP - General Family Practice 05/09/18 documented as of this encounter
== END 2025-02-13 14:36 | disposition home or self-care (01) ==
LOC: ANHLAB 14:36
PROVIDERS: PCP Family Medicine; Visit Provider Internal Medicine Hematology & Oncology
DX: C34.91 Malignant neoplasm of unspecified part of right bronchus or lung (principal)
CPT/HCPCS: 36415; 80047; 80053; 85025

== ENCOUNTER 2025-03-12 02:44 | Day surgery (SDC) | payer MEDICARE, SELFPAY ==
--- OUTSIDE RECORDS SUMMARY | 2010-02-16 07:30 | XMS_ITS | Continuity of Care Document ---
Author Organization [facility] Address [address] [place] [address] Phone Care Team Providers Care Glass Selector Name Role Phone Castañeda OD, Mkie Unavailable Unavailable Procedures Procedure Date Eye Exam [...] Diagnoses Date Provider Providers Copied on Encounter [facility], [address] [place] [address] [address], [place], [place], [address], [place] tel:[phone] SEC [facility] No Information 8-201 0 Castañeda OD Mike. [address] , [address], [place], [address], [place]. tel:[phone] Office/outpat ient Visit, Est [facility], [address], [place], [place], [address], tel:[phone] SEC [facility] No Information Jean Carlos-0 4-201 0 Castañeda OD Mike. [address] [facility] , [address], [place], [facility], [place]. tel:[phone] [facility], [address], [place], [place], [address], [place] tel:[phone] SEC [facility] No Information September-2 7-201 0 Castañeda OD Mike. [address] , [address], [place], [facility], [place]. tel:[phone] [facility], [address], [place], [place], [address], [place] tel:[phone] SEC [facility] [place] No Information Sep-0 2-200 9 Castañeda OD Mike. [facility] , [address], [place], [facility], [place]. tel:[phone] Referring Provider: Rogelio Adames, [address] [place], [place] [address]ate Center [address], [place], [facility]. tel:[phone] [facility], [address] [place] [address] [address], [place], [place], [address], [place] tel:[phone] SEC [facility] [place] No Information 9-200 9 Jack Mercado. [address] [place], [place] [address]ate Center , [address], [place], [facility], [place]. tel:[phone] [facility], [address] [place] [address] [address], [place], [place], [address], [place] tel:[phone] [facility] No Information Dec-1 8-200 9 Jack Mercado. [facility] , [address], [place], [facility], [place]. tel:[phone] [facility], [address], [place], [place], [address], [place] tel:[phone] SEC [place] [facility] No Information Aug-1 0-200 9 Doisy Edward. [address] , [address], [place], [address], [place]. tel:[phone] Referring Provider: Mike Adames, [address], [place], [address]. tel:[phone] [facility], [address] [place] [address] [address], [place], [place], [address], [place] tel:[phone] SEC [facility] Center No Information 200 9 Doisy Edward. [facility] , [address], [place], [facility], [place]. tel:[phone] Referring Provider: Mike Adames, [address] [facility] [address], [place], [facility]. tel:[phone] [facility], [address] [place] [address] [address], [place], [place], [address], [place] tel:[phone] [facility] No Information 200 9 Doisy Edward. [facility] , [address], [place], [address], [place]. tel:[phone] Referring Provider: Mike Adames, [facility] [address], [place], [address]. tel:[phone] Office/outpat ient Visit, [facility], [address] [place] [address] [address], [place], [place], [address], [place] tel:[phone] [facility] No Information 200 9 Doisy Edward. [facility] [address], [place], [facility], [place]. tel:[phone] Referring Provider: Mike Adames, [facility] [address], [place], [address]. tel:[phone] [facility], [address], [place], [place], [address], [place] tel:[phone] SEC [facility] [place] No Information 1-200 9 Castañeda OD Mike. [address] , [address], [place], [address], [place]. tel:[phone] Family History Family Member Type Diagnosis Age At Onset No Information Payers Payer name Insurance type Covered republican ID Authoriza tion(s) No Information Social History [...]
[2025-03-04 12:29] VITALS: BMI 23.9
--- OUTSIDE RECORDS SUMMARY | 2025-03-12 02:47 | XMS_ITS | Clinical Summary ---
Author Organization [facility] Address [address] [place] [address] Care Team Providers Care Breaker Up Machine Operator Name Role Phone Unavailable Primary Care Provider Unavailabl e Social History Tobacco Use Types Packs/Day Years Used Date Smoking Tobacco: Never Assessed Comments Unknown Sex and Gender Information Value Date Recorded Sex Assigned at Not on file Legal Sex Female 2:41 PM LAW OFFICE RECEPTIONIST Gender Identity Not on file Sexual Orientation Not on file Plan of Treatment Health Maintenance Due Date Last Done Comments Hepatitis C Virus (HCV) Screening 1955 Cologuard 1998 Colonoscopy 1998 Colorectal Cancer Screening 1998 Immunochemical Fecal Occult Blood 1998 Pneumococcal Immunization (50+ years) (3 of 3 - PCV20 or PCV21) 01/23/2024 01/22/2019, 01/20/2017, 02/12/2015 Influenza Immunization (#1) 01/20/202501/20, 01/20/2017, 01/28/2016, Additional history exists SARS-COV-2 Immunization ( - 2023- season) 2025 Respiratory Syncytial Virus (RSV) Immunization (Adult) (1 [...]
--- OUTSIDE RECORDS SUMMARY | 2025-03-12 02:47 | XMS_ITS | Clinical Summary ---
Author Organization [facility] [address] Address [address] [place] [address] Care Team Providers Care Tractor Operator Battery Name Role Phone Sher Ayers MD Primary [...] on file Legal Sex Female 2:26 AM AIRCRAFT LOG CLERK Gender Identity Not on file Sexual Orientation Not on file Last Filed Vital Signs Vital Sign Reading Time Taken Comments Blood Pressure - - Pulse - - Temperature - - Respiratory Rate - - Oxygen Saturation - - Inhaled Oxygen Concentration - - Weight 75.8 kg (167 lb) 07/03/2017 1:05 PM AIRCRAFT LOG CLERK Height 160 cm (5' 3) 07/03/2017 1:05 PM AIRCRAFT LOG CLERK Body Mass Index 29.58 07/03/2017 1:05 PM AIRCRAFT LOG CLERK Plan of Treatment Health Maintenance Due Date [...] 02/12/2015 Zoster Vaccine Completed 12/18/2017, 10/06/2017 Insurance [facility] Address: [address] [address] [place] [address] [facility] Address: [address] [address] [place] [address] Care Teams Tractor Operator Battery Relationship Specialty Start Date End Date Sher Ayers MD [address] [facility] [address] [place] [address] PCP - General 05/10/13
--- OUTSIDE RECORDS SUMMARY | 2025-03-12 02:47 | XMS_ITS | Encounter Summary ---
Author Organization [facility] [employer] [facility] Address [address] [place] [address] Care Team Providers Care It Project Lead Name Role Phone Sher Ayers MD Primary Care Provider [phone] Encounter Details Date Type Department Care Team (Late Contact Info) Description 09/15/2022 Abstract [facility] Oncology and Hematology - [place] [address] [place] [address] Tho Reagan, RN Social History Tobacco Use Types Packs/Day Years Used Date Smoking Tobacco: Never Smokeless Tobacco: Never Alcohol Use Standard Drinks/Week Comments No 0 (1 standard drink = 0.6 oz pur e alcohol) Comments No Sex and Gender Information Value Date Recorded Sex Assigned at Female 02/06/2025 9:04 AM CDT Legal Sex Female 11:44 AM INSTRUMENTATION TECHNICIAN Gender Identity Female 02/06/2025 9:04 AM CDT Sexual Orientation Straight 02/06/2025 9: 04 AM CDT documented as of this encounter Plan of Treatment Upcoming Encounters Date Type Department Care Team (Late st Contact Info) Description 06/17/2025 3:45 PM INSTRUMENTATION TECHNICIAN Office Visit [facility] Oncology and Hematology [place] [address] [place] [address] Reynaldo Frances MD [address] [facility] [address] [place] [address] documented as of this encounter Visit Diagnoses Not on filedocumented in this encounter Care Teams It Project Lead Relationship Specialty Start Date End Date Sher Ayers MD [address] [facility] [address] [place] [address] PCP - General Family Practice 05/09/18 documented as of this encounter
--- OUTSIDE RECORDS SUMMARY | 2025-03-12 02:47 | XMS_ITS | Clinical Summary ---
Author Organization [facility] Address [address] [place] [address] Care Team Providers Care Insole Buffer Name Role Phone Unavailable Primary Care Provider [...] Vaccine ( - 2023-2 5 season) 2025 Influenza Adult (#1) 2025 RSV Immunization or 60+ Years (1 - 1-dose 75+ series) 2028 Hepatitis A Vaccines Aged Out No long er eligible based on patient's age to complete this topic Meningococcal B Vaccine Aged Out No l onger eligible based on patient's age to complete this topic Meningococcal Vaccine Aged Out No grace joe eligible based on patient's age to complete this topic RSV Immunizations Under 20 Months Aged Out No longer eligible based on patient's age to complete this topic
--- OUTSIDE RECORDS SUMMARY | 2025-03-12 02:47 | XMS_ITS | Clinical Summary ---
Author Organization [facility] Address [address] [place] [address] Care Team Providers Care Sulphate Tester Name Role Phone Shre Ayers MD Primary Care Provider [phone] Allergies Active Allergy Reactions Criticality Noted Date [...] daily. Active fluticasone propionate (FLONASE) 50 mcg/spray [place], Suspension nasal inhaler Administer 2 Sprays in [...] Encounters Date Type Department Care Team Description 02/14/2025 Orders Only [facility] Oncology and Hematology - [place] [address] [place] [address] Reynaldo Frances MD 02/13/2025 3:30 PM CDT Office Visit [facility] Oncology and Hematology - [place] [address] [place] [address] Reynaldo Frances MD Malignant neoplasm of right lung, unspecified part of lung (CMS/HCC) (Primary Dx) 02/13/2025 Orders Only [facility] Oncology and Hematology - [place] [address] [place] [address] Reynaldo Frances MD 02/11/2025 External Device Data [...] AM CDT Legal Sex Female 11:44 AM FASHION ARTIST Gender Identity Female 02/06/2025 9:04 AM CDT [...] st Contact Info) Description 06/17/2025 3:45 PM FASHION ARTIST Office Visit [facility] Oncology and Hematology - [place] [address] [facility] [address] [place] [address] Reynaldo Frances MD [address] [facility] [address] [place] [address] Health Maintenance Due Date Last Done Comments DTAP/TDAP/TD VACCINES (1 - Tdap) 1972 COLORECTAL SCREENING 1998 Colorectal Cancer Screening 1998 FIT-DNA Q 3 years 1998 FIT/FOBT Q 1 year 1998 Flex Sig/CT Colonography Q 5 years 1998 PNEUMOCOCCAL VACCINE 50+ YEA RS (1 of 1 - PCV) 2003 RSV VACCINE (60+ or ) (1 - Risk 50-74 years 1-dose series) 2003 ZOSTER VACCINE (1 of 2) 2003 OSTEOPOROSIS SCREENING 2018 INFLUENZA VACCINE (#1) 2024 BREAST CANCER SCREENING 02/13/2025 02/14/20 24, 01/25/2024, 05/07/2018, Additional history exists Procedures Procedure Name Priority Date/Time Associated Diagnosis Comments COMPREHENSIVE METABOLIC PANEL Routine 02/13/2025 11:15 AM CDT CBC WITH AUTODIFFERENTIAL Routine 2024 11:[address] CHEST W CONTRAST Routine 02/07/2025 9 :53 AM CDT MAMMO DIAGNOSTIC UNI LEFT W OR WO CAD Routine 02/14/2024 8:27 AM CDT from Last 3 Months or Most Recently Relevant to Health Maintenance Results * COMPREHENSIVE METABOLIC PANEL (02/13/2025 11:15 AM CDT) Blood us Reynaldo Frances MD CHEMISTRY ORDERABLES Final Resu lt * CBC WITH AUTODIFFERENTIAL (02/13/2025 11:11 AM CDT) Blood us Reynaldo Frances MD HEMATOLOGY ORDERABLES Final Res ult * CT CHEST W CONTRAST (02/07/2025 9:53 [...] Relevant to Health Maintenance Insurance Care Teams Sulphate Tester Relationship Specialty Start Date End Date Sher Ayers MD [address] [facility] [address] [place] [address] PCP - General Family Practice 05/09/18
[2025-03-12 11:27] VITALS: BP 143/73; PULSE 93; RESP 18; TEMP 36.6; O2SAT 98
[2025-03-12] MEDS: LACTATED RINGERS 1,000 ML 150 ML IV CONT (11:40)
[2025-03-12] MEDS: SIMETHICONE ORAL SUSPENSION 20 MG/0.3 ML 30 ML BOTTLE 1.8 ML PO (11:45)
--- NOTE | 2025-03-12 11:47 | WPDANESEPPF ---
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 Patient Data Age: 69 Gender: F Height: 1.6 m Weight: 59.6 kg Last Vital Signs Temp 97.8 F 03/12/25 11:27 Pulse 93 03/12/25 11:27 Resp 18 03/12/25 11:27 BP 143/73 H 03/12/25 11:27 Pulse Ox 98 03/12/25 11:27 O2 Del Method Room Air 03/12/25 11:27 Allergies Allergy/AdvReac Type Severity Reaction Status Date / Time amoxicillin Allergy Severe Rash Verified 03/12/25 11:21 oxytetracycline Allergy Severe Rash Verified 03/12/25 11:21 Penicillins Allergy Severe Rash Verified 03/12/25 11:21 strawberry Allergy Severe Rash Verified 03/12/25 11:21 tetracycline Allergy Severe Rash Verified 03/12/25 11:21 zolpidem Allergy Severe Hallucinati Verified 03/12/25 11:21 ng latex Allergy Itching Verified 03/12/25 11:21 [place] Allergy Severe Headache Uncoded 01/31/25 14:40 Home Medications ?Medication ?Instructions ?Recorded ?Confirmed ?Type aspirin 81 mg tablet,delayed 81 mg PO DAILY 05/07/19 03/04/25 History release calcium 600 mg (as 2 cap PO DAILY 10/18/23 03/12/25 History carbonate)-vitamin D3 10 mcg (400 unit) capsule acetaminophen 500 mg tablet 1,000 mg (2 x 500 mg) PO TID PRN 12/20/23 03/04/25 Rx shelly 7 days #90 tabs pantoprazole 40 mg tablet,delayed See Rx Instructions .Route 06/24/24 03/12/25 Rx release .COMPLEX #90 tabs amlodipine 5 mg tablet 5 mg PO DAILY #90 tabs 06/27/24 03/04/25 Rx pravastatin 20 mg tablet 20 mg PO DAILY #90 tabs 07/17/24 03/12/25 Rx fluticasone propionate 50 2 spray intranasal DAILY #54.6 mL 07/18/24 03/12/25 Rx mcg/actuation nasal spray,suspension bupropion HCl 150 mg tablet,12 hr See Rx Instructions .Route 09/17/24 03/12/25 Rx sustained-release .COMPLEX #180 tabs roflumilast 500 mcg tablet 500 mcg PO DAILY #90 tabs 11/12/24 03/12/25 Rx (Daliresp) fluticasone fur. 100 mcg-umeclid See Rx Instructions .Route 11/19/24 03/12/25 Rx 62.5 mcg-vilant 25 mcg .COMPLEX #180 ea inhalat.powder (Trelegy Ellipta) lisinopril 20 mg tablet See Rx Instructions .Route 11/19/24 03/12/25 Rx .COMPLEX #90 tabs albuterol sulfate 90 mcg/actuation See Rx Instructions .Route 11/25/24 03/04/25 Rx aerosol inhaler .COMPLEX #9 grams ondansetron 4 mg disintegrating 4 mg PO Q8H PRN nausea and 11/26/24 03/04/25 Rx tablet vomiting #60 tabs tizanidine 4 mg tablet 4 mg PO QHS PRN muscle spasticity 12/03/24 03/04/25 Rx #60 tabs ubrogepant 100 mg tablet (Ubrelvy) 100 mg PO ONCE PRN migraine 12/03/24 03/04/25 Rx headache #16 tabs fenofibrate nanocrystallized 145 See Rx Instructions .Route 12/16/24 03/12/25 Rx mg tablet .COMPLEX #90 tabs hydrocodone 5 mg-acetaminophen 325 1 tablet PO Q6H PRN pain #20 tabs 01/26/25 03/04/25 Rx mg tablet magnesium 250 mg tablet 250 mg PO DAILY 01/30/25 03/12/25 History cholestyramine 4 gram oral powder 4 g PO BID #60 ea 01/31/25 03/12/25 Rx for suspension in a packet albuterol sulfate 2.5 mg/3 mL See Rx Instructions .Route 03/04/25 03/04/25 History (0.083 %) solution for nebulization .COMPLEX PRN shortness of breath or wheezing trazodone 50 mg tablet See Rx Instructions .Route 03/05/25 Rx .COMPLEX #90 tabs Patient hx anesthesia problems: none Family hx anesthesia problems: none Results Review: All pre-operative results and documents have been reviewed as part of the pre-operative evaluation. [facility] Past Medical History Medical History Chronic neck pain Episodic migraine Hyperlipidemia Hypertension Neck pain Adenocarcinoma, lung Chronic kidney disease, stage 3a Marijuana dependence Financial difficulties Surgical History Surgical History Status post tubal ligation History of cholecystectomy History of D&C Status post hysterectomy Family History Family History Mother Family history of malignant neoplasm Family history of diabetes mellitus in first degree relative Diabetes mellitus Hypertension Family history of primary malignant neoplasm of liver, Onset Age: 73 Family history of lung disease Family history of malignant neoplasm of kidney, Onset Age: 73 Father Family history of lung cancer, Onset Age: 72 Family history of diabetes mellitus in first degree relative Diabetes mellitus Hypertension Grandparent Diabetes mellitus Family history of malignant neoplasm of brain Sibling Hypertension, Onset Age: 63 Patient's brother is Family history of pancreatic cancer Social History Social History Social History: Smoking packs per day: 2 Smoking cigarettes per day: 40.0 Years smoked: 50 Smoking pack-years: 100.00 Smoking status: Former smoker Tobacco type: cigarettes Second hand tobacco smoke exposure: Yes Smoking end date: 09/21/23 Alcohol intake: current Alcohol use details: rarely Substance use: current Substance use type: marijuana Other substance usage details: daily Last use: Daily Do You Feel Safe in your Home?: Yes Lack of Transportation: No Lack of Food: Never True Current Housing: I Have Housing Concerned About Future Housing: No Difficulty Paying Gas/Electric Bills: No Difficulty Paying for Meds: No Currently Unemployed: YES Education: High School Diploma/GED Difficulty w/ Childcare or Family Care: No Living arrangements: with family Occupation/Education: retired Gender identity (if verbalized by the patient): Female Sexual Orientation (if Verbalized by the Patient): Straight or Heterosexual Spiritual care concerns: No Anes - Eval Final PreProcedure Day of Procedure 03/12/25 11:47 Patient weight: normal Lungs: normal air movement Airway: Mallampati scale class II and special considerations (Edentulous. ) Neurological: alert and oriented Last oral intake: >/= 8 hours ASA classification: III Emergent: no Anesthetic plan: proceed Anesthesia type and monitoring: general GIVS and standard monitoring Results Review: All pre-operative results and documents have been reviewed as part of the pre-operative evaluation. HTN, hyperlipidemia, ALLY on CPAP, COPD w lung CA, ex smoker 100 pack years, pt now w wt loss/early satiety. Informed Consent: The patient's anesthetic plan and its attendant risks and benefits were discussed with the patient/family/POA. Questions were solicited and answers provided to the satisfaction of the patient/family/POA.
--- NOTE | 2025-03-12 12:29 | PM.IMHP ---
H&P: HPI History of Present Illness Date/Time: 03/12/25 12:29 Chief Complaint: History of Silva's esophagus-history of colon polyps Narrative: The patient was diagnosed with a short-segment Silva's esophagus 4 years ago, no dysplasia on biopsies. A colonoscopy was performed on the same date, finding diverticulosis and a 8 mm polyp. Of note, there was technical difficulty passing a colonoscope through the sigmoid and a gastroscope was used. She is now referred for EGD and colonoscopy. Review of Systems Review of Systems: All systems reviewed & are unremarkable except as noted in HPI and below PMFSH Past Medical History Medical History Chronic neck pain Episodic migraine Hyperlipidemia Hypertension Neck pain Adenocarcinoma, lung Chronic kidney disease, stage 3a Marijuana dependence Financial difficulties Surgical History Surgical History Status post tubal ligation History of cholecystectomy History of D&C Status post hysterectomy Family History Family History Mother Family history of malignant neoplasm Family history of diabetes mellitus in first degree relative Diabetes mellitus Hypertension Family history of primary malignant neoplasm of liver, Onset Age: 73 Family history of lung disease Family history of malignant neoplasm of kidney, Onset Age: 73 Father Family history of lung cancer, Onset Age: 72 Family history of diabetes mellitus in first degree relative Diabetes mellitus Hypertension Grandparent Diabetes mellitus Family history of malignant neoplasm of brain Sibling Hypertension, Onset Age: 63 Patient's brother is Family history of pancreatic cancer Social History Social History Social History: Smoking packs per day: 2 Smoking cigarettes per day: 40.0 Years smoked: 50 Smoking pack-years: 100.00 Smoking status: Former smoker Tobacco type: cigarettes Second hand tobacco smoke exposure: Yes Smoking end date: 09/21/23 Alcohol intake: current Alcohol use details: rarely Substance use: current Substance use type: marijuana Other substance usage details: daily Last use: Daily Do You Feel Safe in your Home?: Yes Lack of Transportation: No Lack of Food: Never True Current Housing: I Have Housing Concerned About Future Housing: No Difficulty Paying Gas/Electric Bills: No Difficulty Paying for Meds: No Currently Unemployed: YES Education: High School Diploma/GED Difficulty w/ Childcare or Family Care: No Living arrangements: with family Occupation/Education: retired Gender identity (if verbalized by the patient): Female Sexual Orientation (if Verbalized by the Patient): Straight or Heterosexual Spiritual care concerns: No Meds Home Medications and Allergies Home Medications ?Medication ?Instructions ?Recorded ?Confirmed ?Type aspirin 81 mg tablet,delayed 81 mg PO DAILY 05/07/19 03/04/25 History release calcium 600 mg (as 2 cap PO DAILY 10/18/23 03/12/25 History carbonate)-vitamin D3 10 mcg (400 unit) capsule acetaminophen 500 mg tablet 1,000 mg (2 x 500 mg) PO TID PRN 12/20/23 03/04/25 Rx shelly 7 days #90 tabs pantoprazole 40 mg tablet,delayed See Rx Instructions .Route 06/24/24 03/12/25 Rx release .COMPLEX #90 tabs amlodipine 5 mg tablet 5 mg PO DAILY #90 tabs 06/27/24 03/04/25 Rx pravastatin 20 mg tablet 20 mg PO DAILY #90 tabs 07/17/24 03/12/25 Rx fluticasone propionate 50 2 spray intranasal DAILY #54.6 mL 07/18/24 03/12/25 Rx mcg/actuation nasal spray,suspension bupropion HCl 150 mg tablet,12 hr See Rx Instructions .Route 09/17/24 03/12/25 Rx sustained-release .COMPLEX #180 tabs roflumilast 500 mcg tablet 500 mcg PO DAILY #90 tabs 11/12/24 03/12/25 Rx (Daliresp) fluticasone fur. 100 mcg-umeclid See Rx Instructions .Route 11/19/24 03/12/25 Rx 62.5 mcg-vilant 25 mcg .COMPLEX #180 ea inhalat.powder (Trelegy Ellipta) lisinopril 20 mg tablet See Rx Instructions .Route 11/19/24 03/12/25 Rx .COMPLEX #90 tabs albuterol sulfate 90 mcg/actuation See Rx Instructions .Route 11/25/24 03/04/25 Rx aerosol inhaler .COMPLEX #9 grams ondansetron 4 mg disintegrating 4 mg PO Q8H PRN nausea and 11/26/24 03/04/25 Rx tablet vomiting #60 tabs tizanidine 4 mg tablet 4 mg PO QHS PRN muscle spasticity 12/03/24 03/04/25 Rx #60 tabs ubrogepant 100 mg tablet (Ubrelvy) 100 mg PO ONCE PRN migraine 12/03/24 03/04/25 Rx headache #16 tabs fenofibrate nanocrystallized 145 See Rx Instructions .Route 12/16/24 03/12/25 Rx mg tablet .COMPLEX #90 tabs hydrocodone 5 mg-acetaminophen 325 1 tablet PO Q6H PRN pain #20 tabs 01/26/25 03/04/25 Rx mg tablet magnesium 250 mg tablet 250 mg PO DAILY 01/30/25 03/12/25 History cholestyramine 4 gram oral powder 4 g PO BID #60 ea 01/31/25 03/12/25 Rx for suspension in a packet albuterol sulfate 2.5 mg/3 mL See Rx Instructions .Route 03/04/25 03/04/25 History (0.083 %) solution for nebulization .COMPLEX PRN shortness of breath or wheezing trazodone 50 mg tablet See Rx Instructions .Route 03/05/25 Rx .COMPLEX #90 tabs Allergies Allergy/AdvReac Type Severity Reaction Status Date / Time amoxicillin Allergy Severe Rash Verified 03/12/25 11:21 oxytetracycline Allergy Severe Rash Verified 03/12/25 11:21 Penicillins Allergy Severe Rash Verified 03/12/25 11:21 strawberry Allergy Severe Rash Verified 03/12/25 11:21 tetracycline Allergy Severe Rash Verified 03/12/25 11:21 zolpidem Allergy Severe Hallucinati Verified 03/12/25 11:21 ng latex Allergy Itching Verified 03/12/25 11:21 [place] Allergy Severe Headache Uncoded 01/31/25 14:40 Vital Signs Vital Signs - 24 hr 03/12/25 11:27 03/12/25 11:27 Temperature 97.8 F 97.8 F Pulse Rate 93 93 Respiratory Rate 18 18 Blood Pressure 143/73 H 143/73 H Pulse Oximetry 98 98 Oxygen Delivery Room Air Room Air Exam Const: General: cooperative and healthy appearing Resp: Effort & Inspection: normal respiratory effort and able to speak in complete sentences Auscultation: clear to auscultation bilaterally Cardio: Rate: regular rate Rhythm: regular rhythm GI: Inspection: normal to inspection GI Palp: No No hepatosplenomegaly present Auscultation: normal bowel sounds Rectal Exam: deferred Skin: General skin exam: normal color Psych: Appearance: grossly normal Mental Status: mental status grossly normal Assessment and Plan Assessment and plan (1) Silva's esophagus: Qualifiers: Silva's esophagus type: without dysplasia Qualified Code(s): K22.70 - Silva's esophagus without dysplasia Code(s): K22.70 - Silva's esophagus without dysplasia Status: Acute Assessment and Plan: The patient is deemed a good candidate for the procedures. Consent signed. Will proceed. (2) Personal history of colonic polyps: Code(s): Z86.010 - Personal history of colon polyps Status: Acute
--- NOTE | 2025-03-12 12:44 | S_PTH ---
PATIENT: Megan Lyons LOC: [facility] U#:[id number] AGE/SX: 69/F ROOM: RE03/12/[address]: Malachi St MD : 1955 BED: DIS: 03/12/2025 SPEC #: [id number] RECD: 03/12/25 13:09 STATUS: KATHERINE RE #: [id number] NYDIA: 03/12/25 12:[address]: Malachi St DEPT: [facility] Surgical RECD BY: Demian Adams ENTERED: 03/12/25 13:11 SP TYPE: Surgical OTHR DR: Sher Ayers MD Tissues: A - Esophageal Biopsy B - Gastric Biopsy C - Gastric Biopsy D - Colon Polypectomy Procedures: Hematoxylin and Eosin Stain Gross and Microscopic Level 4
--- NOTE | 2025-03-12 12:54 | SUR.OPER ---
egd ended at 1244 and colonoscopy started at 1255.
[2025-03-12] MEDS: EPINEPHrine INJ 1 MG/10 ML SYRINGE XX (13:11)
[2025-03-12 13:18] VITALS: BP 156/78; PULSE 87; RESP 18; O2SAT 100
[2025-03-12 13:28] VITALS: BP 154/81; PULSE 88; RESP 17; O2SAT 100
[2025-03-12 13:38] VITALS: BP 142/56; PULSE 86; RESP 21; O2SAT 100
== END 2025-03-12 13:58 | disposition home or self-care (01) ==
PROVIDERS: PCP Family Medicine; Referring Provider Nurse Practitioner Family; Visit Provider Internal Medicine Gastroenterology
PROC: 0DJ08ZZ Inspection of Upper Intestinal Tract, Via Natural or Artificial Opening Endoscopic (ICD-10-PCS; CPT 45378; principal; 2025-03-12 12:30)
DX: Z12.11 Encounter for screening for malignant neoplasm of colon (principal); D12.5 Benign neoplasm of sigmoid colon; K22.70 Barrett's esophagus without dysplasia; K44.9 Diaphragmatic hernia without obstruction or gangrene; K29.80 Duodenitis without bleeding; K29.70 Gastritis, unspecified, without bleeding; K21.9 Gastro-esophageal reflux disease without esophagitis
CPT/HCPCS: 45381; 45385; 43239; 88305; J0168; J2003; J2704; J7120